=== PATIENT | female | born 1945 | race Caucasian/White ===

== ENCOUNTER 2017-08-30 09:18 | Observation (INO) | payer BC, OTHER ==
[~2017-08-30] VITALS: Ht 160 cm; Wt 75.2 kg
[2017-08-30] MEDS ORDERED: SODIUM CHLORIDE 0.9% 1000ML 1,000 ML IV STA (09:45)
[2017-08-30] MEDS ORDERED: ONDANSETRON INJ 2 MG/ML 2 ML VIAL IV STA ×2 (09:45→11:07)
--- NOTE | 2017-08-30 09:47 | EMERGENCY ROOM VISIT NOTE ---
History Report prepared by Criss: Mildred Guadarrama Under the Supervision of: Dr. Eric Alvares D.O. First contact with patient: 09:35 Chief Complaint: FLANK PAIN Stated Complaint: PAIN WHEN GOING TO THE BATHROOM,SIDE PAIN History of Present Illness The patient is a 72 year old female who presents to the Emergency Room with complaints of worsening right flank pain since last night. She is accompanied by her and daughter. She rates her discomfort as a 10/10 in severity. Tylenol has provided no pain relief. She complains of increased urinary frequency and dysuria. Her urine has been dark yellow in color. She also complains of nausea but has not vomited. The patient underwent a colonoscopy approximately 6 months ago and states she had several polyps removed. She denies any recent rectal bleeding. She states she has no chronic medical problems. Her PCP is Dr. De La Rosa with [facility]. The patient takes no daily blood thinners. Source of History: patient Onset: last night Position: back (right sided flank) Symptom Intensity: 10/10 Timing: worsening Modifying Factors (Relieving): tylenol Associated Symptoms: + nausea, + urinary symptoms, No vomiting Review of Systems See HPI for pertinent positives & negatives. A total of 10 systems reviewed and were otherwise negative. Past Medical & Surgical Medical Problems: (1) Colonic polyp (2) Hydronephrosis due to obstruction of ureter (3) Ureteric calculus (4) UTI (urinary tract infection) Surgical Problems: (1) History of hysterectomy Social History Smoking Status: Never Smoker Alcohol Use: none Drug Use: none Marital Status: Housing Status: lives with family Occupation Status: retired Current/Historical Medications Scheduled PRN Clonazepam (Klonopin), PO HS PRN for Anxiety and/or Sedation Allergies Coded Allergies: No Known Allergies (Unverified , 08/30/17) Physical Exam Vital Signs Date Time Temp Pulse Resp B/P (MAP) Pulse Ox O2 Delivery O2 Flow Rate FiO2 08/30/17 12:19 79 08/30/17 11:59 72 20 81/49 98 Room Air 08/30/17 10:42 84 08/30/17 10:41 82 18 99/55 95 Room Air 08/30/17 09:30 36.3 64 24 132/75 99 Room Air Physical Exam GENERAL: Patient is awake, alert, very anxious appearing and appears to be uncomfortable EYES: The conjunctivae are clear. The pupils are round and reactive. EARS, NOSE, MOUTH AND THROAT: The nose is without any evidence of any deformity. Mucous membranes are moist tongue is midline NECK: The neck is nontender and supple. RESPIRATORY: Normal respiratory effort is noted there is no evidence of wheezing rhonchi or rales CARDIOVASCULAR: Regular rate and rhythm noted there no murmurs rubs or gallops normal S1 normal S2 GASTROINTESTINAL: The abdomen is mildly distended but soft. No guarding or rigidity noted. BACK: Mild right sided CVA tenderness to percussion. ROM appeared intact. MUSCULOSKELETAL/EXTREMITIES: There is no evidence of gross deformity full range of motion is noted in the hips and shoulders SKIN: There is no obvious evidence of any rash. There are no petechiae, pallor or cyanosis noted. NEUROLOGIC: Patient is awake alert and oriented x3 Medical Decision & Procedures ER Provider Diagnostic Interpretation: Radiology results as stated below per my review and radiologist interpretation: CT SCAN OF THE ABDOMEN AND PELVIS WITHOUT IV CONTRAST CLINICAL HISTORY: Right-sided abdominal pain. COMPARISON STUDY: No priors. TECHNIQUE: CT scan of the abdomen and pelvis is performed from the lung bases to the proximal femora. Images are reviewed in the axial, sagittal, and coronal planes. IV contrast was not administered for this examination as per the referring clinician. A dose lowering technique was utilized adhering to the principles of ALARA. CT DOSE: 479.70 mGy.cm FINDINGS: Lung bases: The heart is normal in size and without pericardial effusion. A fat-containing Bochdalek hernia is seen at the right lung base. No airspace consolidation or pleural effusion is seen. A tiny hiatal hernia is identified. Liver: The unenhanced liver is normal in size, contour, and attenuation. There is no intrahepatic biliary ductal dilatation. Gallbladder: Unremarkable. Spleen: Normal in size and attenuation. There are scattered calcified splenic granulomas. Pancreas: Unenhanced pancreas is moderately atrophic and grossly unremarkable. Adrenal glands: Unremarkable. Kidneys: The unenhanced kidneys demonstrate cortical atrophy. There is a 6 mm obstructing calculus protruding from the right vesicoureteral junction seen on image #342. This causes moderate right hydroureteronephrosis. There is associated right-sided perinephric and periureteric stranding. No additional calculi are identified in either kidney. There is no evidence of contour deforming renal mass lesion. Abdominal vasculature: The abdominal aorta is normal in course and caliber noting mild atherosclerotic calcification. Bowel: There are scattered colonic diverticula without CT evidence of acute diverticulitis. No bowel obstruction is seen. A 15 mm fat attenuation lesion adjacent to the sigmoid colon on image #310 likely represents a chronically torsed epiploic appendage The appendix is well-visualized and normal. Peritoneum: There is no intraperitoneal free air or abdominal ascites. Lymphadenopathy: None. Pelvic viscera: The bladder is decompressed. The bladder wall appears mildly thickened and there is faint pericholecystic stranding. The uterus is surgically absent. No adnexal lesion is seen. Findings suggest pelvic floor prolapse. Skeletal structures: The skeletal structures are osteopenic. There is mild lumbosacral spondylosis. No lytic or blastic lesions are seen. IMPRESSION: 1. A 6 mm obstructing calculus protrudes from the right vesicoureteral junction. This causes moderate right hydroureteronephrosis. 2. No additional renal calculi are seen in either kidney. 3. Although decompressed, the bladder wall appears mildly thickened and pericystic stranding is suggested. Correlation with urinalysis will be required. 4. Additional findings as above. Electronically signed by: Jerardo Stephens M.D. 08/30/2017 10:28 AM Laboratory Results 08/30/17 10:00 Red Blood Count 4.18, Mean Corpuscular Volume 87.3, Mean Corpuscular Hemoglobin 28.0, Mean Corpuscular Hemoglobin Concent 32.1, Mean Platelet Volume 13.2, Neutrophils (%) (Auto) 72.6, Lymphocytes (%) (Auto) 20.3, Monocytes (%) (Auto) 1.8, Eosinophils (%) (Auto) 4.7, Basophils (%) (Auto) 0.3, Neutrophils # (Auto) 4.82, Lymphocytes # (Auto) 1.35, Monocytes # (Auto) 0.12, Eosinophils # (Auto) 0.31, Basophils # (Auto) 0.02 08/30/17 10:00 Test 08/30/17 10:00 White Blood Count 6.64 K/uL (4.8-10.8) Red Blood Count 4.18 M/uL (4.2-5.4) Hemoglobin 11.7 g/dL (12.0-16.0) Hematocrit 36.5 % (37-47) Mean Corpuscular Volume 87.3 fL (80-100) Mean Corpuscular Hemoglobin 28.0 pg (25-34) Mean Corpuscular Hemoglobin Concent 32.1 g/dl (32-36) Platelet Count 108 K/uL (130-400) Mean Platelet Volume 13.2 fL (7.4-10.4) Neutrophils (%) (Auto) 72.6 % Lymphocytes (%) (Auto) 20.3 % Monocytes (%) (Auto) 1.8 % Eosinophils (%) (Auto) 4.7 % Basophils (%) (Auto) 0.3 % Neutrophils # (Auto) 4.82 K/uL (1.4-6.5) Lymphocytes # (Auto) 1.35 K/uL (1.2-3.4) Monocytes # (Auto) 0.12 K/uL (0.11-0.59) Eosinophils # (Auto) 0.31 K/uL (0-0.5) Basophils # (Auto) 0.02 K/uL (0-0.2) RDW Standard Deviation 48.0 fL (36.4-46.3) RDW Coefficient of Variation 15.2 % (11.5-14.5) Immature Granulocyte % (Auto) 0.3 % Immature Granulocyte # (Auto) 0.02 K/uL (0.00-0.02) Platelet Estimate DECREASED Urine Color YELLOW Urine Appearance CLEAR (CLEAR) Urine pH 8.0 (4.5-7.5) Urine Specific Terrell 1.025 (1.000-1.030) Urine Protein NEG (NEG) Urine Glucose (UA) NEG (NEG) Urine Ketones NEG (NEG) Urine Occult Blood 2+ (NEG) Urine Nitrite POS (NEG) Urine Bilirubin NEG (NEG) Urine Urobilinogen NEG (NEG) Urine Leukocyte Esterase MODERATE (NEG) Urine WBC (Auto) >30 /hpf (0-5) Urine RBC (Auto) 5-10 /hpf (0-4) Urine Hyaline Casts (Auto) 10-30 /lpf (0-5) Urine Epithelial Cells (Auto) >30 /lpf (0-5) Urine Bacteria (Auto) 4+ (NEG) Urine Yeast (Auto) (NONE PRSENT) Anion Gap 6.0 mmol/L (3-11) Est Creatinine Clear Calc Drug Dose 44.6 ml/min Estimated GFR () 58.3 Estimated GFR (Non- 50.3 BUN/Creatinine Ratio 21.8 (10-20) Calcium Level 9.1 mg/dl (8.5-10.1) Total Bilirubin 0.7 mg/dl (0.2-1) Direct Bilirubin 0.1 mg/dl (0-0.2) Aspartate Amino Transf (AST/SGOT) 9 U/L (15-37) Alanine Aminotransferase (ALT/SGPT) 18 U/L (12-78) Alkaline Phosphatase 78 U/L (45-117) Total Protein 7.1 gm/dl (6.4-8.2) Albumin 3.9 gm/dl (3.4-5.0) Lipase 261 U/L (73-393) Laboratory results per my review. Medications Administered Medications (Trade) Dose Ordered Sig/[place] Route Start Time Stop Time Status Last Admin Dose Admin Sodium Chloride 1,000 ml @ 999 mls/hr Q1H1M STAT IV 08/30/17 09:45 08/30/17 10:45 DC 08/30/17 09:59 999 MLS/HR Ondansetron HCl (Zofran Inj) 4 mg NOW STAT IV 08/30/17 09:45 08/30/17 09:46 DC 08/30/17 09:58 4 MG Morphine Sulfate (MoRPHine SULFATE INJ) 4 mg Q15M PRN IV 08/30/17 09:45 09/13/17 09:44 08/30/17 11:57 4 MG Ondansetron HCl (Zofran Inj) 4 mg NOW STAT IV 08/30/17 11:07 08/30/17 11:08 DC 08/30/17 11:11 4 MG Ceftriaxone Sodium (Rocephin Inj) 1 gm NOW STAT IV 08/30/17 11:13 08/30/17 11:14 DC 08/30/17 11:54 1 GM ED Course 0942: The patient was evaluated in room C7. A complete history and physical examination were performed. 0945: Morphine Sulfate 4 mg IV, Zofran 4 mg IV, NSS 1000 ml @ 999 mls/hr IV. 1035: I reevaluated the patient. She is still having a lot of pain. 1107: Zofran 4 mg IV. 1113: Rocephin 1 gm IV. 1127: I discussed the patients case with Mary Ann Birch. He recommends I consult with Urology. The patient will be further evaluated. 1143: I discussed the patients case with Mary Ann Hendrix [facility]. The patient will be further evaluated. Medical Decision Prior records/ancillary studies reviewed. Triage Nursing notes reviewed. Additional history obtained from the family. The patient's history was concerning for kidney pain. Differential diagnosis: Etiologies such as renal colic, appendicitis, diverticulitis, mesenteric ischemia, aortic pathology, infections, inflammatory bowel disease, PUD, biliary pathology, UTI, as well as others were entertained. The patient is a 72-year-old female who presented to the emergency department for an evaluation of right flank pain. The patient very significant right flank pain but also urinary pressure. Her overall history and physical exam appeared to be consistent with a urinary tract infection or possibly a kidney stone. The patient was treated with IV fluids IV pain medicine and IV antiemetics. On subsequent reevaluation she was somewhat improved. She was found to have signs of a very large distal ureteral calculus. The patient was treated with IV antibiotics for presumed urinary tract infection. Urine was sent for culture. I discussed the patient's laboratory and radiographic studies with her. Because of her symptoms and her findings of urinary infection I also discussed her case with the on-call [facility] hospitalist as well as the on-call [facility] urologist. They've agreed to evaluate the patient for further management and disposition. I discussed patient's laboratory radiographic studies with her and her family members. Medication Reconcilliation Current Medication List: was personally reviewed by me Consults Time Called: 1123 [facility]ing [facility] Returned Call: 1127 I discussed the patients case with Mary Ann Birch. He recommends I consult with Urology. The patient will be further evaluated. Additional Consults: Time Called: 1140 Consulted Physician: Mary Ann Hendrix [facility] Returned Call: 1143 Additional Comments: I discussed the patients case with Mary Ann Hendrix [facility]. The patient will be further evaluated. Impression Primary Impression: Hydronephrosis Additional Impressions: Kidney stone Pyelonephritis Scribe Attestation The scribe's documentation has been prepared under my direction and personally reviewed by me in its entirety. I confirm that the note above accurately reflects all work, treatment, procedures, and medical decision making performed by me. Departure Information Dispostion Being Evaluated By Hospitalist Referrals No Doctor, Assigned (PCP) Patient Instructions My [facility] Health Problem Qualifiers Primary Impression: Hydronephrosis Hydronephrosis type: with ureteral calculous obstruction Qualified Codes: N13.2 - Hydronephrosis with renal and ureteral calculous obstruction
[2017-08-30] MEDS: MoRPHine SULFATE 4 MG/ML 1 ML CARP\\VIAL IV PRN ×4 (09:59→12:33)
[2017-08-30 10:17] LABS: MEAN CORPUSCULAR HGB CONC 32.1 g/dl (32-36)
--- NOTE | 2017-08-30 10:29 | DIAGNOSTIC IMAGING REPORT ---
CT SCAN OF THE ABDOMEN AND PELVIS WITHOUT IV CONTRAST CLINICAL HISTORY: Right-sided abdominal pain. COMPARISON STUDY: No priors. TECHNIQUE: CT scan of the abdomen and pelvis is performed from the lung bases to the proximal femora. Images are reviewed in the axial, sagittal, and coronal planes. IV contrast was not administered for this examination as per the referring clinician. A dose lowering technique was utilized adhering to the principles of ALARA. CT DOSE: 479.70 mGy.cm FINDINGS: Lung bases: The heart is normal in size and without pericardial effusion. A fat-containing Bochdalek hernia is seen at the right lung base. No airspace consolidation or pleural effusion is seen. A tiny hiatal hernia is identified. Liver: The unenhanced liver is normal in size, contour, and attenuation. There is no intrahepatic biliary ductal dilatation. Gallbladder: Unremarkable. Spleen: Normal in size and attenuation. There are scattered calcified splenic granulomas. Pancreas: Unenhanced pancreas is moderately atrophic and grossly unremarkable. Adrenal glands: Unremarkable. Kidneys: The unenhanced kidneys demonstrate cortical atrophy. There is a 6 mm obstructing calculus protruding from the right vesicoureteral junction seen on image #342. This causes moderate right hydroureteronephrosis. There is associated right-sided perinephric and periureteric stranding. No additional calculi are identified in either kidney. There is no evidence of contour deforming renal mass lesion. Abdominal vasculature: The abdominal aorta is normal in course and caliber noting mild atherosclerotic calcification. Bowel: There are scattered colonic diverticula without CT evidence of acute diverticulitis. No bowel obstruction is seen. A 15 mm fat attenuation lesion adjacent to the sigmoid colon on image #310 likely represents a chronically torsed epiploic appendage The appendix is well-visualized and normal. Peritoneum: There is no intraperitoneal free air or abdominal ascites. Lymphadenopathy: None. Pelvic viscera: The bladder is decompressed. The bladder wall appears mildly thickened and there is faint pericholecystic stranding. The uterus is surgically absent. No adnexal lesion is seen. Findings suggest pelvic floor prolapse. Skeletal structures: The skeletal structures are osteopenic. There is mild lumbosacral spondylosis. No lytic or blastic lesions are seen. IMPRESSION: 1. A 6 mm obstructing calculus protrudes from the right vesicoureteral junction. This causes moderate right hydroureteronephrosis. 2. No additional renal calculi are seen in either kidney. 3. Although decompressed, the bladder wall appears mildly thickened and pericystic stranding is suggested. Correlation with urinalysis will be required. 4. Additional findings as above. Electronically signed by: Jerardo Stephens M.D. 08/30/2017 10:28 AM Dictated Date/Time: 08/30/2017 10:22 AM
[2017-08-30] MEDS ORDERED: KLN/5 PO (10:31)
[2017-08-30 10:34] LABS: ALBUMIN 3.9 gm/dl (3.4-5.0); CALCIUM 9.1 mg/dl (8.5-10.1); CREATININE 1.09 mg/dl (0.60-1.20)
[2017-08-30 10:37] LABS: TOTAL PROTEIN 7.1 gm/dl (6.4-8.2)
[2017-08-30 10:42] LABS: HEMATOCRIT 36.5 % (37-47); HEMOGLOBIN 11.7 g/dL (12.0-16.0); MEAN CELL VOLUME 87.3 fL (80-100); RED CELL DISTRIBUTION WIDTH CV 15.2 % (11.5-14.5); WHITE BLOOD COUNT 6.64 K/uL (4.8-10.8)
[2017-08-30 10:45] LABS: BASO % 0.3 %; BASO ABS # 0.02 K/uL (0-0.2); EOS % 4.7 %; EOS ABS # 0.31 K/uL (0-0.5); IG# 0.02 K/uL (0.00-0.02); LYMPH % 20.3 %; LYMPH ABS # 1.35 K/uL (1.2-3.4); MEAN PLATELET VOLUME 13.2 fL (7.4-10.4); MONO % 1.8 %; MONO ABS # 0.12 K/uL (0.11-0.59); NEUT % 72.6 %; NEUT ABS # 4.82 K/uL (1.4-6.5); PLATELET COUNT 108 K/uL (130-400)
[2017-08-30] MEDS ORDERED: CEFTRIAXONE SOD INJ 1 GM ADDVIAL IV STA (11:13)
[2017-08-30] MEDS ORDERED: ONDANSETRON INJ 2 MG/ML 2 ML VIAL IV PRN (12:00)
[2017-08-30] MEDS ORDERED: CLONAZEPAM 0.5 MG TAB PO PRN (12:00)
[2017-08-30] MEDS ORDERED: IV FLUIDS COMPLETED PRN (12:45)
--- NOTE | 2017-08-30 12:53 | HISTORY & PHYSICAL EXAMINATION ---
DATE OF ADMISSION: 08/30/2017 PRIMARY CARE PHYSICIAN: Dr. De La Rosa. CHIEF COMPLAINT: Lower abdominal pressure, difficulty in urination with pain. HISTORY OF PRESENT COMPLAINT: She is a 72-year-old female with significant past medical history including panic disorder, hyperlipidemia and GERD, apparently has been complaining of lower abdominal pressure and pain in the right lower abdomen, since last night. She has had problem with voiding and she has had pain when making urine. Her pain is mostly in the right lower back that goes down to the right groin area. She feels weak and tired and she has had nausea, especially following administration of medication in the ER. She generally weak and lethargic and she feels dry; no fever, chills or rigors. In the Emergency Room, she was hemodynamically stable. She was afebrile with normal white count, but CAT scan of the abdomen and pelvis did show a right-sided ureteric stone obstructing the ureter with hydronephrosis and may have infection as well. From that point, she was admitted to medical floor. PAST MEDICAL HISTORY: Significant for panic disorder, hyperlipidemia and also GERD. PAST SURGICAL HISTORY: Significant for total abdominal hysterectomy with removal of tubes. FAMILY HISTORY: Father did have Alzheimer disease and sister has Alzheimer disease. SOCIAL HISTORY: She is . She lives with her . She never smoked or used any alcohol and she is reasonably ambulant. ALLERGIES: NKDA. MEDICATIONS: Noted in the chart only Klonopin, but she has been taking docusate sodium 100 mg b.i.d., MiraLax 1 packet daily, Zofran 8 mg as directed, Melatonin 5 mg daily, buspirone 15 mg at bedtime, cholecalciferol 10,000 units daily, atorvastatin 40 mg daily, ranitidine 150 mg daily, and Fosamax 70 mg every week. REVIEW OF SYSTEMS: CENTRAL NERVOUS SYSTEM: No headache, no blurred vision, numbness or tingling. RESPIRATORY: No fever, chills or rigors. No cough or phlegm or shortness of breath. CARDIOVASCULAR: No chest pain, palpitation. GASTROINTESTINAL: Did have lower abdominal pain and right lower quadrant pain as well, radiation to the groin on the right side. GENITOURINARY: Did not have any issue with bowel but did have difficulty voiding with some pain on micturition. MUSCULOSKELETAL: No acute arthritis. SKIN: Generally, she did not have any rash and/or enlargement of lymph nodes. PHYSICAL EXAMINATION: GENERAL: On examination in the Emergency Room, she was complaining of some dryness of the mouth and some nausea, but no other acute distress. VITAL SIGNS: Temperature 36.3, pulse was 84, blood pressure 99/55, saturation 95% on room air. HEENT: Unremarkable. NECK: Supple. No JVD, no bruit. CHEST: Clear to auscultate bilaterally. HEART: S1, S2 regular. No murmur appreciated. ABDOMEN: Soft, benign, mildly tender in the hypogastrium, right renal angle was tender. Bowel sounds present. EXTREMITIES: Negative for any edema. MUSCULOSKELETAL SYSTEM: Did not show any acute arthritis involving any joint. CENTRAL NERVOUS SYSTEM: She was alert, awake, oriented x3. No focal sensory and/or motor deficit appreciated. LABORATORY DATA: Noted today - white count was 6.64, H&H 11.7/36.5, platelets was 108, sodium 138, potassium 4.0, chloride 105, carbon dioxide 27, BUN slightly high at 24, creatinine 1.09, glucose was 105. LFTs normal. Lipase 261. UA examination showed occult blood 2+, leukocyte esterase moderate, bacteria 4+, white count more than 30. IMAGING DATA: CT of the abdomen and pelvis reported as 6 mm nonobstructing calculus protrudes from the right vesicoureteral junction, moderate hydronephrosis in the right side, bladder wall appears mildly thickened and pericystic stranding is suggested, may have cystitis as well. IMPRESSION AND PLAN: 1. Right hydronephrosis secondary to ureteric stone. The patient may have pyelonephritis, will be admitted to medical floor. She was started with intravenous ceftriaxone and will continue with that. She will be given IV fluid to combat mild dehydration, pain medications as needed. Urology consulted. 2. Urinary tract infection, seems to be complicated. Again, urine culture will be sent and she was started with intravenous ceftriaxone and will continue with that. She will be given IV fluid as well. 3. Panic disorder. Has been on medication lisinopril and BuSpar, will continue with that. 4. Gastrointestinal prophylaxis with ranitidine. 5. Deep venous thrombosis prophylaxis with subcutaneous heparin. 6. Code status: I have discussed with the patient, she will be a full code. In my clinical assessment, the beneficiary meets criteria as per CMS for 2-midnight stay in the hospital. SIGRID
[2017-08-30 13:44] VITALS: BP 121/73; PULSE 82; TEMP 36.6; O2SAT 91; Ht 160 cm; Wt 75.2 kg
[2017-08-30] MEDS: SODIUM CHLORIDE 0.9% 1000ML 1,000 ML IV SCH ×2 (15:09→21:54)
[2017-08-30] MEDS: KETOROLAC TROMETHAMINE 15 MG/ML VIAL IV PRN ×2 (15:09→21:55)
[2017-08-30 15:20] VITALS: BP 98/62; PULSE 69; TEMP 36.7; O2SAT 92
[2017-08-30] MEDS: HEPARIN SOD 5000 UNIT/0.5 ML CARP SQ SCH ×2 (15:33→21:53)
--- NOTE | 2017-08-30 17:26 | Urology Consultation ---
History General Date of Service: Aug 30, 2017. Primary Care Physician: Vandana Bales Pt seen a urologist before?: No History of Present Illness 72-year-old female who begain having severe right sided flank pain last night. She described the pain as dull and sharp. The pain began in the right flank and then radiated to the right groin. She had some difficulty with urination. Trouble making urine. No hematuria. No dysuria. She also reports fatigue and low energy. Nausea. Min urge and freq. She was brought to the ED. No fever noted. A CT scan was performed. This showed a 6mm stone in the right UVJ. Mod hydro. Stone appeared to be very close to the bladder. She was admitted to the hospital for further evaluation and possible intervention. UA susp for possible infx. WBC and Cr normal. Laboratory Labs were reviewed and are within normal limits unless listed below. Labs are available in the chart and at [facility] Problem List Medical Problems: (1) Hydronephrosis Status: Acute (2) Kidney stone Status: Acute (3) Pyelonephritis Status: Acute Past History other Past Surgical History: other Social History Hx Tobacco Use In Past Year?: No Smoking: non-smoker Alcohol: no current use Marital status: Occupation status: retired History of MDRO No Allergies Coded Allergies: No Known Allergies (Unverified , 08/30/17) Medications Home Medications: Home Meds and Scripts Medications Dose Route/Sig Max Daily Dose Days Date Category Dose Instructions Klonopin (Clonazepam) 0.5 Mg Tab PO HS PRN 08/30/17 Reported PATIENT IS UNSURE OF DOSE Inpatient Medications: Current Inpatient Medications Medications (Trade) Dose Ordered Sig/[place] Route Start Time Stop Time Status Last Admin Dose Admin Heparin Sodium (Porcine) (Heparin Sq 5000 Unit/0.5ml) 5,000 unit Q8 SQ 08/30/17 15:00 09/29/17 14:59 08/30/17 15:33 5,000 UNIT Ondansetron HCl (Zofran Inj) 4 mg Q6H PRN IV 08/30/17 12:00 09/29/17 11:59 Clonazepam (Klonopin Tab) 0.5 mg HS PRN PO 08/30/17 12:00 09/29/17 11:59 Ceftriaxone Sodium 1 gm/ Dextrose 50 ml @ 100 mls/hr DAILY@0900 IV 08/31/17 09:00 09/10/17 08:59 Sodium Chloride 1,000 ml @ 100 mls/hr Q10H IV 08/30/17 15:00 08/31/17 10:59 08/30/17 15:09 100 MLS/HR Ketorolac Tromethamine (Toradol Inj) 15 mg Q6H PRN IV 08/30/17 12:15 09/04/17 12:14 08/30/17 15:09 15 MG Miscellaneous (Iv Fluids Completed) 1 ea PRN PRN N/A 08/30/17 12:45 08/30/18 12:44 Review of Systems Review of Systems Constitutional: No fever Gastrointestinal: + abdominal pain Cardiovascular: No chest pain Respiratory: No shortness of breath Skin: No rash Female : + frequent urination, + kidney stones All Other Systems: Reviewed and Negative Physical Exam Vital Signs: Vital Signs Past 12 Hours Date Time Temp Pulse Resp B/P (MAP) Pulse Ox O2 Delivery O2 Flow Rate FiO2 08/30/17 15:20 36.7 69 18 98/62 (74) 92 Room Air 08/30/17 13:44 36.6 82 18 121/73 91 Room Air 08/30/17 13:28 91 20 103/58 97 Room Air 08/30/17 12:37 83 20 108/60 97 Room Air 08/30/17 12:19 79 08/30/17 11:59 72 20 81/49 98 Room Air 08/30/17 10:42 84 08/30/17 10:41 82 18 99/55 95 Room Air 08/30/17 09:30 36.3 64 24 132/75 99 Room Air Physical Exam: General Appearance: WD/WN, no apparent distress ENT: normal ENT inspection, hearing grossly normal Neck: no adenopathy Respiratory/Chest: chest non-tender, lungs clear Cardiovascular: regular rate, rhythm, no edema Neurologic/Psychiatric: alert, oriented x 3 Skin: warm/dry Lymphatic: no adenopathy Assessment & Plan Assessment & Plan (1) Ureteric calculus (2) UTI (urinary tract infection) Pt has a 6mm stone at the Right UVJ. Moderate hydro. It is possible that she will be able to pass the stone on her own given that it is already so distal. IV fluids. Flomax. Antibiotics. Pain control. If the patient is unable to pass the stone overnight then we may decide to take the patient to the OR for Ureteroscopy, Stone Extraction, and Stent Placement. Will re-eval in the AM.
[2017-08-30 22:55] VITALS: BP 94/57; PULSE 75; TEMP 36.4; O2SAT 96
[2017-08-31] MEDS: HEPARIN SOD 5000 UNIT/0.5 ML CARP SQ SCH ×3 (05:25→21:36)
[2017-08-31 06:27] LABS: CREATININE 0.8 mg/dl (0.60-1.20); POTASSIUM 3.9 mmol/L (3.5-5.1)
[2017-08-31 06:38] LABS: HEMATOCRIT 27.9 % (37-47); HEMOGLOBIN 9.3 g/dL (12.0-16.0); MEAN CELL VOLUME 88.6 fL (80-100); MEAN CORPUSCULAR HEMOGLOBIN 29.5 pg (25-34); MEAN CORPUSCULAR HGB CONC 33.3 g/dl (32-36); MEAN PLATELET VOLUME 12.6 fL (7.4-10.4); PLATELET COUNT 111 K/uL (130-400); RED CELL DISTRIBUTION WIDTH CV 15.6 % (11.5-14.5); RED CELL DISTRIBUTION WIDTH SD 50.1 fL (36.4-46.3)
[2017-08-31 07:02] VITALS: BP 95/58; PULSE 82; TEMP 36.8; O2SAT 94
[2017-08-31] MEDS: KETOROLAC TROMETHAMINE 15 MG/ML VIAL IV PRN ×3 (07:51→19:59)
[2017-08-31] MEDS: CEFTRIAXONE SOD INJ 1 GM in DEXTROSE 5% ADD-VANTAGE 50ML 50 ML IV SCH (08:27)
[2017-08-31] MEDS ORDERED: HYDROmorphone INJ 1 MG/ML SYR IV PRN (09:45)
--- NOTE | 2017-08-31 11:32 | Progress Note ---
Subjective Date of Service: Aug 31, 2017. Subjective Still having some voiding sxs. Urge. Freq. Hesitancy. Occ pain in lower quad/flank. Controlled with meds. Cr stable and normal WBC stable and normal Hasn't passed the stone yet. Problem List Medical Problems: (1) Hydronephrosis Status: Acute (2) Kidney stone Status: Acute (3) Pyelonephritis Status: Acute Review of Systems Constitutional: No fever, No chills Respiratory: No cough Cardiac: No chest pain Abdomen: + pain Objective Vital Signs Date Time Temp Pulse Resp B/P (MAP) Pulse Ox O2 Delivery O2 Flow Rate FiO2 08/31/17 07:30 Room Air 08/31/17 07:02 36.8 82 19 95/58 (70) 94 Room Air 08/31/17 00:00 Room Air 08/30/17 22:55 36.4 75 18 94/57 (69) 96 Room Air 08/30/17 15:20 36.7 69 18 98/62 (74) 92 Room Air 08/30/17 14:30 Room Air 08/30/17 13:44 36.6 82 18 121/73 91 Room Air 08/30/17 13:28 91 20 103/58 97 Room Air 08/30/17 12:37 83 20 108/60 97 Room Air 08/30/17 12:19 79 08/30/17 11:59 72 20 81/49 98 Room Air Physical Exam General Appearance: WD/WN, no apparent distress Respiratory/Chest: chest non-tender Cardiovascular: regular rate, rhythm Abdomen: normal bowel sounds Laboratory Results Last 24 Hours Test 08/30/17 14:44 08/31/17 05:19 Prothrombin Time 10.4 SECONDS Prothromb Time International Ratio 1.0 White Blood Count 9.80 K/uL Red Blood Count 3.15 M/uL Hemoglobin 9.3 g/dL Hematocrit 27.9 % Mean Corpuscular Volume 88.6 fL Mean Corpuscular Hemoglobin 29.5 pg Mean Corpuscular Hemoglobin Concent 33.3 g/dl RDW Standard Deviation 50.1 fL RDW Coefficient of Variation 15.6 % Platelet Count 111 K/uL Mean Platelet Volume 12.6 fL Sodium Level 140 mmol/L Potassium Level 3.9 mmol/L Chloride Level 110 mmol/L Carbon Dioxide Level 24 mmol/L Anion Gap 6.0 mmol/L Blood Urea Nitrogen 22 mg/dl Creatinine 0.80 mg/dl Est Creatinine Clear Calc Drug Dose 60.8 ml/min Estimated GFR () 84.8 Estimated GFR (Non- 73.1 BUN/Creatinine Ratio 27.1 Random Glucose 98 mg/dl Calcium Level 8.0 mg/dl Assessment and Plan (1) Ureteric calculus (2) UTI (urinary tract infection) Still hasn't passed the stone. It is close. Still may be able to pass it on her own. Continue IV fluids and Flomax. Pain control. Dr. Carty is back tomorrow. If stone still hasn't passed, may consider Uscope at that time.
[2017-08-31 15:28] VITALS: BP 93/55; PULSE 74; TEMP 36.6; O2SAT 93
--- NOTE | 2017-08-31 16:01 | Progress Note ---
Internal Med Progress Note Date of Service: Aug 31, 2017. Provider Documentation: SUBJECTIVE: not passed stone yet pain is controlled with pain meds no nausea afebrile no sob OBJECTIVE: Vital Signs-as noted below Exam: General-alert and oriented. Not in distress ENT-Normal hearing Neck-no neck masses supple Lungs-cta b/l no wheezing no crackles Heart-S1 and S2 heard regular rate and rthym, no murmurs Abdomen-Soft bowel sounds present non tender no distension no cva tenderness Extremities-No edema no erythema Neuro-alert and awake moves extremities Lab data as noted below. ASSESSMENT & PLAN: 1. Right hydronephrosis secondary to ureteric stone. Pyelonephritis? but no leukocytosis. cx no growth so far on Rocephin fluids and Flomax 6mm stone at right vesicoureteral junction. trying to pass If not passed by tomorrow plan for cystoscopy as per urology 2. Urinary tract infection, seems to be complicated. on abx as above cx no growth so far 3. Panic disorder. On Klonopin prn 4. Gastrointestinal prophylaxis with ranitidine. 5. Deep venous thrombosis prophylaxis with subcutaneous heparin. DISPOSITION monitor in medical floor possible d/c in 1-2 days Vital Signs: Date Time Temp Pulse Resp B/P (MAP) Pulse Ox O2 Delivery O2 Flow Rate FiO2 08/31/17 15:28 36.6 74 18 93/55 (68) 93 Room Air 08/31/17 07:30 Room Air 08/31/17 07:02 36.8 82 19 95/58 (70) 94 Room Air 08/31/17 00:00 Room Air 08/30/17 22:55 36.4 75 18 94/57 (69) 96 Room Air Lab Results: Results Past 24 Hours Test 08/31/17 05:19 Range/Units White Blood Count 9.80 4.8-10.8 K/uL Red Blood Count 3.15 4.2-5.4 M/uL Hemoglobin 9.3 12.0-16.0 g/dL Hematocrit 27.9 37-47 % Mean Corpuscular Volume 88.6 80-100 fL Mean Corpuscular Hemoglobin 29.5 25-34 pg Mean Corpuscular Hemoglobin Concent 33.3 32-36 g/dl RDW Standard Deviation 50.1 36.4-46.3 fL RDW Coefficient of Variation 15.6 11.5-14.5 % Platelet Count 111 130-400 K/uL Mean Platelet Volume 12.6 7.4-10.4 fL Sodium Level 140 136-145 mmol/L Potassium Level 3.9 3.5-5.1 mmol/L Chloride Level 110 98-107 mmol/L Carbon Dioxide Level 24 21-32 mmol/L Anion Gap 6.0 3-11 mmol/L Blood Urea Nitrogen 22 7-18 mg/dl Creatinine 0.80 0.60-1.20 mg/dl Est Creatinine Clear Calc Drug Dose 60.8 ml/min Estimated GFR () 84.8 Estimated GFR (Non- 73.1 BUN/Creatinine Ratio 27.1 10-20 Random Glucose 98 70-99 mg/dl Calcium Level 8.0 8.5-10.1 mg/dl
[2017-08-31] MEDS: SODIUM CHLORIDE 0.9% 1000ML 1,000 ML IV SCH (16:36)
[2017-08-31 22:47] VITALS: BP 108/64; PULSE 78; TEMP 36.5; O2SAT 95
[2017-09-01] MEDS: SODIUM CHLORIDE 0.9% 1000ML 1,000 ML IV SCH ×2 (00:13→10:55)
[2017-09-01] MEDS: HEPARIN SOD 5000 UNIT/0.5 ML CARP SQ SCH ×2 (05:23→13:33)
[2017-09-01] MEDS: KETOROLAC TROMETHAMINE 15 MG/ML VIAL IV PRN (05:29)
[2017-09-01 07:48] VITALS: BP 122/72; PULSE 83; TEMP 36.6; O2SAT 96
[2017-09-01] MEDS ORDERED: OXYCODONE/ACETAMINOPHEN 5-325 TAB PO PRN (10:30)
--- NOTE | 2017-09-01 10:36 | Progress Note ---
Subjective Date of Service: Sep 01, 2017. Subjective Pt evaluation today including: conversation w/ patient, physical exam, chart review, lab review, conversation w/ sales enablement consultant Voiding: no voiding problems Patient continues with pelvic and bladder pressure. Has not passed stone yet. Is not having much pain. Has had iv toradol this am only. No nausea. Is very motivated to go home. Problem List Medical Problems: (1) Hydronephrosis Status: Acute (2) Kidney stone Status: Acute (3) Pyelonephritis Status: Acute Review of Systems Constitutional: No fatigue Cardiac: No chest pain, No palpitations Female : + urinary frequency Psychiatric: + anxiety Heme: No night sweats Endo: No fatigue Objective Vital Signs Date Time Temp Pulse Resp B/P (MAP) Pulse Ox O2 Delivery O2 Flow Rate FiO2 09/01/17 08:00 Room Air 09/01/17 07:48 36.6 83 16 122/72 (89) 96 Room Air 09/01/17 00:00 Room Air 08/31/17 22:47 36.5 78 18 108/64 (79) 95 Room Air 08/31/17 15:40 Room Air 08/31/17 15:28 36.6 74 18 93/55 (68) 93 Room Air Physical Exam General Appearance: WD/WN, no apparent distress, + obese Eyes: normal inspection, EOMI ENT: hearing grossly normal Neck: supple, no JVD, trachea midline Respiratory/Chest: normal breath sounds, no respiratory distress, no accessory muscle use Cardiovascular: regular rate, rhythm Abdomen: soft Extremities: non-tender, normal inspection, no pedal edema, no calf tenderness Neurologic/Psychiatric: no motor/sensory deficits, alert, normal mood/affect, oriented x 3 Skin: normal color, warm/dry, no rash Assessment and Plan right uvj stone I showed the ct scan to pt and her . stones in this location usually pass. She looks very comfortable now. Surgery will cause additional pain for another 2 days post-op. I strongly suggest observation with daily flomax. She wants to go home. Her anxiety is worsened by being in the hospital. We agree to try to manage for the next 6 hours with oral pain meds only. If successful then send home on daily flomax with oral pain meds to try to pass stone at home She will need a hat for toilet and a strainer. I will see her next week in [facility] clinic to assess progress If her pain returns today and oral pain meds cant control it then we can keep her and remove the stone tomorrow evening.
[2017-09-01] MEDS: CEFTRIAXONE SOD INJ 1 GM in DEXTROSE 5% ADD-VANTAGE 50ML 50 ML IV SCH (10:56)
[2017-09-01 11:43] VITALS: BP 118/70; PULSE 74; TEMP 36.7; O2SAT 95
[2017-09-01 15:04] VITALS: BP 135/83; PULSE 71; TEMP 36.6; O2SAT 93
[2017-09-01] MEDS ORDERED: OXYC-57 PO (16:37)
[2017-09-01] MEDS ORDERED: TAMS0.4C38 PO (16:37)
[2017-09-01] MEDS ORDERED: CEPH500C2 PO (16:37)
[2017-09-01 16:40] VITALS: BP 135/83; PULSE 71; TEMP 36.6; O2SAT 93
--- NOTE | 2017-09-01 16:40 | Discharge Instructions ---
Discharge Instructions Date of Service Sep 01, 2017. Admission Reason for Admission: Hydronephrosis Due To Obstruction Of Ureter Discharge Discharge Diagnosis / Problem: Hydronephrosis Due To Obstruction Of Ureter, kidney stone Discharge Goals Goal(s): Decrease discomfort, Improve function Activity Recommendations Activity Limitations: resume your previous activity . Instructions / Follow-Up Instructions / Follow-Up FOLLOWUP WITH FAMILY DOCTOR ON Aug AT 10:05AM FOLLOWUP WITH UROLOGY IN ONE WEEK AT [facility] ( [address] [place] [id number] ) TO STRAIN ALL THE URINE Current Hospital Diet Patient's current hospital diet: Clear Liquid Diet Discharge Diet Recommended Diet: Regular Diet Pending Studies Studies pending at discharge: no Medical Emergencies . Who to Call and When: Medical Emergencies: If at any time you feel your situation is an emergency, please call 911 immediately. . Non-Emergent Contact Non-Emergency issues call your: Primary Care Provider . . "Provider Documentation" section prepared by Soy Brooks. . VTE Core Measure Inpt VTE Proph given/why not?: Unfractionated heparin SQ (REFUSED)
--- NOTE | 2017-09-01 17:11 | Progress Note ---
Internal Med Progress Note Date of Service: Sep 01, 2017. Provider Documentation: SUBJECTIVE: not passed stone yet pain is under control afebrile no sob plan to pass stone at home ok for discharge OBJECTIVE: Vital Signs-as noted below Exam: General-alert and oriented. Not in distress ENT-Normal hearing Neck-no neck masses supple Lungs-cta b/l no wheezing no crackles Heart-S1 and S2 heard regular rate and rthym, no murmurs Abdomen-Soft bowel sounds present non tender no distension no cva tenderness Extremities-No edema no erythema Neuro-alert and awake moves extremities Lab data as noted below. ASSESSMENT & PLAN: 1. Right hydronephrosis secondary to ureteric stone. Pyelonephritis? but no leukocytosis. cx no growth so far on Rocephin fluids and Flomax 6mm stone at right vesicoureteral junction. trying to pass seen by urology- plan to try to pass at home and followup with urology next week d/c on Flomax and pain meds prn 2. Urinary tract infection, seems to be complicated. on abx as above cx gamma strep not enterococcus d/c on kelflex 3. Panic disorder. On Klonopin prn 4. Gastrointestinal prophylaxis with ranitidine. discharged home to followup with pcp and urology Vital Signs: Date Time Temp Pulse Resp B/P (MAP) Pulse Ox O2 Delivery O2 Flow Rate FiO2 09/01/17 16:40 36.6 71 16 93 Room Air 09/01/17 15:04 36.6 71 16 135/83 (100) 93 Room Air 09/01/17 13:47 Room Air 95.0 09/01/17 11:43 36.7 74 14 118/70 (86) 95 Room Air 09/01/17 08:00 Room Air 09/01/17 07:48 36.6 83 16 122/72 (89) 96 Room Air 09/01/17 00:00 Room Air 08/31/17 22:47 36.5 78 18 108/64 (79) 95 Room Air
--- NOTE | 2017-09-01 17:35 | Discharge Summary ---
Discharge Summary Date of Service Sep 01, 2017. Discharge Summary Admission Date: Aug 30, 2017 at 11:57 Discharge Date: Sep 01, 2017 Discharge Disposition: Home Principal Diagnosis: RENAL COLIC Secondary Diagnoses/Problems: panic disorder, hyperlipidemia and also GERD. Procedures: CT ABD/PELVIS: 1. A 6 mm obstructing calculus protrudes from the right vesicoureteral junction. This causes moderate right hydroureteronephrosis. 2. No additional renal calculi are seen in either kidney. 3. Although decompressed, the bladder wall appears mildly thickened and pericystic stranding is suggested. Correlation with urinalysis will be required. Consultations: UROLOGY Medication Reconciliation New Medications: Cephalexin Monohydrate (Keflex) 500 Mg Cap 500 MG PO BID for 3 Days, #6 CAP Tamsulosin Hcl (Flomax) 0.4 Mg Cap 0.4 MG PO DAILY, #30 CAP Oxycodone/Acetaminophen 5MG/325MG (Percocet 5MG/325MG) Tab 1 TAB PO Q6H PRN for Pain, #14 TAB PAIN Continued Medications: Clonazepam (Klonopin) 0.5 Mg Tab PO HS PRN for Anxiety and/or Sedation, TAB PATIENT IS UNSURE OF DOSE Admission Information HPI (per Admitting provider): She is a 72-year-old female with significant past medical history including panic disorder, hyperlipidemia and GERD, apparently has been complaining of lower abdominal pressure and pain in the right lower abdomen, since last night. She has had problem with voiding and she has had pain when making urine. Her pain is mostly in the right lower back that goes down to the right groin area. She feels weak and tired and she has had nausea, especially following administration of medication in the ER. She generally weak and lethargic and she feels dry; no fever, chills or rigors. In the Emergency Room, she was hemodynamically stable. She was afebrile with normal white count, but CAT scan of the abdomen and pelvis did show a right-sided ureteric stone obstructing the ureter with hydronephrosis and may have infection as well. From that point, she was admitted to medical floor Physical Exam (per Admitting): GENERAL: On examination in the Emergency Room, she was complaining of some dryness of the mouth and some nausea, but no other acute distress. VITAL SIGNS: Temperature 36.3, pulse was 84, blood pressure 99/55, saturation 95% on room air. HEENT: Unremarkable. NECK: Supple. No JVD, no bruit. CHEST: Clear to auscultate bilaterally. HEART: S1, S2 regular. No murmur appreciated. ABDOMEN: Soft, benign, mildly tender in the hypogastrium, right renal angle was tender. Bowel sounds present. EXTREMITIES: Negative for any edema. MUSCULOSKELETAL SYSTEM: Did not show any acute arthritis involving any joint. CENTRAL NERVOUS SYSTEM: She was alert, awake, oriented x3. No focal sensory and/or motor deficit appreciated Hospital Course 1. Right hydronephrosis secondary to ureteric stone. Pyelonephritis? but no leukocytosis. cx no growth so far on Rocephin fluids and Flomax 6mm stone at right vesicoureteral junction. trying to pass seen by urology- plan to try to pass at home and followup with urology next week d/c on Flomax and pain meds prn 2. Urinary tract infection, seems to be complicated. on abx as above cx gamma strep not enterococcus d/c on kelflex 3. Panic disorder. On Klonopin prn 4. Gastrointestinal prophylaxis with ranitidine. discharged home to followup with pcp and urology Total time spent on discharge = 35MINUTES This includes examination of the patient, discharge planning, medication reconciliation, and communication with other providers. Discharge Instructions Discharge Instructions Date of Service Sep 01, 2017. Admission Reason for Admission: Hydronephrosis Due To Obstruction Of Ureter Discharge Discharge Diagnosis / Problem: Hydronephrosis Due To Obstruction Of Ureter, kidney stone Discharge Goals Goal(s): Decrease discomfort, Improve function Activity Recommendations Activity Limitations: resume your previous activity . Instructions / Follow-Up Instructions / Follow-Up FOLLOWUP WITH FAMILY DOCTOR ON Aug AT 10:05AM FOLLOWUP WITH UROLOGY IN ONE WEEK AT [facility] ( [address] [place] [address] ) TO STRAIN ALL THE URINE Current Hospital Diet Patient's current hospital diet: Clear Liquid Diet Discharge Diet Recommended Diet: Regular Diet Pending Studies Studies pending at discharge: no Medical Emergencies . Who to Call and When: Medical Emergencies: If at any time you feel your situation is an emergency, please call 911 immediately. . Non-Emergent Contact Non-Emergency issues call your: Primary Care Provider . . "Provider Documentation" section prepared by Soy Brooks. . VTE Core Measure Inpt VTE Proph given/why not?: Unfractionated heparin SQ (REFUSED)
[2017-09-23] MEDS ORDERED: PSEU1TAB2 PO (14:41)
== END 2017-09-01 17:52 | disposition home or self-care (01) ==
LOC: C.EDB 09:19 → C.MSN 11:57 → ENRESERV 13:03
PROVIDERS: ADMIT Internal Medicine; ATTEND Internal Medicine
DX: N13.2 Hydronephrosis with renal and ureteral calculous obstruction (principal); N39.0 Urinary tract infection, site not specified; E78.5 Hyperlipidemia, unspecified; K21.9 Gastro-esophageal reflux disease without esophagitis; R30.9 Painful micturition, unspecified; F41.0 Panic disorder [episodic paroxysmal anxiety]; Z90.710 Acquired absence of both cervix and uterus; Z82.0 Family history of epilepsy and other diseases of the nervous system; Z87.442 Personal history of urinary calculi

== ENCOUNTER 2017-09-22 13:11 | Observation (INO) | payer OTHER ==
[~2017-09-22] VITALS: Ht 160 cm; Wt 74.2 kg
[~2017-09-22 13:11] MED LIST: CLON0.5T3 PO; OXYC-57 PO
[2017-09-22] MEDS ORDERED: ASPIRIN 81 MG CHEW PO STA (13:37)
[2017-09-22 14:39] LABS: BASO ABS # 0.07 K/uL (0-0.2); EOS ABS # 0.35 K/uL (0-0.5); HEMATOCRIT 33.3 % (37-47); IG# 0.01 K/uL (0.00-0.02); LYMPH % 26.5 %; LYMPH ABS # 1.87 K/uL (1.2-3.4); MEAN CELL VOLUME 84.9 fL (80-100); MEAN CORPUSCULAR HEMOGLOBIN 28.1 pg (25-34); MEAN PLATELET VOLUME 11.5 fL (7.4-10.4); MONO % 6.5 %; MONO ABS # 0.46 K/uL (0.11-0.59); NEUT % 60.9 %; NEUT ABS # 4.29 K/uL (1.4-6.5); PLATELET COUNT 162 K/uL (130-400); RED CELL DISTRIBUTION WIDTH CV 14.7 % (11.5-14.5); RED CELL DISTRIBUTION WIDTH SD 45.7 fL (36.4-46.3); WHITE BLOOD COUNT 7.05 K/uL (4.8-10.8)
[2017-09-22 14:55] LABS: ALBUMIN 3.6 gm/dl (3.4-5.0); ALT/SGPT 16 U/L (12-78); BLOOD UREA NITROGEN 20 mg/dl (7-18); CALCIUM 9.2 mg/dl (8.5-10.1); CARBON DIOXIDE 24 mmol/L (21-32); CREATININE 0.95 mg/dl (0.60-1.20); GLUCOSE 136 mg/dl (70-99); POTASSIUM 3.6 mmol/L (3.5-5.1); SODIUM 139 mmol/L (136-145)
--- NOTE | 2017-09-22 14:57 | DIAGNOSTIC IMAGING REPORT ---
HEAD CT NONCONTRAST CT DOSE: 638.56 mGycm HISTORY: near syncope blurred vision TECHNIQUE: Multiaxial CT images of the head were performed without the use of intravenous contrast. Automated exposure control was utilized for this study. A dose lowering technique was utilized adhering to the principles of ALARA. Comparison: None. Findings: Trace fluid within the right maxillary sinus and bubbly secretions within the sphenoid sinuses. The mastoid air cells are clear. The calvarium and skull base are intact. There is no mass, hematoma, midline shift, acute infarct. White matter hypodensity is nonspecific but suggestive of microvascular ischemic change. The ventricles and sulci demonstrate mild age-related involutional changes. 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 Impression: No acute intracranial abnormality. Mild sinus disease as described above. Electronically signed by: Jordan Donohue M.D. 09/22/2017 2:55 PM Dictated Date/Time: 09/22/2017 2:37 PM
[2017-09-22 15:00] LABS: ALKALINE PHOSPHATASE 68 U/L (45-117); AST/SGOT 11 U/L (15-37); TOTAL PROTEIN 6.9 gm/dl (6.4-8.2)
--- NOTE | 2017-09-22 15:16 | DIAGNOSTIC IMAGING REPORT ---
CHEST 2 VIEWS ROUTINE CLINICAL HISTORY: cp dyspnea COMPARISON STUDY: None: FINDINGS: Mild interstitial prominence throughout both hemithoraces. No well-defined focal infiltrate. Heart top normal in terms of size. Mild cardiomegaly. IMPRESSION: Mild interstitial prominence throughout both hemithoraces may indicate a lower airway inflammatory process. No focal infiltrate. The above report was generated using voice recognition software. It may contain grammatical, syntax or spelling errors. Electronically signed by: Fitz Talbert M.D. 09/22/2017 3:15 PM Dictated Date/Time: 09/22/2017 3:13 PM
[2017-09-22] MEDS ORDERED: ALUMINUM/MAGNESIUM/SIMETH (MAALOX MAX) 30 ML UDC PO PRN (16:45)
[2017-09-22] MEDS ORDERED: ACETAMINOPHEN 325 MG TAB PO PRN (16:45)
[2017-09-22] MEDS ORDERED: NITROGLYCERIN 0.4 MG SL PER TAB CHARGE SL PRN (16:45)
[2017-09-22] MEDS ORDERED: POLYETHYLENE (MIRALAX) 17 GM PACK PO PRN (16:45)
[2017-09-22] MEDS ORDERED: MAGNESIUM HYDROXIDE SUSP 30 ML UDC PO PRN (16:45)
[2017-09-22] MEDS ORDERED: ONDANSETRON INJ 2 MG/ML 2 ML VIAL IV PRN (16:45)
--- NOTE | 2017-09-22 16:45 | History and Physical ---
History & Physical Date & Time of Service: Sep 22, 2017 at 16:45 Chief Complaint: Sob, Chest Pain Primary Care Physician: Vandana Bales History of Present Illness Source: patient 72 YO F with medical hx of anxiety disorder , GERD, hyperlipidemia , presented to ER with complain of episodes of dizzy spell , and chest pain Pt mentions she woke up middle of the night feeling the whole room is spinning felt lightheaded, had sharp substernal chest pain later in the morning chest pain was resolved, felt weak and wiped out , SOB , felt like she had to give effort to take a deep breath no problem climbing flight of stairs later in the afternoon had another episode of dizzy spell , no syncope denies of any fever or chills had dry non productive cough since last week with nasal congestion mentions of eating and drinking well no nausea /vomiting or diarrhea no prior hx of CAD , no family hx of heart disease Social History Smoking Status: Never Smoker Drug Use: none Marital Status: Occupational Status: retired Multi-Drug Resistant Organisms History of MDRO: No Allergies Coded Allergies: No Known Allergies (Unverified , 09/22/17) Home Medications Scheduled Alendronate Sodium (Fosamax), 1 TAB PO WK Atorvastatin (Lipitor), 1 TAB PO DAILY Buspirone Hcl (Buspar), 1 TAB PO HS Cholecalciferol (D-5000), 2 TAB PO DAILY Docusate Sodium (Colace), 1 CAP PO BID Ranitidine HCl (Ranitidine HCl), 1 TAB PO BID Tamsulosin Hcl (Flomax), 0.4 MG PO DAILY Scheduled PRN Clonazepam (Klonopin), 1 MG PO TID PRN for Anxiety/Insomnia Guaifenesin/Codeine (Robitussin-Ac Syrup), 10 ML PO Q4H PRN for Cough Melatonin (Melatonin Maximum Strengt), 1 TAB PO HS PRN for Sleep Ondansetron Odt (Zofran Odt), 8 MG SL Q8 PRN for Nausea Oxycodone/Acetaminophen 5MG/325MG (Percocet 5MG/325MG), 1 TABLET PO Q6H PRN for Pain Review of Systems Constitutional: + weakness, + fatigue Respiratory: + cough (dry /non productive ), + shortness of breath Cardiovascular: + chest pain Neurologic: + weakness, + vertigo, + problem reported (dizzy spell ) Physical Exam Vital Signs Date Time Temp Pulse Resp B/P (MAP) Pulse Ox O2 Delivery O2 Flow Rate FiO2 09/22/17 15:06 36.6 84 18 127/77 99 Room Air 09/22/17 13:44 92 09/22/17 13:42 100 Nasal Cannula 2.0 09/22/17 13:42 100 Nasal Cannula 2.0 09/22/17 13:41 94 18 134/85 100 Room Air 09/22/17 13:16 36.6 118 20 135/84 100 Room Air General Appearance: no apparent distress Head: normocephalic, atraumatic Eyes: normal inspection, PERRL, EOMI, sclerae normal Neck: supple, no JVD, no carotid bruits, trachea midline Respiratory/Chest: chest non-tender, lungs clear, normal breath sounds, no respiratory distress Cardiovascular: regular rate, rhythm Abdomen/GI: normal bowel sounds, non tender, soft Extremities/Musculoskelatal: no calf tenderness, normal capillary refill, no pedal edema Neurologic/Psych: no motor/sensory deficits, alert, normal mood/affect, oriented x 3 Skin: normal color, warm/dry, no rash Lymphatic: no adenopathy Diagnostics Laboratory Results Results Past 24 Hours Test 09/22/17 14:25 Range/Units White Blood Count 7.05 4.8-10.8 K/uL Red Blood Count 3.92 4.2-5.4 M/uL Hemoglobin 11.0 12.0-16.0 g/dL Hematocrit 33.3 37-47 % Mean Corpuscular Volume 84.9 80-100 fL Mean Corpuscular Hemoglobin 28.1 25-34 pg Mean Corpuscular Hemoglobin Concent 33.0 32-36 g/dl Platelet Count 162 130-400 K/uL Mean Platelet Volume 11.5 7.4-10.4 fL Neutrophils (%) (Auto) 60.9 % Lymphocytes (%) (Auto) 26.5 % Monocytes (%) (Auto) 6.5 % Eosinophils (%) (Auto) 5.0 % Basophils (%) (Auto) 1.0 % Neutrophils # (Auto) 4.29 1.4-6.5 K/uL Lymphocytes # (Auto) 1.87 1.2-3.4 K/uL Monocytes # (Auto) 0.46 0.11-0.59 K/uL Eosinophils # (Auto) 0.35 0-0.5 K/uL Basophils # (Auto) 0.07 0-0.2 K/uL RDW Standard Deviation 45.7 36.4-46.3 fL RDW Coefficient of Variation 14.7 11.5-14.5 % Immature Granulocyte % (Auto) 0.1 % Immature Granulocyte # (Auto) 0.01 0.00-0.02 K/uL D-Dimer 210 0-500 ug/L FEU Sodium Level 139 136-145 mmol/L Potassium Level 3.6 3.5-5.1 mmol/L Chloride Level 107 98-107 mmol/L Carbon Dioxide Level 24 21-32 mmol/L Anion Gap 8.0 3-11 mmol/L Blood Urea Nitrogen 20 7-18 mg/dl Creatinine 0.95 0.60-1.20 mg/dl Est Creatinine Clear Calc Drug Dose 50.5 ml/min Estimated GFR () 68.9 Estimated GFR (Non- 59.4 BUN/Creatinine Ratio 20.8 10-20 Random Glucose 136 70-99 mg/dl Calcium Level 9.2 8.5-10.1 mg/dl Total Bilirubin 0.6 0.2-1 mg/dl Direct Bilirubin 0.1 0-0.2 mg/dl Aspartate Amino Transf (AST/SGOT) 11 15-37 U/L Alanine Aminotransferase (ALT/SGPT) 16 12-78 U/L Alkaline Phosphatase 68 45-117 U/L Troponin I < 0.015 0-0.045 ng/ml Total Protein 6.9 6.4-8.2 gm/dl Albumin 3.6 3.4-5.0 gm/dl Diagnostic Radiology CHEST XRAY : IMPRESSION: Mild interstitial prominence throughout both hemithoraces may indicate a lower airway inflammatory process. No focal infiltrate. CT HEAD : Impression: No acute intracranial abnormality. Mild sinus disease as described above. EKG Vent. rate 105 BPM VA interval 160 ms QRS duration 88 ms QT/QTc 340/449 ms P-R-T axes 64 58 87 Sinus tachycardia Low voltage QRS Possible Inferior infarct , age undetermined Abnormal ECG No previous ECGs available Impression Assessment and Plan SOB /CHEST PAIN : very atypical for ACS , normal EKG , chest pain free during my evaluation no hypoxia noted, pt states subjective feeling of have to breath deeply D dimer negative Cxray shows possible bronchiolitis empirically started on Doxycycline will be monitored in Tele overnight resting ECHO in Am may benefit with out pt Cardiac stress test -has significant arthritis -will need pharmacological stress test DIZZY SPELL : no sure of the etiology no change of symptom with turning head able to stand up /go to bathroom with out any symptom ordered for IV fluid for possible dehydration causing symptom Orthostatic vitals PRN meclizine PT for Fortunato ANXIETY DISORDER : cont home medication of Ativan PRN and BuSpar HS HYPERLIPIDEMIA : on statin FULL CODE DVT PROPHYLAXIS ; sub q heparin DISPOSITION : lives at home with family independent in her ADL's expected to be discharged home in next 24 rs if remains symptom free /work up negative Medicine follow up with Dr De La Rosa at [facility] Level of Care Telemetry Resuscitation Status FULL RESUSCITATION VTE Prophylaxis VTE Risk Assessment Done? Y/N: Yes Risk Level: Moderate Given or contraindicated: Unfractionated heparin SQ Additional Copies To Levar De La Rosa M.D. (MEDICAL)
[2017-09-22] MEDS ORDERED: ALEN70TA4 PO (17:28)
[2017-09-22] MEDS ORDERED: OXYC-57 PO (17:28)
[2017-09-22] MEDS ORDERED: ONDA8TAB62 SL (17:28)
[2017-09-22] MEDS ORDERED: DOCU-94 PO (17:28)
[2017-09-22] MEDS ORDERED: CHOLTAB11 PO (17:28)
[2017-09-22] MEDS ORDERED: MELATAB2 PO (17:28)
[2017-09-22] MEDS ORDERED: ZNT150 PO (17:28)
[2017-09-22] MEDS ORDERED: LPT40 PO (17:28)
[2017-09-22] MEDS ORDERED: BUSP15TA70 PO (17:28)
[2017-09-22] MEDS ORDERED: TAMS0.4C38 PO (17:28)
[2017-09-22] MEDS ORDERED: GUAISYP4 PO (17:28)
[2017-09-22] MEDS ORDERED: NON-FORMULARY MEDICATION (Melatonin (Melatonin Maximum Strengt) 1 TAB) PO PRN (17:30)
[2017-09-22] MEDS ORDERED: MECLIZINE HCL 25 MG TAB PO PRN (17:30)
[2017-09-22] MEDS ORDERED: GUAIFENESIN/CODEINE 200MG/20MG 10ML UDC PO PRN (17:30)
[2017-09-22] MEDS ORDERED: OXYCODONE/ACETAMINOPHEN 5-325 TAB PO PRN (17:30)
[2017-09-22] MEDS ORDERED: ONDANSETRON 8MG OD TAB SL PRN (17:30)
--- NOTE | 2017-09-22 17:34 | EMERGENCY ROOM VISIT NOTE ---
History Report prepared by Criss: Melani Lazaro Under the Supervision of: Dr. Jesus Segura M.D. First contact with patient: 13:36 Chief Complaint: CHEST PAIN Stated Complaint: SOB, CHEST PAIN Nursing Triage Summary: Pt states yesterday began having SOB. Today woke up with dizziness at 0630. Midsternal CP. Pain is non radiating. Cough. Pt states, "Just getting over the flu." Denies n/v. Denies cardiac hx. History of Present Illness The patient is a 72 year old female who presents to the Emergency Room with complaints of persistent chest pain starting this morning. She currently rates her discomfort as a 5/10. She describes the pain as an aching in the middle of her chest which does not radiate elsewhere. The pain was a 7/10 in severity this morning at onset. The pain improves with catching her breath. She has been feeling SOB. She has a history of anxiety and took clozapine this morning which improved her chest pain. She woke up in the middle of the night and felt that the room was spinning. She woke up 2 other times and experienced this room spinning. She had some momentary blurred vision today upon arrival to the ED. She denies any headache. She has had a cough for the past 2 weeks. She had the flu last week. She denies hemoptysis, no recent travel, no recent surgery, no exogenous hormone usage. She has a history of kidney stones and high cholesterol. Source of History: patient Onset: this morning Position: chest (mid) Symptom Intensity: 5/10 Quality: ache Timing: other (persistent) Modifying Factors (Relieving): other (catching her breath, clozapine) Associated Symptoms: + cough, + SOB, No headache Note: Pt reports room spinning, momentary blurred vision. Review of Systems See HPI for pertinent positives and negatives. A total of ten systems were reviewed and were otherwise negative. 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 Social History Smoking Status: Never Smoker Alcohol Use: none Drug Use: none Marital Status: Housing Status: lives with family Occupation Status: retired Current/Historical Medications Scheduled Alendronate Sodium (Fosamax), 1 TAB PO WK Atorvastatin (Lipitor), 1 TAB PO DAILY Buspirone Hcl (Buspar), 1 TAB PO HS Cholecalciferol (D-5000), 2 TAB PO DAILY Docusate Sodium (Colace), 1 CAP PO BID Ranitidine HCl (Ranitidine HCl), 1 TAB PO BID Tamsulosin Hcl (Flomax), 0.4 MG PO DAILY Scheduled PRN Clonazepam (Klonopin), 1 MG PO TID PRN for Anxiety/Insomnia Guaifenesin/Codeine (Robitussin-Ac Syrup), 10 ML PO Q4H PRN for Cough Melatonin (Melatonin Maximum Strengt), 1 TAB PO HS PRN for Sleep Ondansetron Odt (Zofran Odt), 8 MG SL Q8 PRN for Nausea Oxycodone/Acetaminophen 5MG/325MG (Percocet 5MG/325MG), 1 TABLET PO Q6H PRN for Pain Allergies Coded Allergies: No Known Allergies (Unverified , 09/22/17) Physical Exam Vital Signs Date Time Temp Pulse Resp B/P (MAP) Pulse Ox O2 Delivery O2 Flow Rate FiO2 09/22/17 15:06 36.6 84 18 127/77 99 Room Air 09/22/17 13:44 92 09/22/17 13:42 100 Nasal Cannula 2.0 09/22/17 13:42 100 Nasal Cannula 2.0 09/22/17 13:41 94 18 134/85 100 Room Air 09/22/17 13:16 36.6 118 20 135/84 100 Room Air Physical Exam Physical Exam GENERAL: She is oriented to person, place, and time. She appears well- developed and well-nourished. She does not appear distressed. ____ HENT: Exam performed. Head: Normocephalic and atraumatic. Right Ear: External ear normal. No mastoid tenderness. Left Ear: External ear normal. No mastoid tenderness. Mouth/Throat: The oropharynx is clear and moist. No trismus in the jaw. No dental abscesses or uvula swelling. No oropharyngeal exudate or tonsillar abscesses. ____ EYES: Conjunctivae and EOM are normal. Pupils are equal, round, and reactive to light. Right eye exhibits no discharge. Left eye exhibits no discharge. No scleral icterus. ____ NECK: Normal range of motion. Neck supple. No JVD present. No spinous process tenderness present. No carotid bruit present. No rigidity. No tracheal deviation and normal range of motion present. No Brudzinski's sign and no Kernig 's sign noted. ____ CV: Normal rate, regular rhythm, normal heart sounds and intact distal pulses. There is no peripheral edema. Palpable radial pulses bue. ____ PULM/CHEST: Effort normal and breath sounds normal. No respiratory distress. No stridor. She has no wheezes. She has no rales. Chest Wall: She exhibits no tenderness. ____ ABD: The abdomen is soft. Bowel sounds are normal. She has no distension. No mass is present. There is no tenderness. There is no rebound, no guarding, no Rueda's sign and no tenderness at McBurney's point. Rovsig negative MUSC/SKEL: Normal range of motion. There is no peripheral edema, tenderness or deformity. LYMPH: No cervical adenopathy. ____ NEURO: She is alert and oriented to person, place, and time. She has normal strength. No cranial nerve deficit or sensory deficit. Coordination and gait normal. GCS eye subscore is 4. GCS verbal subscore is 5. GCS motor subscore is 6. cerbellar tests wnl. ____ SKIN: Skin is warm and dry. She is not diaphoretic. ____ PSYCH: She has a normal mood and affect. Her behavior is normal. Judgment and thought content normal. ____ Medical Decision & Procedures ER Provider Diagnostic Interpretation: Xray results as stated below per my and radiologist interpretation. Radiology results as stated below per my review and radiologist interpretation: CHEST 2 VIEWS ROUTINE CLINICAL HISTORY: cp dyspnea COMPARISON STUDY: None: FINDINGS: Mild interstitial prominence throughout both hemithoraces. No well-defined focal infiltrate. Heart top normal in terms of size. Mild cardiomegaly. IMPRESSION: Mild interstitial prominence throughout both hemithoraces may indicate a lower airway inflammatory process. No focal infiltrate. The above report was generated using voice recognition software. It may contain grammatical, syntax or spelling errors. Electronically signed by: Fitz Talbert M.D. 09/22/2017 3:15 PM Dictated Date/Time: 09/22/2017 3:[address] CT DOSE: 638.56 mGycm HISTORY: near syncope blurred vision TECHNIQUE: Multiaxial CT images of the head were performed without the use of intravenous contrast. Automated exposure control was utilized for this study. A dose lowering technique was utilized adhering to the principles of ALARA. Comparison: None. Findings: Trace fluid within the right maxillary sinus and bubbly secretions within the sphenoid sinuses. The mastoid air cells are clear. The calvarium and skull base are intact. There is no mass, hematoma, midline shift, acute infarct. White matter hypodensity is nonspecific but suggestive of microvascular ischemic change. The ventricles and sulci demonstrate mild age-related involutional changes. 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 Impression: No acute intracranial abnormality. Mild sinus disease as described above. Electronically signed by: Jordan Donohue M.D. 09/22/2017 2:55 PM Dictated Date/Time: 09/22/2017 2:37 PM Laboratory Results 09/22/17 14:25 Red Blood Count 3.92, Mean Corpuscular Volume 84.9, Mean Corpuscular Hemoglobin 28.1, Mean Corpuscular Hemoglobin Concent 33.0, Mean Platelet Volume 11.5, Neutrophils (%) (Auto) 60.9, Lymphocytes (%) (Auto) 26.5, Monocytes (%) (Auto) 6.5, Eosinophils (%) (Auto) 5.0, Basophils (%) (Auto) 1.0, Neutrophils # (Auto) 4.29, Lymphocytes # (Auto) 1.87, Monocytes # (Auto) 0.46, Eosinophils # (Auto) 0.35, Basophils # (Auto) 0.07 09/22/17 14:25 Test 09/22/17 14:25 White Blood Count 7.05 K/uL (4.8-10.8) Red Blood Count 3.92 M/uL (4.2-5.4) Hemoglobin 11.0 g/dL (12.0-16.0) Hematocrit 33.3 % (37-47) Mean Corpuscular Volume 84.9 fL (80-100) Mean Corpuscular Hemoglobin 28.1 pg (25-34) Mean Corpuscular Hemoglobin Concent 33.0 g/dl (32-36) Platelet Count 162 K/uL (130-400) Mean Platelet Volume 11.5 fL (7.4-10.4) Neutrophils (%) (Auto) 60.9 % Lymphocytes (%) (Auto) 26.5 % Monocytes (%) (Auto) 6.5 % Eosinophils (%) (Auto) 5.0 % Basophils (%) (Auto) 1.0 % Neutrophils # (Auto) 4.29 K/uL (1.4-6.5) Lymphocytes # (Auto) 1.87 K/uL (1.2-3.4) Monocytes # (Auto) 0.46 K/uL (0.11-0.59) Eosinophils # (Auto) 0.35 K/uL (0-0.5) Basophils # (Auto) 0.07 K/uL (0-0.2) RDW Standard Deviation 45.7 fL (36.4-46.3) RDW Coefficient of Variation 14.7 % (11.5-14.5) Immature Granulocyte % (Auto) 0.1 % Immature Granulocyte # (Auto) 0.01 K/uL (0.00-0.02) D-Dimer 210 ug/L FEU (0-500) Anion Gap 8.0 mmol/L (3-11) Est Creatinine Clear Calc Drug Dose 50.5 ml/min Estimated GFR () 68.9 Estimated GFR (Non- 59.4 BUN/Creatinine Ratio 20.8 (10-20) Calcium Level 9.2 mg/dl (8.5-10.1) Total Bilirubin 0.6 mg/dl (0.2-1) Direct Bilirubin 0.1 mg/dl (0-0.2) Aspartate Amino Transf (AST/SGOT) 11 U/L (15-37) Alanine Aminotransferase (ALT/SGPT) 16 U/L (12-78) Alkaline Phosphatase 68 U/L (45-117) Troponin I < 0.015 ng/ml (0-0.045) Total Protein 6.9 gm/dl (6.4-8.2) Albumin 3.6 gm/dl (3.4-5.0) Thyroid Stimulating Hormone (TSH) 2.490 uIu/ml (0.300-4.500) Laboratory results reviewed by me Medications Administered Medications (Trade) Dose Ordered Sig/[place] Route Start Time Stop Time Status Last Admin Dose Admin Aspirin (Aspirin Chew) 324 mg NOW STAT PO 09/22/17 13:37 09/22/17 13:39 DC 09/22/17 13:43 324 MG ECG Indication: chest pain Rate (beats per minute): 105 Rhythm: sinus tachycardia Findings: no acute ischemic change, no ectopy, other (RI, QRS, and QTc intervals within normal limits, no ST elevation or ST depression) Change: Patient's electrocardiogram per my interpretation. ED Course 1337: Aspirin 324 mg PO. 1340: The patient was evaluated in room A10. A complete history and physical exam was performed. 1542: I reevaluated the patient. I spoke with the patient and her family about her labs and imaging which were both normal. I discussed the treatment plan with them. They verbalized agreement. The patient will be evaluated for further management to rule out ACS. 1552: I discussed the patient's case with Dr. Malave [facility]. The patient will be evaluated for further treatment and disposition. Medical Decision Vital signs stable. Physical exam and labs within normal limits. EKG within normal. I reevaluated the patient. I spoke with the patient and her family about her labs and imaging which were both normal. I discussed the treatment plan with them. They verbalized agreement. The patient will be evaluated for further management to rule out ACS. [facility] The patient will be evaluated for further treatment and disposition. Medication Reconcilliation Current Medication List: was personally reviewed by me Blood Pressure Screening Patient's blood pressure: Elevated blood pressure Blood pressure disposition: Elevated BP felt to be situational Consults Time Called: 1548 Consulting Physician: Dr. Malave [facility] Returned Call: 1558 I discussed the patient's case with her. The patient will be evaluated for further treatment and disposition. Impression Primary Impression: Chest pain Scribe Attestation The scribe's documentation has been prepared under my direction and personally reviewed by me in its entirety. I confirm that the note above accurately reflects all work, treatment, procedures, and medical decision making performed by me. The chart was completed utilizing [employer] Speech voice recognition software. Grammatical errors, random word insertions, pronoun errors, and incomplete sentences are an occasional consequence of this system due to software limitations, ambient noise, and hardware issues. Any formal questions or concerns about the content, text, or information contained within the body of this dictation should be directly addressed to the physician for clarification. Departure Information Dispostion Being Evaluated By Hospitalist Referrals Vandana Bales (PCP) Patient Instructions My [facility] Problem Qualifiers Primary Impression: Chest pain Chest pain type: unspecified Qualified Codes: R07.9 - Chest pain, unspecified
[2017-09-22] MEDS ORDERED: SODIUM CHLORIDE 0.9% 1000ML 1,000 ML IV SCH (18:30)
[2017-09-22 18:46] VITALS: BP 132/79; PULSE 82; TEMP 36.5; Ht 160 cm; Wt 74.2 kg
[2017-09-22 19:56] VITALS: BP 117/77; PULSE 83; TEMP 36.5; O2SAT 98
[2017-09-22] MEDS: RANITIDINE HCL 150 MG TAB PO SCH (20:25)
[2017-09-22] MEDS: DOCUSATE SODIUM 100 MG CAP PO SCH (20:25)
[2017-09-22] MEDS: DOXYCYCLINE HYCLATE 100 MG CAP PO SCH (20:26)
[2017-09-22] MEDS: HEPARIN SOD 5000 UNIT/0.5 ML CARP SQ SCH (20:27)
[2017-09-22] MEDS ORDERED: IV FLUIDS COMPLETED PRN (20:45)
[2017-09-22] MEDS ORDERED: BusPIRone 15 MG TAB PO SCH (21:00)
[2017-09-22 21:31] LABS: INFLUENZA B ANTIGEN Neg for Influ B (NEG)
[2017-09-22 23:05] VITALS: BP 113/69; PULSE 72; TEMP 36.4; O2SAT 97
[2017-09-22] MEDS ORDERED: MECLIZINE HCL 12.5 MG TAB PO PRN (23:45)
[2017-09-23] MEDS: CLONAZEPAM 1 MG TAB PO PRN ×2 (00:55→13:30)
[2017-09-23 04:34] LABS: BLOOD UREA NITROGEN 16 mg/dl (7-18); CALCIUM 8.3 mg/dl (8.5-10.1); CARBON DIOXIDE 25 mmol/L (21-32); CREATININE 0.85 mg/dl (0.60-1.20); GLUCOSE 93 mg/dl (70-99); POTASSIUM 3.9 mmol/L (3.5-5.1); SODIUM 141 mmol/L (136-145)
[2017-09-23 04:39] LABS: CHOLESTEROL 215 mg/dl (0-200); LDL CHOLESTEROL CALCULATED 145 mg/dl
[2017-09-23 05:14] VITALS: BP 117/65; PULSE 73; TEMP 36.5; O2SAT 97
[2017-09-23] MEDS: HEPARIN SOD 5000 UNIT/0.5 ML CARP SQ SCH (05:27)
[2017-09-23] MEDS ORDERED: NURSING VERBAL MED ORDER ONE (05:30)
[2017-09-23] MEDS ORDERED: SODIUM CHLORIDE 0.9% 1000ML 1,000 ML IV SCH (05:45)
[2017-09-23 07:19] VITALS: BP 134/80; PULSE 86; TEMP 36.6; O2SAT 97
[2017-09-23 08:00] VITALS: O2SAT 97
--- NOTE | 2017-09-23 08:46 | ECHOCARDIOGRAM REPORT ---
*NOTICE TO RECEIVING [employer] This information is strictly Confidential and protected under [place] law. [place] law prohibits you from making any further disclosure of this information unless further disclosure is expressly permitted by the written consent of the person to whom it pertains or is authorized by law. A general authorization for the release of medical or other information is not sufficient for this purpose. Hospital accepts no responsibility if the information is made available to any other person, INCLUDING THE PATIENT. Interpretation Summary * Name: LUX JAVED Study Date: 09/23/2017 07:02 AM BP: 134/80 mmHg * Patient Location: [facility] HR: 86 * : 1945 (M/d/yyyy) Gender: Female Height: 63 in * Age: 72 yrs Ethnicity: [place] Weight: 160 lb * Ordering Physician: Maricarmen Malave * Referring Physician: Self, Referred * Performed By: Katarina Peña RDCS * * Reason For Study: Chest pain * BSA: 1.8 m2 * -- Conclusions -- * Normal LV chamber size with mild concentric LVH. * Normal LV systolic function, EF 65-70%. * No segmental left ventricular wall motion abnormalities are noted. * Grade I diastolic dysfunction. * No significant valvular pathology. * Moderate sized, mostly anterior pericardial effusion without hemodynamic compromise. Procedure Details * A complete two-dimensional transthoracic echocardiogram was performed (2D, M-mode, Doppler and color flow Doppler). Left Ventricle * The left ventricle is normal in size. * There is mild concentric left ventricular hypertrophy. * Ejection Fraction = 65-70%. * Left ventricular systolic function is normal. * No segmental left ventricular wall motion abnormalities are noted. * The left ventricular wall motion is normal. Right Ventricle * The right ventricular cavity size is normal (basal dimension <4.2 cm in right ventricular apical 4-chamber view). * The right ventricular systolic function is normal as assessed by tricuspid annular plane systolic excursion (TAPSE) (normal >1.5 cm). Atria * The left atrial size is normal. * Right atrial size is normal. * No ASD detected; PFO is not assessed. Mitral Valve * The mitral valve is normal in structure and function. Tricuspid Valve * The tricuspid valve is normal in structure and function. Aortic Valve * The aortic valve is not well visualized. * No hemodynamically significant valvular aortic stenosis. * There is no significant aortic regurgitation. Pulmonic Valve * The pulmonary valve is not well seen, but the Doppler examination is normal without significant regurgitation or stenosis. Great Vessels * The aortic root is normal size. Pericardium/Pleural * Moderate sized, mostly anterior pericardial effusion without hemodynamic compromise. Left Ventricular Diastolic Function * Grade I diastolic dysfunction, (abnormal relaxation pattern). MMode 2D Measurements and Calculations IVSd 0.91 cm LVIDd 3.8 cm LVIDs 2.4 cm LVPWd 1.1 cm IVS/LVPW 0.81 FS 37.0 % EDV(Teich) 60.1 ml ESV(Teich) 19.4 ml EF(Teich) 67.6 % EDV(cubed) 52.8 ml ESV(cubed) 13.2 ml EF(cubed) 74.9 % LV mass(C)d 117.6 grams LV mass(C)dI 66.9 grams/m\S\2 SV(Teich) 40.7 ml SI(Teich) 23.1 ml/m\S\2 SV(cubed) 39.6 ml SI(cubed) 22.5 ml/m\S\2 Ao root diam 2.9 cm Ao root area 6.6 cm\S\2 ACS 1.7 cm LA dimension 3.2 cm asc Aorta Diam 2.4 cm LA/Ao 1.1 LVAd ap4 16.7 cm\S\2 LVLd ap4 6.3 cm EDV(MOD-sp4) 37.8 ml EDV(sp4-el) 37.3 ml LVAs ap4 8.4 cm\S\2 LVLs ap4 4.8 cm ESV(MOD-sp4) 12.5 ml ESV(sp4-el) 12.7 ml EF(MOD-sp4) 66.8 % EF(sp4-el) 66.1 % LVAd ap2 14.4 cm\S\2 LVLd ap2 6.5 cm EDV(MOD-sp2) 29.7 ml EDV(sp2-el) 26.8 ml LVAs ap2 7.1 cm\S\2 LVLs ap2 5.6 cm ESV(MOD-sp2) 8.5 ml ESV(sp2-el) 7.7 ml EF(MOD-sp2) 71.3 % EF(sp2-el) 71.3 % LVLd %diff 3.0 % EDV(MOD-bp) 33.7 ml LVLs %diff 14.1 % ESV(MOD-bp) 11.0 ml EF(MOD-bp) 67.4 % SV(MOD-sp4) 25.2 ml SI(MOD-sp4) 14.4 ml/m\S\2 SV(MOD-sp2) 21.2 ml SI(MOD-sp2) 12.1 ml/m\S\2 SV(MOD-bp) 22.7 ml SI(MOD-bp) 12.9 ml/m\S\2 SV(sp4-el) 24.7 ml SI(sp4-el) 14.0 ml/m\S\2 SV(sp2-el) 19.1 ml SI(sp2-el) 10.8 ml/m\S\2 Doppler Measurements and Calculations MV E max onesimo 71.8 cm/sec MV A max onesimo 88.3 cm/sec MV E/A 0.81 MV dec time 0.27 sec Ao V2 max 142.4 cm/sec Ao max PG 8.1 mmHg Ao max PG (full) 3.3 mmHg LV V1 max PG 4.8 mmHg LV V1 max 109.1 cm/sec PA V2 max 65.2 cm/sec PA max PG 1.7 mmHg PA acc slope 358.2 cm/sec\S\2 PA acc time 0.16 sec TR max onesimo 206.3 cm/sec PA pr(Accel) 7.7 mmHg
[2017-09-23] MEDS: DOXYCYCLINE HYCLATE 100 MG CAP PO SCH (09:00)
[2017-09-23] MEDS ORDERED: ASPIRIN 81 MG ECTAB PO SCH (09:00)
[2017-09-23] MEDS ORDERED: ATORVASTATIN 40 MG TAB PO SCH (09:00)
[2017-09-23] MEDS: DOCUSATE SODIUM 100 MG CAP PO SCH (09:00)
[2017-09-23] MEDS ORDERED: CHOLECALCIFEROL 1000 INTER.UNIT TAB PO SCH (09:00)
[2017-09-23] MEDS ORDERED: TAMSULOSIN HCL 0.4 MG CAP PO SCH (09:00)
[2017-09-23] MEDS: RANITIDINE HCL 150 MG TAB PO SCH (09:00)
[2017-09-23] MEDS ORDERED: ENOXAPARIN 40 MG/0.4 ML SYR SQ SCH (09:00)
[2017-09-23 11:25] VITALS: BP 134/78; PULSE 73; TEMP 36.6; O2SAT 99
--- NOTE | 2017-09-23 11:55 | CARDIOLOGY CONSULTATION ---
DATE OF CONSULTATION: 09/23/2017 CONSULTATION REQUESTED BY: Dr. Malave. REASON FOR CONSULTATION: Chest discomfort, shortness of breath and dizziness. HISTORY OF PRESENT ILLNESS: Mrs. Mercer is a very pleasant yet somewhat anxious 72-year-old woman who presented to [facility] Emergency Department with a complaint of dizzy spells. The patient states that the night before presentation, she woke up in the middle of the night and when she rolled over on her pillow, she suddenly felt very dizzy. She felt as though the room was spinning around her and she got very lightheaded. This seems to take her breath away for a second and she had some sharp pain in her substernal area, but again this was very short lived and resolved very quickly. This was also associated with an overall sense of anxiety and concern. The dizziness slowly subsided. However, later in the next morning, she got up and she bent her head over in the bathroom, she once again had a dizzy spell. At this time, she did not get any chest discomfort or shortness of breath and she decided to come into the Emergency Department. Upon presentation, her initial cardiac workup was unremarkable and she was admitted to telemetry for further evaluation. PAST SURGICAL HISTORY: 1. Total abdominal hysterectomy. 2. Colonoscopy. MEDICAL ILLNESSES: 1. Anxiety with panic attacks. 2. GERD. 3. Hyperlipidemia. FAMILY HISTORY: She denies any premature coronary artery disease or sudden cardiac . SOCIAL HISTORY: Denies any alcohol, tobacco or recreational drug use. She is . She lives at home with her . REVIEW OF SYSTEMS: As per HPI. All other review of systems reviewed and negative at this time. ALLERGIES: No known drug allergies. MEDICATIONS AN OUTPATIENT: 1. Atorvastatin 40 mg daily. 2. Fosamax weekly. 3. BuSpar at bedtime. 4. Ranitidine b.i.d. 5. Flomax daily. PHYSICAL EXAMINATION: VITALS: Temperature 36.6, pulse 86, respiratory rate 12, and blood pressure 134/80. GENERAL: Awake, alert, and oriented x3, in no acute distress. HEENT: Normocephalic and atraumatic. Pupils equal, round, and reactive to light and accommodation. Extraocular muscles intact. Anicteric sclerae. Moist mucous membranes. NECK: No JVD. No bruit. CARDIOVASCULAR: Regular. Positive S4. Normal S1 and S2. No S3. No murmurs or rubs. PULMONARY: Clear to auscultation bilaterally. No rales, rhonchi, or wheezing. ABDOMEN: Bowel sounds x4. Soft. No rebound, guarding, or tenderness. No organomegaly. EXTREMITIES: No clubbing, cyanosis or edema. +2 pedal pulses bilaterally. SKIN: Warm and dry. TEST RESULTS: 2D echocardiogram was read as normal LV chamber size with mild concentric LVH, normal LV systolic function, EF 65%-70%. No segmental left ventricle wall motion abnormalities were noted. Grade 1 diastolic dysfunction. No significant valvular pathology. Moderate size, mostly anterior pericardial effusion without hemodynamic compromise. Significant stranding to suggest chronicity. Troponin negative x3. Total cholesterol of 215, LDL 145, HDL 47, and triglycerides 117. IMPRESSIONS: 1. Benign positional vertigo. 2. Anxiety. 3. Fleeting chest discomfort, likely secondary to anxiety. RECOMMENDATIONS: It was my pleasure to see Mrs. Mercer in consultation today. At the time of my examination, the patient has already undergone Hallpike and Fortunato maneuvers with physical therapy and her vertigo symptoms are already improving. She does state that she is very anxious at baseline and whenever anything happens, her anxiety kicks in and she believes that is what happened yesterday as well. At this point, I do not believe any further cardiac testing is necessary for an ischemic evaluation given the fact that her symptoms were likely secondary to anxiety. She does have a pericardial effusion that should be followed as an outpatient. I would recommend followup with her primary care physician and repeat a limited echocardiogram in 1 month. She is asymptomatic and is not exhibiting any signs of pericarditis, so I do not believe the treatment is necessary. No cardiac followup will be scheduled at this time either, but again, recommend she follow up with PCP. Otherwise, it is okay to discontinue telemetry or discharge to home from a cardiac standpoint.
[2017-09-23 12:00] VITALS: O2SAT 97
[2017-09-23 14:30] VITALS: BP 134/78; PULSE 73; TEMP 36.6; O2SAT 97
[2017-09-23] MEDS ORDERED: PSEU1TAB2 PO (14:41)
--- NOTE | 2017-09-23 14:48 | Discharge Instructions ---
Discharge Instructions Date of Service Sep 23, 2017. Admission Reason for Admission: Chest Pain, Dizzy Spells Discharge Discharge Diagnosis / Problem: Vestibular Neuritis vs BPPV Discharge Goals Goal(s): Prevent Disease Progression Activity Recommendations Activity Limitations: per Instructions/Follow-up section . Instructions / Follow-Up Instructions / Follow-Up Please take all medications as prescribed. You were given a short course (5 days) of Sudafed to take to reduce the congestion and fluid seen in your ears. If your vertigo continues, you may need something stronger such as a steroid taper. This can be decided by your primary care provider (PCP) on follow-up. You were found to have a moderate pericardial effusion around your heart. This will require a repeat echocardiogram through your PCP office in one month. It is recommended that you have a hospital follow-up appointment within one week of discharge at your PCP office. An appointment has been made for you on , 09/28 @ 12:45pm with Dr. Viky Gonzalez. It was a pleasure taking care of you! Call if you have any questions or problems. You can reach a [facility] hospitalist on duty at [facility] 24 hours a day by calling [phone]. Take care of yourself. Honey Farris DO [facility] Hospitalist Current Hospital Diet Patient's current hospital diet: AHA Diet (Heart Healthy) Discharge Diet Recommended Diet: AHA Diet (Heart Healthy) Procedures Procedures Performed: TTE Pending Studies Studies pending at discharge: no Laboratory Results Lipid Panel Test 09/23/17 03:57 Range/Units Triglycerides Level 117 0-150 mg/dl Cholesterol Level 215 H 0-200 mg/dl HDL Cholesterol 47 mg/dl Cholesterol/HDL Ratio 4.6 LDL Cholesterol, Calculated 145 mg/dl Medical Emergencies . Who to Call and When: Medical Emergencies: If at any time you feel your situation is an emergency, please call 911 immediately. . Non-Emergent Contact Non-Emergency issues call your: Primary Care Provider . . "Provider Documentation" section prepared by Honey Farris. . VTE Core Measure Inpt VTE Proph given/why not?: Refusal of treatmnt by pt
--- NOTE | 2017-09-23 14:52 | Discharge Summary ---
Discharge Summary Date of Service Sep 23, 2017. Discharge Summary Admission Date: Sep 22, 2017 at 16:41 Discharge Date: Sep 23, 2017 Discharge Disposition: Home Principal Diagnosis: Vestibular neuritis vs BPPV Chest pain-likely noncardiac etiology 2/2 anxiety related to vertigo symptoms Osteoporosis Anxiety/Depression Procedures: TTE: -- Conclusions -- * Normal LV chamber size with mild concentric LVH. * Normal LV systolic function, EF 65-70%. * No segmental left ventricular wall motion abnormalities are noted. * Grade I diastolic dysfunction. * No significant valvular pathology. * Moderate sized, mostly anterior pericardial effusion without hemodynamic compromise. Vaccinations: None. Consultations: Cardiology-Darrel Pending Studies/Follow-Up: see instructions below. Medication Reconciliation New Medications: Pseudoephedrine Hcl (Sudafed) 60 Mg Tab 60 MG PO TID for 5 Days, #15 TAB Continued Medications: Alendronate Sodium (Fosamax) 70 Mg Tab 1 TAB PO WK for 28 Days, #4 TAB 3 Refills Buspirone Hcl (Buspar) 15 Mg Tab 1 TAB PO HS for 30 Days, TAB Tamsulosin Hcl (Flomax) 0.4 Mg Cap 0.4 MG PO DAILY, CAP Admission Information HPI (per Admitting provider): 72 YO F with medical hx of anxiety disorder , GERD, hyperlipidemia , presented to ER with complain of episodes of dizzy spell , and chest pain Pt mentions she woke up middle of the night feeling the whole room is spinning felt lightheaded, had sharp substernal chest pain later in the morning chest pain was resolved, felt weak and wiped out , SOB , felt like she had to give effort to take a deep breath no problem climbing flight of stairs later in the afternoon had another episode of dizzy spell , no syncope denies of any fever or chills had dry non productive cough since last week with nasal congestion mentions of eating and drinking well no nausea /vomiting or diarrhea no prior hx of CAD , no family hx of heart disease Physical Exam (per Admitting): General Appearance: no apparent distress Head: normocephalic, atraumatic Eyes: normal inspection, PERRL, EOMI, sclerae normal Neck: supple, no JVD, no carotid bruits, trachea midline Respiratory/Chest: chest non-tender, lungs clear, normal breath sounds, no respiratory distress Cardiovascular: regular rate, rhythm Abdomen/GI: normal bowel sounds, non tender, soft Extremities/Musculoskelatal: no calf tenderness, normal capillary refill, no pedal edema Neurologic/Psych: no motor/sensory deficits, alert, normal mood/affect, oriented x 3 Skin: normal color, warm/dry, no rash Lymphatic: no adenopathy Hospital Course Pt presented to the ER with reports of chest pain that was aching in the middle of her chest which started as a response to her vertigo which was very unsettling to her. She reported a h/o anxiety and tool clozapine at home which improved her chest pain. She reported a viral URI for the past 2-3 weeks and is still having some residual cough symptoms. In the ER she was hemodynamically stable and afebrile with physical exam revealing a normal physical exam. CXR and head CT were unremarkable except for some evidence of a lower airway inflammatory process on CXR without infiltrate. Labs were unremarkable and EKG revealed a sinus tachycardia at 105 bpm with no evidence of acute ischemic change. She was given 324mg of aspirin and was admitted to the hospitalist service. Overnight serial cardiac enzymes were negative and she remained chest-pain free. Cardiology was consulted and did not feel that further cardiac workup was needed in the setting of a provoked anxiety attack. she was treated 4 times with the Fortunato maneuver by physical therapy w a decrease in response with each successive attempt but then became anxious. On further exam, she was found to have a middle ear effusion, likely contributing to her symptoms of dysequilibrium and vertigo. She was given sudafed to help clear the congestion as outpatient with close follow-up with PCP set up. She was otherwise stable with a normal physical exam, tolerating PO and mentating at baseline. Total time spent on discharge = 60 minutes This includes examination of the patient, discharge planning, medication reconciliation, and communication with other providers. Discharge Instructions [facility] [address] [place] [address] Discharge Medical Patient Name: Tiffani Mercer Unit Number: [id number] Date of : 1945 Patient Status: Admitted Inpatient (obs) Attending Doctor: Honey Farris DO DI: Medical v4 Discharge Instructions Date of Service Sep 23, 2017. Admission Reason for Admission: Chest Pain, Dizzy Spells Discharge Discharge Diagnosis / Problem: Vestibular Neuritis vs BPPV Discharge Goals Goal(s): Prevent Disease Progression Activity Recommendations Activity Limitations: per Instructions/Follow-up section . Instructions / Follow-Up Instructions / Follow-Up Please take all medications as prescribed. You were given a short course (5 days) of Sudafed to take to reduce the congestion and fluid seen in your ears. If your vertigo continues, you may need something stronger such as a steroid taper. This can be decided by your primary care provider (PCP) on follow-up. You were found to have a moderate pericardial effusion around your heart. This will require a repeat echocardiogram through your PCP office in one month. It is recommended that you have a hospital follow-up appointment within one week of discharge at your PCP office. An appointment has been made for you on , 09/28 @ 12:45pm with Dr. Viky Gonzalez. It was a pleasure taking care of you! Call if you have any questions or problems. You can reach a [facility] hospitalist on duty at [facility] 24 hours a day by calling [phone]. Take care of yourself. Honey Farris DO [facility] Hospitalist Current Hospital Diet Patient's current hospital diet: AHA Diet (Heart Healthy) Discharge Diet Recommended Diet: AHA Diet (Heart Healthy) Procedures Procedures Performed: TTE Pending Studies Studies pending at discharge: no Laboratory Results Lipid Panel Test 09/23/17 03:57 Range/Units Triglycerides Level 117 0-150 mg/dl Cholesterol Level 215 H 0-200 mg/dl HDL Cholesterol 47 mg/dl Cholesterol/HDL Ratio 4.6 LDL Cholesterol, Calculated 145 mg/dl Medical Emergencies . Who to Call and When: Medical Emergencies: If at any time you feel your situation is an emergency, please call 911 immediately. . Non-Emergent Contact Non-Emergency issues call your: Primary Care Provider . . "Provider Documentation" section prepared by Honey Farris. . VTE Core Measure Inpt VTE Proph given/why not?: Refusal of treatmnt by pt Additional Copies To Vandana Bales,Viky Maria
== END 2017-09-23 15:35 | disposition home or self-care (01) ==
LOC: C.EDB 13:14 → C.MED 16:41 → ENRESERV 17:08
PROVIDERS: ADMIT Hospitalist; ATTEND Hospitalist
DX: H81.10 Benign paroxysmal vertigo, unspecified ear (principal); R07.9 Chest pain, unspecified; E78.00 Pure hypercholesterolemia, unspecified; K21.9 Gastro-esophageal reflux disease without esophagitis; E78.5 Hyperlipidemia, unspecified; F41.8 Other specified anxiety disorders

== ENCOUNTER 2025-06-13 17:48 | Inpatient (IN) ==
--- NOTE | 2025-06-13 19:12 | Emergency Department Note ---
Impression & Plan Closed fracture of left hip, Fall, Anemia ED Provider Note NAME: LUX JAVDE AGE: 80 SEX: F : 1945 ARRIVES VIA: Walk-In INFORMANT: Patient, the patient's family members ED PROVIDER(S): Eric Alvares DO CHIEF COMPLAINT: Hip pain HPI: The patient is an 80-year-old female who presented to the emergency department after a fall. The patient fell onto her left side at approximately 3:00 this morning. She was reaching for water. The patient did not strike her head. She complains of left hand pain as well. The patient denies having any nausea or vomiting. She denies having any chest pain or difficulty breathing. The patient came to the emergency department with family this evening because she has been able to ambulate initially but her ambulation is becoming harder throughout the day. The patient was not seen by her family doctor. She does not take blood thinners. ROS: See above HPI for pertinent positives & negatives. A total of 10 systems reviewed and were otherwise negative. PAST MEDICAL HISTORY: See Below PAST SURGICAL HISTORY: See Below FAMILY HISTORY: See Below SOCIAL HISTORY: See Below HOME MEDICATIONS: See Below ALLERGIES: See Below VITALS: See Below PHYSICAL EXAMINATION: GENERAL: The patient is awake and alert. She appears uncomfortable. EYES: The conjunctivae are clear. The pupils are round and reactive. EARS, NOSE, MOUTH AND THROAT: The nose is without any evidence of any deformity. NECK: The neck is nontender and supple. Cervical spine was clinically cleared at the time of initial evaluation. RESPIRATORY: Normal respiratory effort is noted there is no evidence of wheezing rhonchi or rales CARDIOVASCULAR: Regular rate and rhythm noted there no murmurs rubs or gallops normal S1 normal S2. GASTROINTESTINAL: The abdomen is soft. Abdomen is nontender. BACK: No midline tenderness or or step-off noted range of motion in flexion extension as well as rotation no signs of muscle spasm noted MUSCULOSKELETAL/EXTREMITIES: There is pain with range of motion testing of the left hip. There is slight shortening. Pulses are symmetric in both feet. There is also ecchymosis over the left hand. There is no pain with range of motion testing of either shoulder. There is no deformity to the upper extremities. SKIN: There is no obvious evidence of any rash. There are no petechiae, pallor or cyanosis noted. NEUROLOGIC: Patient is awake alert and oriented x3. Strength was symmetric. MEDICAL DECISION MAKING: The patient is an 80-year-old female who presented to the emergency department after fall. The patient fell early this morning. She fell onto her left side. She did complain of some left-sided hand pain but also left hip pain. She was able to ambulate earlier but recently has not been able to ambulate as well. She came to the emerged from with family for further evaluation. The patient was treated with pain medication in the emergency department. I discussed patient's laboratory and radiographic studies with her. Ultimately she was found to have signs of a left hip fracture on radiographic studies. I discussed her condition with the on-call [facility] hospitalist group. I also discussed her condition with the on-call orthopedic doctor. They have agreed to evaluate the patient for further management and disposition. Triage Nursing notes reviewed. Prior medical records reviewed Vital Signs: reviewed and remarkable for no significant abnormalities Differential diagnosis: Fracture, subluxation, dislocation, contusion, ligamentous injury, neurovascular, compartment syndrome, rhabdomyolysis, as well as other pathologies. ER treatment provided: See below Diagnostics interpreted by me: ECG: EKG was obtained in the emergency department. My interpretation is normal sinus rhythm at 73 bpm. There is no ectopy. Nonspecific T wave abnormalities were noted. Incomplete right bundle branch block pattern was noted. This was compared to a tracing from July 22, 2020. No changes were noted. Cardiac Monitoring: An order was placed for continuous cardiac monitoring. The monitor shows a rate of 77 bpm with sinus rhythm. Laboratory studies: As stated above and show below. Imaging studies: See below. Radiographic imaging was reviewed by myself Consultation(s): I discussed this case with Angy who is on-call for the [facility] hospitalist group. I discussed this case with Dr. Murphy who is on-call for the orthopedic group. Past Med/Surg History Problem List (Updated 06/13/25 @ 20:47 by Eric Alvares DO) Anemia (Acute) Chronic disease anemia Fall (Acute) Closed fracture of left hip (Acute) Colonic polyp Chest pain Dizzy spells Hydronephrosis due to obstruction of ureter UTI (urinary tract infection) Ureteric calculus Medical History (Updated 06/13/25 @ 20:47 by Eric Alvares DO) History of echocardiogram 09/14/2019 echo: Small to moderate size circumferential pericardial effusion, no cardiac tamponade. Compared to study of 09/13/2018 no significant change. History of stress test 06/24/2018 dobutamine stress echo: Negative for inducible ischemia Dyslipidemia CKD (chronic kidney disease), stage III Panic disorder Osteoporosis Surgical History (Updated 06/13/25 @ 19:28 by Holly Lora PA-C) History of hysterectomy History of colonoscopy Social History Smoking Status: Never smoker Preferred Language: Welsh Feels Safe at Home: Yes Allergies Allergies Allergy/AdvReac Type Severity Reaction Status Date / Time escitalopram [From Lexapro] AdvReac extreme Verified 06/13/25 19:22 nausea/dizziness Home Meds Home Medications Medication Instructions Recorded Confirmed clonazepam 1 mg tablet 1 mg PO TID PRN Anxiety 07/22/20 06/13/25 rosuvastatin 20 mg tablet 20 mg PO QAM 07/22/20 06/13/25 meclizine 12.5 mg tablet 12.5 mg PO TID PRN Dizziness 06/13/25 06/13/25 meloxicam 7.5 mg tablet 7.5 mg PO QAM PRN pain 06/13/25 06/13/25 prochlorperazine maleate 5 mg 5 mg PO Q6 PRN Nausea 06/13/25 06/13/25 tablet tramadol 50 mg tablet 50 mg PO Q6H PRN pain,moderate 06/13/25 06/13/25 Results & Data (ED) Vital Signs Vital Signs - 24 hr 06/13/25 17:54 06/13/25 19:14 06/13/25 19:19 Temperature 36.9 C Temperature Source Temporal Artery Scan Pulse Rate 86 Pulse Rate [Finger] 77 Respiratory Rate 19 18 Respiratory Effort / Characteristics Non-Labored Spontaneous Respiratory Depth Normal Blood Pressure 101/56 L Blood Pressure [Right Arm] 123/71 Blood Pressure Mean 71 Blood Pressure Mean [Right Arm] 88 Pulse Oximetry 93 88 L 97 Oxygen Delivery Method Room Air Room Air Nasal Cannula Oxygen Flow Rate 3 Sepsis Recent Fever Within 48 Hours No Sepsis New/Unexplained Change in Mental Status N/A Sepsis Action Taken by Nursing No Action Required Oxygen Flow Rate - Titration Pulse Oximetry Post Tiitration 06/13/25 19:19 06/13/25 20:00 Temperature Temperature Source Pulse Rate Pulse Rate [Finger] 69 Respiratory Rate 12 Respiratory Effort / Characteristics Respiratory Depth Blood Pressure Blood Pressure [Right Arm] 123/71 Blood Pressure Mean Blood Pressure Mean [Right Arm] 88 Pulse Oximetry 88 L 99 Oxygen Delivery Method Room Air Nasal Cannula Nasal Cannula Oxygen Flow Rate 0 2 Sepsis Recent Fever Within 48 Hours Sepsis New/Unexplained Change in Mental Status Sepsis Action Taken by Nursing Oxygen Flow Rate - Titration 3 Pulse Oximetry Post Tiitration 98 Home Medications Current Medication List: was personally reviewed by me Laboratory Data Attestation: I reviewed the patient's lab results. 06/13/25 19:12 06/13/25 19:12 Lab Results 06/13/25 Range/Units 19:12 WBC 7.66 (4.8-10.8) K/ul RBC 3.31 L (4.20-5.40) M/uL Hgb 9.4 L (12.0-16.0) g/dl Hct 28.9 L (37.0-47.0) % MCV 87.3 (80.0-100.0) fL MCH 28.4 (25.0-34.0) pg MCHC 32.5 (32.0-36.0) g/dL RDW Std Deviation 48.0 H (36.4-46.3) fL RDW Coeff of Maged 15.0 H (11.5-14.5) % Plt Count 130 (130-400) K/uL Immature Gran % (Auto) 0.1 % Neut % (Auto) 65.2 % Lymph % (Auto) 22.7 % [place] % (Auto) 7.2 % Eos % (Auto) 4.3 % Baso % (Auto) 0.5 % Neut # (Auto) 4.99 (1.40-6.50) K/uL Lymph # (Auto) 1.74 (1.20-3.40) K/uL [place] # (Auto) 0.55 (0.11-0.59) K/uL Eos # (Auto) 0.33 (0.00-0.50) K/uL Baso # (Auto) 0.04 (0.00-0.20) K/uL Immature Gran # (Auto) 0.01 (0.01-0.20) K/uL PT 11.2 (9.0-12.0) Seconds INR 1.1 (0.9-1.1) APTT 26 (21-31) Seconds PTT Ratio 1.0 Sodium 137 (136-145) mmol/L Potassium 4.0 (3.5-5.1) mmol/L Chloride 108 H (98-107) mmol/L Carbon Dioxide 26 (21-32) mmol/L Anion Gap 3 (3-11) BUN 21 (6-23) mg/dl Creatinine 0.83 (0.6-1.2) mg/dl Est Cr Clr Drug Dosing 47.6 ml/min eGFR 70.78 BUN/Creatinine Ratio 25.3 H (10-20) Glucose 107 H (70-99(Fasting)) mg/dl Calcium 9.1 (8.6-10.3) mg/dl Total Bilirubin 1.2 H (0.2-1.0) mg/dl AST 15 (13-39) U/L ALT 9 (7-52) U/L Alkaline Phosphatase 48 (34-104) U/L Troponin I High Sens 3.6 (0-14) pg/ml Total Protein 6.2 (6.0-8.3) gm/dl Albumin 3.8 (3.4-5.0) gm/dl Globulin 2.4 L (2.5-4.0) gm/dl Albumin/Globulin Ratio 1.6 (0.9-2) Lipase 12 (11-82) U/L Administered Medications Discontinued Medications Sodium Chloride (Nss) 500 mls @ 999 mls/hr IV .Q31M STA Stop: 06/13/25 19:28 Last Infusion: 06/13/25 19:46 Dose: Infused Documented By: Admin: 06/13/25 19:16 Dose: 999 mls/hr Documented By: EMEKA Morphine Sulfate (Morphine Sulfate 4 Mg/Ml 1 Ml Carp\Vial) 4 mg IV NOW STA Stop: 06/13/25 18:59 Last Admin: 06/13/25 19:16 Dose: 4 mg Documented By: EMEKA Ondansetron HCl (Ondansetron Inj 2 Mg/Ml 2 Ml Vial) 4 mg IV NOW STA Stop: 06/13/25 18:59 Last Admin: 06/13/25 19:16 Dose: 4 mg Documented By: EMEKA Oxycodone HCl (Oxycodone Hcl Ir 5 Mg Tab (Immediate Release)) 5 mg PO NOW STA Stop: 06/13/25 18:17 Last Admin: 06/13/25 18:33 Dose: 5 mg Documented By: CRISTINA Imaging Data Attestation: I personally reviewed and interpreted this imaging study as follows: My Impression: 1 view chest x-ray was obtained in the emergency department. My interpretation is no free air or definite infiltrate, final report below. X-ray of the left hip and pelvis was obtained in the emergency department. My interpretation is subcapital left hip fracture, final report below. Radiologist's Impression: Cervical Spine CT 06/13/25 18:16 CT cervical spine without IV contrast History: Trauma Comparison: None Technique: Using multidetector thin collimation helical acquisition technique, axial, coronal and sagittal CT images through the cervical spine were obtained without intravenous contrast. Dose reduction techniques were achieved by using automatic exposure control and/or adjustment of mA and/or kV according to patient size and/or use of iterative reconstruction technique. Findings: The cervical vertebrae are normally aligned. Reversed cervical lordosis. No acute fracture or subluxation. No prevertebral edema. Moderate multilevel discogenic and hypertrophic facet degenerative changes. No abnormality of the paraspinous soft tissues. Impression: No acute fracture or traumatic subluxation. Electronically signed by Shahriar Hartman 06-13-2025 7:23 PM Chest X-Ray 06/13/25 18:16 Chest radiograph, one view History: Fall Comparison: None Findings: Single AP view of the chest performed. No focal consolidation or pleural effusion. No pneumothorax. The cardiomediastinal silhouette is within normal limits. Normal pulmonary vascularity. No evidence for lymphadenopathy. No visualized bony or soft tissue abnormality. Impression: Normal chest radiograph Electronically signed by Shahriar Hartman 06-13-2025 7:13 PM Hand X-Ray 06/13/25 18:16 History: Pain Comparison: None Findings: There is no acute fracture or dislocation. Alignment is anatomic. There are moderate degenerative changes of the triscaphe joint and mild first CMC joint degenerative change suggesting osteoarthritis. Small calcifications in the TFCC, may be degenerative. There is no joint effusion or significant soft tissue swelling. Impression: No acute bony abnormality Electronically signed by Shahriar Hartman 06-13-2025 7:[address] 06/13/25 18:16 Technique: Axial computed tomography images were obtained of the brain without intravenous contrast. Findings: There is diffuse cerebral atrophy, within expected limits for the patient's age. Areas of decreased attenuation are seen within the periventricular white matter, likely representing chronic small vessel ischemic disease. There is no definite sign of acute or old infarction. No intracranial hemorrhage is evident. No definite mass lesion is seen on this noncontrast examination. There is no midline shift or other form of herniation. No hydrocephalus is seen. No fracture is identified. There is ethmoid and sphenoid sinus fluid and mucosal thickening. The mastoid air cells appear clear. Impression: 1. Cerebral atrophy and chronic small vessel ischemic disease 2. Sinusitis Electronically signed by Blake Cruz 06-13-2025 7:19 PM Hip/Pelvis X-Ray 06/13/25 18:16 History: Fall Comparison: None Findings/impression: Left subcapital femoral neck fracture with impaction. The right hip appears intact. Electronically signed by Shahriar Hartman 06-13-2025 7:13 PM Discharge Plan Visit Data Chief Complaint: Fall Stated Complaint: FALL ED Provider: Eric Alvares Discharge Problem: Closed fracture of left hip, Fall, Anemia Patient Disposition: Being Evaluated by Hospitalist Condition: Fair Forms Stand Alone Forms: [facility] [employer] Prescriptions Prescriptions: No Action clonazepam 1 mg tablet 1 mg PO TID PRN (Reason: Anxiety) rosuvastatin 20 mg tablet 20 mg PO QAM tramadol 50 mg Tablet 50 mg PO Q6H PRN (Reason: pain,moderate) prochlorperazine maleate 5 mg Tablet 5 mg PO Q6 PRN (Reason: Nausea) meloxicam 7.5 mg Tablet 7.5 mg PO QAM PRN (Reason: pain ) meclizine 12.5 mg Tablet 12.5 mg PO TID PRN (Reason: Dizziness) Referrals Referrals: Maria Luz Condon DO [Primary Care Provider] -
[2025-06-13] MEDS: SODIUM CHLORIDE 0.9% 500 ML IV STA (19:16)
[2025-06-13] MEDS: MoRPHine SULFATE 4 MG/ML 1 ML CARP\\VIAL IV STA (19:16)
[2025-06-13] MEDS: ONDANSETRON INJ 2 MG/ML 2 ML VIAL IV STA (19:16)
--- NOTE | 2025-06-13 19:17 | XRay Report ---
History: Pain Comparison: None Findings: There is no acute fracture or dislocation. Alignment is anatomic. There are moderate degenerative changes of the triscaphe joint and mild first CMC joint degenerative change suggesting osteoarthritis. Small calcifications in the TFCC, may be degenerative. There is no joint effusion or significant soft tissue swelling. Impression: No acute bony abnormality Electronically signed by Shahriar Hartman 06-13-2025 7:13 PM
--- NOTE | 2025-06-13 19:17 | XRay Report ---
History: Fall Comparison: None Findings/impression: Left subcapital femoral neck fracture with impaction. The right hip appears intact. Electronically signed by Shahriar Hartman 06-13-2025 7:13 PM
--- NOTE | 2025-06-13 19:20 | CT Scan Report ---
Technique: Axial computed tomography images were obtained of the brain without intravenous contrast. Findings: There is diffuse cerebral atrophy, within expected limits for the patient's age. Areas of decreased attenuation are seen within the periventricular white matter, likely representing chronic small vessel ischemic disease. There is no definite sign of acute or old infarction. No intracranial hemorrhage is evident. No definite mass lesion is seen on this noncontrast examination. There is no midline shift or other form of herniation. No hydrocephalus is seen. No fracture is identified. There is ethmoid and sphenoid sinus fluid and mucosal thickening. The mastoid air cells appear clear. Impression: 1. Cerebral atrophy and chronic small vessel ischemic disease 2. Sinusitis Electronically signed by Blake Cruz 06-13-2025 7:19 PM
--- NOTE | 2025-06-13 19:25 | CT Scan Report ---
CT cervical spine without IV contrast History: Trauma Comparison: None Technique: Using multidetector thin collimation helical acquisition technique, axial, coronal and sagittal CT images through the cervical spine were obtained without intravenous contrast. Dose reduction techniques were achieved by using automatic exposure control and/or adjustment of mA and/or kV according to patient size and/or use of iterative reconstruction technique. Findings: The cervical vertebrae are normally aligned. Reversed cervical lordosis. No acute fracture or subluxation. No prevertebral edema. Moderate multilevel discogenic and hypertrophic facet degenerative changes. No abnormality of the paraspinous soft tissues. Impression: No acute fracture or traumatic subluxation. Electronically signed by Shahriar Hartman 06-13-2025 7:23 PM
[2025-06-13 19:43] LABS: Alanine Aminotransferase 9.0 U/L (7-52); Albumin Globulin Ratio 1.6 (0.9-2); Albumin Level 3.8 gm/dl (3.4-5.0); Alkaline Phosphatase 48.0 U/L (34-104); Anion Gap 3.0 (3-11); Bilirubin,Total 1.2 mg/dl (0.2-1.0); Blood Urea Nitrogen 21.0 mg/dl (6-23); Calcium 9.1 mg/dl (8.6-10.3); Carbon Dioxide 26.0 mmol/L (21-32); Chloride 108.0 mmol/L (98-107); Creatinine Clr Calc Pharmacy 47.6 ml/min; Globulin 2.4 gm/dl (2.5-4.0); Glucose 107.0 mg/dl (70-99(Fasting)); Lipase 12.0 U/L (11-82); Potassium 4.0 mmol/L (3.5-5.1); Sodium 137.0 mmol/L (136-145); Total Protein 6.2 gm/dl (6.0-8.3)
[2025-06-13 19:53] LABS: Hematocrit (blood only) 28.9 % (37.0-47.0); Hemoglobin 9.4 g/dl (12.0-16.0); INR 1.1 (0.9-1.1); Immature Granulocytes # (auto) 0.01 K/uL (0.01-0.20); Immature Granulocytes % (auto) 0.1 %; Mean Corpuscular Hemoglobin 28.4 pg (25.0-34.0); Mean Corpuscular Volume 87.3 fL (80.0-100.0); Partial Thromboplastin Time 26 Seconds (21-31); Platelet Count 130 K/uL (130-400); Prothrombin Time 11.2 Seconds (9.0-12.0); RDW Standard Deviation 48.0 fL (36.4-46.3); Red Blood Count 3.31 M/uL (4.20-5.40); White Blood Count 7.66 K/ul (4.8-10.8)
--- NOTE | 2025-06-13 20:03 | History & Physical Report ---
Date of Service June 13, 2025 Assessment & Plan (1) Closed fracture of left hip: (2) Fall: (3) Chronic disease anemia: (4) Panic disorder: (5) CKD (chronic kidney disease), stage III: Plan Patient 80-year-old female suffered a mechanical fall in her home presents with a left femoral neck fracture with impaction Mid to the MedSurg unit Pain control Consult orthopedics for surgical intervention Continue home medications as ordered Monitor hemoglobin, electrolytes and renal function Consult case management, anticipate patient may need rehab Patient is medically maximized to undergo anticipated orthopedic surgical repair of the left hip fracture Family at bedside and agreeable to plan of care. History of Present Illness Chief Complaint: Left hip pain after a fall last night Primary Care Provider: Maria Luz Condon DO Patient 80-year-old female lives independently with her and overall is in a very good state of health. Patient presents to the emergency room this evening after she sustained a fall last night/early in the morning. In the emergency room imaging was consistent with a left hip fracture. Patient was referred to our service for hospital management and coordination of care. Time of my evaluation patient states her pain is improved after receiving some morphine. She reports that she drinks a fair amount of water throughout the day and night. She freezes bottles of water to drink throughout the day. She states that she was getting water out of the refrigerator and apparently there were some water on the floor she slipped and fell in the kitchen. She thinks she may have hit the kitchen island with her hand that she tried to brace her fa ll. She immediately had pain in her hand and her hip but was able to get herself back to bed. When she woke up later on this morning she continued to have pain and thought it difficult to ambulate. She finally came to the emergency room when she really could not manage herself at home. She denies any fever or chills, no cough or cold symptoms, no chest pain, no shortness of breath. She has been eating and drinking well. No new issues with her bowels or bladder. No swelling in her hands arms legs or feet. She states that she overall is in very good health and is eager to get this hip fixed and get back to her usual daily activities. Allergies Allergy/AdvReac Type Severity Reaction Status Date / Time escitalopram [From Lexapro] AdvReac extreme Verified 06/13/25 19:22 nausea/dizziness Home Medications Medication Instructions Recorded Confirmed Type clonazepam 1 mg tablet 1 mg PO TID PRN Anxiety 07/22/20 06/13/25 History rosuvastatin 20 mg tablet 20 mg PO QAM 07/22/20 06/13/25 History meclizine 12.5 mg tablet 12.5 mg PO TID PRN Dizziness 06/13/25 06/13/25 History meloxicam 7.5 mg tablet 7.5 mg PO QAM PRN pain 06/13/25 06/13/25 History prochlorperazine maleate 5 mg 5 mg PO Q6 PRN Nausea 06/13/25 06/13/25 History tablet tramadol 50 mg tablet 50 mg PO Q6H PRN pain,moderate 06/13/25 06/13/25 History Past Med/Surg History Problem List (Updated 06/13/25 @ 20:02 by Shiv Box DO) Chronic disease anemia Fall (Acute) Closed fracture of left hip (Acute) Colonic polyp Chest pain Dizzy spells Hydronephrosis due to obstruction of ureter UTI (urinary tract infection) Ureteric calculus Medical History (Updated 06/13/25 @ 20:02 by Shiv Box DO) History of echocardiogram 09/14/2019 echo: Small to moderate size circumferential pericardial effusion, no cardiac tamponade. Compared to study of 09/13/2018 no significant change. History of stress test 06/24/2018 dobutamine stress echo: Negative for inducible ischemia Dyslipidemia CKD (chronic kidney disease), stage III Panic disorder Osteoporosis Surgical History (Updated 06/13/25 @ 19:28 by Holly Lora PA-C) History of hysterectomy History of colonoscopy Social History Smoking Status: Never smoker Preferred Language: Monegasque Feels Safe at Home: Yes Review of Systems Review of Systems: Pertinent positive and negative review of systems as mentioned in the HPI Physical Exam Physical Exam: Constitutional: Alert, nontoxic, mild distress secondary to pain HEENT: Mucous membranes moist. Sclera clear Neck: Soft, no adenopathy Lungs: Clear to auscultation, decreased, no wheezes rales or rhonchi CV: S1-S2, regular Abdomen: Soft, nontender, nondistended Extremities: No significant edema, Musculoskeletal: left lower extremity slightly shortened and externally rotated, significant tenderness to any type of motion left lower extremity, significant contusion left wrist with some mild swelling and tenderness Neuro: No focal deficits Psych: Cooperative, normal mood Results & Data Results & Data Vital Signs (Past 12 Hours) Vital Signs Temp Pulse Pulse Resp BP BP Pulse Ox 06/13/25 19:19 88 L 06/13/25 19:19 77 18 123/71 97 06/13/25 19:14 88 L 06/13/25 17:54 36.9 C 86 19 101/56 L 93 O2 Del Method O2 Flow Rate 06/13/25 19:19 Room Air, Nasal Cannula 0 06/13/25 19:19 Nasal Cannula 3 06/13/25 19:14 Room Air 06/13/25 17:54 Room Air Diagnostic Findings Reviewed imaging, laboratory and diagnostic studies. Pertinent findings as below. Hemoglobin 9.4, appears to be baseline Coagulation studies within normal ranges BMP stable Creatinine 0.83 Glucose 107 LFTs stable X-ray of the hip and pelvis showed a left subcapital femoral neck fracture with impaction Head CT no acute findings Left hand x-ray no fracture Chest CT no acute abnormalities Cervical spine CT no fracture Code Status & VTE Plan VTE Prophylaxis Plan VTE Prophylaxis will be ordered: Yes
[2025-06-13] MEDS ORDERED: clonazePAM 1 MG TAB PO PRN (22:21)
[2025-06-13] MEDS ORDERED: ALUMINUM/MAGNESIUM SUSP 30 ML UDC PO PRN (22:21)
[2025-06-13] MEDS ORDERED: MoRPHine SULFATE 4 MG/ML 1 ML CARP\\VIAL IV PRN (22:21)
[2025-06-13] MEDS ORDERED: MELATONIN 3 MG TAB PO PRN (22:21)
[2025-06-13] MEDS ORDERED: ONDANSETRON INJ 2 MG/ML 2 ML VIAL IV PRN (22:21)
[2025-06-13] MEDS: ACETAMINOPHEN 500 MG TAB PO SCH (23:29)
[2025-06-13] MEDS: SODIUM CHLORIDE 0.9% 1,000 ML IV SCH (23:29)
[2025-06-13] MEDS: HEPARIN SOD 5,000 UNIT/0.5 ML VIAL SQ SCH (23:30)
--- NOTE | 2025-06-13 23:48 | CT Scan Report ---
Exam(s): CT LEFT HIP Without Contrast EXAM: CT Left Lower Extremity Without Intravenous Contrast, Hip CLINICAL HISTORY: Reason for exam: fall. TECHNIQUE: Axial computed tomography images of the left hip without intravenous contrast. CTDI is 27.36 mGy and DLP is 780.51 mGy-cm. Automated exposure control was utilized for the study. A dose lowering technique was utilized adhering to the principles of ALARA. COMPARISON: No relevant prior studies available. FINDINGS: Bones/joints: Acute mildly impacted subcapital femoral neck fracture. No dislocation. Acetabulum is intact. Mild joint space narrowing with subchondral cystic changes within the lateral acetabulum. Soft tissues: Unremarkable. No hematoma. Bowel: Small joint effusion. Colonic diverticulosis. IMPRESSION: Acute mildly impacted subcapital femoral neck fracture. Electronically signed by: Harry Austin MD 06/13/25 23:46 PM
--- NOTE | 2025-06-13 23:50 | CT Scan Report ---
Exam(s): CT PELVIS Without Contrast EXAM: CT Pelvis Without Intravenous Contrast CLINICAL HISTORY: Reason for exam: fall. TECHNIQUE: Axial computed tomography images of the pelvis without intravenous contrast. CTDI is 27.36 mGy and DLP is 780.51 mGy-cm. Automated exposure control was utilized for the study. A dose lowering technique was utilized adhering to the principles of ALARA. COMPARISON: X-ray 06/13/2025. FINDINGS: Bowel: Colonic diverticulosis. Intraperitoneal space: Unremarkable. No free air. No significant fluid collection. Bladder: Unremarkable. Bones/joints: Acute subcapital femoral neck fracture on the left. No other fracture identified. No dislocation. Soft tissues: Unremarkable. Other findings: Pelvic floor laxity. IMPRESSION: Acute subcapital femoral neck fracture on the left. Electronically signed by: Harry Austin MD 06/13/25 23:49 PM
--- NOTE | 2025-06-14 06:43 | Orthopedic Consultation ---
Date of Consultation June 14, 2025 Assessment & Plan (1) Closed fracture of left hip: (2) Anemia: (3) CKD (chronic kidney disease), stage III: (4) Panic disorder: (5) Osteoporosis: Plan This is an 80-year-old female who presents to the hospital after a fall that occurred either early yesterday morning or late the night before. The patient notes that during the fall she landed on her left hip and had immediate pain. She was able to get up and ambulate to her bed after the fall, however she was unable to fall back to sleep and continue to have significant pain prompting her presentation to the emergency department. In the emergency department x-rays demonstrated a left subcapital femoral neck fracture. The radiographs appeared that this was valgus impacted, however on further evaluation with CT scan, there seems to be some anterior and inferior comminution suggestive of a complete fracture. I had a long discussion with the patient and multiple family numbers to join her at bedside today regarding the nature of this injury. We discussed in great detail the pathoanatomy, pathophysiology, treatment options. First, I did express to the patient and her family that hip fractures in the elderly often times are a "harbinger of worsening state,". I expressed to them in no uncertain terms that oftentimes hip fractures single the beginning of the end of the patient's life. I expressed to them that hip fractures occur generally and medically frail elderly patients with significant bone density issues. I discussed with them that regarding her current fracture, the management of it could be done 1 of 2 ways either with closed reduction and percutaneous pinning using 3 screws or with a hemiarthroplasty. With regards to close reduction percutaneous pinning, while this surgery is "smaller, it is a decreased physiologic insult as compared to hemiarthroplasty, however I do believe that carries with it a higher risk of failure needing conversion to arthroplasty in the future. Arthroplasty, while it is a larger more physiologically insulting surgery, I believe has a lower chance of failure then close reduction and percutaneous pinning. That said, there are considerable risks to surgery which include but are not limited to loss of life/limb, DVT/PE, incomplete relief of pain, need for additional surgery, infection, wound healing compromise, nonunion, malunion, hardware complication, hardware failure, Iatrogenic injury to bone/nerve/tendon/vessel, intraoperative fracture. I do believe that hemiarthroplasty carries with it a higher risk of intraoperative fracture. after thorough discussion the risk, benefits, terms of surgical management, the patient and her family are interested in pursuing operative care. After understanding the different surgical options, given the fact that the patient is relatively mobile and would like to return to mobility as soon as possible to care for her , they are leaning towards hemiarthroplasty. I do think that this is reasonable considering the complete nature of the fracture. I did also explain to the patient and her family that often times after hip fractures, even if everything goes well from a surgical standpoint, many patients decreased 1 level of functional status. Considering this patient currently walks with a cane, she may be on a walker more often than not moving forward. They expressed understanding to this. We also discussed the 1 year mortality risk after his fracture is between 25 and 30%. They expressed understanding to this as well. We will plan to proceed to the operating room pending OR availability. Surgical plan: Left hip hemiarthroplasty patient has been admitted to the medical team and optimized for surgical intervention. She would likely require discharge to a nursing facility after hospitalization. History of Present Illness Reason for Consultation: left hip fracture Attending Physician: Shiv Box DO History of Present Illness Patient 80-year-old female lives independently with her and overall is in a very good state of health. Patient presents to the emergency room last evening after she sustained a fall the evening before. In the emergency room imaging was consistent with a left hip fracture. Patient was admitted to the hospitalist service. At the time of my evaluation patient states her pain is improved after receiving some medicine. She states that she was getting water out of the refrigerator and apparently there were some water on the floor she slipped and fell in the kitchen. She thinks she may have hit the kitchen island with her hand that she tried to brace her fall. She immediately had pain in her hand and her hip but was able to get herself back to bed. When she woke up later on this morning she continued to have pain and thought it difficult to ambulate. She finally came to the emergency room when she really could not manage herself at home. She denies any fever or chills, no cough or cold symptoms, no chest pain, no shortness of breath. She has been eating and drinking well. No new issues with her bowels or bladder. No swelling in her hands arms legs or feet. She states that she overall is in very good health and is eager to get this hip fixed and get back to her usual daily activities. she ordinarily ambulates with the use of a cane. 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 Allergies Allergy/AdvReac Type Severity Reaction Status Date / Time escitalopram [From Lexapro] AdvReac extreme Verified 06/13/25 19:22 nausea/dizziness Home Medications Medication Instructions Recorded Confirmed Type clonazepam 1 mg tablet 1 mg PO TID PRN Anxiety 07/22/20 06/13/25 History rosuvastatin 20 mg tablet 20 mg PO QAM 07/22/20 06/13/25 History meclizine 12.5 mg tablet 12.5 mg PO TID PRN Dizziness 06/13/25 06/13/25 History meloxicam 7.5 mg tablet 7.5 mg PO QAM PRN pain 06/13/25 06/13/25 History prochlorperazine maleate 5 mg 5 mg PO Q6 PRN Nausea 06/13/25 06/13/25 History tablet tramadol 50 mg tablet 50 mg PO Q6H PRN pain,moderate 06/13/25 06/13/25 History Patient History Medical History (Updated 06/13/25 @ 20:47 by Eric Alvares DO) History of echocardiogram 09/14/2019 echo: Small to moderate size circumferential pericardial effusion, no cardiac tamponade. Compared to study of 09/13/2018 no significant change. History of stress test 06/24/2018 dobutamine stress echo: Negative for inducible ischemia Dyslipidemia CKD (chronic kidney disease), stage III Panic disorder Osteoporosis Surgical History (Updated 06/13/25 @ 19:28 by Holly Lora PA-C) History of hysterectomy History of colonoscopy Social History Smoking Status: Never smoker Hx Alcohol Use: No Hx Substance Use: No Preferred Language: Spanish Communication Ability: Effective Plan Manager Required: No Beliefs That Will Affect Care: None Current Living Situation: Spouse Other Information That Helps Us Care for You: No Feels Safe at Home: Yes Safety Concerns: Feels Safe At This Time Assistive Devices: Denture - Upper, Denture - Lower and Hearing Aid - Bilateral Review of Systems Review of Systems: All systems reviewed & are unremarkable except as noted in HPI & below Physical Exam Physical Exam: Left lower extremity: Pain with logroll. Pain with heel strike. No open wounds appreciated at the left hip. Pain with attempted range of motion. Sensation tact light touch L2-S1. Results & Data Vital Signs (Past 12 Hours) Vital Signs Temp Pulse Pulse Resp BP Pulse Ox O2 Del Method 06/13/25 22:59 36.3 C L 63 17 110/61 99 Nasal Cannula 06/13/25 21:50 Nasal Cannula 06/13/25 21:08 65 17 114/62 99 Nasal Cannula 06/13/25 21:07 65 06/13/25 20:00 69 12 123/71 99 Nasal Cannula 06/13/25 19:19 88 L Room Air, Nasal Cannula 06/13/25 19:19 77 18 123/71 97 Nasal Cannula 06/13/25 19:14 88 L Room Air O2 Flow Rate 06/13/25 22:59 2 06/13/25 21:50 2 06/13/25 21:08 2 06/13/25 21:07 06/13/25 20:00 2 06/13/25 19:19 0 06/13/25 19:19 3 06/13/25 19:14 Diagnostic Findings X-rays and CT scan of the left hip personally interpreted and reviewed. These demonstrate a subcapital femoral neck fracture. On the radiographs, this does appear valgus impacted however on further evaluation of the CT scan, this does appear to be a complete partially displaced fracture.
[2025-06-14 07:26] LABS: Hematocrit (blood only) 27.3 % (37.0-47.0); Hemoglobin 8.8 g/dl (12.0-16.0); Immature Granulocytes # (auto) 0.01 K/uL (0.01-0.20); Immature Granulocytes % (auto) 0.2 %; Mean Corpuscular Hemoglobin 28.9 pg (25.0-34.0); Mean Corpuscular Volume 89.8 fL (80.0-100.0); Platelet Count 122 K/uL (130-400); RDW Standard Deviation 48.4 fL (36.4-46.3); Red Blood Count 3.04 M/uL (4.20-5.40); White Blood Count 5.35 K/ul (4.8-10.8)
[2025-06-14 07:42] LABS: Anion Gap 4.0 (3-11); Blood Urea Nitrogen 19.0 mg/dl (6-23); Calcium 8.2 mg/dl (8.6-10.3); Carbon Dioxide 26.0 mmol/L (21-32); Chloride 109.0 mmol/L (98-107); Creatinine Clr Calc Pharmacy 51.9 ml/min; Glucose 94.0 mg/dl (70-99(Fasting)); Potassium 4.2 mmol/L (3.5-5.1); Sodium 139.0 mmol/L (136-145)
[2025-06-14] MEDS: ROSUVASTATIN CALCIUM 20 MG TAB PO SCH (10:35)
[2025-06-14] MEDS: POLYETHYLENE (MIRALAX) 17 GM PACK PO SCH (10:35)
--- NOTE | 2025-06-14 11:31 | Hospitalist Progress Note ---
Date of Service June 14, 2025 Assessment & Plan (1) Closed fracture of left hip: (2) Fall: (3) Chronic disease anemia: (4) Panic disorder: (5) CKD (chronic kidney disease), stage III: Plan Mechanical Fall Left femoral neck fracture Likely osteoporotic fracture Patient 80-year-old female suffered a mechanical fall in her home presents with a left femoral neck fracture with impaction. c/w pain mx, bowel regimen Patient is medically maximized to undergo anticipated orthopedic surgical repair of the left hip fracture, mild to mod risk. ortho on board, await recs. If no plan for repair today, resume diet, keep npo midnight. PT and DVT Px w/ ortho recs after Sx. Watch out for blood loss anemia HLD: c/w home statin. PT/OT, CM to assist w/ dc plan. med/surg Full code. Admission and Anticipated Discharge Date Admission Date: June 13, 2025 Subjective Patient was seen and examined at bedside. Patient was lying in bed, on 2L NC O2, NAD, resting comfortably. Patient reports left hip pain under control, denies any fever/sore throat/cough/chest pain/shortness of breath. Physical Exam Physical Exam: Constitutional: Alert, nontoxic, NAD, on 2L NC O2 HEENT: Mucous membranes moist. Sclera clear Neck: Soft, no adenopathy Lungs: Clear to auscultation, decreased, no wheezes rales or rhonchi CV: S1-S2, regular Abdomen: Soft, nontender, nondistended Extremities: No significant edema, Musculoskeletal: left lower extremity slightly shortened and externally rotated, tenderness to any type of motion left lower extremity, contusion left wrist with some mild swelling and tenderness Neuro: No focal deficits Psych: Cooperative, normal mood Results & Data Results & Data Vital Signs (Past 12 Hours) Vital Signs Temp Pulse Resp BP Pulse Ox O2 Del Method O2 Flow Rate 06/14/25 07:29 36.4 C L 68 18 109/72 98 Nasal Cannula 2
--- NOTE | 2025-06-14 13:53 | History & Physical Bridge Note ---
Date of Service June 14, 2025 History & Physical Bridge Note I have examined the patient, reviewed the History & Physical and in the interval since the performance of the History & Physical I have noted the following changes of clinical significance: This is an 80-year-old female who presents to the hospital after a fall that occurred either early yesterday morning or late the night before. The patient notes that during the fall she landed on her left hip and had immediate pain. She was able to get up and ambulate to her bed after the fall, however she was unable to fall back to sleep and continue to have significant pain prompting her presentation to the emergency department. In the emergency department x-rays demonstrated a left subcapital femoral neck fracture. The radiographs appeared that this was valgus impacted, however on further evaluation with CT scan, there seems to be some anterior and inferior comminution suggestive of a complete fracture. I had a long discussion with the patient and multiple family numbers to join her at bedside today regarding the nature of this injury. We discussed in great detail the pathoanatomy, pathophysiology, treatment options. First, I did express to the patient and her family that hip fractures in the elderly often times are a "harbinger of worsening state,". I expressed to them in no uncertain terms that oftentimes hip fractures single the beginning of the end of the patient's life. I expressed to them that hip fractures occur generally and medically frail elderly patients with significant bone density issues. I discussed with them that regarding her current fracture, the management of it could be done 1 of 2 ways either with closed reduction and percutaneous pinning using 3 screws or with a hemiarthroplasty. With regards to close reduction percutaneous pinning, while this surgery is "smaller, it is a decreased physiologic insult as compared to hemiarthroplasty, however I do believe that carries with it a higher risk of failure needing conversion to arthroplasty in the future. Arthroplasty, while it is a larger more physiologically insulting surgery, I believe has a lower chance of failure then close reduction and percutaneous pinning. That said, there are considerable risks to surgery which include but are not limited to loss of life/limb, DVT/PE, incomplete relief of pain, need for additional surgery, infection, wound healing compromise, nonunion, malunion, hardware complication, hardware failure, Iatrogenic injury to bone/nerve/tendon/vessel, intraoperative fracture. I do believe that hemiarthroplasty carries with it a higher risk of intraoperative fracture. we discussed the possibility of discovering a nondisplaced calcar fracture which would be prophylactically fixed at the time of surgery as well. after thorough discussion the risk, benefits, terms of surgical management, the patient and her family are interested in pursuing operative care. After understanding the different surgical options, given the fact that the patient is relatively mobile and would like to return to mobility as soon as possible to care for her , they are leaning towards hemiarthroplasty. I do think that this is reasonable considering the complete nature of the fracture. I did also explain to the patient and her family that often times after hip fractures, even if everything goes well from a surgical standpoint, many patients decreased 1 level of functional status. Considering this patient currently walks with a cane, she may be on a walker more often than not moving forward. They expressed understanding to this. We also discussed the 1 year mortality risk after his fracture is between 25 and 30%. They expressed understanding to this as well. We will plan to proceed to the operating room pending OR availability. Surgical plan: Left hip hemiarthroplasty and all other indicated procedures
--- NOTE | 2025-06-14 14:19 | Anesthesiology Consultation ---
Date of Service June 14, 2025 Assessment & Plan (1) Encounter for pre-operative examination: Chart Review Chart Review: Acceptable Risk for Surgery and Patient NOT seen in Pre Admission Testing Ordered a type and screen as patient anemic (unclear etiology) without any blood bank tests. Echo from 2018 showed pericardial effusion but patient appears asymptomatic from this. Consults Requested none History Surgery Operation Date: 06/14/25 09:45 Proposed Procedures p Left Hip Hemiarthroplasty Sanya - Abrahan Murphy DO Height/Weight Height: 5 ft 3 in Weight: 64.909 kg Allergies Allergy/AdvReac Type Severity Reaction Status Date / Time escitalopram [From Lexapro] AdvReac extreme Verified 06/13/25 19:22 nausea/dizziness Medications Home Medications Medication Instructions Recorded Confirmed Last Taken clonazepam 1 mg tablet 1 mg PO TID PRN Anxiety 07/22/20 06/13/25 Unknown rosuvastatin 20 mg tablet 20 mg PO QAM 07/22/20 06/13/25 07/21/20 meclizine 12.5 mg tablet 12.5 mg PO TID PRN Dizziness 06/13/25 06/13/25 Unknown meloxicam 7.5 mg tablet 7.5 mg PO QAM PRN pain 06/13/25 06/13/25 Unknown prochlorperazine maleate 5 mg 5 mg PO Q6 PRN Nausea 06/13/25 06/13/25 Unknown tablet tramadol 50 mg tablet 50 mg PO Q6H PRN pain,moderate 06/13/25 06/13/25 Unknown Active Medications Generic Name Dose Route Start Last Admin Trade Name Freq PRN Reason Stop Dose Admin Acetaminophen 1,000 mg 06/13/25 22:21 06/14/25 14:00 Acetaminophen 500 Mg Tab PO 07/13/25 22:20 Not Given TID REGINA Heparin Sodium (Porcine) 5,000 units 06/13/25 22:21 06/14/25 14:00 Heparin Sod 5,000 Unit/0.5 Ml Vial SQ 07/13/25 22:20 Not Given Q8 REGINA Sodium Chloride 1,000 mls @ 80 mls/hr 06/13/25 22:21 06/14/25 12:00 Nss IV 06/16/25 22:20 80 mls/hr .[id number] REGINA Administration Oxycodone HCl 5 mg 06/13/25 22:21 06/14/25 10:35 Oxycodone Hcl Ir 5 Mg Tab (Immediate Release) PO 06/27/25 22:20 5 mg Q3H PRN Administration Mod-Sev Pain (Scale 4-10) Polyethylene Glycol 17 gm 06/14/25 09:00 06/14/25 10:35 Polyethylene (Miralax) 17 Gm Pack PO 07/14/25 08:59 Not Given DAILY REGINA Rosuvastatin Calcium 20 mg 06/14/25 09:00 06/14/25 10:35 Rosuvastatin Calcium 20 Mg Tab PO 07/14/25 08:59 20 mg QAM REGINA Administration NPO Date Last Intake of Fluids: 06/13/25 Time Last Intake of Fluids: 17:00 Date Last Intake of Solids: 06/13/25 Time Last Intake of Solids: 17:00 Past Medical History Medical History (Updated 06/14/25 @ 14:27 by Ralph Jimenez MD) Encounter for pre-operative examination Fall Anemia History of echocardiogram 09/14/2019 echo: Small to moderate size circumferential pericardial effusion, no cardiac tamponade. Compared to study of 09/13/2018 no significant change. Tamponade seen in echo 2018, ? related to pericarditis. History of stress test 06/24/2018 dobutamine stress echo: Negative for inducible ischemia Dyslipidemia CKD (chronic kidney disease), stage III Panic disorder Osteoporosis Patient received 5000 units subQ heparin at 0600 today. Past Surgical History Surgical History History of hysterectomy History of colonoscopy Social History Smoking Status: Never smoker Hx Alcohol Use: No Hx Substance Use: No Physical Exam Vital Signs Last Vital Signs Temp 36.8 C 06/14/25 13:38 Pulse 80 06/14/25 13:38 Resp 18 06/14/25 13:38 BP 121/89 06/14/25 13:38 Pulse Ox 92 06/14/25 13:38 O2 Del Method Nasal Cannula 06/14/25 13:38 O2 Flow Rate 2 06/14/25 13:38 Testing Laboratory Results 06/14/25 06:40 06/14/25 06:40 PT 11.2 Seconds (9.0-12.0) 06/13/25 19:12 INR 1.1 (0.9-1.1) 06/13/25 19:12 APTT 26 Seconds (21-31) 06/13/25 19:12 Electrocardiogram Date: 06/13/25 Findings: + NSR @ (73) and + NSST changes Chest X-Ray Date: 06/13/25 Findings: + NAD
[2025-06-14] MEDS ORDERED: LIDOCAINE 2% 2 ML VIAL/AMP(20MG/ML) INFIL ONE (15:15)
[2025-06-14] MEDS ORDERED: ONDANSETRON INJ 2 MG/ML 2 ML VIAL ONE (15:15)
[2025-06-14] MEDS ORDERED: PROPOFOL IV EMULSION 10 MG/ML 20 ML VIAL IV ONE ×2 (15:15)
[2025-06-14] MEDS ORDERED: BUPIVACAINE 0.5 % 5 MG/1 ML PF 10ML VIAL ONE (15:20)
[2025-06-14] MEDS ORDERED: KETAMINE HCL 10MG/ML SYR ONE (15:23)
[2025-06-14] MEDS ORDERED: SODIUM CHLORIDE 0.9% 100 ML IV PRN (15:49)
[2025-06-14] MEDS ORDERED: ROCURONIUM BROMIDE 10 MG/ML 5 ML VIAL IV ONE ×3 (16:12→18:34)
[2025-06-14] MEDS ORDERED: PHENYLEPHRINE 100MCG/ML 5ML SYR ONE ×2 (16:33→18:33)
[2025-06-14] MEDS: VANCOMYCIN HCL 1000MG/20ML VIAL ONE (18:52)
[2025-06-14] MEDS ORDERED: PHENYLEPHRINE HCL 10 MG/ML VIAL ONE (18:53)
[2025-06-14] MEDS ORDERED: SUGAMMADEX SODIUM 200 MG/2 ML VIAL IV ONE (18:58)
--- NOTE | 2025-06-14 19:31 | Operative Report ---
Post Operative Report Pre & Post Diagnosis Operation Date: 06/14/25 09:45 Pre-Op Diagnosis: Left hip fracture Post-Op Diagnosis: Left hip fracture I identified the patient and participated in the time-out.: Yes Procedure Operation Date: 06/14/25 09:45 Actual Procedures p Left Hip Hemiarthroplasty Anterior(Left) - Abrahan Murphy DO 1. Left hip hemiarthroplasty 2. Application negative pressure wound VAC therapy 3. Physician directed fluoroscopy greater than 1 hour Surgeon Abrahan Murphy DO [employer] Estimated Blood Loss 250 Findings Consistent with Post-Op Diagnosis Specimens 1. Femoral head for permanent Anesthesia Type General Disposition Disposition: Recovery Room Indications This is an 80-year-old female who presents to the hospital after a fall that occurred either early yesterday morning or late the night before. The patient notes that during the fall she landed on her left hip and had immediate pain. She was able to get up and ambulate to her bed after the fall, however she was unable to fall back to sleep and continue to have significant pain prompting her presentation to the emergency department. In the emergency department x-rays demonstrated a left subcapital femoral neck fracture. The radiographs appeared that this was valgus impacted, however on further evaluation with CT scan, there seems to be some anterior and inferior comminution suggestive of a complete fracture. I had a long discussion with the patient and multiple family numbers to join her at bedside today regarding the nature of this injury. We discussed in great detail the pathoanatomy, pathophysiology, treatment options. First, I did express to the patient and her family that hip fractures in the elderly often times are a "harbinger of worsening state,". I expressed to them in no uncertain terms that oftentimes hip fractures single the beginning of the end of the patient's life. I expressed to them that hip fractures occur generally and medically frail elderly patients with significant bone density issues. I discussed with them that regarding her current fracture, the management of it could be done 1 of 2 ways either with closed reduction and percutaneous pinning using 3 screws or with a hemiarthroplasty. With regards to close reduction percutaneous pinning, while this surgery is "smaller, it is a decreased physiologic insult as compared to hemiarthroplasty, however I do believe that carries with it a higher risk of failure needing conversion to arthroplasty in the future. Arthroplasty, while it is a larger more physiologically insulting surgery, I believe has a lower chance of failure then close reduction and percutaneous pinning. That said, there are considerable risks to surgery which include but are not limited to loss of life/limb, DVT/PE, incomplete relief of pain, need for additional surgery, infection, wound healing compromise, nonunion, malunion, hardware complication, hardware failure, Iatrogenic injury to bone/nerve/tendon/vessel, intraoperative fracture. I do believe that hemiarthroplasty carries with it a higher risk of intraoperative fracture. we discussed the possibility of discovering a nondisplaced calcar fracture which would be prophylactically fixed at the time of surgery as well. after thorough discussion the risk, benefits, terms of surgical management, the patient and her family are interested in pursuing operative care. After understanding the different surgical options, given the fact that the patient is relatively mobile and would like to return to mobility as soon as possible to care for her , they are leaning towards hemiarthroplasty. I do think that this is reasonable considering the complete nature of the fracture. I did also explain to the patient and her family that often times after hip fractures, even if everything goes well from a surgical standpoint, many patients decreased 1 level of functional status. Considering this patient currently walks with a cane, she may be on a walker more often than not moving forward. They expressed understanding to this. We also discussed the 1 year mortality risk after his fracture is between 25 and 30%. They expressed understanding to this as well. We will plan to proceed to the operating room pending OR availability. Surgical plan: Left hip hemiarthroplasty and all other indicated procedures Description of Procedure After informed consent was obtained, the patient was correctly identified in the preoperative holding suite, the operative site was marked with the surgeon's initials, the date of surgery, and the word yes. The patient was then taken to the operative suite. The department of anesthesia administered general anesthesia. The patient was transferred from the [facility] to the operative table. All bony prominences were well-padded. Briefing and timeout was performed. All implants were available and sterile at the time. BRIEFING AND DEBRIEFING: Pre and post operative briefing and debriefing was performed. Introductions were made, goals of the procedure were discussed, questions and concerns were addressed. The operative site markings were identified and appropriate. A time [id number] was performed, the patient's correct identity was confirmed and the correct operative sites were identified. The patients pre-operative antibiotic dosing and administration was confirmed along with other SCIP measures. The team was polled at the completion of the surgery and all team members were in agreement that the procedure was without complication, the counts are correct, the wound class was identified and suggestions for improvement were shared. After anesthesia was induced, the patient was transferred in supine fashion from the hospital bed to the operative table. Her legs were placed in the [place] boots which were secured to the [place] table. Perineal post was placed. Right upper extremity is placed on a well-padded armboard the left upper extremity was well- padded and draped across the chest. We began by cleansing the skin with a chlorhexidine scrub brush and then prepped and draped the left hip in standard sterile fashion using ChloraPrep. We began by marking out our anatomic landmar ks including the ASIS. We planned our incision to begin approximately 2 cm lateral to the ASIS extending inferiorly approximately 11 cm in line with the femoral shaft aiming for the lateral aspect of the patella we would incise sharply through skin and subcutaneous tissue dissecting bluntly down to the fascia overlying the tensor fascia kyle. We would incised the fascia sharply and developed the plane between the muscle belly and its fascial sheath. We dissected then bluntly around the tensor fascia kyle and retracted the muscle laterally. We would incised the subs sheath very carefully pulling the rectus medially and then we carefully dissected through the layers so that we could identify and ligate using the aqua mantis the ascending branches of the lateral femoral circumflex. We then used the Hale elevator to clear the capsule of pericapsular fat and would place 2 bent Hohmann style retractors around the superior and inferior aspect of the femoral neck. We then would perform an H capsulotomy tagging both sides of the capsule to save for later repair. Once we were intracapsular, we evacuated the fracture hematoma and placed our Hohmann retractors intracapsular. Then we would slowly externally rotate the leg while performing inferior releases until we could visualize the lesser trochanter. We planned for our femoral neck cut approximately 1 cm proximal to the tip of the greater trochanter aiming at the saddle region. We checked this cut fluoroscopically being marked with a Sutherland and were satisfied. We made the cut with the oscillating saw. We then remove the napkin ring of the femoral neck and the comminution that was evident. We would then use the femoral head extractor to extract the femoral head. This was sized and was between a 46 and a 47 mm head. We would use the aqua mantis to cauterize the bleeding vessels on the medial wall and then we would pull out the pulmonary for the medial wall the acetabulum. We then trialed both a 47 and 46 mm head and were satisfied most with the fit of the 46 mm head. This was selected. We then turned our attention towards femoral canal preparation. We performed releases around the lateral and posterior aspects of our femoral neck cut and we would then externally rotate the limb to approximately 115 degrees, dropped this long-term down and perform sequential releases. We would release around the posterior aspect of the saddle region and we would make a vertical release through the abductors such that we could appropriately placed our retractors. We then brought the leg back up to neutral, placed our Smith on the medial side at the lesser trochanter, placed a double prong femoral elevator on the lateral side, we then once again externally rotated the hip 250 degrees, dropped this to the floor and 80 ducted it such that we could visualize the femoral canal. We began by using a canal finding rasp followed by a lateralizing rasp to begin preparation of the femoral canal. Then, we used a box osteotome to ensure that we are appropriately lateralized. We then began sequential broaching using the Avenir complete system. Sequentially we broached up until we found a good fit with the stem. The #2 standard stem fit nicely and was rotationally stable, as such we trialed off of this. A size 2 standard with a 46 mm head +0 was assembled using the trial components, I retractors were removed and the hip was then reduced. This fit felt appropriate and was stable with stress examination. No dislocation of the hip was noted with greater than 100 degrees of external rotation. No movement was felt with limb shuck. As such we selected these as our final components. We would then dislocate the hip, removed the trial components and place our final stem. The Kaushik Avenir complete size 2 standard stem was taken out of the packaging and impacted under direct visualization into the femoral canal. We once again trialed off of this as above and were satisfied once again with a fit so we opened up the final head and shell. The 46 mm shell and 28+0 mm head were then assembled on the back table and after irrigating the wound, drying the trunnion, the final head/shell was impacted int o place. The limb was then reduced and final fluoroscopic images were obtained. Once again, we stressed the hip and no evidence of instability was noted. He then thoroughly irrigated the wound, placed 1 g of vancomycin powder within the wound, and began our layered closure. The capsulotomy that was made prior was fixed with 0 Vicryl suture. We then used an oh strata fix in the fascia overlying the TFL, 0 Vicryl within the subcutaneous fat, 2-0 Vicryl in the subcutaneous dermis and a running 3 oh STRATAFIX in the subcuticular tissue. The wound was adhered with skin glue and the melly negative pressure wound therapy device was then applied. The patient tolerated this procedure well and was transferred to the PACU in stable condition. Prior to transportation to PACU, all counts were correct and a briefing was performed at the end of the case. Physician-directed fluoroscopy for greater than one hour was performed by myself to verify fracture alignment and the safe placement of all internal fixation. The final images saved to PACs showed views demonstrating satisfactory alignment of the fracture and stable internal fixation. Implant verification was performed by myself by reading and confirming the implant information on the packaging with the team before the sterile implants were opened. I was present for the entire procedure. Plan: Weight bearing status: As tolerated left hip Wound care: Keep dressing clean and dry Range of motion: As tolerated VTE Prophylaxis: Okay to resume prophylaxis from orthopedic standpoint. Antibiotics: Perioperative Ancef Pain Control: Multimodal Vitamin D Replacement: Labs pending Discharge Plan: Pending PT/OT Follow Up: With myself in 2 weeks I attest to the content of the Intraoperative Record and any orders documented therein. Any exceptions are noted below.
--- NOTE | 2025-06-14 20:09 | XRay Report ---
EXAMINATION: X-ray hip left 1 view CLINICAL HISTORY: Postop PRIORS: 06/13/2025 preop TECHNIQUE: AP view pelvis. FINDINGS: A left total hip arthroplasty is present, appearing in the interval with near anatomic alignment on the single view. No periprosthetic fracture. Mild to moderate adjacent left hip soft tissue swelling, compatible with postoperative change. No subcutaneous gas or radiopaque foreign body. Obturator rings within normal limits. No widening of the pubic symphysis. PRESSION: Left total hip arthroplasty with near anatomic alignment on this single view. Electronically signed by Sweta Braun 06-14-2025 8:09 PM
[2025-06-14] MEDS ORDERED: ATROPINE SULFATE 0.1 MG/ML 10ML SYR IV PRN (20:15)
[2025-06-14] MEDS ORDERED: PROMETHAZINE HCL 6.25 MG in SODIUM CHLORIDE 0.9% 50 ML IV PRN (20:15)
[2025-06-14] MEDS ORDERED: ONDANSETRON INJ 2 MG/ML 2 ML VIAL IV PRN (20:15)
[2025-06-14] MEDS ORDERED: STAT IV Infusion **Titration per Protocol STA (20:30)
[2025-06-14] MEDS: PHENYLEPHRINE/NSS 25 MG/250 ML BAG IV SCH (20:35)
--- NOTE | 2025-06-14 21:42 | Communication Note ---
Date of Service: June 14, 2025 Made aware by ICU blood bank calendar control clerk of ICU transfer from PACU for hypotension.
--- NOTE | 2025-06-14 22:03 | Anesthesiology Progress Note ---
Date of Service June 14, 2025 Anesthesia Post Procedure Vital Signs Vital Signs: Temp Pulse Pulse Resp BP BP Pulse Ox 06/14/25 21:10 38 C H 126 H 24 105/64 95 06/14/25 21:00 128 H 32 H 106/73 94 06/14/25 20:50 124 H 28 H 103/62 94 06/14/25 20:40 119 H 30 H 100/69 94 06/14/25 20:30 110 H 24 77/48 L 95 06/14/25 20:20 110 H 26 H 87/59 L 95 06/14/25 20:10 106 H 27 H 90/46 L 95 06/14/25 20:00 135 H 25 H 105/70 95 06/14/25 19:50 128 H 24 135/84 96 06/14/25 19:40 124 H 24 112/51 L 99 06/14/25 19:30 36.5 C 101 H 20 118/64 99 06/14/25 13:38 36.8 C 80 18 121/89 92 06/14/25 07:29 36.4 C L 68 18 109/72 98 06/13/25 22:59 36.3 C L 63 17 110/61 99 O2 Del Method O2 Flow Rate 06/14/25 21:10 Nasal Cannula 4 06/14/25 21:00 Nasal Cannula 4 06/14/25 20:50 Nasal Cannula 4 06/14/25 20:40 Nasal Cannula 4 06/14/25 20:30 Nasal Cannula 4 06/14/25 20:20 Nasal Cannula 4 06/14/25 20:10 Nasal Cannula 4 06/14/25 20:00 Nasal Cannula 4 06/14/25 19:50 Nasal Cannula 4 06/14/25 19:40 Oxymask 6 06/14/25 19:30 Oxymask 6 06/14/25 13:38 Nasal Cannula 2 06/14/25 07:29 Nasal Cannula 2 06/13/25 22:59 Nasal Cannula 2 Transfer of Care Handoff Completed per policy Notes Mental Status: alert / awake / arousable Patient Amnestic to Procedure: Yes Nausea / Vomiting: adequately controlled Pain: adequately controlled Airway Patency, RR, SpO2: stable & adequate BP & HR: stable & adequate and see Notes below Hydration State: stable & adequate and see Notes below Anesthetic Complications: no major complications apparent Notes: Patient recieved 1u PRBC intraoperatively. In PACU, she was tachycardic 100-140 and BP drifting down to 70s/40s. A low dose phenylephrine drip was started and stat H/H was checked. Patient is accepted to ICU overnight due to need for pressors. At the time of pacu transfer, H/H is still pending. Will hold off on further transfusion pending labs. I have spoken with the FLIP in ICU about this patient.
[2025-06-14 22:27] LABS: Hematocrit (blood only) 33.9 % (37.0-47.0); Hemoglobin 10.5 g/dl (12.0-16.0); Mean Corpuscular Hemoglobin 28.5 pg (25.0-34.0); Mean Corpuscular Volume 92.1 fL (80.0-100.0); Platelet Count 89 K/uL (130-400); RDW Standard Deviation 51.0 fL (36.4-46.3); Red Blood Count 3.68 M/uL (4.20-5.40); White Blood Count 4.26 K/ul (4.8-10.8)
[2025-06-14] MEDS ORDERED: MoRPHine SULFATE 4 MG/ML 1 ML CARP\\VIAL IV PRN (23:06)
[2025-06-14] MEDS: LACTATED RINGER'S 500 ML IV ONE (23:28)
[2025-06-15] MEDS: LACTATED RINGER'S 1,000 ML IV SCH
--- NOTE | 2025-06-15 01:45 | Critical Care Consultation ---
Date of Consultation June 15, 2025 Assessment & Plan (1) Shock: (2) Altered mental status: (3) Acute blood loss anemia: (4) Closed fracture of left hip: Plan Addendum 0330: Patient off pressors for approximately 30 minutes, then progressively requiring increased doses of phenylephrine up to 1.7. Patient remaining altered, but responsive and requesting water. At 0215 I evaluated the patient at bedside due to progressive hypotension. She was unresponsive, tachypneic, pupils 4mm and 3mm respectively. GCS 3. The patient was emergently intubated by me without complication. Immediate post-procedure ABG revealed incompletely compensated metabolic acidosis with pH 7.1. She received 2 ampules of NaHCO3. Despite this she developed bradycardia and cardiac arrest at 0237. Received 2 rounds of CPR, epinephrine with ROSC at 0241. RR set to 26. Fentanyl given. iSTAT HGB 6.8. 1U emergently transfused. CTH and CT AP with contrast ordered to rule out intracranial pathology and intra vs retroperitoneal bleeding. Her abdomen was soft and non-distended, wound vac remained without bloody return. R femoral arterial line and CVC placed. Norepinephrine and bicarbonate infusion started. LA returned at 16.9. Remainder of labs pending at this time. BG 25 and this was replaced. Family arrived to bedside (daughter and TRACEY) and were updated extensively. I also called Dr. Murphy to update him regarding the patient's condition. Await pending studies, prepare 2U PRBC now. Reason Critically Ill: 1. Altered mentation, acute, possibly 2/2 transient hypotension with malperfusion vs. effect of anesthesia 2. Acute blood loss anemia 3. L femoral neck fracture s/p hemiarthroplasty 4. Vitamin D deficiency Neuro - [facility] ICU: Positive RASS GOAL 0 Avoid sedating medications Multimodal pain management Cardiac - EKG on arrival to unit sinus tachycardia with PACs Continue phenylephrine for MAP goal > 65mmHg, 18G PIV in place with blood return Consider repeat echocardiogram (last 2019 with moderate pericardial effusion) IVF as below Respiratory - Aspiration precautions, HOB 30 SpO2 goal > 92% IS/Flutter GI - Diet: Clear liquids, advance as tolerated SUP: N/A Bowel regimen: Start today RENAL/LYTES - Replete electrolytes as indicated Repeat labs now Bladder scan and straight cath PRN Maintain net even to net negative Vitamin D supplementation ENDO - BG 140-180 per SCCM guidelines ISS if needed while inpatient HEME - Trend H/H Transfuse for HGB < 7 or active bleeding PLT if < 10K or active bleeding Coags ID - Perioperative antibiotics per Surgery LINES/TUBES/DRAINS - PIV x3 DVT PROPHYLAXIS - Hold until cleared by Ortho I have personally spent 40 minutes of critical care time in the direct management of this patient. This is a life/limb threatening event. This includes time spent evaluating patient, direct bedside care, chart review, placing orders, interpretation of diagnostic studies, discussion with consultants, patient, and family members, as well as other required patient management activities. This time is exclusive of all separately billable procedures, and teaching time and separate from and in addition to any other critical care service time. Thank you for allowing us to participate in the care of this patient. Please refer to my attending physician's documentation for any further recommendations. Supervising Physician Co-Signing Physician Notes I have seen and evaluated the patient with the PAReina. I agree with the documented findings and plan in addition to the following. Patient admitted to the ICU overnight. Was altered, glucose was less than 10. Required intubation and had a cardiac arrest for 5 minutes shortly thereafter with PEA arrest. Patient has developed severe refractory shock. On mechanical ventilation. Labs this morning consistent with DIC. An HANG with no urine output. Hematology, nephrology are consulted. Orthopedic surgery has been made aware of the patient's condition. Family is at bedside. Ongoing discussion on plan of care. History of Present Illness Reason for Consultation: Shock Requesting Physician: Varun Attending Physician: Emory Herrera MD History of Present Illness Maria M Mercer is a pleasant 80YOF with a history of anemia of chronic disease, anxiety, dizziness, pericardial effusion, hyperlipidemia, and CKDIII who was admitted to [facility] on 06/13/2025 after suffering a mechanical fall at home resulting in L femoral neck fracture. Patient underwent L hip arthroplasty the evening of 06/14/2025 which was complicated by intraoperative and post-operative hypotension. EBL 250cc. Received 1U PRBC intraoperatively as well as 2L IVF. Due to persistent hypotension she was placed on a phenylephrine infusion and transferred to ICU for continuation of care. Repeat HGB improved to 10.5 from 8.8 (pre-op 9.4). Patient seen in PACU. She is confused, not oriented to place or time. Agitated stating she needs to go home. Mildly tachycardic. EKG completed showing sinus tachycardia with PACs. She has no focal deficits on examination. Denies pain currently. Unable to elicit full ROS due to mentation. Allergies Allergy/AdvReac Type Severity Reaction Status Date / Time escitalopram [From Lexapro] AdvReac extreme Verified 06/13/25 19:22 nausea/dizziness Home Medications Medication Instructions Recorded Confirmed Type clonazepam 1 mg tablet 1 mg PO TID PRN Anxiety 07/22/20 06/13/25 History rosuvastatin 20 mg tablet 20 mg PO QAM 07/22/20 06/13/25 History meclizine 12.5 mg tablet 12.5 mg PO TID PRN Dizziness 06/13/25 06/13/25 History meloxicam 7.5 mg tablet 7.5 mg PO QAM PRN pain 06/13/25 06/13/25 History prochlorperazine maleate 5 mg 5 mg PO Q6 PRN Nausea 06/13/25 06/13/25 History tablet tramadol 50 mg tablet 50 mg PO Q6H PRN pain,moderate 06/13/25 06/13/25 History Patient History Medical History (Updated 06/15/25 @ 09:55 by Marquez Shea DO) Encounter for pre-operative examination Fall Anemia History of echocardiogram 09/14/2019 echo: Small to moderate size circumferential pericardial effusion, no cardiac tamponade. Compared to study of 09/13/2018 no significant change. Tamponade seen in echo 2018, ? related to pericarditis. History of stress test 06/24/2018 dobutamine stress echo: Negative for inducible ischemia Dyslipidemia CKD (chronic kidney disease), stage III Panic disorder Osteoporosis Surgical History History of hysterectomy History of colonoscopy Social History Smoking Status: Never smoker Hx Alcohol Use: No Hx Substance Use: No Preferred Language: Irish Communication Ability: Effective Glass Silverer Required: No Beliefs That Will Affect Care: None Current Living Situation: Spouse Other Information That Helps Us Care for You: No Feels Safe at Home: Yes Safety Concerns: Feels Safe At This Time Assistive Devices: Cane Review of Systems Review of Systems: Unobtainable due to cognitive status Physical Exam Constitutional: well developed, + altered mental status and + frail appearing; no acute distress Eyes: PERRL ENMT: external ear and nose normal, oropharynx normal Neck: trachea midline, no thyromegaly Respiratory: normal respiratory effort, lungs clear to auscultation Cardiovascular: RRR, no murmur, no edema Gastrointestinal (Abdomen): normal bowel sounds, soft, nontender, no hepatosplenomegaly Musculoskeletal: Extremities: extremities normal to inspection L hip incision site with dressing in place, C/D/I. No blood in wound vac tubing Skin: no rashes, warm and dry Neurologic: moves all extremities, awake and + confused; no focal motor deficits Speech / Cognition: normal speech Motor/Sensory: normal movement Cranial Nerves: PERRL Genitourinary: Deferred Results & Data Results & Data Vital Signs (Past 12 Hours) Vital Signs Temp Pulse Pulse Resp BP BP Pulse Ox 06/15/25 01:30 98/56 L 06/15/25 01:15 83/58 L 06/15/25 01:00 130 H 34 H 87/53 L 94 06/15/25 00:45 80/54 L 06/15/25 00:45 80/54 L 06/15/25 00:30 78/51 L 06/15/25 00:22 75/43 L 06/15/25 00:18 75/47 L 06/15/25 00:16 71/44 L 06/15/25 00:00 117 H 26 H 84/46 L 95 06/14/25 23:50 85/48 L 06/14/25 23:45 81/52 L 06/14/25 23:40 79/48 L 06/14/25 23:38 83/50 L 06/14/25 23:31 96/58 L 06/14/25 23:13 89/53 L 06/14/25 23:13 89/53 L 06/14/25 23:08 126 H 35 H 67/38 L 06/14/25 23:04 79/47 L 06/14/25 22:45 132 H 24 94 06/14/25 22:28 144/100 H 06/14/25 22:13 136 H 06/14/25 22:00 06/14/25 22:00 143 H 21 96 06/14/25 21:59 117/78 06/14/25 21:10 38 C H 126 H 24 105/64 95 06/14/25 21:00 128 H 32 H 106/73 94 06/14/25 20:50 124 H 28 H 103/62 94 06/14/25 20:40 119 H 30 H 100/69 94 06/14/25 20:30 110 H 24 77/48 L 95 06/14/25 20:20 110 H 26 H 87/59 L 95 06/14/25 20:10 106 H 27 H 90/46 L 95 06/14/25 20:00 135 H 25 H 105/70 95 06/14/25 19:50 128 H 24 135/84 96 06/14/25 19:40 124 H 24 112/51 L 99 06/14/25 19:30 36.5 C 101 H 20 118/64 99 O2 Del Method O2 Flow Rate 06/15/25 01:30 06/15/25 01:15 06/15/25 01:00 Nasal Cannula 4 06/15/25 00:45 06/15/25 00:45 06/15/25 00:30 06/15/25 00:22 06/15/25 00:18 06/15/25 00:16 06/15/25 00:00 Nasal Cannula 4 06/14/25 23:50 06/14/25 23:45 06/14/25 23:40 06/14/25 23:38 06/14/25 23:31 06/14/25 23:13 06/14/25 23:13 06/14/25 23:08 06/14/25 23:04 06/14/25 22:45 Nasal Cannula 4 06/14/25 22:28 06/14/25 22:13 06/14/25 22:00 Nasal Cannula 4 06/14/25 22:00 Nasal Cannula 4 06/14/25 21:59 06/14/25 21:10 Nasal Cannula 4 06/14/25 21:00 Nasal Cannula 4 06/14/25 20:50 Nasal Cannula 4 06/14/25 20:40 Nasal Cannula 4 06/14/25 20:30 Nasal Cannula 4 06/14/25 20:20 Nasal Cannula 4 06/14/25 20:10 Nasal Cannula 4 06/14/25 20:00 Nasal Cannula 4 06/14/25 19:50 Nasal Cannula 4 06/14/25 19:40 Oxymask 6 06/14/25 19:30 Oxymask 6 Laboratory Results Reviewed Diagnostic Findings Reviewed Medications Administered See DAJA Coding Level of Care Code 12381 CRITICAL CARE 1ST 30-74M Diagnoses Shock R57.9 Altered mental status R41.82 Acute blood loss anemia D62 Closed fracture of left hip S72.002A Time Spent (min) 40
[2025-06-15 02:59] LABS: iSTAT Art Bld Gas Base Excess -23.0 mmol/L (-9-1.8); iSTAT Art Bld Gas pCO2 Correct 18 mmHg (35-46); iSTAT Art Bld Gas pH Corrected 7.143 (7.35-7.45); iSTAT Arterial Blood Gas pO2 C 291
[2025-06-15] MEDS: NA BICARBONATE 8.4% 150 MEQ in D5W 1,000 ML IV SCH (03:15)
[2025-06-15] MEDS: LACTATED RINGER'S 500 ML IV ONE (03:20)
[2025-06-15] MEDS: DEXTROSE 50% 50 ML SYRINGE IV STA ×2 (03:45→06:05)
[2025-06-15] MEDS: OPTIRAY 320 100ml IV ONE (03:52)
--- NOTE | 2025-06-15 03:52 | XRay Report ---
EXAM: XR chest 1V portable CLINICAL HISTORY: Hypoxia, abnormal breathing TECHNIQUE: An X-ray image of the chest was obtained in AP projection. COMPARISON: 06/13/2025 17:22:35 REED DIPPER FINDINGS: Pulmonary Parenchyma: A newly introduced endotracheal tube is visualized, with its distal tip positioned approximately 1.2 cm above the patricia, indicating a low position. Bilateral perihilar opacities are seen, more pronounced on the right side. No pleural effusion or pleural thickening is observed. Heart and Mediastinum: The cardiac size and contour are within normal limits. The mediastinum is not widened, and no mediastinal or hilar lymphadenopathy is identified. No mediastinal masses are seen. Bony Thorax: The visualized bony thorax is intact, with no evidence of fractures or deformities. Soft Tissues: The soft tissues of the chest wall are unremarkable, without subcutaneous emphysema or soft tissue swelling. IMPRESSION: 1. There is a newly introduced endotracheal tube with the tip approximately 1.2 cm above the patricia, in a low position. Recommend withdrawal by 2?3 cm for optimal placement. 2. Bilateral perihilar opacities are seen, more pronounced on the right side. Interval new. Electronically signed by David Quinones 06-15-2025 03:52 AM
[2025-06-15 03:58] LABS: Anion Gap 21 (3-11); Blood Urea Nitrogen 22 mg/dl (6-23); Calcium 7.5 mg/dl (8.6-10.3); Carbon Dioxide 15 mmol/L (21-32); Chloride 111 mmol/L (98-107); Creatinine Clr Calc Pharmacy 19.4 ml/min; Glucose < 10 mg/dl (70-99(Fasting)); Magnesium 2.3 mg/dl (1.7-2.4); Potassium 5.0 mmol/L (3.5-5.1); Sodium 147 mmol/L (136-145)
[2025-06-15] MEDS ORDERED: SODIUM CHLORIDE 0.9% 100 ML IV PRN ×6 (04:04→15:04)
--- NOTE | 2025-06-15 04:12 | Communication Note ---
Date of Service: June 15, 2025 First points of contact to be Stacey (Daughter) and Kei GarciaTiara (Son). Stacey phone #: . Pepe (TRACEY) phone #: . Patient's , Kei Clements, has deferred medical decisions to his children. He would still like updates but does not feel capable of making decisions at this time. "My son in law knows a lot more about this stuff than me. I'm 79 years old". Coding Level of Care Code None
[2025-06-15 04:13] LABS: Hematocrit (blood only) 22.3 % (37.0-47.0); Hemoglobin 6.8 g/dl (12.0-16.0); Mean Corpuscular Hemoglobin 28.8 pg (25.0-34.0); Mean Corpuscular Volume 94.5 fL (80.0-100.0); Platelet Count 29 K/uL (130-400); RDW Standard Deviation 53.6 fL (36.4-46.3); Red Blood Count 2.36 M/uL (4.20-5.40); White Blood Count 17.09 K/ul (4.8-10.8)
[2025-06-15] MEDS ORDERED: STAT IV Infusion **Titration per Protocol STA ×2 (04:17→20:50)
[2025-06-15] MEDS: CALCIUM GLUCONATE 1,000 MG/60 ML BAG IV STA ×2 (04:27→15:20)
[2025-06-15] MEDS: NOREPINEPHRINE/D5W 4 MG/250 ML PLCT IV SCH (04:30)
[2025-06-15] MEDS: fentaNYL citrate 2,500 MCG/250 ML BAG IV SCH (04:30)
--- NOTE | 2025-06-15 04:38 | CT Scan Report ---
EXAM: CT head/brain wo con CLINICAL HISTORY: AMS, recent procedure TECHNIQUE: Multiple axial images were obtained from the skull base to the vertex without contrast. CT scan was performed according to ALARA (as low as reasonably achievable). COMPARISON: FINDINGS: There is cerebral atrophy. Cavum veli interpositi is present. No evidence of space-occupying lesion, hemorrhage, edema, mass effect, midline shift, extra-axial collection, or hydrocephalus is noted. Basal cisterns are symmetric and normal in size and configuration. There are scattered periventricular hypodensities as can be seen with chronic microvascular ischemic changes. The august-white matter differentiation is preserved. Mild bilateral maxillary sinusitis. Stable. The rest of the visualized paranasal sinuses and mastoid air cells are well aerated. Orbital contents are within normal limits. Bony structures are intact. IMPRESSION: 1. No evidence of acute intracranial abnormality is demonstrated. 2. Chronic microvascular ischemic changes. Stable. 3. Cerebral atrophy. Stable. Electronically signed by Chang Cope 06-15-2025 04:37 AM
--- NOTE | 2025-06-15 04:40 | Procedure Note ---
Procedure Note Date of Service June 15, 2025 ARTERIAL LINE PROCEDURE NOTE: Procedure: Arterial Line Placement Attending: Dr. Teague APC/Proceduralist: Nataly Pate PA-C Indication: Monitoring on Pressors/Frequent labs Anesthesia: None Procedure was emergent. Implied consent. A time-out was completed verifying correct patient, procedure, site, positioning, and implant(s) or special equipment if applicable. Patients R groin was prepped and draped in the usual sterile fashion. Ultrasound guidance was used to aid needle placement. A 20g Arrow arterial line was introduced into the R femoral artery. Catheter was threaded, and the needle was removed with appropriate blood return. Good waveform was observed. The patient tolerated the procedure well. Blood Loss: Minimal Complications: None [facility] Procedure Codes (Charges) Aterial Pressure Waveform Analysis Arterial Pressure Waveform: [id number] Arterial Pressure Waveform Analysis Tubes, Drains, and Vasc Access Procedure 1: Tubes, Drains, and Vasc Access: [id number] Arterial Cath/Cannulation Sampling/Monitoring/Transfusion Coding CPT Codes Tubes, Drains, and Vasc Access - Tubes, Drains, and Vasc Access: [id number] Arterial Cath/Cannulation Sampling/Monitoring/Transfusion ([id number]) Aterial Pressure Waveform Analysis - Arterial Pressure Waveform: [id number] Arterial Pressure Waveform Analysis ([id number]) Additional Codes Date of Service ([facility].SURGERY)
--- NOTE | 2025-06-15 04:43 | Procedure Note ---
Procedure Note Date of Service June 15, 2025 FEMORAL CENTRAL LINE PROCEDURE NOTE: Procedure: Femoral Central Line Placement Attending: Dr. Teague APC/Proceduralist: Nataly Pate PA-C Indication: Central Drug Administration, Poor Venous Access, Multiple Lab Draws Necessary, etc. Anesthesia: None Emergent procedure. Implied consent. A time-out was completed verifying correct patient, procedure, site, positioning, and implants(s) or special equipment if applicable. Patients R Groin was cleansed and draped in the typical sterile fashion using Chloraprep. The Femoral Vein and Femoral Artery were identified using ultrasound. The Femoral Vein was cannulated under direct ultrasound guidance using an introducer needle on a syringe. Good venous blood return was maintained prior to removal of syringe from introducer needle. Using Seldinger Technique, a guide wire was advanced through the introducer needle without resistance. The introducer needle was removed and the guidewire was visualized within the vein on multiple views. A small incision was made in penetrating fashion at the guide wire insertion site utilizing an 11 blade scalpel. The dilator was advanced to the vessel without resistance. The dilator was exchanged for the triple lumen catheter which was advanced into the vessel without resistance. The guide wire was removed intact from the catheter without issue. Claves were placed on each catheter tip with confirmation of good blood flow from brown and blue ports. White portal against venous wall without blood return. Each port was easily flus hed with sterile saline. The catheter was placed at the hub and sutured in place. A sterile CHG-embedded Tegaderm dressing was applied over the catheter with careful attention to sterility. Patient tolerated procedure well. No immediate complications were met. [facility] Procedure Codes (Charges) Tubes, Drains, and Vasc Access Procedure 1: Tubes, Drains, and Vasc Access: [id number] Place catheter in vein superior or inferior vena cava Coding CPT Codes Tubes, Drains, and Vasc Access - Tubes, Drains, and Vasc Access: [id number] Place catheter in vein superior or inferior vena cava ([id number]) Additional Codes Date of Service ([facility].SURGERY)
[2025-06-15] MEDS: fentaNYL citrate 2,500 MCG/250 ML BAG IV ONE (04:44)
[2025-06-15] MEDS: NOREPINEPHRINE/D5W 4 MG/250 ML IV ONE (04:44)
[2025-06-15] MEDS: CALCIUM GLUCONATE 1,000 MG/60 ML BAG IV ONE (04:48)
[2025-06-15] MEDS: RAPID SEQUENCE INDUCTION BAG ONE (04:49)
--- NOTE | 2025-06-15 04:50 | Procedure Note ---
Procedure Note Date of Service June 15, 2025 Code Note: Initial Rhythm: Bradycardia and PEA Total duration of CPR: 5 minutes Drugs: Epinephrine x2 Sodium bicarbonate x2 IVF bolus 500cc LR Pressors initiated: Norepinephrine Intubated prior to code. Lines placed: R femoral CVC, R femoral arterial Result of code: ROSC Next of kin notified: Yes [facility] Procedure Codes (Charges) Resuscitation Resuscitation: 42027 Heart/lung resuscitation CPR Coding CPT Codes Resuscitation - Resuscitation: 86410 Heart/lung resuscitation CPR ([id number]) Additional Codes Date of Service ([facility].SURGERY)
--- NOTE | 2025-06-15 05:21 | CT Scan Report ---
EXAM: CT abdomen pelvis wo/w con CLINICAL HISTORY: Assess for intra vs retroperitoneal bleeding TECHNIQUE: Multiple contiguous axial images were obtained from the level of the diaphragm to the pubic symphysis. This study was acquired before and after the IV administration of iodinated contrast material, given the patient's indications for the examination. If IV contrast material had not been administered, the likelihood of detecting abnormalities relevant to the patient's condition would have been substantially decreased. Coronal and sagittal reformatted images were generated and reviewed to improve anatomic localization and optimize lesion detection. The CT scan was performed according to ALARA (as low as reasonably achievable) principles. COMPARISON: FINDINGS: The visualized lung bases show bibasal pleural effusions with bibasal atelectasis. ABDOMEN/PELVIS: The liver is normal in size and shows diffusely decreased attenuation. No focal liver lesions are seen. There is no intrahepatic or extrahepatic biliary ductal dilatation. Hepatic vasculature is patent. The gallbladder is well distended with edematous wall thickening and a rim of pericholecystic fluid. The spleen shows multiple focal calcifications, which are stable. The pancreas is mildly bulky with mild peripancreatic fat stranding. The adrenal glands are hyperenhancing. The kidneys are normal in size and attenuation. There is minimal bilateral perinephric fat stranding. Tiny non-obstructive renal concretion in the left kidney, which is a new finding. No renal masses are identified. There is an interval unchanged Bosniak type I cyst on the left side. The right ureter is normal in caliber, and no ureteral calculi are seen. Left mild hydroureteronephrosis is stable. Bilateral dilated pelvicalcyeal system with left prominent ureter-stable. Terminal ureters could not be evaluated due to streaking artefacts form hip implant. The right ureter is normal in caliber, and no ureteral calculi are seen. The bladder is normal in contour. There are a few uncomplicated colonic diverticula and moderate fecal content in large bowel loops. Right sided colon shows submucosal fatty infiltrastion likely secondary to chronic inflammation. No evidence of bowel obstruction is seen. No features of an inflamed appendix are identified. The aorta is normal in caliber with atherosclerotic changes. 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 Mild ascites is present. No aggressive appearing osseous lesions are identified. Status post hysterectomy. The rest of the pelvic viscera are unremarkable. There are spondylodegenerative changes in the visualized spine. There is interval left total hip arthroplasty status with surrounding mild soft tissue thickening and a few air foci within the left upper thigh and left gluteal regions, likely recent post-intervention changes. IMPRESSION: No evidence of retroperitoneal or intraperitoneal hemorrhages. The visualized lung bases show bibasal pleural effusions with bibasal atelectasis-new. The gallbladder is well distended, with edematous wall thickening and a rim of pericholecystic fluid. This is a new finding. Advised ultrasound and clinical correlation to rule out acalculous cholecystitis. Mild ascites is a new finding. Bilateral adrenal glands are hyperenhancing; this is a new finding. Bilateral perinephric starnding and perinephric fluid-new Advised clinical and laboratory correlation to rule out IgG-4 disease. Tiny non-obstructive renal concretion in the left kidney is a new finding. Interval left total hip arthroplasty status with surrounding mild soft tissue thickening and a few air foci within, likely recent post-intervention changes. The pancreas is mildly bulky with mild peripancreatic fat stranding, which could be reactive; however, suggest laboratory correlation for possible pancreatitis. Hepatic steatosis-stable. Right inguinal henria with herniation of small bowel loop- non complicated-new. Right sided colon shows submucosal fattyinfiltrastion likely secondary to chronic inflammation. Advised clinical correlation. Bilateral dilated pelvicalcyeal system with prominent ureter on left side-stable. Terminal ureters could not be evaluated due to streaking artefacts form hip implant. Electronically signed by Chang Cope 06-15-2025 05:21 AM
[2025-06-15] MEDS: METOPROLOL TARTRATE 1 MG/ML VIAL IV ONE (05:57)
[2025-06-15] MEDS: INSULIN HUMAN REGULAR PER UNIT 10 UNITS in SYRINGE 9.9 ML IV ONE (06:05)
[2025-06-15 06:22] LABS: Alanine Aminotransferase 2157 U/L (7-52); Albumin Level 1.8 gm/dl (3.4-5.0); Alkaline Phosphatase 132 U/L (34-104); Bilirubin,Total 3.3 mg/dl (0.2-1.0); Total Protein 3.1 gm/dl (6.0-8.3)
[2025-06-15] MEDS ORDERED: MIDAZOLAM HCL 5 MG/ML 2ML VIAL IV ONE (06:29)
[2025-06-15 06:31] LABS: Partial Thromboplastin Time 71 Seconds (21-31)
[2025-06-15 06:50] LABS: Fibrinogen < 50 mg/dl (184-400)
[2025-06-15 07:03] LABS: Hemoglobin A1C 5.5 % (4.5-5.6)
[2025-06-15 07:53] LABS: Hematocrit (blood only) 31.4 % (37.0-47.0); Hemoglobin 10.0 g/dl (12.0-16.0)
--- NOTE | 2025-06-15 07:58 | Orthopedic Progress Note ---
Date of Service June 15, 2025 Assessment & Plan (1) Closed fracture of left hip: (2) Altered mental status: (3) Acute blood loss anemia: (4) Chronic disease anemia: (5) CKD (chronic kidney disease), stage III: Plan 80-year-old female postoperative day 1 status post left hip hemiarthroplasty. The patient require pressors in the recovery room, however when she was weaned off, she became unresponsive requiring intubation. She did have cardiac arrest with ROSC last evening. She remains in the ICU intubated. This morning, she is responding painful stimuli and opening her eyes, however not following many more commands. I did discuss patient's care with her family and updated them on her situation. Surgically, no acute complications were noted and blood loss appeared typical. Medical care per ICU team. From an orthopedic standpoint, the patient is weightbearing as tolerated, she is okay for DVT prophylaxis. will continue to follow Admission and Anticipated Discharge Date Admission Date: June 13, 2025 Subjective Postoperative day #1 status post left hip hemiarthroplasty. Postoperatively, the patient did require pressure support and eventually she was weaned off of these pressors, however she later became unresponsive requiring intubation. She is currently in the ICU intubated. She is opening her eyes and responding to painful stimuli, however she is not following all commands. Review of Systems Review of Systems: Unobtainable due to endotracheal tube Physical Exam Physical Exam: Patient's dressings clean dry and intact. Foot is warm and well-perfused. Unable to perform neurologic assessment. Results & Data Vital Signs (Past 12 Hours) Vital Signs Temp Pulse Pulse Resp BP BP Pulse Ox 06/15/25 06:40 36.3 C L 88 18 131/67 95 06/15/25 06:30 36.3 C L 87 26 H 96 06/15/25 06:18 36.3 C L 88 18 132/67 96 06/15/25 06:12 36.3 C L 88 26 H 97 06/15/25 06:00 143/75 H 06/15/25 05:48 36.4 C L 88 18 136/64 97 06/15/25 05:33 36.4 C L 88 18 134/63 96 06/15/25 05:29 36.4 C L 87 18 132/61 96 06/15/25 05:27 36.4 C L 86 26 H 96 06/15/25 05:18 36.4 C L 87 18 128/59 L 96 06/15/25 05:15 36.4 C L 85 26 H 97 06/15/25 05:12 36.4 C L 84 26 H 97 06/15/25 05:11 36.4 C L 85 18 131/59 L 96 06/15/25 05:01 36.5 C 83 20 139/58 L 97 06/15/25 05:00 140/68 06/15/25 04:54 36.5 C 84 26 H 98 06/15/25 04:53 36.4 C 86 24 138/57 L 98 06/15/25 04:45 36.5 C 84 26 H 98 06/15/25 04:37 26 H 06/15/25 04:25 134/52 L 06/15/25 04:24 36.6 C 88 26 H 98 06/15/25 04:20 124/52 L 06/15/25 04:18 87 26 H 100 06/15/25 04:15 119/51 L 06/15/25 04:15 88 26 H 100 06/15/25 04:10 120/58 L 06/15/25 04:09 94 H 23 99 06/15/25 04:05 124/53 L 06/15/25 03:21 130/64 06/15/25 03:21 100 H 26 H 100 06/15/25 03:20 103 H 06/15/25 03:16 178/65 H 06/15/25 03:16 178/65 H 06/15/25 03:16 178/65 H 06/15/25 03:10 113/69 06/15/25 03:03 105 H 21 100 06/15/25 03:00 112 H 22 100 06/15/25 03:00 89/71 L 06/15/25 02:56 131/69 06/15/25 02:51 176/112 H 06/15/25 02:46 114/63 06/15/25 02:45 131 H 17 97 06/15/25 02:42 179/75 H 06/15/25 02:42 89 21 89 L 06/15/25 02:38 69/18 L 06/15/25 02:38 69/18 L 06/15/25 01:30 98/56 L 06/15/25 01:15 83/58 L 06/15/25 01:00 130 H 34 H 87/53 L 94 06/15/25 00:45 80/54 L 06/15/25 00:45 80/54 L 06/15/25 00:30 78/51 L 06/15/25 00:22 75/43 L 06/15/25 00:18 75/47 L 06/15/25 00:16 71/44 L 06/15/25 00:00 117 H 26 H 84/46 L 95 06/14/25 23:50 85/48 L 06/14/25 23:45 81/52 L 06/14/25 23:40 79/48 L 06/14/25 23:38 83/50 L 06/14/25 23:31 96/58 L 06/14/25 23:13 89/53 L 06/14/25 23:13 89/53 L 06/14/25 23:08 126 H 35 H 67/38 L 06/14/25 23:04 79/47 L 06/14/25 22:45 132 H 24 94 06/14/25 22:28 144/100 H 06/14/25 22:13 136 H 06/14/25 22:00 06/14/25 22:00 143 H 21 96 06/14/25 21:59 117/78 06/14/25 21:10 38 C H 126 H 24 105/64 95 06/14/25 21:00 128 H 32 H 106/73 94 06/14/25 20:50 124 H 28 H 103/62 94 06/14/25 20:40 119 H 30 H 100/69 94 06/14/25 20:30 110 H 24 77/48 L 95 06/14/25 20:20 110 H 26 H 87/59 L 95 06/14/25 20:10 106 H 27 H 90/46 L 95 06/14/25 20:00 135 H 25 H 105/70 95 O2 Del Method O2 Flow Rate FiO2 06/15/25 06:40 06/15/25 06:30 06/15/25 06:18 06/15/25 06:12 06/15/25 06:00 06/15/25 05:48 06/15/25 05:33 06/15/25 05:29 06/15/25 05:27 06/15/25 05:18 06/15/25 05:15 06/15/25 05:12 06/15/25 05:11 06/15/25 05:01 06/15/25 05:00 06/15/25 04:54 06/15/25 04:53 40 06/15/25 04:45 06/15/25 04:37 40 06/15/25 04:25 06/15/25 04:24 06/15/25 04:20 06/15/25 04:18 06/15/25 04:15 06/15/25 04:15 06/15/25 04:10 06/15/25 04:09 06/15/25 04:05 06/15/25 03:21 06/15/25 03:21 06/15/25 03:20 06/15/25 03:16 06/15/25 03:16 06/15/25 03:16 06/15/25 03:10 06/15/25 03:03 06/15/25 03:00 06/15/25 03:00 06/15/25 02:56 06/15/25 02:51 06/15/25 02:46 06/15/25 02:45 06/15/25 02:42 06/15/25 02:42 06/15/25 02:38 06/15/25 02:38 06/15/25 01:30 06/15/25 01:15 06/15/25 01:00 Nasal Cannula 4 06/15/25 00:45 06/15/25 00:45 06/15/25 00:30 06/15/25 00:22 06/15/25 00:18 06/15/25 00:16 06/15/25 00:00 Nasal Cannula 4 06/14/25 23:50 06/14/25 23:45 06/14/25 23:40 06/14/25 23:38 06/14/25 23:31 06/14/25 23:13 06/14/25 23:13 06/14/25 23:08 06/14/25 23:04 06/14/25 22:45 Nasal Cannula 4 06/14/25 22:28 06/14/25 22:13 06/14/25 22:00 Nasal Cannula 4 06/14/25 22:00 Nasal Cannula 4 06/14/25 21:59 06/14/25 21:10 Nasal Cannula 4 06/14/25 21:00 Nasal Cannula 4 06/14/25 20:50 Nasal Cannula 4 06/14/25 20:40 Nasal Cannula 4 06/14/25 20:30 Nasal Cannula 4 06/14/25 20:20 Nasal Cannula 4 06/14/25 20:10 Nasal Cannula 4 06/14/25 20:00 Nasal Cannula 4 Diagnostic Findings Postoperative images reviewed demonstrate stable left hip hemiarthroplasty.
[2025-06-15 08:02] LABS: Anion Gap 27.0 (3-11); Blood Urea Nitrogen 24.0 mg/dl (6-23); Calcium 7.6 mg/dl (8.6-10.3); Carbon Dioxide 10.0 mmol/L (21-32); Chloride 106.0 mmol/L (98-107); Creatinine Clr Calc Pharmacy 17.7 ml/min; Glucose 190.0 mg/dl (70-99(Fasting)); Potassium 3.6 mmol/L (3.5-5.1); Sodium 143.0 mmol/L (136-145)
[2025-06-15] MEDS: Nursing to Pharmacy Communication ONE (08:06)
--- NOTE | 2025-06-15 08:10 | XRay Report ---
EXAM: XR KUB/Abdomen 1 view CLINICAL HISTORY: OG tube placement. TECHNIQUE: X-ray image of the abdomen obtained in Anteroposterior (AP) projection. COMPARISON: Prior CT dated 06/15/2025 for comparison. FINDINGS: Satisfactory position of the NG tube, new finding. Gas Pattern: Gas pattern within the abdomen is normal. No evidence of bowel obstruction or distention. Soft Tissues: Soft tissues of the abdomen appear normal without evidence of masses or calcifications. Liver, spleen, and kidneys are of normal size and position. Spondylotic changes in the thoracolumbar spine. IMPRESSION: 1. Satisfactory position of the NG tube, new finding. 2. No acute abnormalities identified. Electronically signed by David Quinones 06-15-2025 08:09 AM
--- NOTE | 2025-06-15 08:10 | Ultrasound Report ---
EXAM: US duplex portal hepatic veins CLINICAL HISTORY: portal vein thrombosis? TECHNIQUE: Ultrasound doppler examination of portosplenic system was performed. Scanning was performed with the patient in supine position. COMPARISON: CT dated 06/15/2025 02:45:04 FISH FRYER FINDINGS: No flow seen in color moder in portal viens and splenic veins, likely techincal/artifact. Main portal vein, its right and left branches show normal flow waveform in spectral doppler. Splenic vein shows normal flow waveform in spectral doppler. Hepatic veins show normal colorflow and spectral waveform. 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 Hepatic artery shows normal colorflow and waveform. No stenosis seen. IMPRESSION: 1. No thrombus identified in portal, splenic and hepatic veins, stable. 2. 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 3. Normal caliber and color flow in hepatic artery, stable. RECOMMENDATIONS: Clinical correlation with symptoms and further evaluation as indicated. Electronically signed by David Quinones 06-15-2025 08:10 AM
[2025-06-15] MEDS: HYDROCORTISONE SOD 100 MG in SYRINGE 0 ML IV ONE (08:11)
[2025-06-15] MEDS ORDERED: VANCOMYCIN CONSULT ACTIVE PRN (08:33)
--- NOTE | 2025-06-15 08:51 | Nephrology Consultation ---
Date of Consultation June 15, 2025 Assessment & Plan (1) HAGN (acute kidney injury): Consistent with ischemic ATN. Urine output dropped. Electrolytes acceptable. Volume status acceptable. Predominately anion gap metabolic acidosis with significant lactic acidosis. Primary management remains hemodynamic support. 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 Nephrology will follow closely. Document strict I/O's. Repeat serum metabolic profile this afternoon. (2) Shock: Hemodynamic support per ICU team. Empiric broad spectrum antibiotics for sepsis. Acute blood loss managed with transfusion support. (3) Acute blood loss anemia: s/p 4 units PRBC transfusion support. (4) Thrombocytopenia: Findings support DIC. Prognosis is unfortunately guarded. (5) Hip fracture: Post operative day #1 s/p L hip hemiarthroplasty. (6) Cardiac arrest: PEA arrest ~240 this AM with ROSC. History of Present Illness Reason for Consultation: HANG Requesting Physician: Emory Herrera MD Attending Physician: Emory Herrera MD History of Present Illness Maria M Mercer is an 80-year-old female with hyperlipidemia, anemia, and OA/DJD who presented to [facility] yesterday s/p fall from standing with a left femoral neck fracture. Left hip hemiarthroplasty was performed through an anterior approach yesterday with no reported intraoperative complications. EBL ~250 ml. PRBC transfusion support provided for anemia. Postoperative course was complicated by hypotension requiring vasopressor support. Maria M was transferred to the ICU in the evening. This morning, she developed concerning mental status changes, acute on chronic anemia and hypotension after vasopressors had been weaned off. Emergent intubation was required. Maria M suffered a bradycardia and PEA cardiac arrest with ROSC following several minutes of CPR + epinephrine. Additional PRBC transfusion support was provided. She has received a total of 4 units of blood in addition to FFP, platelets, and cryoprecipitate prior to my evaluation of the patient this AM. No obvious source of bleeding identified. Imaging included CT abdomen and pelvis with contrast. Laboratory evidence of acute anemia and thrombocytopenia with notable leukocytosis. Elevated FSP with consumption of fibrinogen consistent with DIC. Vancomycin and Zosyn had been administered. Maria M was resting on mechanical ventilation with Fentanyl infusion at the time of my assessment. She remains on vasopressor support with Levophed and vasopressin infusions. Bicarbonate also infusing. A right femoral arterial line and CVC have been placed. TTE is being completed and Maria M was arranged to undergo CTA chest. Urine output slowing/relatively oliguric with 40 ml in Gomez overnight. Allergies Allergy/AdvReac Type Severity Reaction Status Date / Time escitalopram [From Lexapro] AdvReac extreme Verified 06/13/25 19:22 nausea/dizziness Home Medications Medication Instructions Recorded Confirmed Type clonazepam 1 mg tablet 1 mg PO TID PRN Anxiety 07/22/20 06/13/25 History rosuvastatin 20 mg tablet 20 mg PO QAM 07/22/20 06/13/25 History meclizine 12.5 mg tablet 12.5 mg PO TID PRN Dizziness 06/13/25 06/13/25 History meloxicam 7.5 mg tablet 7.5 mg PO QAM PRN pain 06/13/25 06/13/25 History prochlorperazine maleate 5 mg 5 mg PO Q6 PRN Nausea 06/13/25 06/13/25 History tablet tramadol 50 mg tablet 50 mg PO Q6H PRN pain,moderate 06/13/25 06/13/25 History Patient History Medical History (Updated 06/15/25 @ 14:50 by Ruma Teageu MD) Encounter for pre-operative examination Fall Anemia History of echocardiogram 09/14/2019 echo: Small to moderate size circumferential pericardial effusion, no cardiac tamponade. Compared to study of 09/13/2018 no significant change. Tamponade seen in echo 2018, ? related to pericarditis. History of stress test 06/24/2018 dobutamine stress echo: Negative for inducible ischemia Dyslipidemia CKD (chronic kidney disease), stage III Panic disorder Osteoporosis Surgical History History of hysterectomy History of colonoscopy Social History Smoking Status: Never smoker Hx Alcohol Use: No Hx Substance Use: No Preferred Language: Urdu Communication Ability: Effective [employer] Administrator Required: No Beliefs That Will Affect Care: None Current Living Situation: Spouse Other Information That Helps Us Care for You: No Feels Safe at Home: Yes Safety Concerns: Feels Safe At This Time Assistive Devices: Cane Review of Systems Review of Systems: Unobtainable due to cognitive status Physical Exam Constitutional: + ill appearing, + altered mental status and + mechanically ventilated Eyes: + anicteric sclerae ENMT: ETT Neck: normal visual inspection and trachea midline Respiratory: symmetric chest movement Auscultation: + rhonchi Cardiovascular: Rate/Rhythm: + tachycardic Heart Sounds: normal S1 and normal S2 Musculoskeletal: Extremities: no cyanosis and no clubbing Skin: no jaundice Genitourinary: Gomez with minimal cloudy yellow urine in bag Results & Data Vital Signs (Past 12 Hours) Vital Signs Temp Pulse Pulse Resp BP BP Pulse Ox 06/15/25 08:25 06/15/25 08:25 06/15/25 07:45 89 27 H 96 06/15/25 07:33 36.1 C L 92 H 26 H 96 06/15/25 07:00 36.2 C L 90 17 94 06/15/25 06:40 36.3 C L 88 18 131/67 95 06/15/25 06:30 36.3 C L 87 26 H 96 06/15/25 06:18 36.3 C L 88 18 132/67 96 06/15/25 06:12 36.3 C L 88 26 H 97 06/15/25 06:00 143/75 H 06/15/25 05:48 36.4 C L 88 18 136/64 97 06/15/25 05:33 36.4 C L 88 18 134/63 96 06/15/25 05:29 36.4 C L 87 18 132/61 96 06/15/25 05:27 36.4 C L 86 26 H 96 06/15/25 05:18 36.4 C L 87 18 128/59 L 96 06/15/25 05:15 36.4 C L 85 26 H 97 06/15/25 05:12 36.4 C L 84 26 H 97 06/15/25 05:11 36.4 C L 85 18 131/59 L 96 06/15/25 05:01 36.5 C 83 20 139/58 L 97 06/15/25 05:00 140/68 06/15/25 04:54 36.5 C 84 26 H 98 06/15/25 04:53 36.4 C 86 24 138/57 L 98 06/15/25 04:45 36.5 C 84 26 H 98 06/15/25 04:37 26 H 06/15/25 04:25 134/52 L 06/15/25 04:24 36.6 C 88 26 H 98 06/15/25 04:20 124/52 L 06/15/25 04:18 87 26 H 100 06/15/25 04:15 119/51 L 06/15/25 04:15 88 26 H 100 06/15/25 04:10 120/58 L 06/15/25 04:09 94 H 23 99 06/15/25 04:05 124/53 L 06/15/25 03:21 130/64 06/15/25 03:21 100 H 26 H 100 06/15/25 03:20 103 H 06/15/25 03:16 178/65 H 06/15/25 03:16 178/65 H 06/15/25 03:16 178/65 H 06/15/25 03:10 113/69 06/15/25 03:03 105 H 21 100 06/15/25 03:00 112 H 22 100 06/15/25 03:00 89/71 L 06/15/25 02:56 131/69 06/15/25 02:51 176/112 H 06/15/25 02:46 114/63 06/15/25 02:45 131 H 17 97 06/15/25 02:42 179/75 H 06/15/25 02:42 89 21 89 L 06/15/25 02:38 69/18 L 06/15/25 02:38 69/18 L 06/15/25 01:30 98/56 L 06/15/25 01:15 83/58 L 06/15/25 01:00 130 H 34 H 87/53 L 94 06/15/25 00:45 80/54 L 06/15/25 00:45 80/54 L 06/15/25 00:30 78/51 L 06/15/25 00:22 75/43 L 06/15/25 00:18 75/47 L 06/15/25 00:16 71/44 L 06/15/25 00:00 117 H 26 H 84/46 L 95 06/14/25 23:50 85/48 L 06/14/25 23:45 81/52 L 06/14/25 23:40 79/48 L 06/14/25 23:38 83/50 L 06/14/25 23:31 96/58 L 06/14/25 23:13 89/53 L 06/14/25 23:13 89/53 L 06/14/25 23:08 126 H 35 H 67/38 L 06/14/25 23:04 79/47 L 06/14/25 22:45 132 H 24 94 06/14/25 22:28 144/100 H 06/14/25 22:13 136 H 06/14/25 22:00 06/14/25 22:00 143 H 21 96 06/14/25 21:59 117/78 06/14/25 21:10 38 C H 126 H 24 105/64 95 06/14/25 21:00 128 H 32 H 106/73 94 Pulse Ox O2 Del Method O2 Del Method O2 Flow Rate FiO2 06/15/25 08:25 Mechanical Vent 40 06/15/25 08:25 96 Mechanical Vent 06/15/25 07:45 40 06/15/25 07:33 06/15/25 07:00 Mechanical Vent 40 06/15/25 06:40 06/15/25 06:30 06/15/25 06:18 06/15/25 06:12 06/15/25 06:00 06/15/25 05:48 06/15/25 05:33 06/15/25 05:29 06/15/25 05:27 06/15/25 05:18 06/15/25 05:15 06/15/25 05:12 06/15/25 05:11 06/15/25 05:01 06/15/25 05:00 06/15/25 04:54 06/15/25 04:53 40 06/15/25 04:45 06/15/25 04:37 40 06/15/25 04:25 06/15/25 04:24 06/15/25 04:20 06/15/25 04:18 06/15/25 04:15 06/15/25 04:15 06/15/25 04:10 06/15/25 04:09 06/15/25 04:05 06/15/25 03:21 06/15/25 03:21 06/15/25 03:20 06/15/25 03:16 06/15/25 03:16 06/15/25 03:16 06/15/25 03:10 06/15/25 03:03 06/15/25 03:00 06/15/25 03:00 06/15/25 02:56 06/15/25 02:51 06/15/25 02:46 06/15/25 02:45 06/15/25 02:42 06/15/25 02:42 06/15/25 02:38 06/15/25 02:38 06/15/25 01:30 06/15/25 01:15 06/15/25 01:00 Nasal Cannula 4 06/15/25 00:45 06/15/25 00:45 06/15/25 00:30 06/15/25 00:22 06/15/25 00:18 06/15/25 00:16 06/15/25 00:00 Nasal Cannula 4 06/14/25 23:50 06/14/25 23:45 06/14/25 23:40 06/14/25 23:38 06/14/25 23:31 06/14/25 23:13 06/14/25 23:13 06/14/25 23:08 06/14/25 23:04 06/14/25 22:45 Nasal Cannula 4 06/14/25 22:28 06/14/25 22:13 06/14/25 22:00 Nasal Cannula 4 06/14/25 22:00 Nasal Cannula 4 06/14/25 21:59 06/14/25 21:10 Nasal Cannula 4 06/14/25 21:00 Nasal Cannula 4 Laboratory Results Laboratory Results - last 24 hr 06/14/25 06/14/25 06/14/25 08:16 15:27 15:55 WBC RBC Hgb POC Hgb Hct POC Hct MCV MCH MCHC RDW Std Deviation RDW Coeff of Maged Plt Count MPV Absolute Nucleated RBC Nucleated RBC % (auto) Platelet Estimate PT INR APTT PTT Ratio Fibrinogen D-Dimer Specimen Type Sample Site POC pH POC pCO2 POC pO2 POC HCO3 POC Total CO2 POC Base Excess ABG pH (Temp Correct) ABG pCO2 (Temp Corrct POC ABG pO2 at Pt Temp POC ABG O2 Sat Julius Test POC Sodium Sodium POC Potassium Potassium Chloride Carbon Dioxide Anion Gap BUN Creatinine Est Cr Clr Drug Dosing eGFR BUN/Creatinine Ratio Glucose POC Glucose (other) Estimat Average Glucose Hemoglobin A1c Lactate Calcium Phosphorus Magnesium Total Bilirubin Direct Bilirubin AST ALT Alkaline Phosphatase Total Protein Albumin 25-OH Vitamin D Total 14.0 L Random Cortisol Nasal Screen MRSA (PCR) Blood Type O Positive Blood Type Recheck O Positive Antibody Screen NEGATIVE Crossmatch See Detail 06/14/25 06/14/25 06/15/25 20:44 21:47 02:44 WBC 4.26 L RBC 3.68 L Hgb 10.5 L POC Hgb 6.8 L* Hct 33.9 L POC Hct 20 L* MCV 92.1 MCH 28.5 MCHC 31.0 L RDW Std Deviation 51.0 H RDW Coeff of Maged 15.0 H Plt Count 89 L MPV 12.4 Absolute Nucleated RBC Nucleated RBC % (auto) Platelet Estimate Decreased L PT INR APTT PTT Ratio Fibrinogen D-Dimer Specimen Type Arterial Sample Site L Radial POC pH 7.14 L* POC pCO2 18 L POC pO2 291 H POC HCO3 6 L POC Total CO2 7 L* POC Base Excess -23.0 L ABG pH (Temp Correct) 7.143 L* ABG pCO2 (Temp Corrct 18 L POC ABG pO2 at Pt Temp 291 POC ABG O2 Sat 100.0 H Julius Test Pass POC Sodium 141 Sodium POC Potassium 5.8 H Potassium Chloride Carbon Dioxide Anion Gap BUN Creatinine Est Cr Clr Drug Dosing eGFR BUN/Creatinine Ratio Glucose POC Glucose (other) Estimat Average Glucose Hemoglobin A1c Lactate Calcium Phosphorus Magnesium Total Bilirubin Direct Bilirubin AST ALT Alkaline Phosphatase Total Protein Albumin 25-OH Vitamin D Total Random Cortisol Nasal Screen MRSA (PCR) Negative Blood Type Blood Type Recheck Antibody Screen Crossmatch 06/15/25 06/15/25 06/15/25 03:09 03:12 03:13 WBC 17.09 H D RBC 2.36 L Hgb 6.8 L* D POC Hgb Hct 22.3 L POC Hct MCV 94.5 MCH 28.8 MCHC 30.5 L RDW Std Deviation 53.6 H RDW Coeff of Maged 15.7 H Plt Count 29 L* D MPV Absolute Nucleated RBC 0.09 Nucleated RBC % (auto) 0.5 Platelet Estimate PT Cancelled INR Cancelled APTT PTT Ratio Fibrinogen D-Dimer Specimen Type Sample Site POC pH POC pCO2 POC pO2 POC HCO3 POC Total CO2 POC Base Excess ABG pH (Temp Correct) ABG pCO2 (Temp Corrct POC ABG pO2 at Pt Temp POC ABG O2 Sat Julius Test POC Sodium Sodium 147 H POC Potassium Potassium 5.0 Chloride 111 H Carbon Dioxide 15 L Anion Gap 21 H BUN 22 Creatinine 1.88 H D Est Cr Clr Drug Dosing 19.4 eGFR 26.53 BUN/Creatinine Ratio 11.7 Glucose < 10 L* POC Glucose (other) Estimat Average Glucose Hemoglobin A1c Lactate 16.9 H* Calcium 7.5 L Phosphorus 7.7 H Magnesium 2.3 Total Bilirubin Direct Bilirubin AST ALT Alkaline Phosphatase Total Protein Albumin 25-OH Vitamin D Total Random Cortisol Nasal Screen MRSA (PCR) Blood Type Blood Type Recheck Antibody Screen Crossmatch 06/15/25 06/15/25 06/15/25 03:27 04:08 05:38 WBC RBC Hgb POC Hgb Hct POC Hct MCV MCH MCHC RDW Std Deviation RDW Coeff of Maged Plt Count MPV Absolute Nucleated RBC Nucleated RBC % (auto) Platelet Estimate PT > 50.0 H INR > 5.5 H* APTT 71 H PTT Ratio 2.6 Fibrinogen < 50 L* D-Dimer > 06686 H* Specimen Type Sample Site POC pH POC pCO2 POC pO2 POC HCO3 POC Total CO2 POC Base Excess ABG pH (Temp Correct) ABG pCO2 (Temp Corrct POC ABG pO2 at Pt Temp POC ABG O2 Sat Julius Test POC Sodium Sodium POC Potassium Potassium Chloride Carbon Dioxide Anion Gap BUN Creatinine Est Cr Clr Drug Dosing eGFR BUN/Creatinine Ratio Glucose POC Glucose (other) 25 L* 279 H Estimat Average Glucose 111 Hemoglobin A1c 5.5 Lactate > 17.0 H* Calcium Phosphorus Magnesium Total Bilirubin 3.3 H D Direct Bilirubin TNP AST 2410 H ALT 2157 H Alkaline Phosphatase 132 H D Total Protein 3.1 L D Albumin 1.8 L 25-OH Vitamin D Total Random Cortisol Nasal Screen MRSA (PCR) Blood Type Blood Type Recheck Antibody Screen Crossmatch 06/15/25 06/15/25 06/15/25 05:39 05:40 06:29 WBC RBC Hgb POC Hgb Hct POC Hct MCV MCH MCHC RDW Std Deviation RDW Coeff of Maged Plt Count MPV Absolute Nucleated RBC Nucleated RBC % (auto) Platelet Estimate PT INR APTT PTT Ratio Fibrinogen D-Dimer Specimen Type Sample Site POC pH POC pCO2 POC pO2 POC HCO3 POC Total CO2 POC Base Excess ABG pH (Temp Correct) ABG pCO2 (Temp Corrct POC ABG pO2 at Pt Temp POC ABG O2 Sat Julius Test POC Sodium Sodium POC Potassium Potassium Chloride Carbon Dioxide Anion Gap BUN Creatinine Est Cr Clr Drug Dosing eGFR BUN/Creatinine Ratio Glucose POC Glucose (other) 194 H Estimat Average Glucose Hemoglobin A1c Lactate Calcium Phosphorus Magnesium Total Bilirubin Direct Bilirubin 2.1 H AST ALT Alkaline Phosphatase Total Protein Albumin 25-OH Vitamin D Total Random Cortisol 42.70 Nasal Screen MRSA (PCR) Blood Type Blood Type Recheck Antibody Screen Crossmatch 06/15/25 06/15/25 06/15/25 06:32 07:25 07:33 WBC RBC Hgb 10.0 L D POC Hgb Hct 31.4 L POC Hct MCV MCH MCHC RDW Std Deviation RDW Coeff of Maged Plt Count MPV Absolute Nucleated RBC Nucleated RBC % (auto) Platelet Estimate PT INR APTT PTT Ratio Fibrinogen D-Dimer Specimen Type Sample Site POC pH POC pCO2 POC pO2 POC HCO3 POC Total CO2 POC Base Excess ABG pH (Temp Correct) ABG pCO2 (Temp Corrct POC ABG pO2 at Pt Temp POC ABG O2 Sat Julius Test POC Sodium Sodium 143 POC Potassium Potassium 3.6 D Chloride 106 Carbon Dioxide 10 L Anion Gap 27 H BUN 24 H Creatinine 2.06 H Est Cr Clr Drug Dosing 17.7 eGFR 23.78 BUN/Creatinine Ratio 11.7 Glucose 190 H POC Glucose (other) 184 H 172 H Estimat Average Glucose Hemoglobin A1c Lactate > 17.0 H* Calcium 7.6 L Phosphorus Magnesium Total Bilirubin Direct Bilirubin AST ALT Alkaline Phosphatase Total Protein Albumin 25-OH Vitamin D Total Random Cortisol Nasal Screen MRSA (PCR) Blood Type Blood Type Recheck Antibody Screen Crossmatch Diagnostic Findings CT abdomen pelvis wo/w con COMPARISON: FINDINGS: The visualized lung bases show bibasal pleural effusions with bibasal atelectasis. ABDOMEN/PELVIS: The liver is normal in size and shows diffusely decreased attenuation. No focal liver lesions are seen. There is no intrahepatic or extrahepatic biliary ductal dilatation. Hepatic vasculature is patent. The gallbladder is well distended with edematous wall thickening and a rim of pericholecystic fluid. The spleen shows multiple focal calcifications, which are stable. The pancreas is mildly bulky with mild peripancreatic fat stranding. The adrenal glands are hyperenhancing. The kidneys are normal in size and attenuation. There is minimal bilateral perinephric fat stranding. Tiny non-obstructive renal concretion in the left kidney, which is a new finding. No renal masses are identified. There is an interval unchanged Bosniak type I cyst on the left side. The right ureter is normal in caliber, and no ureteral calculi are seen. Left mild hydroureteronephrosis is stable. Bilateral dilated pelvicalcyeal system with left prominent ureter-stable. Terminal ureters could not be evaluated due to streaking artefacts form hip implant. The right ureter is normal in caliber, and no ureteral calculi are seen. The bladder is normal in contour. There are a few uncomplicated colonic diverticula and moderate fecal content in large bowel loops. Right sided colon shows submucosal fatty infiltrastion likely secondary to chronic inflammation. No evidence of bowel obstruction is seen. No features of an inflamed appendix are identified. The aorta is normal in caliber with atherosclerotic changes. 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 Mild ascites is present. No aggressive appearing osseous lesions are identified. Status post hysterectomy. The rest of the pelvic viscera are unremarkable. There are spondylodegenerative changes in the visualized spine. There is interval left total hip arthroplasty status with surrounding mild soft tissue thickening and a few air foci within the left upper thigh and left gluteal regions, likely recent post-intervention changes. IMPRESSION: No evidence of retroperitoneal or intraperitoneal hemorrhages. The visualized lung bases show bibasal pleural effusions with bibasal atelectasis-new. The gallbladder is well distended, with edematous wall thickening and a rim of pericholecystic fluid. This is a new finding. Advised ultrasound and clinical correlation to rule out acalculous cholecystitis. Mild ascites is a new finding. Bilateral adrenal glands are hyperenhancing; this is a new finding. Bilateral perinephric starnding and perinephric fluid-new Advised clinical and laboratory correlation to rule out IgG-4 disease. Tiny non-obstructive renal concretion in the left kidney is a new finding. Interval left total hip arthroplasty status with surrounding mild soft tissue thickening and a few air foci within, likely recent post-intervention changes. The pancreas is mildly bulky with mild peripancreatic fat stranding, which could be reactive; however, suggest laboratory correlation for possible pancreatitis. Hepatic steatosis-stable. Right inguinal hernia with herniation of small bowel loop- non complicated-new. Right sided colon shows submucosal fatty infiltration likely secondary to chronic inflammation. Advised clinical correlation. Bilateral dilated pelvicalcyeal system with prominent ureter on left side-stable. Terminal ureters could not be evaluated due to streaking artefacts form hip implant. PG Care Time/CCT Total # of Minutes Spent Total Time Spent with Patient: Total time spent is greater than 50% in coordination of care (as documented) at patient's floor/unit and/or counseling patient: Coding Level of Care Code 33290 IN/OBS CONSULT LVL 5,80M Diagnoses HANG (acute kidney injury) N17.9 Shock R57.9 Acute blood loss anemia D62 Thrombocytopenia D69.6 Hip fracture S72.009A Cardiac arrest I46.9
[2025-06-15] MEDS: PIPERACILLIN/TAZOBACTAM 4.5 GM/100 ML BAG IV ONE (09:10)
[2025-06-15] MEDS: VANCOMYCIN HCL / NSS 1,000 MG/270 ML BAG IV ONE (09:41)
--- NOTE | 2025-06-15 09:49 | Fluoroscopy Report ---
FL hip LT 1V CLINICAL HISTORY: LEFT ANTERIOR HIP COMPARISON STUDY: 06/13/2025 FLUOROSCOPY TIME: 1 minute 2 seconds FLUOROSCOPY IMAGES: 3 EXPOSURE DOSE: 7 mGy FINDINGS: Fluoroscopy was provided for left hip prosthesis. IMPRESSION: Intraoperative fluoroscopy. ACT 112: Negative or not required by law. Electronically signed by: Dariel Schwartz M.D. 06/15/2025 9:48 AM
--- NOTE | 2025-06-15 10:40 | Ultrasound Report ---
EXAM: US liver CLINICAL HISTORY: Rule out cholecystitis. TECHNIQUE: Limited ultrasound of the liver and gallbladder was performed in grayscale and with Doppler. Multiple images were obtained in the transverse and longitudinal planes. COMPARISON: 06/15/2025 02:45:04 CT abdomen pelvis and US duplex portal hepatic veins. FINDINGS: Liver: The liver shows fatty echotexture and is normal in shape. There is no evidence of focal lesions, cysts, or masses. The splenic and main portal veins are prominent in caliber. Gallbladder: The gallbladder is visualized and shows mild sludge in the lumen. The wall is thickened, measuring 3.9 mm, and there is pericholecystic edema (maximum thickness 16.8 mm). Biliary Tree: The common bile duct is not visualized due to overlying bowel gas. Pancreas: The pancreatic head and body are visualized and are within normal limits. The tail is not visualized due to overlying bowel gas. Right kidney: It measures 10.7 x 4.5 x 4.5 cm. There is mild prominence of the right pelvicalyceal system. Minimal fluid is noted in the right perinephric space. Mild ascites is seen. IMPRESSION: 1. Fatty liver, unchanged. 2. Sludge in the gallbladder lumen (new finding) and pericholecystic edema favoring cholecystitis, unchanged. 3. Mild ascites noted. Unchanged. 4. Minimal fluid in the right perinephric space, unchanged. Electronically signed by David Quinones 06-15-2025 10:40 AM
[2025-06-15 10:56] LABS: iSTAT Art Bld Gas Base Excess -17.0 mmol/L (-9-1.8); iSTAT Art Bld Gas pCO2 Correct 26 mmHg (35-46); iSTAT Art Bld Gas pH Corrected 7.219 (7.35-7.45); iSTAT Arterial Blood Gas pO2 C 131
--- NOTE | 2025-06-15 10:59 | Pharmacy Report ---
Pharmacy PK ABX Note - Date of Service June 15, 2025 - Assessment and Plan Assessment 80 year old F receiving Vancomycin and Zosyn for empiric treatment of shock. * Day #1 of antimicrobial therapy. Patient had a fall with L hip fracture. Went to OR on 06/14 then to ICU postop for hypotension. Had a PEA arrest early this AM. Source of possible infection unclear at this time. Severe DIC currently. * Temps actually on the low side. White count of 17k. HANG (Stage 2, KDIGO) with SCr of 2.06 mg/dL (baseline ~0.8 mg/dL), CrCl 18 mL/min. Lactate undetectable on the high side, >17. * Blood cultures taken today (post receipt of abx). Plan Vancomycin * Loading dose: 1000 mg IV x 1 * Given HANG, will dose per level for now. Expected trough ~9 tomorrow morning. Suspecting that HANG will worsen before it gets better given severity of illness and combination of Vanc/Zosyn so no plans to redose today or move level up. Will trend q6h CMPs though to follow SCr and if improving, then will consider an earlier level/supplemental vanc dose. * Random level ordered for: 06/16/25 Zosyn * 4.5 g IV every 12 hours Pharmacy will continue to follow and will adjust dose/frequency as necessary. Thank you. Pharmacy has transitioned to AUC monitoring for vancomycin. AUC/[place]USTIN is the preferred PK/PD target and is associated with decreased risk of nephrotoxicity compared to traditional trough targets.
[2025-06-15 11:01] LABS: iSTAT Art Bld Gas Base Excess -19.0 mmol/L (-9-1.8); iSTAT Art Bld Gas pCO2 Correct 21 mmHg (35-46); iSTAT Art Bld Gas pH Corrected 7.223 (7.35-7.45); iSTAT Arterial Blood Gas pO2 C 112
[2025-06-15] MEDS: CHOLECALCIFEROL 25 MCG (1000 UNITS) TAB PO SCH (11:41)
[2025-06-15 11:52] LABS: Albumin Globulin Ratio 1.5 (0.9-2); Albumin Level 2.5 gm/dl (3.4-5.0); Alkaline Phosphatase 145 U/L (34-104); Anion Gap 29 (3-11); Bilirubin,Total 3.7 mg/dl (0.2-1.0); Blood Urea Nitrogen 24 mg/dl (6-23); Calcium 7.6 mg/dl (8.6-10.3); Carbon Dioxide 11 mmol/L (21-32); Chloride 103 mmol/L (98-107); Creatinine Clr Calc Pharmacy 16.4 ml/min; Globulin 1.7 gm/dl (2.5-4.0); Glucose 190 mg/dl (70-99(Fasting)); Potassium 3.6 mmol/L (3.5-5.1); Sodium 143 mmol/L (136-145); Total Protein 4.2 gm/dl (6.0-8.3)
[2025-06-15] MEDS: HYDROCORTISONE SOD 50 MG in SYRINGE 0 ML IV SCH (11:57)
[2025-06-15 12:08] LABS: Alanine Aminotransferase > 2500 U/L (7-52)
[2025-06-15] MEDS ORDERED: ARGATROBAN CONSULT ACTIVE PRN (12:25)
--- NOTE | 2025-06-15 12:36 | Ultrasound Report ---
BILATERAL LOWER EXTREMITY VENOUS DOPPLER CLINICAL HISTORY: r/o DVT COMPARISON STUDY: No previous studies for comparison. TECHNIQUE: Sonography of the deep venous system of the bilateral lower extremities was performed. Co mpression and augmentation were evaluated. FINDINGS: Exam is technically compromised given difficulty positioning and overlying bandages. Right superficial femoral vein was not well visualized on this exam. Right groin catheters are in place. Th ere is deep venous thrombus within the bilateral posterior tibial veins. Wall thickening of the left common femoral vein is likely chronic. There is also superficial thrombus within the right saphenous vein at the level of the ankle and just superiorly which extends for approximately 3.5 cm. IMPRESSION: 1. Positive study for deep venous thrombus within the bilateral posterior tibial veins. Technically d ifficult exam, as described above. 2. Superficial thrombus within the right saphenous vein at the level of the ankle which extends for a pproximately 3.5 cm. ACT 112: Negative or not required by law. Electronically signed by: Ricci Stanley M.D. 06/15/2025 12:34 PM
[2025-06-15] MEDS: OPTIRAY 320 125ml IV ONE ×2 (12:51→17:15)
--- NOTE | 2025-06-15 13:16 | CT Scan Report ---
CT SCAN OF THE LEFT HIP WITHOUT IV CONTRAST CLINICAL HISTORY: Left hip fracture status post surgical repair. COMPARISON STUDY: Left hip x-ray dated 06/14/2025. Left hip CT dated 06/13/2025. Pelvic CT performed earlier the same day 06/15/2025. TECHNIQUE: CT scan of the left hip was performed from the bony pelvis to the femoral shaft. Images a re reviewed in the axial, sagittal, and coronal planes. IV contrast was not administered for this exa mination. A dose lowering technique was utilized adhering to the principles of ALARA. The examinatio n is degraded by streak artifact from a left hip arthroplasty. FINDINGS: The skeletal structures are osteopenic. No acute fracture is seen. A bipolar left hip arthr oplasty is in near anatomic alignment. No periprosthetic lucency is seen. The imaged left hemipelvis appears intact. No lytic or blastic lesion is seen. Hemorrhage, soft tissue edema, as well as superfi cial and deep soft tissue gas around the left proximal femur and in the left upper thigh likely repre sent expected postsurgical change. The bladder is decompressed around a Gomez catheter. The uterus is surgically absent. No left pelvic sidewall or inguinal lymphadenopathy is seen. There is free fluid in the pelvis which has increased from previous and may be complex. This difficult to assess due to s treak artifact. IMPRESSION: 1. No acute bony abnormality is identified. 2. Left hip arthroplasty is in near anatomic alignment. 3. Soft tissue edema, superficial and deep soft tissue gas, and hemorrhage around the left hip arthro plasty and in the upper thigh is nonspecific and likely represents expected postsurgical change. Clin ical correlation will be essential. 4. There is free fluid in the pelvis which is difficult to assess due to streak artifact and may be c omplex. This has increased from previous. Hemoperitoneum is not excluded, and clinical correlation wi ll be essential. ACT 112: Negative or not required by law. Electronically signed by: Jerardo Stephens M.D. 06/15/2025 1:15 PM
--- NOTE | 2025-06-15 13:26 | CT Scan Report ---
CT ANGIOGRAM OF THE CHEST CLINICAL HISTORY: Shortness of breath. Evaluate for pulmonary embolus. COMPARISON STUDY: Chest radiograph performed earlier today. CT of the abdomen and pelvis performed e evie today. TECHNIQUE: Following the IV administration of Optiray 320, CT angiogram of the chest was performed fr om the upper abdomen to the thoracic inlet utilizing the pulmonary embolus protocol. Images are revie wed in the axial, sagittal, and coronal planes. 3-D MIPS images are created and assessed. IV contrast was administered without complication. A dose lowering technique was utilized adhering to the princ ipladrien of CYNDEE. CT DOSE: 1367.02 mGy.cm FINDINGS: There is satisfactory positioning of the endotracheal tube. The tip of the nasogastric tube is below the lower aspect of this image but at least within the proximal body of the stomach. There is a small segmental pulmonary embolus within the left upper lobe on image 132 of 201. No additional pulmonary emboli are identified. There is no thoracic aortic dissection. Venous gas within visualized portions of the neck is likely related to IV. There is no pericardial effusion. Small bilateral pleu ral effusions have mildly increased in size since abdominal CT performed earlier today. Attenuation o f the pleural fluid is increased. Associated segmental bilateral lower lobe opacities are present. Vi sualized portions of the upper abdomen demonstrate a small amount of perihepatic and perisplenic flui d, increased in amount since abdominal CT performed earlier today. Attenuation of the fluid is increa sed. Azygos continuation of the IVC is incidentally noted. IMPRESSION: 1. Segmental left upper lobe pulmonary embolus. No additional pulmonary emboli. 2. Segmental bilateral lower lobe opacities. Atelectasis is favored although pneumonia/aspiration pne umonitis could appear similar. No pneumothorax. 3. Increase in size of small bilateral pleural effusions and a small amount of upper abdominal ascite s since abdominal CT performed earlier today. Increased attenuation of the pleural and abdominal flui d is a nonspecific finding which could be related to vicarious excretion of contrast. Alternatively, hemoperitoneum/hemothoraces cannot be completely excluded. Short-term imaging follow-up is recommende d. 4. Cardiomegaly. ACT 112: Negative or not required by law. Electronically signed by: Ricci Stanley M.D. 06/15/2025 1:25 PM
[2025-06-15 13:28] LABS: Fibrinogen 190 mg/dl (184-400)
[2025-06-15 13:53] LABS: INR 2.0 (0.9-1.1); Partial Thromboplastin Time 46 Seconds (21-31); Prothrombin Time 20.0 Seconds (9.0-12.0)
[2025-06-15 13:57] LABS: INR > 9.7 (0.9-1.1); Prothrombin Time > 90.0 Seconds (9.0-12.0)
[2025-06-15 14:28] LABS: Hematocrit (blood only) 23.7 % (37.0-47.0); Hemoglobin 7.9 g/dl (12.0-16.0)
--- NOTE | 2025-06-15 14:31 | Critical Care Progress Note ---
Date of Service June 15, 2025 Assessment & Plan (1) Cardiac arrest: (2) Shock: (3) DIC (disseminated intravascular coagulation): (4) DVT (deep venous thrombosis): (5) PE (pulmonary thromboembolism): (6) Lactic acid acidosis: (7) Metabolic acidosis: (8) Respiratory failure: (9) Acute blood loss anemia: (10) Hip fracture: (11) Shock liver: (12) Hypoglycemia: Plan Patient is a 80-year-old female who presented to the hospital on 06/13/2025 after suffering a mechanical fall at home which resulted in a left femoral neck fracture. The patient was admitted to the hospitalist service. She underwent left hip arthroplasty on the evening of 06/14/2025. The procedure was complicated by blood loss and some postoperative hypotension. The patient did receive 1 unit of PRBCs intraoperatively as well as 2 L of fluid. Due to hypotension the patient was placed on phenylephrine and transferred to the ICU for further care. After 1 unit of blood the patient's hemoglobin had initially improved. The patient became confused overnight. Blood pressure continues to deteriorate. The patient's mentation continued to worsen. Due to significant alteration in her mentation the decision was made to emergently intubate her in the ICU. Postintubation the patient had PEA cardiac arrest in the clerk entry level of 06/15/2025, she received 2 rounds of CPR, epinephrine with ROSC after 5 minutes. The patient was found to have significant metabolic acidosis, worsening anemia was also present. The patient's blood glucose was also found to be low at less than 10 for which dextrose was administered and a bicarb with dextrose infusion was initiated. Lactic acid was extremely elevated at 17. Central venous catheter and arterial line were placed. And an additional 1 unit of PRBCs was administered. The patient was taken for CT imaging to rule out retroperitoneal bleed. CT abdomen did not reveal evidence of retroperitoneal bleeding. Reason Critically Ill: Cardiac arrest (06/15/2025, ROSC after 5 minutes, PEA arrest) Severe refractory shock with multiorgan failure Hypoxic respiratory failure status post intubation 06/15/2025 PE DVTs (bilateral lower extremities) Acute blood loss anemia DIC Acute renal failure Shock liver Hypoglycemia Severe metabolic acidosis with lactic acidosis Acute hip fracture status post left hip arthroplasty 06/14/2025 Neuro: Patient had altered mentation, glucose was found to be less than 10. Patient has been waking up when stimulated on fentanyl, no evidence of focal deficits after cardiac arrest. Cardiac: Severe refractory shock with multiorgan failure. Status post PEA cardiac arrest with CPR x 5 minutes on 06/15/2025 Has PE and DVTs. Patient is requiring erica and vaso for blood pressure support. Echocardiogram showing EF 65 to 70%, concentric LVH, estimated pulmonary pressure of 42 mmHg. Continue vasopressors for blood pressure support, goal MAP 65 mmHg. Central venous catheter and arterial line are in place. Will continue stress dose steroids with hydrocortisone 50 mg every 6. Cortisol level 46. Will initiate argatroban given PE and DVT. Respiratory: Acute hypoxic respiratory failure. Has bilateral pleural effusions, could be hemorrhagic given severe DIC. CT also showing segmental PE of left upper lobe. Intubated 06/15/2025. Will continue mechanical ventilation. Continue Versed for sedation/analgesia. Initiating argatroban for DVT and PE. Obtain sputum culture if possible from ET tube. GI: Severe transaminitis, likely shock liver. Portal vein ultrasound does not show evidence within the portal, splenic or hepatic veins. Normal caliber and flow of the hepatic artery. Infrahepatic IVC was not well-visualized, could be hypoplastic or thrombosed. OG tube is in place. Keep n.p.o. given multiple pressors. Continue to monitor LFTs. Avoid hepatotoxins if possible. RENAL/LYTES: Patient is in HANG. Has not made any urine for the past few hours. Phosphorus was elevated, repeat potassium is pending. Gomez catheter is in place. Severe metabolic acidosis with lactic acidosis. On bicarb infusion. Nephrology is consulted, will likely require dialysis. Keep Gomez catheter in place for strict I's and O's. Continue bicarb infusion. Continue to monitor lactic acid : Gomez catheter is in place. Minimal urine output. ENDO: Patient was severely hypoglycemic. On bicarb with D5. Cortisol level was 42. Was started on stress dose steroids. Continue bicarb with dextrose infusion. Continue to monitor glucose closely. If remains stable can decrease his frequency of checks. Continue hydrocortisone 50 mg Q6. HEME: Patient is in severe DIC. Initial DIC panel showing PT greater than 90, INR greater than 9.7, APTT 71, fibrinogen less than 50, D-dimer greater than 35,000. Patient is significantly anemic as well, status post 2 units of PRBCs. Patient has been treated refused FFP, cryoprecipitate and platelets. Hematology has been consulted. Patient also has DVT and PE. Continue to monitor hemoglobin, platelets, and fibrinogen levels. Patient has been initiated on argatroban, we will have to monitor his coags and his hemoglobin closely. Patient already received 2 units of blood, hemoglobin is continuing to drop, likely having some spontaneous bleeding in setting of DIC. I will give another unit of PRBCs now along with some calcium gluconate. Will send HIT panel ID: No clear source of infection. Will empirically initiate broad-spectrum antibiotics given severe shock. Will initiate vancomycin and Zosyn. We have obtained blood and urine cultures, will obtain sputum culture. Feeding: N.p.o. Fluids: Bicarb with dextrose Analgesia: Fentanyl Activity: Bedrest, head of bed 30 degrees Thromboprophylaxis: Argatroban Ulcer prophylaxis: Pantoprazole Glycemic control: Monitoring glucose every 2 hours for now Bowels: MiraLAX Indwelling catheters: Arterial line (06/15/2025), central venous catheter (06/15/2025), Gomez catheter, ET tube, OG tube Antibiotics: Vancomycin and Zosyn (initiated 06/15/2025) Plan: Patient remains critically ill in the ICU. He is in severe refractory shock with multiorgan failure. Patient is also in DIC with DVTs in her lower extremities and PE. Hematology and nephrology have been consulted. I have individually consulted with her orthopedic surgeon, surgeon endorses that there was some bleeding during the procedure however no vascular injuries were appreciated. Nothing abnormal or unusual happened during the procedure, no cement was used. CT does not comment on fat embolism. Hematology is consulted and I discussed the case with them, they agree with argatroban infusion at this time. They recommended sending a HIT panel which has been done. Recommend supportive care with blood product including FFP, cryos, platelets and packed red cells as indicated. I have discussed the case in detail with nephrology and they have evaluated the patient. Renal function is poor, she is not making urine. Will likely require dialysis if family is agreeable to this. Unsure if she would tolerate standard HD given her multiple pressor requirements. We are following her labs closely. She is on a bicarb infusion for severe metabolic acidosis. Family was at bedside, I had a long meeting with multiple family members and discussed her current condition and prognosis. All questions were addressed. I have personally spent 100 minutes of critical care time in the direct management of this patient. This is a life/limb threatening event. This includes time spent evaluating patient, direct bedside care, chart review, placing orders, interpretation of diagnostic studies, discussion with consultants, patient, and family members, as well as other required patient management activities. This time is exclusive of all separately billable procedures, and teaching time and separate from and in addition to any other critical care service time. Admission and Anticipated Discharge Date Admission Date: June 13, 2025 Subjective Past 24-hour events: Patient was admitted to the ICU. Had altered mentation requiring intubation overnight. Developed cardiac arrest. PEA arrest, ROSC after 5 minutes. In severe shock requiring multiple pressors. Severe hypokalemia, DIC. Urine output minimal. Received 2 units of blood overnight. Rounding: Sedation/analgesia with fentanyl. Patient has appropriate RASS, opens eyes spontaneously to voice. Abdomen is slightly distended, no grimace to palpation or guarding. Gomez catheter is in, has not had any urine output this morning. No bruising or bleeding appreciated. Left hip surgical incision is clean dry and intact. Minimal bruising, no active bleeding. On mechanical ventilation. Intake: 8440 mL Output: 525 mL Net: +7915 mL Mechanical ventilation: Volume AC, tidal volume 400, rate 26, PEEP 5, FiO2 40%. Feeding: NPO. OG tube is in place. IV infusions: Fentanyl, erica-, levo, bicarb Indwelling catheters: Central venous catheter, arterial line, Gomez catheter, ET tube, OG tube Laboratory: CBC: WBC 17, hemoglobin 7.9, platelet 29 Chemistry: Sodium 143, potassium 3.4, chloride 103, bicarb 11, bun 24, creatinin e 2.2, glucose 190, lactic acid greater than 17, calcium 7.6, phosphorus 7.1, AST 3737, ALT greater than 2500, T. bili 3.7 Coags: PT 20, INR 2.0, APTT 46, fibrinogen 190 (after cryo) D[place]dimer [place] [address] ABG: pH 7.22, pCO2 21, pO2 115, bicarb 9 Review of Systems Review of Systems: Not obtained. Physical Exam Physical Exam: Physical examination: General: Appears stated age, on mechanical ventilation, on fentanyl, opens eyes to voice. Synchronous with ventilator. HEENT: Normocephalic, atraumatic. Extraocular movements intact. Sclera are nonicteric. No JVD appreciated. OG and ET tube in place. Skin: Warm and dry. No bruising appreciated. No jaundice. No rashes. Surgical incision on left hip is bandaged, no oozing or significant bruising or swelling appreciated. Cardiovascular: Sinus tachycardia. On norepinephrine and erica for blood pressure support. Arterial line in place. Lungs: Coarse mechanical breath sounds. No wheezing. On 40% FiO2 and a PEEP of 5. Diminished at bases. Abdomen: Nontender to palpation. Slightly distended. No bruising. Musculoskeletal: Normal muscle mass and tone. Surgical incision of left hip is bandaged. There is no tense swelling of the extremity. No significant bruising. No oozing. Neurologic: On fentanyl, opens eyes to voice. Pupils are equal. Moving extremities. Results & Data Results & Data Vital Signs (Past 12 Hours) Vital Signs Temp Pulse Pulse Resp BP BP Pulse Ox 06/15/25 13:28 92 H 26 H 103/56 L 93 06/15/25 12:22 101 H 18 124/59 L 94 06/15/25 12:16 36.4 C L 91 H 26 H 99/49 L 92 06/15/25 12:11 36.4 C L 101 H 26 H 134/59 L 95 06/15/25 11:37 36.4 C L 93 H 26 H 107/51 L 93 06/15/25 11:08 98/46 L 06/15/25 10:56 36.4 C L 92 H 26 H 99/50 L 92 06/15/25 10:47 35.9 C L 93 H 26 H 106/48 L 94 06/15/25 10:44 35.9 C L 96 H 26 H 107/49 L 96 06/15/25 10:32 36.4 C L 95 H 26 H 109/48 L 93 06/15/25 10:16 36.4 C L 95 H 26 H 90/48 L 95 06/15/25 10:05 92 H 26 H 96 06/15/25 09:56 35.9 C L 90 26 H 119/51 L 96 06/15/25 09:47 36.4 C L 93 H 26 H 115/50 L 95 06/15/25 09:47 36.4 C L 92 H 26 H 133/61 97 06/15/25 09:27 36.4 C L 92 H 26 H 133/61 97 06/15/25 09:27 36.4 C L 92 H 26 H 133/61 97 06/15/25 09:15 36.4 C L 93 H 18 124/53 L 97 06/15/25 09:11 149/70 H 06/15/25 08:58 35.9 C L 96 H 26 H 139/70 96 06/15/25 08:52 138/71 06/15/25 08:25 06/15/25 08:25 06/15/25 07:45 89 27 H 96 06/15/25 07:33 36.1 C L 92 H 26 H 96 06/15/25 07:00 36.2 C L 90 17 94 06/15/25 06:41 36.4 C L 92 H 26 H 139/64 97 06/15/25 06:40 36.3 C L 88 18 131/67 95 06/15/25 06:30 36.3 C L 87 26 H 96 06/15/25 06:18 36.3 C L 88 18 132/67 96 06/15/25 06:12 36.3 C L 88 26 H 97 06/15/25 06:00 143/75 H 06/15/25 05:48 36.4 C L 88 18 136/64 97 06/15/25 05:33 36.4 C L 88 18 134/63 96 06/15/25 05:29 36.4 C L 87 18 132/61 96 06/15/25 05:27 36.4 C L 86 26 H 96 06/15/25 05:18 36.4 C L 87 18 128/59 L 96 06/15/25 05:15 36.4 C L 85 26 H 97 06/15/25 05:12 36.4 C L 84 26 H 97 06/15/25 05:11 36.4 C L 85 18 131/59 L 96 06/15/25 05:01 36.5 C 83 20 139/58 L 97 06/15/25 05:00 140/68 06/15/25 04:54 36.5 C 84 26 H 98 06/15/25 04:53 36.4 C 86 24 138/57 L 98 06/15/25 04:45 36.5 C 84 26 H 98 06/15/25 04:37 26 H 06/15/25 04:25 134/52 L 06/15/25 04:24 36.6 C 88 26 H 98 06/15/25 04:20 124/52 L 06/15/25 04:18 87 26 H 100 06/15/25 04:15 119/51 L 06/15/25 04:15 88 26 H 100 06/15/25 04:10 120/58 L 06/15/25 04:09 94 H 23 99 06/15/25 04:05 124/53 L 06/15/25 03:21 130/64 06/15/25 03:21 100 H 26 H 100 06/15/25 03:20 103 H 06/15/25 03:16 178/65 H 06/15/25 03:16 178/65 H 06/15/25 03:16 178/65 H 06/15/25 03:10 113/69 06/15/25 03:03 105 H 21 100 06/15/25 03:00 112 H 22 100 06/15/25 03:00 89/71 L 06/15/25 02:56 131/69 06/15/25 02:51 176/112 H 06/15/25 02:46 114/63 06/15/25 02:45 131 H 17 97 06/15/25 02:42 179/75 H 06/15/25 02:42 89 21 89 L 06/15/25 02:38 69/18 L 06/15/25 02:38 69/18 L Pulse Ox O2 Del Method O2 Del Method O2 Flow Rate FiO2 06/15/25 13:28 06/15/25 12:22 06/15/25 12:16 06/15/25 12:11 06/15/25 11:37 06/15/25 11:08 06/15/25 10:56 06/15/25 10:47 06/15/25 10:44 06/15/25 10:32 06/15/25 10:16 06/15/25 10:05 40 06/15/25 09:56 06/15/25 09:47 06/15/25 09:47 06/15/25 09:27 06/15/25 09:27 Mechanical Vent 40 06/15/25 09:15 06/15/25 09:11 06/15/25 08:58 06/15/25 08:52 06/15/25 08:25 Mechanical Vent 40 06/15/25 08:25 96 Mechanical Vent 06/15/25 07:45 40 06/15/25 07:33 06/15/25 07:00 Mechanical Vent 40 06/15/25 06:41 06/15/25 06:40 06/15/25 06:30 06/15/25 06:18 06/15/25 06:12 06/15/25 06:00 06/15/25 05:48 06/15/25 05:33 06/15/25 05:29 06/15/25 05:27 06/15/25 05:18 06/15/25 05:15 06/15/25 05:12 06/15/25 05:11 06/15/25 05:01 06/15/25 05:00 06/15/25 04:54 06/15/25 04:53 40 06/15/25 04:45 06/15/25 04:37 40 06/15/25 04:25 06/15/25 04:24 06/15/25 04:20 06/15/25 04:18 06/15/25 04:15 06/15/25 04:15 06/15/25 04:10 06/15/25 04:09 06/15/25 04:05 06/15/25 03:21 06/15/25 03:21 06/15/25 03:20 06/15/25 03:16 06/15/25 03:16 06/15/25 03:16 06/15/25 03:10 06/15/25 03:03 06/15/25 03:00 06/15/25 03:00 06/15/25 02:56 06/15/25 02:51 06/15/25 02:46 06/15/25 02:45 06/15/25 02:42 06/15/25 02:42 06/15/25 02:38 06/15/25 02:38 Coding Level of Care Code 87509 CRITICAL CARE 1ST 30-74M Diagnoses Cardiac arrest I46.9 Shock R57.9 DIC (disseminated intravascular coagulation) D65 DVT (deep venous thrombosis) I82.409 PE (pulmonary thromboembolism) I26.99 Lactic acid acidosis E87.20 Metabolic acidosis E87.20 Respiratory failure J96.90 Acute blood loss anemia D62 Hip fracture S72.009A Shock liver K72.00 Hypoglycemia E16.2
--- NOTE | 2025-06-15 15:09 | Pharmacy Report ---
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 - Subjective * Patient is a 80 year old F who was admitted on 06/13/25 for HIP FRACTURE. * Pharmacy was consulted on 06/15/25 to assist with Argatroban dosing in the se tting of severe DIC following orthopedic surgery with high bleed risk, possible internal bleeding, new DVT and PE, and possible HIT. * Pertinent PMHx: * Home Anticoagulant: no * Recent Surgery: Left total hip arthroplasty on 06/14/25 (Spinal anesthesia) * Cardiac filter ([place]/IVC): no * Increased bleed risk factors: age>75, Hct<30, hepatic/renal disease, PLT<50k, excessive fall risk, current bleeding * Increased thrombotic risk factors: DVT/PE, age>75 * Mechanical prophylaxis ordered: yes - SCD knee - Objective Height: 5 ft 3 in Weight: 55.4 kg Body Mass Index: 21.6 Laboratory Results (Most Recent): WBC 17.09 K/ul (4.8-10.8) H D 06/15/25 03:09 RBC 2.36 M/uL (4.20-5.40) L 06/15/25 03:09 Hgb 7.9 g/dl (12.0-16.0) L 06/15/25 14:01 POC Hgb 7.5 g/dl (12.0-16.0) L 06/15/25 10:48 Hct 23.7 % (37.0-47.0) L 06/15/25 14:01 POC Hct 22 % (37-47) L 06/15/25 10:48 MCV 94.5 fL (80.0-100.0) 06/15/25 03:09 MCH 28.8 pg (25.0-34.0) 06/15/25 03:09 MCHC 30.5 g/dL (32.0-36.0) L 06/15/25 03:09 RDW Std Deviation 53.6 fL (36.4-46.3) H 06/15/25 03:09 RDW Coeff of Mgaed 15.7 % (11.5-14.5) H 06/15/25 03:09 Plt Count 29 K/uL (130-400) L* D 06/15/25 03:09 MPV 12.4 fL (9.4-12.4) 06/14/25 20:44 Immature Gran % (Auto) 0.2 % 06/14/25 06:40 Neut % (Auto) 54.8 % 06/14/25 06:40 Lymph % (Auto) 30.8 % 06/14/25 06:40 [place] % (Auto) 7.1 % 06/14/25 06:40 Eos % (Auto) 6.2 % 06/14/25 06:40 Baso % (Auto) 0.9 % 06/14/25 06:40 Neut # (Auto) 2.93 K/uL (1.40-6.50) 06/14/25 06:40 Lymph # (Auto) 1.65 K/uL (1.20-3.40) 06/14/25 06:40 [place] # (Auto) 0.38 K/uL (0.11-0.59) 06/14/25 06:40 Eos # (Auto) 0.33 K/uL (0.00-0.50) 06/14/25 06:40 Baso # (Auto) 0.05 K/uL (0.00-0.20) 06/14/25 06:40 Immature Gran # (Auto) 0.01 K/uL (0.01-0.20) 06/14/25 06:40 Absolute Nucleated RBC 0.09 K/uL (0.00-0.12) 06/15/25 03:09 Nucleated RBC % (auto) 0.5 % 06/15/25 03:09 Platelet Estimate Decreased (Normal) L 06/14/25 20:44 PT 20.0 Seconds (9.0-12.0) H 06/15/25 13:03 INR 2.0 (0.9-1.1) H 06/15/25 13:03 APTT 46 Seconds (21-31) H 06/15/25 13:03 PTT Ratio 1.7 06/15/25 13:03 Fibrinogen 190 mg/dl (184-400) 06/15/25 13:03 D-Dimer > 12469 ug/L FEU (0-500) H* 06/15/25 13:03 Specimen Type Arterial 06/15/25 10:48 Sample Site Art Line 06/15/25 10:48 POC pH 7.22 (7.35-7.45) L 06/15/25 10:48 POC pCO2 21 mmHg (35-46) L 06/15/25 10:48 POC pO2 115 mmHg (80-95) H 06/15/25 10:48 POC HCO3 9 mmol/L (19-24) L 06/15/25 10:48 POC Total CO2 9 mmol/L (24-31) L* 06/15/25 10:48 POC Base Excess -19.0 mmol/L (-9-1.8) L 06/15/25 10:48 O2 Sat Pulse Oximetry 94 06/15/25 10:48 ABG pH (Temp Correct) 7.223 (7.35-7.45) L 06/15/25 10:48 ABG pCO2 (Temp Corrct 21 mmHg (35-46) L 06/15/25 10:48 POC ABG pO2 at Pt Temp 112 06/15/25 10:48 POC ABG O2 Sat 98.0 % (90-95) H 06/15/25 10:48 Julius Test NA 06/15/25 10:48 O2 Delivery Device Ventilator 06/15/25 10:48 Vent Mode AC 06/15/25 10:48 POC FiO2 40 % 06/15/25 10:48 End Tidal CO2 15 06/15/25 10:48 POC Sodium 141 mmol/L (135-144) 06/15/25 10:48 Sodium 143 mmol/L (136-145) 06/15/25 11:18 POC Potassium 3.4 mmol/L (3.3-5.0) 06/15/25 10:48 Potassium 3.6 mmol/L (3.5-5.1) 06/15/25 11:18 Chloride 103 mmol/L (98-107) 06/15/25 11:18 Carbon Dioxide 11 mmol/L (21-32) L 06/15/25 11:18 Anion Gap 29 (3-11) H 06/15/25 11:18 BUN 24 mg/dl (6-23) H 06/15/25 11:18 Creatinine 2.22 mg/dl (0.6-1.2) H 06/15/25 11:18 Est Cr Clr Drug Dosing 16.4 ml/min 06/15/25 11:18 eGFR 21.74 06/15/25 11:18 BUN/Creatinine Ratio 10.8 (10-20) 06/15/25 11:18 Glucose 190 mg/dl (70-99(Fasting)) H 06/15/25 11:18 POC Glucose (other) 150 mg/dl (70-99) H 06/15/25 14:08 Estimat Average Glucose 111 mg/dl 06/15/25 05:38 Hemoglobin A1c 5.5 % (4.5-5.6) 06/15/25 05:38 Lactate > 17.0 mmol/L (0.4-2.0) H* 06/15/25 11:17 Calcium 7.6 mg/dl (8.6-10.3) L 06/15/25 11:18 Phosphorus 7.1 mg/dl (2.5-4.9) H 06/15/25 11:18 Magnesium 2.3 mg/dl (1.7-2.4) 06/15/25 03:09 Total Bilirubin 3.7 mg/dl (0.2-1.0) H 06/15/25 11:18 Direct Bilirubin 2.1 mg/dl (0-0.2) H 06/15/25 06:29 AST 3737 U/L (13-39) H 06/15/25 11:18 ALT > 2500 U/L (7-52) H 06/15/25 11:18 Alkaline Phosphatase 145 U/L (34-104) H 06/15/25 11:18 Lactate Dehydrogenase 7520 U/L (86-244) H 06/15/25 13:03 Troponin I High Sens 3.6 pg/ml (0-14) 06/13/25 19:12 Total Protein 4.2 gm/dl (6.0-8.3) L D 06/15/25 11:18 Albumin 2.5 gm/dl (3.4-5.0) L 06/15/25 11:18 Globulin 1.7 gm/dl (2.5-4.0) L 06/15/25 11:18 Albumin/Globulin Ratio 1.5 (0.9-2) 06/15/25 11:18 Lipase 12 U/L (11-82) 06/13/25 19:12 25-OH Vitamin D Total 14.0 ng/ml (30-100) L 06/14/25 08:16 Random Cortisol 42.70 mcg/dl 06/15/25 05:39 Nasal Screen MRSA (PCR) Negative (Negative) 06/14/25 21:47 Blood Type O Positive 06/14/25 15:27 Blood Type Recheck O Positive 06/14/25 15:55 Antibody Screen NEGATIVE 06/14/25 15:27 Crossmatch See Detail 06/14/25 15:27 - Assessment * Per [facility] Argatroban/Fondaparinux Usage Guidelines (Policy II.E.13.01(i)), all heparin & low molecular weight heparin products must be discontinued prior to starting Argatroban. * Per policy above, pharmacy will order the following baseline labs: aPTT, INR, CBC, LFTs, SCr. * Per policy above, pharmacy will order the following ongoing labs: aPTT as needed for dose adjustments, CBC daily, INR daily (every 12 hours if patient on warfarin), LFTs (at least every 2 days), SCr (at least every 2 days). 06/15/25: * Patient on day #1 of therapeutic IV Argatroban for new DVT/PE following orthopedic surgery in the setting of severe DIC complicated by significant elevation in LFTs as well as internal bleeding near surgical site on imaging. * Goal aPTT ratio (determined by provider): 2-3 * Extremely complicated case. Given hepatic and renal dysfunction as well as internal bleeding, need to be very cautious with Argatroban dosing as half- life will be extended from ~40 mins to ~180 mins. This is a delicate balance as patient also has new DVTs and PE from DIC. * Most recent aPTT Ratio: 1.7 at 1303 on 06/15/25 (baseline level - already elevated) * Will shorten monitoring interval of PTT ratio to ensure cautious dosing. Nursing/Provider aware. * Will consider dose reductions should PTT ratio get > 2.5 given LFTs. - Plan * IV Argatroban: * Start at 0.27 mcg/kg/min - want to start at lowest dose possible given hepatic dysfunction. Because starting rate is < 1 mL/hr, RN can only enter to one decimal place on [facility]'s [employer] pumps. Therefore this will be a starting rate of 0.9 mL/hr. * Next aPTT ratio ordered for 2 hours at 1630 on 06/15/25 Thank you for this consult! We will continue to monitor this patient and make adjustments as needed. - Objective Allergies: Allergy/AdvReac Type Severity Reaction Status Date / Time escitalopram [From Lexapro] AdvReac extreme Verified 06/13/25 19:22 nausea/dizziness
--- NOTE | 2025-06-15 15:30 | Hospitalist Progress Note ---
Date of Service June 15, 2025 Assessment & Plan (1) Closed fracture of left hip: (2) Chronic disease anemia: (3) Panic disorder: (4) CKD (chronic kidney disease), stage III: Plan 80-year-old lady with PMH of HDL, stage IIIa CKD, osteoporosis, panic disorder who presented with a mechanical fall and left hip fracture underwent hip repair 06/14 in the hospital. She was hypotensive after the repair and was moved to ICU (from PACU) in the night of 06/14 - 06/15. She became progressively hypotensive while in ICU and then unresponsive, she was immediately intubated in ICU. She progressed into bradycardia and cardiac arrest at 0237 hrs. of 06/15, received 2 rounds of CPR, epinephrine with ROSC at 0241 hrs. She is being managed for the following: Cardiac arrest (06/15/2025, ROSC after 5 minutes, PEA arrest) Disseminated intravascular coagulation, PE, DVT Acute blood loss anemia, ISO postoperative blood loss complicated by DIC Hypoxic respiratory failure: Intubated 06/15/2025 Severe refractory shock with multiorgan failure, renal failure, shock liver, severe metabolic acidosis with lactic acidosis Acute cholecystitis Patient was hypotensive and unresponsive 06/14 evening postoperatively. Patient was moved to ICU 06/14, intubated, had cardiac arrest/ROSC achieved in 5 minutes. DIC noted, severe metabolic acidosis with lactic acidosis noted, renal failure and shock liver were also noted. Imagings on 06/15 after the cardiac arrest event: CTAP - no retroperitoneal bleed noted. Liver ultrasound - acute cholecystitis and mild ascites. Fatty liver. Portal vein US: No thrombosis noted. CTA chest - left upper lobe PE noted. Small bilateral pleural effusion noted. BLE venous Doppler - bilateral posterior tibial vein DVT. Hip CT - expected postsurgical changes ECHO - EF of 65-70%, concentric LVH, LV wall motion is normal. Patient receiving blood products, argatroban infusion, Vanc and Zosyn 06/15, sedation and pressors, bicarb drip. Patient is being managed in ICU per ICU protocol. Urine output is poor. Nephro and hematology on board. Family members met at bedside, updated on pt's overnight events and critical status of the patient. Mechanical Fall Left femoral neck fracture, Vit D level 14, start supplement when able. Likely osteoporotic fracture HO osteoporosis s/p left hip arthroplasty 06/14 c/b blood loss and post op hypotension. Ortho on board, WBAT, pain Mx. PT/OT when able. HLD: c/w home statin when able. PT/OT, CM to assist w/ dc plan once pt is stable medically. Mx per ICU care Full code argatroban infusion Admission and Anticipated Discharge Date Admission Date: June 13, 2025 Subjective Patient was seen and examined at bedside. Patient is intubated and mechanically ventilated, sedated. ROS not able. Several drips including fentanyl, norepinephrine, phenylephrine, maintenance fluids were running. Overnight, patient went hypotensive after orthopedic repair and went into car diac arrest needing CPR and intubation Physical Exam Physical Exam: Constitutional: sedated, intubated, MV. Fentanyl, phenylephrine and Levophed drip running. HEENT: Mucous membranes Dry. Sclera clear Neck: Soft, no adenopathy Lungs: coarse mechanical breath sounds. Mechanically ventilated. CV: S1-S2, regular, Tachycardia. Abdomen: Soft, No facial grimacing on palpation, slightly distended. Extremities: No significant edema, Musculoskeletal: Left hip with clean dressing without soakage. No bruising noted. Neuro: Patient sedated. Results & Data Results & Data Vital Signs (Past 12 Hours) Vital Signs Temp Pulse Pulse Resp BP BP Pulse Ox 06/15/25 14:00 35.6 C L 93 H 26 H 94 06/15/25 13:28 92 H 26 H 103/56 L 93 06/15/25 13:00 111 H 20 96 06/15/25 12:22 101 H 18 124/59 L 94 06/15/25 12:16 36.4 C L 91 H 26 H 99/49 L 92 06/15/25 12:11 36.4 C L 101 H 26 H 134/59 L 95 06/15/25 12:00 35.9 C L 94 H 26 H 93 06/15/25 11:37 36.4 C L 93 H 26 H 107/51 L 93 06/15/25 11:08 98/46 L 06/15/25 11:06 35.9 C L 93 H 26 H 93 06/15/25 10:56 36.4 C L 92 H 26 H 99/50 L 92 06/15/25 10:47 35.9 C L 93 H 26 H 106/48 L 94 06/15/25 10:44 35.9 C L 96 H 26 H 107/49 L 96 06/15/25 10:32 36.4 C L 95 H 26 H 109/48 L 93 06/15/25 10:18 35.9 C L 93 H 26 H 96 06/15/25 10:16 36.4 C L 95 H 26 H 90/48 L 95 06/15/25 10:05 92 H 26 H 96 06/15/25 09:56 35.9 C L 90 26 H 119/51 L 96 06/15/25 09:47 36.4 C L 93 H 26 H 115/50 L 95 06/15/25 09:47 36.4 C L 92 H 26 H 133/61 97 06/15/25 09:27 36.4 C L 92 H 26 H 133/61 97 06/15/25 09:27 36.4 C L 92 H 26 H 133/61 97 06/15/25 09:15 36.4 C L 93 H 18 124/53 L 97 06/15/25 09:11 149/70 H 06/15/25 09:09 35.9 C L 96 H 26 H 96 06/15/25 08:58 35.9 C L 96 H 26 H 139/70 96 06/15/25 08:52 138/71 06/15/25 08:36 36.0 C L 93 H 26 H 96 06/15/25 08:25 06/15/25 08:25 06/15/25 07:45 89 27 H 96 06/15/25 07:33 36.1 C L 92 H 26 H 96 06/15/25 07:00 36.2 C L 90 17 94 06/15/25 06:41 36.4 C L 92 H 26 H 139/64 97 06/15/25 06:40 36.3 C L 88 18 131/67 95 06/15/25 06:30 36.3 C L 87 26 H 96 06/15/25 06:18 36.3 C L 88 18 132/67 96 06/15/25 06:12 36.3 C L 88 26 H 97 06/15/25 06:00 143/75 H 06/15/25 05:48 36.4 C L 88 18 136/64 97 06/15/25 05:33 36.4 C L 88 18 134/63 96 06/15/25 05:29 36.4 C L 87 18 132/61 96 06/15/25 05:27 36.4 C L 86 26 H 96 06/15/25 05:18 36.4 C L 87 18 128/59 L 96 06/15/25 05:15 36.4 C L 85 26 H 97 06/15/25 05:12 36.4 C L 84 26 H 97 06/15/25 05:11 36.4 C L 85 18 131/59 L 96 06/15/25 05:01 36.5 C 83 20 139/58 L 97 06/15/25 05:00 140/68 06/15/25 04:54 36.5 C 84 26 H 98 06/15/25 04:53 36.4 C 86 24 138/57 L 98 06/15/25 04:45 36.5 C 84 26 H 98 06/15/25 04:37 26 H 06/15/25 04:25 134/52 L 06/15/25 04:24 36.6 C 88 26 H 98 06/15/25 04:20 124/52 L 06/15/25 04:18 87 26 H 100 06/15/25 04:15 119/51 L 06/15/25 04:15 88 26 H 100 06/15/25 04:10 120/58 L 06/15/25 04:09 94 H 23 99 06/15/25 04:05 124/53 L Pulse Ox O2 Del Method O2 Del Method O2 Flow Rate FiO2 06/15/25 14:00 06/15/25 13:28 06/15/25 13:00 06/15/25 12:22 06/15/25 12:16 06/15/25 12:11 06/15/25 12:00 06/15/25 11:37 06/15/25 11:08 06/15/25 11:06 06/15/25 10:56 06/15/25 10:47 06/15/25 10:44 06/15/25 10:32 06/15/25 10:18 06/15/25 10:16 06/15/25 10:05 40 06/15/25 09:56 06/15/25 09:47 06/15/25 09:47 06/15/25 09:27 06/15/25 09:27 Mechanical Vent 40 06/15/25 09:15 06/15/25 09:11 06/15/25 09:09 06/15/25 08:58 06/15/25 08:52 06/15/25 08:36 06/15/25 08:25 Mechanical Vent 40 06/15/25 08:25 96 Mechanical Vent 06/15/25 07:45 40 06/15/25 07:33 06/15/25 07:00 Mechanical Vent 40 06/15/25 06:41 06/15/25 06:40 06/15/25 06:30 06/15/25 06:18 06/15/25 06:12 06/15/25 06:00 06/15/25 05:48 06/15/25 05:33 06/15/25 05:29 06/15/25 05:27 06/15/25 05:18 06/15/25 05:15 06/15/25 05:12 06/15/25 05:11 06/15/25 05:01 06/15/25 05:00 06/15/25 04:54 06/15/25 04:53 40 06/15/25 04:45 06/15/25 04:37 40 06/15/25 04:25 06/15/25 04:24 06/15/25 04:20 06/15/25 04:18 06/15/25 04:15 06/15/25 04:15 06/15/25 04:10 06/15/25 04:09 06/15/25 04:05
[2025-06-15] MEDS: 4.5GM EXT INFUSION IV SCH (15:37)
[2025-06-15 17:16] LABS: Anion Gap 25 (3-11); Blood Urea Nitrogen 23 mg/dl (6-23); Calcium 7.5 mg/dl (8.6-10.3); Carbon Dioxide 15 mmol/L (21-32); Chloride 101 mmol/L (98-107); Creatinine Clr Calc Pharmacy 15.2 ml/min; Glucose 154 mg/dl (70-99(Fasting)); Potassium 3.6 mmol/L (3.5-5.1); Sodium 141 mmol/L (136-145)
[2025-06-15 17:45] LABS: Alanine Aminotransferase > 2500 U/L (7-52)
[2025-06-15 17:46] LABS: Albumin Globulin Ratio 1.4 (0.9-2); Albumin Level 2.5 gm/dl (3.4-5.0); Alkaline Phosphatase 141 U/L (34-104); Bilirubin,Total 4.6 mg/dl (0.2-1.0); Globulin 1.8 gm/dl (2.5-4.0); Total Protein 4.3 gm/dl (6.0-8.3)
[2025-06-15 17:50] LABS: Fibrinogen 196 mg/dl (184-400)
[2025-06-15 18:17] LABS: Partial Thromboplastin Time 129 Seconds (21-31)
--- NOTE | 2025-06-15 18:34 | CT Scan Report ---
Clinical history: Possible ischemic bowel Technique: Axial computed tomography images were obtained of the abdomen and pelvis after the administration of intravenous contrast according to the CT angiogram protocol Comparison is made to the CT dated 06/15/2025 Findings: The abdominal aorta appears unremarkable with no sign of aneurysm or dissection. No stenosis is seen involving it. The celiac axis and superior mesenteric artery are patent with no stenosis identified. The inferior mesenteric artery is patent as well. There is mild plaque in the proximal renal arteries bilaterally and without significant stenosis per there is an accessory right renal artery. The iliac arteries appear unremarkable with no sign of aneurysm or stenosis. The visualized common femoral arteries appear unremarkable as well The IVC is decompressed The liver is overall of normal size, attenuation, and contour with no sign of cirrhosis or significant fatty infiltration. There is a suspected small 5 mm cyst in the left hepatic lobe. No definite liver mass lesion is seen. The portal vein is patent. The gallbladder is mild distended. There is gallbladder wall thickening with increased mucosal enhancement. No bile duct dilatation is noted. The spleen is of normal size. No focal splenic lesion is evident. There is soft tissue stranding and fluid around the pancreas, concerning for pancreatitis. The pancreatic duct is of normal caliber. No definite adrenal gland lesion is seen. There is increased adrenal gland enhancement No definite renal or proximal ureteral calculi are seen on this contrast-enhanced study. There is no hydronephrosis. There is worsened bilateral perinephric fluid and edema. There is multifocal diminished renal cortical enhancement bilaterally. There is mild bilateral renal cortical atrophy. There are bilateral renal cysts No adenopathy is seen. There is a nasogastric tube with its tip within the stomach. There is no sign of small bowel obstruction. There is diffuse colonic wall thickening. No free intraperitoneal air is identified. There is a small amount of high attenuation ascites No distal ureteral or bladder calculi are seen. The bladder is decompressed, containing a Gomez catheter. There is a small right inguinal hernia containing ascites. There is a small left inguinal hernia containing only fat There are small bilateral pleural effusions, right larger than left. These are increased in size. There is bilateral lower lobe atelectasis There is a left hip replacement. There has been interval decrease in packets of air in the adjacent musculature, likely due to resolving postoperative change. There is right hip osteoarthritis. There is lumbar scoliosis and degenerative disc disease Impression: 1. Normal-appearing abdominal aorta 2. No sign of renal or mesenteric artery stenosis 3. Normal-appearing pelvic arteries 4. Interval worsening of perinephric fluid and edema bilaterally 5. Multifocal diminished renal cortical enhancement that could be due to renal infarcts or vasculitis. Pyelonephritis is also possible. Correlation with clinical symptoms and laboratory values is recommended 6. Bilateral renal cysts 7. Gallbladder wall thickening and gallbladder wall enhancement. Cholecystitis is possible and correlation with sonography may be useful 8. Acute pancreatitis, versus shock pancreas 9. Increased bilateral pleural effusions and bilateral lower lobe atelectasis 10. Small amount of high attenuation ascites, which could be due to hemoperitoneum 11. Colonic wall thickening, concerning for infectious colitis or inflammatory bowel disease 12. Adrenal gland hyperenhancement and decompressed IVC, which may be due to hypotension ACT 112: Positive. There are findings on this exam that require communication between the performing entity and the patient following Patient Test Result Information Act ([place] ACT 112) guidelines. Electronically signed by Blake Cruz 06-15-2025 6:29 PM
[2025-06-15] MEDS ORDERED: PHARMACY ARGATROBAN RATE CHANGE ONE (18:45)
[2025-06-15 19:21] LABS: Hematocrit (blood only) 27.9 % (37.0-47.0); Hemoglobin 9.4 g/dl (12.0-16.0)
[2025-06-15] MEDS: MIDAZOLAM HCL 1 MG/ML 2ML VIAL IV STA (19:54)
[2025-06-15] MEDS: PHARMACY ARGATROBAN RATE CHANGE ONE (19:55)
[2025-06-15 19:59] LABS: iSTAT Art Bld Gas Base Excess -10.0 mmol/L (-9-1.8); iSTAT Art Bld Gas pCO2 Correct 32 mmHg (35-46); iSTAT Art Bld Gas pH Corrected 7.304 (7.35-7.45); iSTAT Arterial Blood Gas pO2 C 70
[2025-06-15] MEDS: PANTOprazole 40 MG/10 ML SYR IV SCH (20:31)
[2025-06-15] MEDS ORDERED: Nursing to Pharmacy Communication SCH (21:30)
[2025-06-15 21:59] LABS: Hematocrit (blood only) 28.9 % (37.0-47.0); Hemoglobin 10.3 g/dl (12.0-16.0)
[2025-06-15 22:24] LABS: Appearance Urine Slightly Cloudy (Clear); Glucose Urine UA Trace (Negative)
[2025-06-15 22:26] LABS: Partial Thromboplastin Time 136 Seconds (21-31)
[2025-06-16 01:39] LABS: Hematocrit (blood only) 30.8 % (37.0-47.0); Hemoglobin 10.8 g/dl (12.0-16.0)
[2025-06-16 01:45] LABS: Fibrinogen 173 mg/dl (184-400)
[2025-06-16 01:54] LABS: Anion Gap 24 (3-11); Blood Urea Nitrogen 25 mg/dl (6-23); Calcium 7.2 mg/dl (8.6-10.3); Carbon Dioxide 16 mmol/L (21-32); Chloride 97 mmol/L (98-107); Creatinine Clr Calc Pharmacy 12.6 ml/min; Glucose 121 mg/dl (70-99(Fasting)); Potassium 3.1 mmol/L (3.5-5.1); Sodium 137 mmol/L (136-145)
[2025-06-16 02:05] LABS: Partial Thromboplastin Time > 139 Seconds (21-31)
[2025-06-16 02:10] LABS: Alanine Aminotransferase > 2500 U/L (7-52); Albumin Globulin Ratio 1.4 (0.9-2); Albumin Level 2.6 gm/dl (3.4-5.0); Alkaline Phosphatase 188 U/L (34-104); Bilirubin,Total 5.1 mg/dl (0.2-1.0); Globulin 1.8 gm/dl (2.5-4.0); Total Protein 4.4 gm/dl (6.0-8.3)
[2025-06-16] MEDS: CALCIUM GLUCONATE 1,000 MG/60 ML BAG IV STA (02:27)
[2025-06-16] MEDS: PHARMACY ARGATROBAN RATE CHANGE ONE ×2 (03:01→07:50)
[2025-06-16 04:59] LABS: Magnesium 1.6 mg/dl (1.7-2.4)
[2025-06-16 05:05] LABS: Fibrinogen 157 mg/dl (184-400)
[2025-06-16 05:12] LABS: Hematocrit (blood only) 30.0 % (37.0-47.0); Hemoglobin 10.5 g/dl (12.0-16.0); Mean Corpuscular Hemoglobin 28.9 pg (25.0-34.0); Mean Corpuscular Volume 82.6 fL (80.0-100.0); Platelet Count 51 K/uL (130-400); RDW Standard Deviation 47.7 fL (36.4-46.3); Red Blood Count 3.63 M/uL (4.20-5.40); White Blood Count 28.92 K/ul (4.8-10.8)
[2025-06-16 05:13] LABS: ALC (manual) 2.31 K/uL (1.2-3.4); ANC (manual) 24.58 K/uL (1.4-6.5); Dohle Bodies 1+; Polychromasia 1+; Toxic Vacuolation 2+
[2025-06-16] MEDS: MAGNESIUM SULFATE / D5W 1 GM/100 ML BAG IV SCH (05:20)
[2025-06-16 05:27] LABS: iSTAT Art Bld Gas Base Excess -10.0 mmol/L (-9-1.8); iSTAT Art Bld Gas pCO2 Correct 22 mmHg (35-46); iSTAT Art Bld Gas pH Corrected 7.428 (7.35-7.45); iSTAT Arterial Blood Gas pO2 C 83
[2025-06-16] MEDS: POTASSIUM CHLORIDE / WTR 20 MEQ/100 ML PLCT IV ONE (06:26)
[2025-06-16 06:45] LABS: Partial Thromboplastin Time > 139 Seconds (21-31)
--- NOTE | 2025-06-16 06:48 | Critical Care Progress Note ---
Date of Service June 16, 2025 Assessment & Plan (1) Cardiac arrest: (2) Shock: (3) DIC (disseminated intravascular coagulation): (4) DVT (deep venous thrombosis): (5) PE (pulmonary thromboembolism): (6) Lactic acid acidosis: (7) Metabolic acidosis: (8) Respiratory failure: (9) Acute blood loss anemia: (10) Hip fracture: (11) Shock liver: (12) Hypoglycemia: Plan Patient is a 80-year-old female who presented to the hospital on 06/13/2025 after suffering a mechanical fall at home which resulted in a left femoral neck fracture. The patient was admitted to the hospitalist service. She underwent left hip arthroplasty on the evening of 06/14/2025. The procedure was complicated by blood loss and some postoperative hypotension. The patient did receive 1 unit of PRBCs intraoperatively as well as 2 L of fluid. Due to hypotension the patient was placed on phenylephrine and transferred to the ICU for further care. After 1 unit of blood the patient's hemoglobin had initially improved. The patient became confused overnight. Blood pressure continues to deteriorate. The patient's mentation continued to worsen. Due to significant alteration in her mentation the decision was made to emergently intubate her in the ICU. Postintubation the patient had PEA cardiac arrest in the manager of business operations of 06/15/2025, she received 2 rounds of CPR, epinephrine with ROSC after 5 minutes. The patient was found to have significant metabolic acidosis, worsening anemia was also present. The patient's blood glucose was also found to be low at less than 10 for which dextrose was administered and a bicarb with dextrose infusion was initiated. Lactic acid was extremely elevated at 17. Central venous catheter and arterial line were placed. And an additional 1 unit of PRBCs was administered. The patient was taken for CT imaging to rule out retroperitoneal bleed. CT abdomen and pelvis with and without contrast did not reveal evidence of retroperitoneal bleeding. Patient's condition remained critical. Labs showed fulminant DIC and the patient was resuscitated with platelets, hemoglobin, cryoprecipitate and FFP. Hematology was consulted. Lower extremity duplex showed bilateral DVT. CT angio chest abdomen pelvis was obtained. Segmental PE was appreciated, no evidence of fat embolism. Effusions were appreciated and concerning for hemorrhagic. There was perinephric fluid and edema bilaterally with diminished renal cortical enhancement concerning to infarcts or vasculitis versus pyelonephritis. Gallbladder wall thickening with gallbladder wall enhancement. Acute pancreatitis was appreciated however lipase was normal. Ascites concerning for hemoperitoneum. Colonic wall thickening appreciated. No evidence of renal or mesenteric artery stenosis. Patient has remained oliguric. Potassium remains low normal, lactate remains elevated however has come down slightly from greater than 17-15. Patient was initiated on argatroban drip yesterday after there was evidence of thrombosis. She did receive additional units of blood yesterday however hemoglobin has remained stable overnight. Nephrology has been consulted. Dialysis has not been initiated yet. Reason Critically Ill: Cardiac arrest (06/15/2025, ROSC after 5 minutes, PEA arrest) Severe refractory shock with multiorgan failure Hypoxic respiratory failure status post intubation 06/15/2025 PE DVTs (bilateral lower extremities) Acute blood loss anemia DIC Acute renal failure with oliguria, concern for acute renal infarcts on CT angio Shock liver Hypoglycemia Severe metabolic acidosis with lactic acidosis Possible acalculous cholecystitis Acute hip fracture status post left hip arthroplasty 06/14/2025 Neuro: Patient had altered mentation, glucose was found to be less than 10. Patient has been waking up when stimulated on fentanyl, no evidence of focal deficits after cardiac arrest. Cardiac: Severe refractory shock with multiorgan failure. Status post PEA cardiac arrest with CPR x 5 minutes on 06/15/2025 Has PE and DVTs. Patient is requiring jamie and vaso for blood pressure support. Pressor requirements continue to rise. Echocardiogram showing EF 65 to 70%, concentric LVH, estimated pulmonary pressure of 42 mmHg. Continue vasopressors for blood pressure support, goal MAP 65 mmHg. Central venous catheter and arterial line are in place. Will continue stress dose steroids with hydrocortisone 50 mg every 6. Cortisol level 46. Will continue argatroban given PE and DVT. Respiratory: Acute hypoxic respiratory failure. Has bilateral pleural effusions, could be hemorrhagic given severe DIC and INR was almost 10 on arrival to ICU. CT also showing segmental PE of left upper lobe. Intubated 06/15/2025. Will continue mechanical ventilation. Continue fentanyl and propofol for sedation and analgesia. Continue anticoagulation for PE. Obtain sputum culture if possible from ET tube. GI: Severe transaminitis, likely shock liver. Portal vein ultrasound does not show evidence within the portal, splenic or hepatic veins. Normal caliber and flow of the hepatic artery. Infrahepatic IVC was not well-visualized, could be hypoplastic or thrombosed. CT angio showed evidence of shock pancreatitis, lipase was not elevated. Gallbladder wall is thickened and gallbladder is distended concerning for acalculous cholecystitis. No evidence of mesenteric ischemia, diffuse colitis appreciated. Some hemoperitoneum. OG tube is in place. Dark coffee-ground contents. Keep to low intermittent suction Keep n.p.o. given multiple pressors. Continue to monitor LFTs. These are rising. Portal flow reportedly now normal based on multiple imaging studies. Avoid hepatotoxins if possible. Ultrasound imaging and CT imaging are showing a dilated gallbladder with gallbladder wall thickening. This may represent acalculous cholecystitis. This likely needs percutaneous biliary drain with IR. RENAL/LYTES: Patient is in HANG. Minimal to no urine output. Only 15 mL overnight. Electrolytes are not rising, patient is on a bicarb infusion which is likely helping this. Gomez catheter is in place. Severe metabolic acidosis with lactic acidosis. On bicarb infusion. Nephrology is consulted, agree that the patient will require dialysis, indication would be severe metabolic acidosis. Keep Gomez catheter in place for strict I's and O's. Continue bicarb infusion. Continue to monitor lactic acid : Gomez catheter is in place. Minimal urine output. ENDO: Patient was severely hypoglycemic. On bicarb with D5. Cortisol level was 42. Was started on stress dose steroids. Continue bicarb with dextrose infusion. Continue to monitor glucose closely. If remains stable can decrease his frequency of checks. Continue hydrocortisone 50 mg Q6. HEME: Patient is in severe DIC. Initial DIC panel showing PT greater than 90, INR greater than 9.7, APTT 71, fibrinogen less than 50, D-dimer greater than 35,000. Patient is significantly anemic as well, status post 5 units PRBCs since admission. Patient has been treated refused FFP, cryoprecipitate and platelets. Cryo will likely be administered again today as fibrinogen is declining. Hematology has been consulted. Patient also has DVT and PE. Continue to monitor hemoglobin, platelets, and fibrinogen levels. Patient has been initiated on argatroban, we will have to monitor his coags and his hemoglobin closely. Patient is, initially her INR was almost 10 as well so she could have had spontaneous bleeding likely having some spontaneous bleeding in setting of DIC and multiple areas. I will give another unit of PRBCs now along with some calcium gluconate. Will send HIT panel ID: No clear source of infection. May have acalculous cholecystitis. Given her critical illness this would have to be managed with percutaneous biliary drain. Will empirically initiate broad-spectrum antibiotics given severe shock. Continue vancomycin and Zosyn. We have obtained blood and urine cultures, will obtain sputum culture. Feeding: N.p.o. Fluids: Bicarb with dextrose Analgesia: Fentanyl Activity: Bedrest, head of bed 30 degrees Thromboprophylaxis: Argatroban Ulcer prophylaxis: Pantoprazole Glycemic control: Monitoring glucose every 2 hours for now Bowels: MiraLAX Indwelling catheters: Arterial line (06/15/2025), central venous catheter (06/15/2025), Gomez catheter, ET tube, OG tube Antibiotics: Vancomycin and Zosyn (initiated 06/15/2025) Plan: Patient remains critically ill in the ICU. He is in severe refractory shock with multiorgan failure. Patient is also in DIC with DVTs in her lower extremities and PE. Hematology and nephrology have been consulted. I have individually consulted with her orthopedic surgeon, surgeon endorses that there was bleeding during the procedure however no vascular injuries were appreciated. Nothing abnormal or unusual happened during the procedure, no cement was used. CT does not comment on fat embolism. Hematology is consulted and I discussed the case with them, they agree with argatroban infusion at this time. They recommended sending a HIT panel which has been done. Recommend supportive care with blood product including FFP, cryos, platelets and packed red cells as indicated. I have discussed the case in detail with nephrology and they have evaluated the patient. Renal function is poor, she is not making urine. Will benefit from dialysis for refractory acidosis and increasing pressor requireme nts that are likely secondary to this. Unsure if she would tolerate standard HD given her multiple pressor requirements. We are following her labs closely. She is on a bicarb infusion for severe metabolic acidosis. Family was at bedside, I had a long meeting with multiple family members and discussed her current condition and prognosis. All questions were addressed. I have reached out to the transfer center today. I believe that she should be transferred for percutaneous biliary drain and will likely require CRRT. I believe if this transfer is delayed she may be too unstable in the near future to transfer. I have personally spent 65 minutes of critical care time in the direct management of this patient. This is a life/limb threatening event. This includes time spent evaluating patient, direct bedside care, chart review, placing orders, interpretation of diagnostic studies, discussion with consultants, patient, and family members, as well as other required patient management ac tivities. This time is exclusive of all separately billable procedures, and teaching time and separate from and in addition to any other critical care service time. Admission and Anticipated Discharge Date Admission Date: June 13, 2025 Subjective Past 24-hour events: Patient had persistent lactic acidosis. Had poor urine output. Imaging yesterday was revealing for DVTs and PE. Patient was started on argatroban. Patient received multiple blood products yesterday. Hemoglobin was stable overnight. Fibrinogen is downtrending. Will likely need replaced again today. Hip CT with just some postoperative changes. CT angio abdomen pelvis that was obtained due to persistent lactic acidosis and severe shock did not show evidence of renal or mesenteric artery stenosis. Possible renal infarcts. Cholecystitis. Shock pancreas. Questionable hemoperitoneum. Colonic wall thickening. Rounding: Resting comfortably on mechanical ventilation. On propofol and fentanyl. Patient opens eyes spontaneously when I am examining her. Pupils are reactive. More anasarcic today. No grimacing to abdominal palpation. Bilateral legs are swollen, there is slightly more edema in the left leg that was operated on. Intake: 7155 mL Output: 295 mL Net: +6860 mL Mechanical ventilation: AC, tidal volume 400, PEEP 5, FiO2 40% with a rate of 22, Feeding: N.p.o. given high pressor requirements, OG tube to low intermittent suction IV infusions: Jamie-, levo, argatroban, D5 bicarb, fentanyl, propofol Indwelling catheters: Central venous catheter, arterial line, ET tube, NG tube, peripheral IV, Gomez catheter Laboratory: CBC: WBC 28, hemoglobin 10.5, platelet 51 Coags: PT 20, INR 2.0, fibrinogen 157, D-dimer remains greater than 35,000 Chemistry: Sodium 137, potassium 3.0 (receiving 20 mill equivalents IV), chloride 97, bicarb 16, anion gap 24, BUN 25, creatinine 2.9, glucose 121, lactate 15.6, calcium 7.2, magnesium 1.6 (replaced), AST greater than 10,000, ALT greater than 2500, T. bili 5.1, lipase 63 AB.44, pCO2 21, pO2 80, bicarb 14, saturation 94% on 40%. Micro: MRSA screen negative. Sputum, urine and blood cultures are pending Review of Systems Review of Systems: Not obtained. Physical Exam Physical Exam: Physical examination: General: Appears stated age, on mechanical ventilation, on fentanyl, opens eyes to voice. Synchronous with ventilator. HEENT: Normocephalic, atraumatic. Extraocular movements intact. Sclera are nonicteric. No JVD appreciated. OG and ET tube in place. Skin: Warm and dry. No bruising appreciated. No jaundice. No rashes. Surgical incision on left hip is bandaged, no oozing or significant bruising or swelling appreciated. Cardiovascular: Sinus tachycardia. On norepinephrine and jamie for blood pressure support. Arterial line in place. Lungs: Coarse mechanical breath sounds. No wheezing. On 40% FiO2 and a PEEP of 5. Diminished at bases. Abdomen: Nontender to palpation. Slightly distended. No bruising. Musculoskeletal: Normal muscle mass and tone. Surgical incision of left hip is bandaged. There is no tense swelling of the extremity. No significant bruising. No oozing. Neurologic: On fentanyl, opens eyes to voice. Pupils are equal. Moving extremities. Results & Data Results & Data Vital Signs (Past 12 Hours) Vital Signs Temp Pulse Resp BP Pulse Ox O2 Del Method FiO2 06/16/25 06:00 127 H 19 96 Mechanical Vent 40 06/16/25 05:33 127 H 19 96 Mechanical Vent 40 06/16/25 05:24 22 06/16/25 05:03 129 H 28 H 96 Mechanical Vent 40 06/16/25 04:36 130 H 26 H 95 Mechanical Vent 40 06/16/25 04:09 127 H 26 H 96 Mechanical Vent 40 06/16/25 03:51 126 H 26 H 96 Mechanical Vent 40 06/16/25 03:33 127 H 26 H 96 Mechanical Vent 40 06/16/25 03:15 127 H 26 H 96 Mechanical Vent 40 06/16/25 02:45 126 H 26 H 96 Mechanical Vent 40 06/16/25 02:27 27 H 40 06/16/25 02:03 129 H 26 H 95 Mechanical Vent 40 06/16/25 01:33 124 H 26 H 96 Mechanical Vent 40 06/16/25 01:18 120 H 26 H 96 Mechanical Vent 40 06/16/25 00:48 128 H 26 H 96 Mechanical Vent 40 06/16/25 00:15 37.0 C 06/16/25 00:03 123 H 26 H 96 Mechanical Vent 40 06/15/25 23:48 122 H 26 H 96 Mechanical Vent 40 06/15/25 23:11 125 H 06/15/25 22:31 26 H 40 06/15/25 22:30 121 H 26 H 96 Mechanical Vent 40 06/15/25 22:00 120 H 96 Mechanical Vent 40 06/15/25 21:36 121 H 96 Mechanical Vent 40 06/15/25 21:03 128 H 22 95 Mechanical Vent 40 06/15/25 20:30 Mechanical Vent 40 06/15/25 20:18 26 H 40 06/15/25 20:03 110 H 26 H 99 Mechanical Vent 40 06/15/25 19:03 109 H 28 H 98 Mechanical Vent 40 06/15/25 19:00 116 H 06/15/25 19:00 88/47 L Coding Level of Care Code 26262 CRITICAL CARE 1ST 30-74M Diagnoses Cardiac arrest I46.9 Shock R57.9 DIC (disseminated intravascular coagulation) D65 DVT (deep venous thrombosis) I82.409 PE (pulmonary thromboembolism) I26.99 Lactic acid acidosis E87.20 Metabolic acidosis E87.20 Respiratory failure J96.90 Acute blood loss anemia D62 Hip fracture S72.009A Shock liver K72.00 Hypoglycemia E16.2
--- NOTE | 2025-06-16 07:00 | Orthopedic Progress Note ---
Date of Service June 16, 2025 Assessment & Plan (1) Closed fracture of left hip: (2) Altered mental status: (3) Acute blood loss anemia: (4) Chronic disease anemia: (5) CKD (chronic kidney disease), stage III: Plan 80-year-old female postoperative day 2 status post left hip hemiarthroplasty. The patient require pressors in the recovery room, however when she was weaned off, she became unresponsive requiring intubation. She did have cardiac arrest with ROSC postoperative day 0. She remains in the ICU intubated. This morning, she is responding painful stimuli and opening her eyes, however not following many commands. I did discuss patient's care with her family and updated them on her situation. I did also discuss the situation with the ICU attending. Medical care per ICU team. Apparently the next decision point is with regards to initiating hemodialysis versus CRRT. Per ICU attending, patient unlikely to tolerate hemodialysis and may require transfer for CRRT. Both this morning and yesterday evening I had a long discussion with the patient's family and updated them on the patient's situation. All their questions were answered to their satisfaction. We will continue to keep them abreast. From an orthopedic standpoint, the patient is weightbearing as tolerated, she is okay for DVT prophylaxis. will continue to follow Admission and Anticipated Discharge Date Admission Date: June 13, 2025 Subjective Patient remains intubated in the ICU on pressors. She does respond to painful stimuli and opens her eyes to voice. She does not entirely follow commands, however. Review of Systems Review of Systems: Unobtainable due to endotracheal tube Physical Exam Physical Exam: Patient's dressings clean dry and intact. Foot is warm and well-perfused. Unable to perform neurologic assessment. Results & Data Vital Signs (Past 12 Hours) Vital Signs Temp Pulse Resp BP Pulse Ox O2 Del Method FiO2 06/16/25 06:46 37.7 C H 06/16/25 06:33 126 H 22 95 Mechanical Vent 40 06/16/25 06:00 127 H 19 96 Mechanical Vent 40 06/16/25 05:33 127 H 19 96 Mechanical Vent 40 06/16/25 05:24 22 06/16/25 05:03 129 H 28 H 96 Mechanical Vent 40 06/16/25 04:36 130 H 26 H 95 Mechanical Vent 40 06/16/25 04:30 37.8 C H 06/16/25 04:09 127 H 26 H 96 Mechanical Vent 40 06/16/25 03:51 126 H 26 H 96 Mechanical Vent 40 06/16/25 03:33 127 H 26 H 96 Mechanical Vent 40 06/16/25 03:15 127 H 26 H 96 Mechanical Vent 40 06/16/25 02:45 126 H 26 H 96 Mechanical Vent 40 06/16/25 02:27 27 H 40 06/16/25 02:03 129 H 26 H 95 Mechanical Vent 40 06/16/25 01:33 124 H 26 H 96 Mechanical Vent 40 06/16/25 01:18 120 H 26 H 96 Mechanical Vent 40 06/16/25 00:48 128 H 26 H 96 Mechanical Vent 40 06/16/25 00:15 37.0 C 06/16/25 00:03 123 H 26 H 96 Mechanical Vent 40 06/15/25 23:48 122 H 26 H 96 Mechanical Vent 40 06/15/25 23:11 125 H 06/15/25 22:31 26 H 40 06/15/25 22:30 121 H 26 H 96 Mechanical Vent 40 06/15/25 22:00 120 H 96 Mechanical Vent 40 06/15/25 21:36 121 H 96 Mechanical Vent 40 06/15/25 21:03 128 H 22 95 Mechanical Vent 40 06/15/25 20:30 Mechanical Vent 40 06/15/25 20:18 26 H 40 06/15/25 20:03 110 H 26 H 99 Mechanical Vent 40 06/15/25 19:03 109 H 28 H 98 Mechanical Vent 40 06/15/25 19:00 116 H 06/15/25 19:00 88/47 L
[2025-06-16 08:11] LABS: Partial Thromboplastin Time > 139 Seconds (21-31)
[2025-06-16] MEDS: PROPOFOL BOLUS FROM BAG IV PRN (08:34)
--- NOTE | 2025-06-16 09:07 | Nephrology Progress Note ---
Date of Service June 16, 2025 Assessment & Plan (1) HANG (acute kidney injury): Plan: * Oliguric ATN due to hemodynamic injury, DOROTHY, rhabdomyolysis * Persistent high AGA due to lactic acidosis * Patient remains pressor dependent, receiving IV NaHCO3 gtt * Expect prolonged renal injury. Prognosis for recovery is guarded * POC discussed w/ ICU attending this morning. Patient to have temporary HD catheter placed. Will provide heparin free HD only (no UF) to help correct acidemia, allow weaning of NaHCO3 gtt and pressor support. Orders placed in EMR and HD coordinated w/ administrative assistant front desk HD RN (2) Shock: Plan: * MSOF - respiratory, hepatic, renal injury, rhabdomyolysis, DIC * 06/15/25 abdominal CTA revealed multifocal diminished renal cortical enhancement. This is concerning for ATN/renal cortical necrosis. There was also gallbladder and intestinal wall thickening which may be indicative of ischemia * Remains on levophed and phenylephrine therapy * On empiric IV zosyn (3) Acute blood loss anemia: Plan: * s/p 4 units PRBC transfusion support (4) Thrombocytopenia: Plan: * DIC, DVT w/ ERNESTO PE - on argatroban (5) Hip fracture: Plan: * L hip hemiarthroplasty 06/14/25 (6) Cardiac arrest: Plan: * PEA arrest 06/15/25 w/ ROSC Admission and Anticipated Discharge Date Admission Date: June 13, 2025 Subjective Mrs. Mercer was evaluated in the ICU. She remains sedated, mechanically ventilated, on pressor support. Review of Systems Review of Systems: Unobtainable due to endotracheal tube Physical Exam Constitutional: acutely ill appearing Eyes: PERRL, conjunctivae normal, anicteric sclerae ENMT: orotracheal intubation Neck: trachea midline, no thyromegaly Respiratory: coarse BS bilaterally Cardiovascular: Rate/Rhythm: + tachycardic (no rub) Extremities: no edema Gastrointestinal (Abdomen): Inspection/Auscultation: abdomen normal to inspection and + hypoactive bowel sounds Neurologic: sedated Results & Data Vital Signs (Past 12 Hours) Vital Signs Temp Pulse Pulse Resp BP Pulse Ox Pulse Ox 06/16/25 08:50 113/41 L 06/16/25 08:41 113/41 L 06/16/25 08:32 111/39 L 06/16/25 08:23 115/42 L 06/16/25 08:00 123 H 19 95 10/18/25 07:36 06/16/25 07:36 123 H 06/16/25 07:36 95 06/16/25 07:34 37.2 C 124 H 21 124/44 L 97 06/16/25 07:30 122 H 22 95 06/16/25 06:46 37.7 C H 06/16/25 06:33 126 H 22 95 06/16/25 06:00 127 H 19 96 06/16/25 05:33 127 H 19 96 06/16/25 05:24 22 06/16/25 05:03 129 H 28 H 96 06/16/25 04:36 130 H 26 H 95 06/16/25 04:30 37.8 C H 06/16/25 04:09 127 H 26 H 96 06/16/25 03:51 126 H 26 H 96 06/16/25 03:33 127 H 26 H 96 06/16/25 03:15 127 H 26 H 96 06/16/25 02:45 126 H 26 H 96 06/16/25 02:27 27 H 06/16/25 02:03 129 H 26 H 95 06/16/25 01:33 124 H 26 H 96 06/16/25 01:18 120 H 26 H 96 06/16/25 00:48 128 H 26 H 96 06/16/25 00:15 37.0 C 06/16/25 00:03 123 H 26 H 96 06/15/25 23:48 122 H 26 H 96 06/15/25 23:11 125 H 06/15/25 22:31 26 H 06/15/25 22:30 121 H 26 H 96 06/15/25 22:00 120 H 96 06/15/25 21:36 121 H 96 O2 Del Method O2 Del Method FiO2 06/16/25 08:50 06/16/25 08:41 06/16/25 08:32 06/16/25 08:23 06/16/25 08:00 06/16/25 07:36 Mechanical Vent 40 06/16/25 07:36 06/16/25 07:36 Mechanical Vent 06/16/25 07:34 Mechanical Vent 40 06/16/25 07:30 40 06/16/25 06:46 06/16/25 06:33 Mechanical Vent 40 06/16/25 06:00 Mechanical Vent 40 06/16/25 05:33 Mechanical Vent 40 06/16/25 05:24 06/16/25 05:03 Mechanical Vent 40 06/16/25 04:36 Mechanical Vent 40 06/16/25 04:30 06/16/25 04:09 Mechanical Vent 40 06/16/25 03:51 Mechanical Vent 40 06/16/25 03:33 Mechanical Vent 40 06/16/25 03:15 Mechanical Vent 40 06/16/25 02:45 Mechanical Vent 40 06/16/25 02:27 40 06/16/25 02:03 Mechanical Vent 40 06/16/25 01:33 Mechanical Vent 40 06/16/25 01:18 Mechanical Vent 40 06/16/25 00:48 Mechanical Vent 40 06/16/25 00:15 06/16/25 00:03 Mechanical Vent 40 06/15/25 23:48 Mechanical Vent 40 06/15/25 23:11 06/15/25 22:31 40 06/15/25 22:30 Mechanical Vent 40 06/15/25 22:00 Mechanical Vent 40 06/15/25 21:36 Mechanical Vent 40 Laboratory Results Laboratory Results - last 24 hr 06/14/25 06/15/25 06/15/25 15:27 04:16 05:38 WBC RBC Hgb POC Hgb TNP Hct POC Hct < 15 L* MCV MCH MCHC RDW Std Deviation RDW Coeff of Maged Plt Count Absolute Nucleated RBC Nucleated RBC % (auto) Neutrophils % (Manual) Lymphocytes % (Manual) Monocytes % (Manual) Metamyelocytes % (Man) Myelocytes % (Man) Neutrophils # (Manual) Total Absolute Neuts Lymphocytes # (Manual) Total Abs Lymphocytes Monocytes # (Manual) Metamyelocytes # (Man) Myelocytes # (Manual) Toxic Vacuolation Dohle Bodies Polychromasia Echinocytes Haptoglobin PT > 90.0 H INR > 9.7 H* APTT PTT Ratio Fibrinogen D-Dimer Factor VIII Activity Specimen Type Arterial Sample Site Art Line POC pH 7.22 L POC pCO2 27 L POC pO2 133 H POC HCO3 11 L POC Total CO2 12 L POC Base Excess -17.0 L O2 Sat Pulse Oximetry 100 ABG pH (Temp Correct) 7.219 L ABG pCO2 (Temp Corrct 26 L POC ABG pO2 at Pt Temp 131 POC ABG O2 Sat 98.0 H Julius Test NA O2 Delivery Device Ventilator Vent Mode AC POC FiO2 50 End Tidal CO2 26 POC Sodium 140 Sodium POC Potassium 4.2 Potassium Chloride Carbon Dioxide Anion Gap BUN Creatinine Est Cr Clr Drug Dosing eGFR BUN/Creatinine Ratio Glucose POC Glucose (other) Lactate Calcium Phosphorus Magnesium Total Bilirubin AST ALT Alkaline Phosphatase Lactate Dehydrogenase Total Creatine Kinase Total Protein Albumin Globulin Albumin/Globulin Ratio Lipase Urine Color Urine Appearance Urine pH Ur Specific [place] Urine Protein Urine Glucose (UA) Urine Ketones Urine Blood Urine Nitrite Urine Bilirubin Urine Urobilinogen Ur Leukocyte Esterase Urine WBC (Auto) Urine RBC (Auto) U Hyaline Cast (Auto) U Epithel Cells (Auto) Urine Bacteria (Auto) Ur Renal Epithelial Cell Kade Biurate Crystals Calcium Oxalate Crystal Leucine Crystals Cystine Crystals Uric Acid Crystals Triple Phos Crystals Sulfonamide Crystals Cholesterol Crystals Talc Crystals Tyrosine Crystals Hippuric Acid Crystals Unidentified Crystals Amorphous Sediment Epithelial Casts Hyaline Casts Granular Casts Waxy Casts RBC Casts WBC Casts Other Casts Urine Mucus Urine Other Urine Trichomonas Urine Yeast Urine Sperm Ur Oval Fat Bodies Ur Culture Indicated? Urine Comment Random Vancomycin Heparin Dep Plt Ab React Heparin Dep Plt Ab OD Complement C3 Complement C4 Tot Complement (CH50) Blood Type O Positive Antibody Screen NEGATIVE Crossmatch See Detail 06/15/25 06/15/25 06/15/25 10:27 10:41 10:48 WBC RBC Hgb POC Hgb 7.5 L Hct POC Hct 22 L MCV MCH MCHC RDW Std Deviation RDW Coeff of Maged Plt Count Absolute Nucleated RBC Nucleated RBC % (auto) Neutrophils % (Manual) Lymphocytes % (Manual) Monocytes % (Manual) Metamyelocytes % (Man) Myelocytes % (Man) Neutrophils # (Manual) Total Absolute Neuts Lymphocytes # (Manual) Total Abs Lymphocytes Monocytes # (Manual) Metamyelocytes # (Man) Myelocytes # (Manual) Toxic Vacuolation Dohle Bodies Polychromasia Echinocytes Haptoglobin PT INR APTT PTT Ratio Fibrinogen D-Dimer Factor VIII Activity Specimen Type Arterial Sample Site Art Line POC pH 7.22 L POC pCO2 21 L POC pO2 115 H POC HCO3 9 L POC Total CO2 9 L* POC Base Excess -19.0 L O2 Sat Pulse Oximetry 94 ABG pH (Temp Correct) 7.223 L ABG pCO2 (Temp Corrct 21 L POC ABG pO2 at Pt Temp 112 POC ABG O2 Sat 98.0 H Julius Test NA O2 Delivery Device Ventilator Vent Mode AC POC FiO2 40 End Tidal CO2 15 POC Sodium 141 Sodium POC Potassium 3.4 Potassium Chloride Carbon Dioxide Anion Gap BUN Creatinine Est Cr Clr Drug Dosing eGFR BUN/Creatinine Ratio Glucose POC Glucose (other) 177 H Lactate Calcium Phosphorus Magnesium Total Bilirubin AST ALT Alkaline Phosphatase Lactate Dehydrogenase Total Creatine Kinase Total Protein Albumin Globulin Albumin/Globulin Ratio Lipase Urine Color Urine Appearance Urine pH Ur Specific [place] Urine Protein Urine Glucose (UA) Urine Ketones Urine Blood Urine Nitrite Urine Bilirubin Urine Urobilinogen Ur Leukocyte Esterase Urine WBC (Auto) Urine RBC (Auto) U Hyaline Cast (Auto) U Epithel Cells (Auto) Urine Bacteria (Auto) Ur Renal Epithelial Cell Kade Biurate Crystals Calcium Oxalate Crystal Leucine Crystals Cystine Crystals Uric Acid Crystals Triple Phos Crystals Sulfonamide Crystals Cholesterol Crystals Talc Crystals Tyrosine Crystals Hippuric Acid Crystals Unidentified Crystals Amorphous Sediment Epithelial Casts Hyaline Casts Granular Casts Waxy Casts RBC Casts WBC Casts Other Casts Urine Mucus Urine Other Urine Trichomonas Urine Yeast Urine Sperm Ur Oval Fat Bodies Ur Culture Indicated? Urine Comment Random Vancomycin Heparin Dep Plt Ab React Pending Heparin Dep Plt Ab OD Pending Complement C3 Complement C4 Tot Complement (CH50) Blood Type Antibody Screen Crossmatch 06/15/25 06/15/25 06/15/25 11:17 11:18 12:16 WBC RBC Hgb POC Hgb Hct POC Hct MCV MCH MCHC RDW Std Deviation RDW Coeff of Maged Plt Count Absolute Nucleated RBC Nucleated RBC % (auto) Neutrophils % (Manual) Lymphocytes % (Manual) Monocytes % (Manual) Metamyelocytes % (Man) Myelocytes % (Man) Neutrophils # (Manual) Total Absolute Neuts Lymphocytes # (Manual) Total Abs Lymphocytes Monocytes # (Manual) Metamyelocytes # (Man) Myelocytes # (Manual) Toxic Vacuolation Dohle Bodies Polychromasia Echinocytes Haptoglobin PT INR APTT PTT Ratio Fibrinogen D-Dimer Factor VIII Activity Specimen Type Sample Site POC pH POC pCO2 POC pO2 POC HCO3 POC Total CO2 POC Base Excess O2 Sat Pulse Oximetry ABG pH (Temp Correct) ABG pCO2 (Temp Corrct POC ABG pO2 at Pt Temp POC ABG O2 Sat Julius Test O2 Delivery Device Vent Mode POC FiO2 End Tidal CO2 POC Sodium Sodium 143 POC Potassium Potassium 3.6 Chloride 103 Carbon Dioxide 11 L Anion Gap 29 H BUN 24 H Creatinine 2.22 H Est Cr Clr Drug Dosing 16.4 eGFR 21.74 BUN/Creatinine Ratio 10.8 Glucose 190 H POC Glucose (other) 162 H Lactate > 17.0 H* Calcium 7.6 L Phosphorus 7.1 H Magnesium Total Bilirubin 3.7 H AST 3737 H ALT > 2500 H Alkaline Phosphatase 145 H Lactate Dehydrogenase Total Creatine Kinase Total Protein 4.2 L D Albumin 2.5 L Globulin 1.7 L Albumin/Globulin Ratio 1.5 Lipase Urine Color Urine Appearance Urine pH Ur Specific [place] Urine Protein Urine Glucose (UA) Urine Ketones Urine Blood Urine Nitrite Urine Bilirubin Urine Urobilinogen Ur Leukocyte Esterase Urine WBC (Auto) Urine RBC (Auto) U Hyaline Cast (Auto) U Epithel Cells (Auto) Urine Bacteria (Auto) Ur Renal Epithelial Cell [place] Biurate Crystals Calcium Oxalate Crystal Leucine Crystals Cystine Crystals Uric Acid Crystals Triple Phos Crystals Sulfonamide Crystals Cholesterol Crystals Talc Crystals Tyrosine Crystals Hippuric Acid Crystals Unidentified Crystals Amorphous Sediment Epithelial Casts Hyaline Casts Granular Casts Waxy Casts RBC Casts WBC Casts Other Casts Urine Mucus Urine Other Urine Trichomonas Urine Yeast Urine Sperm Ur Oval Fat Bodies Ur Culture Indicated? Urine Comment Random Vancomycin Heparin Dep Plt Ab React Heparin Dep Plt Ab OD Complement C3 Complement C4 Tot Complement (CH50) Blood Type Antibody Screen Crossmatch 06/15/25 06/15/25 06/15/25 13:03 14:01 14:08 WBC RBC Hgb 7.9 L POC Hgb Hct 23.7 L POC Hct MCV MCH MCHC RDW Std Deviation RDW Coeff of Maged Plt Count Absolute Nucleated RBC Nucleated RBC % (auto) Neutrophils % (Manual) Lymphocytes % (Manual) Monocytes % (Manual) Metamyelocytes % (Man) Myelocytes % (Man) Neutrophils # (Manual) Total Absolute Neuts Lymphocytes # (Manual) Total Abs Lymphocytes Monocytes # (Manual) Metamyelocytes # (Man) Myelocytes # (Manual) Toxic Vacuolation Dohle Bodies Polychromasia Echinocytes Haptoglobin Pending PT 20.0 H INR 2.0 H APTT 46 H PTT Ratio 1.7 Fibrinogen 190 D-Dimer > 44346 H* Factor VIII Activity Pending Specimen Type Sample Site POC pH POC pCO2 POC pO2 POC HCO3 POC Total CO2 POC Base Excess O2 Sat Pulse Oximetry ABG pH (Temp Correct) ABG pCO2 (Temp Corrct POC ABG pO2 at Pt Temp POC ABG O2 Sat Julius Test O2 Delivery Device Vent Mode POC FiO2 End Tidal CO2 POC Sodium Sodium POC Potassium Potassium Chloride Carbon Dioxide Anion Gap BUN Creatinine Est Cr Clr Drug Dosing eGFR BUN/Creatinine Ratio Glucose POC Glucose (other) 150 H Lactate Calcium Phosphorus Magnesium Total Bilirubin AST ALT Alkaline Phosphatase Lactate Dehydrogenase 7520 H Total Creatine Kinase Total Protein Albumin Globulin Albumin/Globulin Ratio Lipase Urine Color Urine Appearance Urine pH Ur Specific [place] Urine Protein Urine Glucose (UA) Urine Ketones Urine Blood Urine Nitrite Urine Bilirubin Urine Urobilinogen Ur Leukocyte Esterase Urine WBC (Auto) Urine RBC (Auto) U Hyaline Cast (Auto) U Epithel Cells (Auto) Urine Bacteria (Auto) Ur Renal Epithelial Cell [place] Biurate Crystals Calcium Oxalate Crystal Leucine Crystals Cystine Crystals Uric Acid Crystals Triple Phos Crystals Sulfonamide Crystals Cholesterol Crystals Talc Crystals Tyrosine Crystals Hippuric Acid Crystals Unidentified Crystals Amorphous Sediment Epithelial Casts Hyaline Casts Granular Casts Waxy Casts RBC Casts WBC Casts Other Casts Urine Mucus Urine Other Urine Trichomonas Urine Yeast Urine Sperm Ur Oval Fat Bodies Ur Culture Indicated? Urine Comment Random Vancomycin Heparin Dep Plt Ab React Heparin Dep Plt Ab OD Complement C3 Complement C4 Tot Complement (CH50) Blood Type Antibody Screen Crossmatch 06/15/25 06/15/25 06/15/25 16:48 16:51 18:31 WBC RBC Hgb POC Hgb Hct POC Hct MCV MCH MCHC RDW Std Deviation RDW Coeff of Maged Plt Count Absolute Nucleated RBC Nucleated RBC % (auto) Neutrophils % (Manual) Lymphocytes % (Manual) Monocytes % (Manual) Metamyelocytes % (Man) Myelocytes % (Man) Neutrophils # (Manual) Total Absolute Neuts Lymphocytes # (Manual) Total Abs Lymphocytes Monocytes # (Manual) Metamyelocytes # (Man) Myelocytes # (Manual) Toxic Vacuolation Dohle Bodies Polychromasia Echinocytes Haptoglobin PT INR APTT 129 H* PTT Ratio 4.7 Fibrinogen 196 D-Dimer Factor VIII Activity Specimen Type Sample Site POC pH POC pCO2 POC pO2 POC HCO3 POC Total CO2 POC Base Excess O2 Sat Pulse Oximetry ABG pH (Temp Correct) ABG pCO2 (Temp Corrct POC ABG pO2 at Pt Temp POC ABG O2 Sat Julius Test O2 Delivery Device Vent Mode POC FiO2 End Tidal CO2 POC Sodium Sodium 141 POC Potassium Potassium 3.6 Chloride 101 Carbon Dioxide 15 L Anion Gap 25 H BUN 23 Creatinine 2.40 H Est Cr Clr Drug Dosing 15.2 eGFR 19.79 BUN/Creatinine Ratio 9.6 L Glucose 154 H POC Glucose (other) 141 H Lactate > 17.0 H* 14.5 H* Calcium 7.5 L Phosphorus 5.6 H Magnesium Total Bilirubin 4.6 H AST 6049 H ALT > 2500 H Alkaline Phosphatase 141 H Lactate Dehydrogenase Total Creatine Kinase Total Protein 4.3 L Albumin 2.5 L Globulin 1.8 L Albumin/Globulin Ratio 1.4 Lipase Urine Color Urine Appearance Urine pH Ur Specific [place] Urine Protein Urine Glucose (UA) Urine Ketones Urine Blood Urine Nitrite Urine Bilirubin Urine Urobilinogen Ur Leukocyte Esterase Urine WBC (Auto) Urine RBC (Auto) U Hyaline Cast (Auto) U Epithel Cells (Auto) Urine Bacteria (Auto) Ur Renal Epithelial Cell Kade Biurate Crystals Calcium Oxalate Crystal Leucine Crystals Cystine Crystals Uric Acid Crystals Triple Phos Crystals Sulfonamide Crystals Cholesterol Crystals Talc Crystals Tyrosine Crystals Hippuric Acid Crystals Unidentified Crystals Amorphous Sediment Epithelial Casts Hyaline Casts Granular Casts Waxy Casts RBC Casts WBC Casts Other Casts Urine Mucus Urine Other Urine Trichomonas Urine Yeast Urine Sperm Ur Oval Fat Bodies Ur Culture Indicated? Urine Comment Random Vancomycin Heparin Dep Plt Ab React Heparin Dep Plt Ab OD Complement C3 Complement C4 Tot Complement (CH50) Blood Type Antibody Screen Crossmatch 06/15/25 06/15/25 06/15/25 19:09 19:17 19:45 WBC RBC Hgb 9.4 L POC Hgb 9.2 L Hct 27.9 L POC Hct 27 L MCV MCH MCHC RDW Std Deviation RDW Coeff of Maged Plt Count Absolute Nucleated RBC Nucleated RBC % (auto) Neutrophils % (Manual) Lymphocytes % (Manual) Monocytes % (Manual) Metamyelocytes % (Man) Myelocytes % (Man) Neutrophils # (Manual) Total Absolute Neuts Lymphocytes # (Manual) Total Abs Lymphocytes Monocytes # (Manual) Metamyelocytes # (Man) Myelocytes # (Manual) Toxic Vacuolation Dohle Bodies Polychromasia Echinocytes Haptoglobin PT INR APTT PTT Ratio Fibrinogen D-Dimer Factor VIII Activity Specimen Type Arterial Sample Site Art Line POC pH 7.30 L POC pCO2 32 L POC pO2 70 L POC HCO3 16 L POC Total CO2 17 L POC Base Excess -10.0 L O2 Sat Pulse Oximetry ABG pH (Temp Correct) 7.304 L ABG pCO2 (Temp Corrct 32 L POC ABG pO2 at Pt Temp 70 POC ABG O2 Sat 92.0 Julius Test NA O2 Delivery Device Ventilator Vent Mode POC FiO2 End Tidal CO2 POC Sodium 138 Sodium POC Potassium 3.7 Potassium Chloride Carbon Dioxide Anion Gap BUN Creatinine Est Cr Clr Drug Dosing eGFR BUN/Creatinine Ratio Glucose POC Glucose (other) Lactate Calcium Phosphorus Magnesium Total Bilirubin AST ALT Alkaline Phosphatase Lactate Dehydrogenase Total Creatine Kinase Total Protein Albumin Globulin Albumin/Globulin Ratio Lipase 63 Urine Color Urine Appearance Urine pH Ur Specific [place] Urine Protein Urine Glucose (UA) Urine Ketones Urine Blood Urine Nitrite Urine Bilirubin Urine Urobilinogen Ur Leukocyte Esterase Urine WBC (Auto) Urine RBC (Auto) U Hyaline Cast (Auto) U Epithel Cells (Auto) Urine Bacteria (Auto) Ur Renal Epithelial Cell Kade Biurate Crystals Calcium Oxalate Crystal Leucine Crystals Cystine Crystals Uric Acid Crystals Triple Phos Crystals Sulfonamide Crystals Cholesterol Crystals Talc Crystals Tyrosine Crystals Hippuric Acid Crystals Unidentified Crystals Amorphous Sediment Epithelial Casts Hyaline Casts Granular Casts Waxy Casts RBC Casts WBC Casts Other Casts Urine Mucus Urine Other Urine Trichomonas Urine Yeast Urine Sperm Ur Oval Fat Bodies Ur Culture Indicated? Urine Comment Random Vancomycin Heparin Dep Plt Ab React Heparin Dep Plt Ab OD Complement C3 Complement C4 Tot Complement (CH50) Blood Type Antibody Screen Crossmatch 06/15/25 06/15/25 06/15/25 20:37 21:12 21:13 WBC RBC Hgb 10.3 L POC Hgb Hct 28.9 L POC Hct MCV MCH MCHC RDW Std Deviation RDW Coeff of Maged Plt Count Absolute Nucleated RBC Nucleated RBC % (auto) Neutrophils % (Manual) Lymphocytes % (Manual) Monocytes % (Manual) Metamyelocytes % (Man) Myelocytes % (Man) Neutrophils # (Manual) Total Absolute Neuts Lymphocytes # (Manual) Total Abs Lymphocytes Monocytes # (Manual) Metamyelocytes # (Man) Myelocytes # (Manual) Toxic Vacuolation Dohle Bodies Polychromasia Echinocytes Haptoglobin PT INR APTT 136 H* PTT Ratio 5.0 Fibrinogen D-Dimer Factor VIII Activity Specimen Type Sample Site POC pH POC pCO2 POC pO2 POC HCO3 POC Total CO2 POC Base Excess O2 Sat Pulse Oximetry ABG pH (Temp Correct) ABG pCO2 (Temp Corrct POC ABG pO2 at Pt Temp POC ABG O2 Sat Julius Test O2 Delivery Device Vent Mode POC FiO2 End Tidal CO2 POC Sodium Sodium POC Potassium Potassium Chloride Carbon Dioxide Anion Gap BUN Creatinine Est Cr Clr Drug Dosing eGFR BUN/Creatinine Ratio Glucose POC Glucose (other) 124 H Lactate 14.1 H* Calcium Phosphorus Magnesium Total Bilirubin AST ALT Alkaline Phosphatase Lactate Dehydrogenase Total Creatine Kinase Total Protein Albumin Globulin Albumin/Globulin Ratio Lipase Urine Color Urine Appearance Urine pH Ur Specific [place] Urine Protein Urine Glucose (UA) Urine Ketones Urine Blood Urine Nitrite Urine Bilirubin Urine Urobilinogen Ur Leukocyte Esterase Urine WBC (Auto) Urine RBC (Auto) U Hyaline Cast (Auto) U Epithel Cells (Auto) Urine Bacteria (Auto) Ur Renal Epithelial Cell Kade Biurate Crystals Calcium Oxalate Crystal Leucine Crystals Cystine Crystals Uric Acid Crystals Triple Phos Crystals Sulfonamide Crystals Cholesterol Crystals Talc Crystals Tyrosine Crystals Hippuric Acid Crystals Unidentified Crystals Amorphous Sediment Epithelial Casts Hyaline Casts Granular Casts Waxy Casts RBC Casts WBC Casts Other Casts Urine Mucus Urine Other Urine Trichomonas Urine Yeast Urine Sperm Ur Oval Fat Bodies Ur Culture Indicated? Urine Comment Random Vancomycin Heparin Dep Plt Ab React Heparin Dep Plt Ab OD Complement C3 Complement C4 Tot Complement (CH50) Blood Type Antibody Screen Crossmatch 06/15/25 06/15/25 06/15/25 22:05 22:50 22:59 WBC RBC Hgb POC Hgb Hct POC Hct MCV MCH MCHC RDW Std Deviation RDW Coeff of Maged Plt Count Absolute Nucleated RBC Nucleated RBC % (auto) Neutrophils % (Manual) Lymphocytes % (Manual) Monocytes % (Manual) Metamyelocytes % (Man) Myelocytes % (Man) Neutrophils # (Manual) Total Absolute Neuts Lymphocytes # (Manual) Total Abs Lymphocytes Monocytes # (Manual) Metamyelocytes # (Man) Myelocytes # (Manual) Toxic Vacuolation Dohle Bodies Polychromasia Echinocytes Haptoglobin PT INR APTT PTT Ratio Fibrinogen D-Dimer Factor VIII Activity Specimen Type Sample Site POC pH POC pCO2 POC pO2 POC HCO3 POC Total CO2 POC Base Excess O2 Sat Pulse Oximetry ABG pH (Temp Correct) ABG pCO2 (Temp Corrct POC ABG pO2 at Pt Temp POC ABG O2 Sat Julius Test O2 Delivery Device Vent Mode POC FiO2 End Tidal CO2 POC Sodium Sodium POC Potassium Potassium Chloride Carbon Dioxide Anion Gap BUN Creatinine Est Cr Clr Drug Dosing eGFR BUN/Creatinine Ratio Glucose POC Glucose (other) 117 H Lactate 15.1 H* Calcium Phosphorus Magnesium Total Bilirubin AST ALT Alkaline Phosphatase Lactate Dehydrogenase Total Creatine Kinase Total Protein Albumin Globulin Albumin/Globulin Ratio Lipase Urine Color Yellow Urine Appearance Slightly Cloudy Urine pH 7.5 Ur Specific [place] 1.020 Urine Protein 3+ H Urine Glucose (UA) Trace H Urine Ketones Negative Urine Blood 3+ H Urine Nitrite Negative Urine Bilirubin 2+ H Urine Urobilinogen Negative Ur Leukocyte Esterase Negative Urine WBC (Auto) Cancelled Urine RBC (Auto) Cancelled U Hyaline Cast (Auto) Cancelled U Epithel Cells (Auto) Cancelled Urine Bacteria (Auto) Cancelled Ur Renal Epithelial Cell Cancelled [place] Biurate Crystals Cancelled Calcium Oxalate Crystal Cancelled Leucine Crystals Cancelled Cystine Crystals Cancelled Uric Acid Crystals Cancelled Triple Phos Crystals Cancelled Sulfonamide Crystals Cancelled Cholesterol Crystals Cancelled Talc Crystals Cancelled Tyrosine Crystals Cancelled Hippuric Acid Crystals Cancelled Unidentified Crystals Cancelled Amorphous Sediment Cancelled Epithelial Casts Cancelled Hyaline Casts Cancelled Granular Casts Cancelled Waxy Casts Cancelled RBC Casts Cancelled WBC Casts Cancelled Other Casts Cancelled Urine Mucus Cancelled Urine Other Cancelled Urine Trichomonas Cancelled Urine Yeast Cancelled Urine Sperm Cancelled Ur Oval Fat Bodies Cancelled Ur Culture Indicated? Cancelled Urine Comment Cancelled Random Vancomycin Heparin Dep Plt Ab React Heparin Dep Plt Ab OD Complement C3 Complement C4 Tot Complement (CH50) Blood Type Antibody Screen Crossmatch 06/16/25 06/16/25 06/16/25 00:30 01:08 04:16 WBC 28.92 H RBC 3.63 L Hgb 10.8 L 10.5 L POC Hgb Hct 30.8 L 30.0 L POC Hct MCV 82.6 D MCH 28.9 MCHC 35.0 D RDW Std Deviation 47.7 H RDW Coeff of Maged 15.7 H Plt Count 51 L D Absolute Nucleated RBC 0.06 Nucleated RBC % (auto) 0.2 Neutrophils % (Manual) 85 Lymphocytes % (Manual) 8 Monocytes % (Manual) 1 Metamyelocytes % (Man) 4 Myelocytes % (Man) 2 Neutrophils # (Manual) 24.58 H Total Absolute Neuts 24.58 H Lymphocytes # (Manual) 2.31 Total Abs Lymphocytes 2.31 Monocytes # (Manual) 0.29 Metamyelocytes # (Man) 1.16 H Myelocytes # (Manual) 0.58 H Toxic Vacuolation 2+ Dohle Bodies 1+ Polychromasia 1+ Echinocytes 2+ Haptoglobin PT INR APTT > 139 H* > 139 H* PTT Ratio > 5.1 > 5.1 Fibrinogen 173 L 157 L D-Dimer Factor VIII Activity Specimen Type Sample Site POC pH POC pCO2 POC pO2 POC HCO3 POC Total CO2 POC Base Excess O2 Sat Pulse Oximetry ABG pH (Temp Correct) ABG pCO2 (Temp Corrct POC ABG pO2 at Pt Temp POC ABG O2 Sat Julius Test O2 Delivery Device Vent Mode POC FiO2 End Tidal CO2 POC Sodium Sodium 137 POC Potassium Potassium 3.1 L Chloride 97 L Carbon Dioxide 16 L Anion Gap 24 H BUN 25 H Creatinine 2.90 H D Est Cr Clr Drug Dosing 12.6 eGFR 15.77 BUN/Creatinine Ratio 8.6 L Glucose 121 H POC Glucose (other) 114 H Lactate 15.6 H* Calcium 7.2 L Phosphorus 4.6 D Magnesium 1.6 L Total Bilirubin 5.1 H AST > 54500 H ALT > 2500 H Alkaline Phosphatase 188 H Lactate Dehydrogenase Total Creatine Kinase Total Protein 4.4 L Albumin 2.6 L Globulin 1.8 L Albumin/Globulin Ratio 1.4 Lipase Urine Color Urine Appearance Urine pH Ur Specific [place] Urine Protein Urine Glucose (UA) Urine Ketones Urine Blood Urine Nitrite Urine Bilirubin Urine Urobilinogen Ur Leukocyte Esterase Urine WBC (Auto) Urine RBC (Auto) U Hyaline Cast (Auto) U Epithel Cells (Auto) Urine Bacteria (Auto) Ur Renal Epithelial Cell [place] Biurate Crystals Calcium Oxalate Crystal Leucine Crystals Cystine Crystals Uric Acid Crystals Triple Phos Crystals Sulfonamide Crystals Cholesterol Crystals Talc Crystals Tyrosine Crystals Hippuric Acid Crystals Unidentified Crystals Amorphous Sediment Epithelial Casts Hyaline Casts Granular Casts Waxy Casts RBC Casts WBC Casts Other Casts Urine Mucus Urine Other Urine Trichomonas Urine Yeast Urine Sperm Ur Oval Fat Bodies Ur Culture Indicated? Urine Comment Random Vancomycin 15.6 Heparin Dep Plt Ab React Heparin Dep Plt Ab OD Complement C3 Complement C4 Tot Complement (CH50) Blood Type Antibody Screen Crossmatch 06/16/25 06/16/25 06/16/25 04:32 04:33 05:14 WBC RBC Hgb POC Hgb 10.2 L Hct POC Hct 30 L MCV MCH MCHC RDW Std Deviation RDW Coeff of Maged Plt Count Absolute Nucleated RBC Nucleated RBC % (auto) Neutrophils % (Manual) Lymphocytes % (Manual) Monocytes % (Manual) Metamyelocytes % (Man) Myelocytes % (Man) Neutrophils # (Manual) Total Absolute Neuts Lymphocytes # (Manual) Total Abs Lymphocytes Monocytes # (Manual) Metamyelocytes # (Man) Myelocytes # (Manual) Toxic Vacuolation Dohle Bodies Polychromasia Echinocytes Haptoglobin PT INR APTT PTT Ratio Fibrinogen D-Dimer Factor VIII Activity Specimen Type Arterial Sample Site Art Line POC pH 7.44 POC pCO2 21 L POC pO2 80 POC HCO3 14 L POC Total CO2 15 L POC Base Excess -10.0 L O2 Sat Pulse Oximetry ABG pH (Temp Correct) 7.428 ABG pCO2 (Temp Corrct 22 L POC ABG pO2 at Pt Temp 83 POC ABG O2 Sat 97.0 H Julius Test NA O2 Delivery Device Ventilator Vent Mode AC POC FiO2 40 End Tidal CO2 POC Sodium 137 Sodium Cancelled POC Potassium 3.0 L Potassium Cancelled Chloride Cancelled Carbon Dioxide Cancelled Anion Gap Cancelled BUN Cancelled Creatinine Cancelled Est Cr Clr Drug Dosing Cancelled eGFR Cancelled BUN/Creatinine Ratio Cancelled Glucose Cancelled POC Glucose (other) 110 H Lactate Calcium Cancelled Phosphorus Magnesium Total Bilirubin Cancelled AST Cancelled ALT Cancelled Alkaline Phosphatase Cancelled Lactate Dehydrogenase Total Creatine Kinase Total Protein Cancelled Albumin Cancelled Globulin Cancelled Albumin/Globulin Ratio Cancelled Lipase Urine Color Urine Appearance Urine pH Ur Specific [place] Urine Protein Urine Glucose (UA) Urine Ketones Urine Blood Urine Nitrite Urine Bilirubin Urine Urobilinogen Ur Leukocyte Esterase Urine WBC (Auto) Urine RBC (Auto) U Hyaline Cast (Auto) U Epithel Cells (Auto) Urine Bacteria (Auto) Ur Renal Epithelial Cell [place] Biurate Crystals Calcium Oxalate Crystal Leucine Crystals Cystine Crystals Uric Acid Crystals Triple Phos Crystals Sulfonamide Crystals Cholesterol Crystals Talc Crystals Tyrosine Crystals Hippuric Acid Crystals Unidentified Crystals Amorphous Sediment Epithelial Casts Hyaline Casts Granular Casts Waxy Casts RBC Casts WBC Casts Other Casts Urine Mucus Urine Other Urine Trichomonas Urine Yeast Urine Sperm Ur Oval Fat Bodies Ur Culture Indicated? Urine Comment Random Vancomycin Heparin Dep Plt Ab React Heparin Dep Plt Ab OD Complement C3 Complement C4 Tot Complement (CH50) Blood Type Antibody Screen Crossmatch 06/16/25 06/16/25 06/16/25 07:17 07:27 09:01 WBC RBC Hgb POC Hgb Hct POC Hct MCV MCH MCHC RDW Std Deviation RDW Coeff of Maged Plt Count Absolute Nucleated RBC Nucleated RBC % (auto) Neutrophils % (Manual) Lymphocytes % (Manual) Monocytes % (Manual) Metamyelocytes % (Man) Myelocytes % (Man) Neutrophils # (Manual) Total Absolute Neuts Lymphocytes # (Manual) Total Abs Lymphocytes Monocytes # (Manual) Metamyelocytes # (Man) Myelocytes # (Manual) Toxic Vacuolation Dohle Bodies Polychromasia Echinocytes Haptoglobin PT INR APTT > 139 H* PTT Ratio > 5.1 Fibrinogen D-Dimer Factor VIII Activity Specimen Type Sample Site POC pH POC pCO2 POC pO2 POC HCO3 POC Total CO2 POC Base Excess O2 Sat Pulse Oximetry ABG pH (Temp Correct) ABG pCO2 (Temp Corrct POC ABG pO2 at Pt Temp POC ABG O2 Sat Julius Test O2 Delivery Device Vent Mode POC FiO2 End Tidal CO2 POC Sodium Sodium 137 POC Potassium Potassium 3.6 Chloride 95 L Carbon Dioxide 18 L Anion Gap 24 H BUN 27 H Creatinine 3.25 H D Est Cr Clr Drug Dosing 13.2 eGFR 13.76 BUN/Creatinine Ratio 8.3 L Glucose 161 H POC Glucose (other) 140 H Lactate 14.2 H* Calcium 6.7 L Phosphorus Magnesium Total Bilirubin 4.5 H AST > 84170 H ALT > 2500 H Alkaline Phosphatase 263 H Lactate Dehydrogenase Total Creatine Kinase 45884 H Total Protein 3.8 L Albumin 2.2 L Globulin 1.6 L Albumin/Globulin Ratio 1.4 Lipase Urine Color Urine Appearance Urine pH Ur Specific [place] Urine Protein Urine Glucose (UA) Urine Ketones Urine Blood Urine Nitrite Urine Bilirubin Urine Urobilinogen Ur Leukocyte Esterase Urine WBC (Auto) Urine RBC (Auto) U Hyaline Cast (Auto) U Epithel Cells (Auto) Urine Bacteria (Auto) Ur Renal Epithelial Cell [place] Biurate Crystals Calcium Oxalate Crystal Leucine Crystals Cystine Crystals Uric Acid Crystals Triple Phos Crystals Sulfonamide Crystals Cholesterol Crystals Talc Crystals Tyrosine Crystals Hippuric Acid Crystals Unidentified Crystals Amorphous Sediment Epithelial Casts Hyaline Casts Granular Casts Waxy Casts RBC Casts WBC Casts Other Casts Urine Mucus Urine Other Urine Trichomonas Urine Yeast Urine Sperm Ur Oval Fat Bodies Ur Culture Indicated? Urine Comment Random Vancomycin Heparin Dep Plt Ab React Heparin Dep Plt Ab OD Complement C3 Pending Complement C4 Pending Tot Complement (CH50) Pending Blood Type Antibody Screen Crossmatch PG Care Time/CCT Total # of Minutes Spent Total Time Spent with Patient: 60 min provided reviewing progress notes, laboratory data, abdominal CTA films, chest CTA report, reviewing ICU medications/pressors, examining patient, discussing POC w/ ICU attending & nursing staff, ordering laboratory testing, prescribing HD, coordinating HD treatment w/ administrative assistant front desk HD RN, updating the medical record Coding Level of Care Code 24705 SUB INP/OBS CARE MIN Diagnoses HANG (acute kidney injury) N17.9 Shock R57.9 Acute blood loss anemia D62 Thrombocytopenia D69.6 Hip fracture S72.009A Cardiac arrest I46.9
[2025-06-16 09:31] LABS: Anion Gap 24 (3-11); Blood Urea Nitrogen 27 mg/dl (6-23); Calcium 6.7 mg/dl (8.6-10.3); Carbon Dioxide 18 mmol/L (21-32); Chloride 95 mmol/L (98-107); Creatinine Clr Calc Pharmacy 13.2 ml/min; Glucose 161 mg/dl (70-99(Fasting)); Potassium 3.6 mmol/L (3.5-5.1); Sodium 137 mmol/L (136-145)
[2025-06-16 09:41] LABS: Albumin Globulin Ratio 1.4 (0.9-2); Albumin Level 2.2 gm/dl (3.4-5.0); Alkaline Phosphatase 263 U/L (34-104); Bilirubin,Total 4.5 mg/dl (0.2-1.0); Globulin 1.6 gm/dl (2.5-4.0); Total Protein 3.8 gm/dl (6.0-8.3)
--- NOTE | 2025-06-16 09:41 | Pharmacy Report ---
Pharmacy PK ABX Note - Date of Service June 16, 2025 - Assessment and Plan Assessment 80 year old F receiving Vancomycin and Zosyn for empiric treatment of shock. * Day #2 of antimicrobial therapy. * Patient had a fall with L hip fracture. Went to OR on 06/14 then to ICU postop for hypotension. Had a PEA arrest early 06/15 AM. Source of possible infection unclear at this time. Severe DIC currently. * Temperature ranging between 35-37 C, WBC increased to 28.92 this morning, SCr up to 3.25 (baseline around 0.8) * Blood cx x2 pending, sputum culture pending, urine cx x2 pending Plan Vancomycin * Loading dose: 1000 mg IV x 1 (given 06/15 1900) * Random level 06/16 AM labs was 15.6 mcg/mL * Given decrease in urine output and continued increase in SCr, will hold off re-dosing vancomycin at this time * Random level ordered for: 06/17/25 @0444 Zosyn * 4.5 g IV every 12 hours Pharmacy will continue to follow and will adjust dose/frequency as necessary. Thank you. Pharmacy has transitioned to AUC monitoring for vancomycin. AUC/AUSTIN is the preferred PK/PD target and is associated with decreased risk of nephrotoxicity compared to traditional trough targets.
[2025-06-16 09:49] LABS: Alanine Aminotransferase > 2500 U/L (7-52)
[2025-06-16] MEDS ORDERED: STAT IV Infusion **Titration per Protocol STA (10:03)
[2025-06-16] MEDS: VASOPRESSIN 20 UNITS in SODIUM CHLORIDE 0.9% 100 ML IV SCH (10:17)
[2025-06-16] MEDS ORDERED: SODIUM CHLORIDE 0.9% 1,000 ML IV PRN (10:20)
--- NOTE | 2025-06-16 12:04 | Procedure Note ---
Procedure Note Date of Service June 16, 2025 Procedure: Inserting ultrasound-guided trialysis catheter Real Time Trader: Dr. Ruma Teague Indication: Acute renal failure Consent: Signed by surrogate, timeout performed Anesthesia: 1% lidocaine without epinephrine local. Procedure: Consent was verified and timeout performed. Appropriate imaging studies were reviewed prior to the procedure. Under aseptic and sterile condition, right IJ vein was accessed under direct ultrasound guidance. Guidewire was confirmed to be within the lumen of vein with the help of ultrasound. Catheter was introduced via Seldinger technique. Guide a wire was removed. Good non-pulsatile blood flow was appreciated from all the ports. The catheter 13 Spanish was placed at 13 cm and sutured in place. BioPatch was applied to the catheter and a sterile Tegaderm dressing was applied over the catheter with careful attention to sterility. Postprocedure x-ray was reviewed by myself. No evidence of pneumothorax. Central catheter is in good position. All ports have good flow. Patient tolerated the procedure well. Blood loss: Less than 2 cc Complications: None [facility] [place] Procedure Codes (Charges) Tubes, Drains, and Vasc Access Procedure 1: Tubes, Drains, and Vasc Access: [id number] Insertion of cannula for hemodialysis Coding CPT Codes Tubes, Drains, and Vasc Access - Tubes, Drains, and Vasc Access: [id number] Insertion of cannula for hemodialysis ([id number]) Additional Codes Date of Service ([facility].SURGERY)
[2025-06-16] MEDS ORDERED: Nursing to Pharmacy Communication SCH ×2 (12:15)
[2025-06-16 12:33] LABS: Fibrinogen 150 mg/dl (184-400)
--- NOTE | 2025-06-16 12:37 | XRay Report ---
SINGLE VIEW CHEST CLINICAL HISTORY: Central venous catheter placement. FINDINGS: An AP, portable, upright chest radiograph is compared to chest x-ray and chest CT dated . The examination is degraded by portable technique and patient rotation. An endotracheal tub e has been pulled back. The tip projects approximately 3.5 cm above the patricia. An enteric tube has b een placed. The tip projects below the diaphragm and is not visualized. A right internal jugular cent ral venous catheter is new from previous. The tip projects over the SVC. The heart is enlarged noting atherosclerotic calcification of the thoracic aorta. There is pulmonary vascular congestion with mil d interstitial edema. This has worsened from yesterday. There are layering pleural effusions with dep endent consolidation. No pneumothorax is seen. The skeletal structures are osteopenic. The bony thora x is grossly intact. IMPRESSION: 1. Lines and tubes as above. No pneumothorax is seen post central venous catheter placement. 2. Cardiomegaly with evidence of congestive failure. This has worsened from yesterday. 3. Layering pleural effusions with dependent consolidation. ACT 112: Negative or not required by law. Electronically signed by: Jerardo Stephens M.D. 06/16/2025 12:35 PM
[2025-06-16] MEDS: HEPARIN 25000 UNIT/500 ML D5W 25,000 UNITS/500 ML BAG IV SCH (12:59)
--- NOTE | 2025-06-16 13:12 | Communication Note ---
Date of Service: June 16, 2025 Attempted transfer to [facility], this was declined. Added vaso, she responded well to this. Off of erica now. CK level is very high. I suspect that she has microthrombosis and most of her organs which would be the reason for the elevated CK and persistent lactic acidosis. We are going to transition anticoagulation to heparin infusion, this will run at a fixed rate of 500 units an hour. Trialysis catheter was placed, going to have HD today. Coding Level of Care Code None
[2025-06-16 13:17] LABS: ANTI-Xa, UFH(UnfractionatedHep < 0.10 IU/ml (0.3-0.7)
[2025-06-16 13:19] LABS: Hep B Surface Ag with confirm Negative (Negative)
--- NOTE | 2025-06-16 13:53 | Hospitalist Progress Note ---
Date of Service June 16, 2025 Assessment & Plan (1) Closed fracture of left hip: (2) Chronic disease anemia: (3) Panic disorder: (4) CKD (chronic kidney disease), stage III: Plan 80-year-old lady with PMH of HDL, stage IIIa CKD, osteoporosis, panic disorder who presented with a mechanical fall and left hip fracture underwent hip repair 06/14 in the hospital. She was hypotensive after the repair and was moved to ICU (from PACU) in the night of 06/14 - 06/15. She became progressively hypotensive while in ICU and then unresponsive, she was immediately intubated in ICU. She progressed into bradycardia and cardiac arrest at 0237 hrs. of 06/15, received 2 rounds of CPR, epinephrine with ROSC at 0241 hrs. She is being managed for the following: Cardiac arrest (06/15/2025, ROSC after 5 minutes, PEA arrest) Disseminated intravascular coagulation, PE, DVT Acute blood loss anemia, ISO postoperative blood loss complicated by DIC Hypoxic respiratory failure: Intubated 06/15/2025 Severe refractory shock with multiorgan failure, renal failure, shock liver, severe metabolic acidosis with lactic acidosis Acute cholecystitis Patient was hypotensive and unresponsive 06/14 evening postoperatively. Patient was moved to ICU 06/14, intubated, had cardiac arrest/ROSC achieved in 5 minutes. DIC noted, severe metabolic acidosis with lactic acidosis noted, renal failure and shock liver were also noted. Imagings on 06/15 after the cardiac arrest event: CTAP - no retroperitoneal bleed noted. Liver ultrasound - acute cholecystitis and mild ascites. Fatty liver. Portal vein US: No thrombosis noted. CTA chest - left upper lobe PE noted. Small bilateral pleural effusion noted. BLE venous Doppler - bilateral posterior tibial vein DVT. Hip CT - expected postsurgical changes ECHO - EF of 65-70%, concentric LVH, LV wall motion is normal. CTA abd/pelvis --> ruled out ischemic bowel. further findings noted as in read. Patient receiving blood products, heparin infusion, Vanc and Zosyn 06/15, sedation and pressors, bicarb drip. Patient is being managed in ICU per ICU protocol. Urine output is poor. Plan for HD today for severe metabolic acidosis. Family members met at bedside, updated on pt's critical status of the patient. Nephro and hematology on board. Mechanical Fall Left femoral neck fracture, Vit D level 14, start supplement when able. Likely osteoporotic fracture HO osteoporosis s/p left hip arthroplasty 06/14 c/b blood loss and post op hypotension. Ortho on board, WBAT, pain Mx. PT/OT when able. HLD: c/w home statin when able. PT/OT, CM to assist w/ dc plan once pt is stable medically. Mx per ICU care Full code argatroban infusion Admission and Anticipated Discharge Date Admission Date: June 13, 2025 Subjective Patient was seen and examined at bedside. Patient is intubated and mechanically ventilated, sedated. ROS not able. Several drips including fentanyl, propofol, norepinephrine, phenylephrine, vasopressin, maintenance fluids were running. Physical Exam Physical Exam: Constitutional: sedated, intubated, MV. Fentanyl, propofol, vasopressin, phenylephrine and Levophed drip running. HEENT: Mucous membranes dry. Sclera clear Neck: Soft, no adenopathy Lungs: coarse mechanical breath sounds. Mechanically ventilated. CV: S1-S2, regular, Tachycardia. Abdomen: Soft, No facial grimacing on palpation, slightly distended. Extremities: No significant edema, Musculoskeletal: Left hip with clean dressing without soakage. No bruising noted. Neuro: Patient sedated. Results & Data Results & Data Vital Signs (Past 12 Hours) Vital Signs Temp Pulse Pulse Resp BP BP Pulse Ox 06/16/25 13:08 37.0 C 102 H 22 155/55 H 95 06/16/25 12:00 102 H 157/58 H 06/16/25 11:17 102 H 22 97 06/16/25 11:08 157/62 H 06/16/25 10:56 151/60 H 06/16/25 10:52 150/60 H 06/16/25 10:00 119 H 22 96 06/16/25 09:30 120 H 22 96 06/16/25 09:03 119 H 22 96 06/16/25 08:50 113/41 L 06/16/25 08:41 113/41 L 06/16/25 08:32 111/39 L 06/16/25 08:23 115/42 L 06/16/25 08:00 123 H 06/16/25 08:00 123 H 19 95 06/16/25 07:36 06/16/25 07:36 123 H 06/16/25 07:36 06/16/25 07:34 37.2 C 124 H 21 124/44 L 97 06/16/25 07:30 122 H 22 95 06/16/25 06:46 37.7 C H 06/16/25 06:33 126 H 22 95 06/16/25 06:00 127 H 19 96 06/16/25 05:33 127 H 19 96 06/16/25 05:24 22 06/16/25 05:03 129 H 28 H 96 06/16/25 04:36 130 H 26 H 95 06/16/25 04:30 37.8 C H 06/16/25 04:09 127 H 26 H 96 06/16/25 03:51 126 H 26 H 96 06/16/25 03:33 127 H 26 H 96 06/16/25 03:15 127 H 26 H 96 06/16/25 02:45 126 H 26 H 96 06/16/25 02:27 27 H 06/16/25 02:03 129 H 26 H 95 Pulse Ox O2 Del Method O2 Del Method FiO2 06/16/25 13:08 Mechanical Vent 40 06/16/25 12:00 06/16/25 11:17 40 06/16/25 11:08 06/16/25 10:56 06/16/25 10:52 06/16/25 10:00 06/16/25 09:30 06/16/25 09:03 06/16/25 08:50 06/16/25 08:41 06/16/25 08:32 06/16/25 08:23 06/16/25 08:00 06/16/25 08:00 06/16/25 07:36 Mechanical Vent 40 06/16/25 07:36 06/16/25 07:36 95 Mechanical Vent 06/16/25 07:34 Mechanical Vent 40 06/16/25 07:30 40 06/16/25 06:46 06/16/25 06:33 Mechanical Vent 40 06/16/25 06:00 Mechanical Vent 40 06/16/25 05:33 Mechanical Vent 40 06/16/25 05:24 06/16/25 05:03 Mechanical Vent 40 06/16/25 04:36 Mechanical Vent 40 06/16/25 04:30 06/16/25 04:09 Mechanical Vent 40 06/16/25 03:51 Mechanical Vent 40 06/16/25 03:33 Mechanical Vent 40 06/16/25 03:15 Mechanical Vent 40 06/16/25 02:45 Mechanical Vent 40 06/16/25 02:27 40 06/16/25 02:03 Mechanical Vent 40
[2025-06-16] MEDS: DIGOXIN 250 MCG in SYRINGE 9 ML IV STA (14:13)
[2025-06-16 14:31] LABS: Anion Gap 16 (3-11); Blood Urea Nitrogen 21 mg/dl (6-23); Calcium 6.9 mg/dl (8.6-10.3); Carbon Dioxide 21 mmol/L (21-32); Chloride 99 mmol/L (98-107); Creatinine Clr Calc Pharmacy 19.0 ml/min; Glucose 151 mg/dl (70-99(Fasting)); Potassium 3.7 mmol/L (3.5-5.1); Sodium 136 mmol/L (136-145)
[2025-06-16 14:43] LABS: Albumin Globulin Ratio 1.3 (0.9-2); Albumin Level 2.3 gm/dl (3.4-5.0); Alkaline Phosphatase 378 U/L (34-104); Bilirubin,Total 4.5 mg/dl (0.2-1.0); Globulin 1.8 gm/dl (2.5-4.0); Total Protein 4.1 gm/dl (6.0-8.3)
[2025-06-16 14:48] LABS: Alanine Aminotransferase > 2500 U/L (7-52)
[2025-06-16 14:58] LABS: iSTAT Art Bld Gas Base Excess -7.0 mmol/L (-9-1.8); iSTAT Art Bld Gas pCO2 Correct 30 mmHg (35-46); iSTAT Art Bld Gas pH Corrected 7.384 (7.35-7.45); iSTAT Arterial Blood Gas pO2 C 68
[2025-06-16] MEDS: VANCOMYCIN 500 MG in NSS 100mL IV ONE (17:07)
[2025-06-16 18:47] LABS: ANTI-Xa, UFH(UnfractionatedHep 0.21 IU/ml (0.3-0.7)
[2025-06-16 18:49] LABS: Fibrinogen 126 mg/dl (184-400)
[2025-06-16] MEDS: DIGOXIN 250 MCG in SYRINGE 9 ML IV ONE (20:42)
[2025-06-16 21:17] LABS: Alanine Aminotransferase > 2500 U/L (7-52); Albumin Globulin Ratio 1.3 (0.9-2); Albumin Level 2.0 gm/dl (3.4-5.0); Alkaline Phosphatase 463 U/L (34-104); Anion Gap 19 (3-11); Bilirubin,Total 4.0 mg/dl (0.2-1.0); Blood Urea Nitrogen 23 mg/dl (6-23); Calcium 6.3 mg/dl (8.6-10.3); Carbon Dioxide 18 mmol/L (21-32); Chloride 95 mmol/L (98-107); Creatinine Clr Calc Pharmacy 16.4 ml/min; Globulin 1.5 gm/dl (2.5-4.0); Glucose 144 mg/dl (70-99(Fasting)); Potassium 4.6 mmol/L (3.5-5.1); Sodium 132 mmol/L (136-145); Total Protein 3.5 gm/dl (6.0-8.3)
[2025-06-16] MEDS: CALCIUM GLUCONATE 1,000 MG/60 ML BAG IV SCH (22:40)
[2025-06-17 01:21] LABS: Fibrinogen 151 mg/dl (184-400)
[2025-06-17 02:43] LABS: ANTI-Xa, UFH(UnfractionatedHep 0.15 IU/ml (0.3-0.7)
--- NOTE | 2025-06-17 03:16 | Ultrasound Report ---
EXAM: US arterial duplex LE BI CLINICAL HISTORY: Non-palpable pulses, rhabdomyolysis TECHNIQUE: Static ultrasound images with grayscale and Doppler were submitted for review. COMPARISON: None. FINDINGS: Limited evaluation was possible due to overlying bandages. An arterial line is seen in the right groin. Bilateral lower limb edema is seen. No stenosis or calcification is seen. A complex fluid collection/joint effusion is seen at the anterior/superior aspect of the knee measuring 5.5 x 1.5 x 4.3 cm. Peak systolic velocities of various arteries are as below (cm/sec). Right: Common femoral artery - 92 SFA (prox) - 142 SFA (mid) - 110 SFA (distal) - 125 Deep femoral artery - 49 Popliteal artery - 54 Posterior tibial artery - 55 Peroneal artery - 60 Anterior tibial artery - 81 Dorsalis pedis artery - 93 Left Common femoral artery - 76 SFA (prox) - 147 SFA (mid) - 112 SFA (distal) - 101 Deep femoral artery - 49 Popliteal artery - 60 Posterior tibial artery - 74 Peroneal artery - 89 Anterior tibial artery - 109 Dorsalis pedis artery - 63 IMPRESSION: 1. No hemodynamically significant stenosis is seen. 2. Bilateral lower limb edema is seen. 3. A complex fluid collection/joint effusion is seen at the anterior/superior aspect of the knee. Advise MRI of the knee for further evaluation if clinically indicated. Electronically signed by Chang Cope 06-17-2025 03:15 AM
[2025-06-17 04:40] LABS: iSTAT Art Bld Gas Base Excess -8.0 mmol/L (-9-1.8); iSTAT Art Bld Gas pCO2 Correct 28 mmHg (35-46); iSTAT Art Bld Gas pH Corrected 7.385 (7.35-7.45); iSTAT Arterial Blood Gas pO2 C 67
[2025-06-17 06:28] LABS: Hematocrit (blood only) 25.8 % (37.0-47.0); Hemoglobin 9.0 g/dl (12.0-16.0); Mean Corpuscular Hemoglobin 29.7 pg (25.0-34.0); Mean Corpuscular Volume 85.1 fL (80.0-100.0); Platelet Count 45 K/uL (130-400); RDW Standard Deviation 51.8 fL (36.4-46.3); Red Blood Count 3.03 M/uL (4.20-5.40); White Blood Count 28.33 K/ul (4.8-10.8)
[2025-06-17 06:54] LABS: Creatinine Clr Calc Pharmacy 14.2 ml/min; Magnesium 1.9 mg/dl (1.7-2.4)
[2025-06-17 06:56] LABS: Fibrinogen 159 mg/dl (184-400)
--- NOTE | 2025-06-17 07:11 | Critical Care Progress Note ---
Date of Service June 17, 2025 Assessment & Plan (1) Cardiac arrest: (2) Shock: (3) DIC (disseminated intravascular coagulation): (4) DVT (deep venous thrombosis): (5) PE (pulmonary thromboembolism): (6) Lactic acid acidosis: (7) Metabolic acidosis: (8) Respiratory failure: (9) Acute blood loss anemia: (10) Hip fracture: (11) Shock liver: (12) Hypoglycemia: Plan Patient is a 80-year-old female who presented to the hospital on 06/13/2025 after suffering a mechanical fall at home which resulted in a left femoral neck fracture. The patient was admitted to the hospitalist service. She underwent left hip arthroplasty on the evening of 06/14/2025. The procedure was complicated by blood loss and some postoperative hypotension. The patient did receive 1 unit of PRBCs intraoperatively as well as 2 L of fluid. Due to hypotension the patient was placed on phenylephrine and transferred to the ICU for further care. After 1 unit of blood the patient's hemoglobin had initially improved. The patient became confused overnight. Blood pressure continues to deteriorate. The patient's mentation continued to worsen. Due to significant alteration in her mentation the decision was made to emergently intubate her in the ICU. Postintubation the patient had PEA cardiac arrest in the floor specialist of 06/15/2025, she received 2 rounds of CPR, epinephrine with ROSC after 5 minutes. The patient was found to have significant metabolic acidosis, worsening anemia was also present. The patient's blood glucose was also found to be low at less than 10 for which dextrose was administered and a bicarb with dextrose infusion was initiated. Lactic acid was extremely elevated at 17. Central venous catheter and arterial line were placed. And an additional 1 unit of PRBCs was administered. The patient was taken for CT imaging to rule out retroperitoneal bleed. CT abdomen and pelvis with and without contrast did not reveal evidence of retroperitoneal bleeding. Patient's condition remained critical. Labs showed fulminant DIC and the patient was resuscitated with platelets, hemoglobin, cryoprecipitate and FFP. Hematology was consulted. Lower extremity duplex showed bilateral DVT. CT angio chest abdomen pelvis was obtained. Segmental PE was appreciated, no evidence of fat embolism. Effusions were appreciated and concerning for hemorrhagic. There was perinephric fluid and edema bilaterally with diminished renal cortical enhancement concerning to infarcts or vasculitis versus pyelonephritis. Gallbladder wall thickening with gallbladder wall enhancement. Acute pancreatitis was appreciated however lipase was normal. Ascites concerning for hemoperitoneum. Colonic wall thickening appreciated. No evidence of renal or mesenteric artery stenosis. Patient has remained oliguric. Potassium remains low normal, lactate remains elevated however has come down slightly from greater than 17-15. Patient was initiated on argatroban drip yesterday after there was evidence of thrombosis. She did receive additional units of blood yesterday however hemoglobin has remained stable overnight. Nephrology has been consulted. Dialysis has not been initiated yet. Reason Critically Ill: Cardiac arrest (06/15/2025, ROSC after 5 minutes, PEA arrest) Severe refractory shock with multiorgan failure Hypoxic respiratory failure status post intubation 06/15/2025 PE DVTs (bilateral lower extremities) Acute blood loss anemia DIC Acute renal failure with oliguria, concern for acute renal infarcts on CT angio Shock liver Hypoglycemia Severe metabolic acidosis with lactic acidosis Possible acalculous cholecystitis Acute hip fracture status post left hip arthroplasty 06/14/2025 Neuro: Patient had altered mentation, glucose was found to be less than 10. Patient has been waking up when stimulated on fentanyl, no evidence of focal deficits after cardiac arrest. Cardiac: Severe refractory shock with multiorgan failure. Status post PEA cardiac arrest with CPR x 5 minutes on 06/15/2025 Has PE and DVTs. Echocardiogram showing EF 65 to 70%, concentric LVH, estimated pulmonary pressure of 42 mmHg. Remains on multiple pressors, currently norepinephrine and vaso. Had atrial fibrillation during dialysis received 2 doses of digoxin. Continue vasopressors for blood pressure support, goal MAP 65 mmHg. Central venous catheter and arterial line are in place. Will continue stress dose steroids with hydrocortisone 50 mg every 6. Cortisol level 46. Will continue heparin given PE, DVT in setting of DIC. Respiratory: Acute hypoxic respiratory failure. Has bilateral pleural effusions, could be hemorrhagic given severe DIC and INR was almost 10 on arrival to ICU. CT also showing segmental PE of left upper lobe. Chest x-ray was reviewed from 06/17/2025 from, there is worsening pulmonary edema with pleural effusions most significant on the right. Mediastinum is shifted towards the left with evidence of atelectasis in the left base. Intubated 06/15/2025. Will continue mechanical ventilation. Continue fentanyl and propofol for sedation and analgesia. Continue anticoagulation for PE. Will initiate pulmonary toilet with bronchodilators, Mucomyst, saline nebulizers and CPT. If atelectasis does not resolve may require bronchoscopy fo r airway clearance. GI: Severe transaminitis, likely shock liver versus ischemic injury in setting of microvascular thrombi and DIC. Portal vein ultrasound does not show evidence within the portal, splenic or hepatic veins. Normal caliber and flow of the hepatic artery. Infrahepatic IVC was not well-visualized, could be hypoplastic or thrombosed. CT angio showed evidence of shock pancreatitis, lipase was not elevated. Gallbladder wall is thickened and gallbladder is distended concerning for acalculous cholecystitis. No evidence of mesenteric ischemia, diffuse colitis appreciated. Some hemoperitoneum. OG tube is in place. Dark coffee-ground contents. Keep to low intermittent suction Keep n.p.o. given multiple pressors. Continue to monitor LFTs. Remained extremely elevated, elevated bilirubin, elevated INR. Avoid hepatotoxins. Gallbladder is enlarged, if patient develops fevers or condition worsens then she may have acalculous cholecystitis which would require percutaneous biliary drain. No indication at this time. RENAL/LYTES: Patient is in HANG. Minimal to no urine output. Has been on a bicarb infusion with dextrose due to acidosis and severe hypoglycemia. Gomez catheter is in place. Severe metabolic acidosis with lactic acidosis. Received trialysis catheter yesterday and a session of HD without fluid removal, she did have arrhythmias during this and received digoxin. Will try to come off bicarb infusion today, need to monitor blood glucose very closely given her liver injury. Nephrology is consulted, trialysis in place. Will attempt dialysis again today with 1 L fluid removal if tolerated. Keep Gomez catheter in place for strict I's and O's. Stopping bicarb infusion, please check blood sugars frequently once this is discontinued. Continue to monitor lactic acid : Gomez catheter is in place. Minimal urine output. ENDO: Patient was severely hypoglycemic likely due to to liver injury. Cortisol level was 42. Abnormal appearance of pancreas on CT however lipase normal. Will hold bicarb infusion with dextrose. Continue to monitor glucose closely every hour checks for the first few hours after dextrose infusion is stopped. If remains stable can decrease his frequency of checks. Continue hydrocortisone 50 mg Q6. HEME: Patient is in severe DIC. Initial DIC panel showing PT greater than 90, INR greater than 9.7, APTT 71, fibrinogen less than 50, D-dimer greater than 35,000. Patient is significantly anemic as well, status post 5 units PRBCs since admission. Patient has been treated refused FFP, cryoprecipitate and platelets. Hematology has been consulted. They were not available to see the patient over the weekend but I did conference with them via telephone and messaging. Appreciate assistance. Patient also has DVT and PE. Likely microthrombi in multiple organs. Continue to monitor hemoglobin, platelets, and fibrinogen levels. Goal fibrinogen 150. Continue fixed dose heparin infusion at 500 units an hour. Monitor Xa level. HIT panel sent, seems less likely HIT however. Will follow. ID: [id number] with E. coli. Transitioning Zosyn to Rocephin 1 g daily. If there is concern for anaerobic aerobic infection will add metronidazole. May have acalculous cholecystitis given her CT and ultrasound findings. Given her critical illness this would have to be managed with percutaneous biliary drain. Will consider repeat imaging if condition worsens or she develops fevers. Patient was empirically covered with vancomycin and Zosyn, de-escalated to Rocephin today. Feeding: N.p.o. Fluids: Stopping bicarb/dextrose infusion, monitor glucose closely Analgesia/sedation: Fentanyl and propofol Activity: Bedrest, head of bed 30 degrees Thromboprophylaxis: Heparin infusion 500 units an hour Ulcer prophylaxis: Pantoprazole Glycemic control: Monitoring glucose every 1 hour for a few hours after dextrose infusion is stopped, if remains stable can decrease frequency of checks. Bowels: MiraLAX Indwelling catheters: Arterial line (06/15/2025), central venous catheter (06/15/2025), right IJ trialysis catheter (06/16/2025) Gomez catheter, ET tube, OG tube Antibiotics: Vancomycin and Zosyn (initiated 06/15/2025), de-escalated to Rocephin only (06/17/2025) Plan: Patient remains critically ill in the ICU. He is in severe refractory shock with multiorgan failure. Patient is also in DIC with DVTs in her lower extremities and PE. Hematology and nephrology have been consulted. I have individually consulted with her orthopedic surgeon, surgeon endorses that there was bleeding during the procedure however no vascular injuries were appreciated. Nothing abnormal or unusual happened during the procedure, no cement was used. CT does not comment on fat embolism. Hematology is consulted and I discussed the case with them, they recommended anticoagulation and sending a HIT panel which has been done. Recommend supportive care with blood product including FFP, cryos, platelets and packed red cells as indicated. I have discussed the case in detail with nephrology and they have evaluated the patient. Renal function is poor, she is not making urine. Had trialysis catheter placed 06/16/2025 and had 1 session of dialysis for 4 hours. Did have A-fib during this and received digoxin. Are planning to do dialysis again today. Remains on multiple pressors, currently on norepinephrine and vaso. She was on a bicarb infusion with dextrose given severe hyperglycemia which is likely secondary to liver injury, this infusion is being held and we are going to monitor her blood glucose very closely. She is on hydrocortisone as well. May need to add back a dextrose infusion if blood sugars drop. I attempted transfer for CRRT to [facility] however this was declined. I have had multiple meetings at bedside with family members. I discussed the case in detail. They understand that prognosis is poor. She will likely not recover and if she did would be on permanent dialysis. They still would like her to be a full code, I asked them to discuss this again prior to her initiating dialysis again today given her arrhythmias yesterday. I have personally spent 65 minutes of critical care time in the direct management of this patient. This is a life/limb threatening event. This includes time spent evaluating patient, direct bedside care, chart review, placing orders, interpretation of diagnostic studies, discussion with consultants, patient, and family members, as well as other required patient management activities. This time is exclusive of all separately billable procedures, and teaching time and separate from and in addition to any other critical care service time. Admission and Anticipated Discharge Date Admission Date: June 13, 2025 Subjective Past 24-hour events: Patient's condition has continued to deteriorate over the past 24 hours. Yesterday we attempted transfer to [facility] however they did not accept patient. We inserted a trialysis catheter and performed slow dialysis, no fluid removal. During dialysis the patient had A-fib RVR and hypotension, she was given digoxin x 2. Lactic acid periodically decreased after dialysis but again quickly returned back to 14. Only 35 cc of urine output over past 24 hours. Patient was transition from argatroban to heparin infusion at a fixed rate of 500 units an hour. Rounding: Intake: 4864 mL Output: 43 mL Net: +4821 mL Mechanical ventilation: AC, tidal volume 400, rate??, Feeding: N.p.o. given high pressor requirements IV infusions: D5 bicarb, vaso, levo, fentanyl, propofol Indwelling catheters: Right IJ trialysis, groin CVC, arterial line, Gomez, ET tube, NG tube Laboratory: CBC: WBC 28, hemoglobin 9.0, platelet 45 Coags: APTT remains greater than 139, Fibrinogen 159 (received cryoprecipitate overnight), Xa 0.15 Chemistry: Sodium 130, potassium 5.0, creatinine 3.01, glucose 108, lactate 14.3, magnesium 1.9, AST greater than 10,000, ALT greater than 2500, alk phos 463, T. bili 4.0, AB.39, pCO2 28, pO2 65, bicarb 17, saturation 95% on 55%. Micro: Urine growing E. coli, sensitivities pending. Sputum with pinpoint growth, reaccumulating. Blood culture no growth after 24 hours x 2. Review of Systems Review of Systems: Not obtained. Physical Exam Physical Exam: Physical examination: General: Appears stated age, on mechanical ventilation, on fentanyl, opens eyes to voice. Synchronous with ventilator. HEENT: Normocephalic, atraumatic. Extraocular movements intact. Sclera are nonicteric. No JVD appreciated. OG and ET tube in place. Skin: Warm and dry. No bruising appreciated. No jaundice. No rashes. Surgical incision on left hip is bandaged, no oozing or significant bruising or swelling appreciated. Cardiovascular: Sinus tachycardia. On norepinephrine and erica for blood pressure support. Arterial line in place. Lungs: Coarse mechanical breath sounds. No wheezing. On 40% FiO2 and a PEEP of 5. Diminished at bases. Abdomen: Nontender to palpation. Slightly distended. No bruising. Musculoskeletal: Normal muscle mass and tone. Surgical incision of left hip is bandaged. There is no tense swelling of the extremity. No significant bruising. No oozing. Neurologic: On fentanyl, opens eyes to voice. Pupils are equal. Moving e xtremities. Results & Data Results & Data Vital Signs (Past 12 Hours) Vital Signs Temp Pulse Resp BP Pulse Ox O2 Del Method O2 Flow Rate 06/17/25 06:30 108 H 18 92 Mechanical Vent 06/17/25 06:06 106 H 18 95 Mechanical Vent 06/17/25 05:36 105 H 18 95 Mechanical Vent 06/17/25 05:27 104 H 18 95 Mechanical Vent 06/17/25 05:12 103 H 18 96 Mechanical Vent 06/17/25 04:45 100 H 22 95 Mechanical Vent 06/17/25 04:39 101 H 22 95 Mechanical Vent 06/17/25 04:30 36.9 C 06/17/25 04:15 102 H 22 95 Mechanical Vent 06/17/25 04:03 105 H 22 95 Mechanical Vent 06/17/25 04:00 06/17/25 03:45 100 H 26 H 99 06/17/25 03:45 111 H 22 94 Mechanical Vent 06/17/25 03:36 115 H 22 94 Mechanical Vent 06/17/25 03:03 111 H 22 95 Mechanical Vent 06/17/25 02:48 105 H 22 95 Mechanical Vent 06/17/25 02:09 99 H 22 96 Mechanical Vent 06/17/25 01:12 101 H 22 95 Mechanical Vent 06/17/25 00:24 99 H 18 95 Mechanical Vent 06/17/25 00:05 36.4 C L 06/17/25 00:03 100 H 19 96 Mechanical Vent 06/17/25 00:00 100 H 06/17/25 00:00 06/16/25 23:45 100 H 22 96 06/16/25 23:36 103 H 22 96 Mechanical Vent 06/16/25 23:00 102 H 19 99 Mechanical Vent 06/16/25 22:36 101 H 22 98 Mechanical Vent 06/16/25 22:06 102 H 23 98 Mechanical Vent 06/16/25 21:53 36.3 C L 102 H 22 138/49 L 96 06/16/25 21:53 36.3 C L 102 H 22 138/49 L 96 55 06/16/25 21:38 36.5 C 100 H 22 147/54 H 96 55 06/16/25 21:23 36.4 C 102 H 19 143/52 H 97 55 06/16/25 20:42 101 H 06/16/25 20:40 104 H 22 98 06/16/25 20:36 100 H 22 100 Mechanical Vent 06/16/25 20:15 Mechanical Vent 06/16/25 20:15 36.4 C 06/16/25 20:09 104 H 22 98 Mechanical Vent 06/16/25 20:00 06/16/25 19:36 105 H 22 94 Mechanical Vent 06/16/25 19:09 107 H 22 93 Mechanical Vent FiO2 06/17/25 06:30 55 06/17/25 06:06 55 06/17/25 05:36 55 06/17/25 05:27 55 06/17/25 05:12 55 06/17/25 04:45 55 06/17/25 04:39 55 06/17/25 04:30 06/17/25 04:15 55 06/17/25 04:03 55 06/17/25 04:00 55 06/17/25 03:45 55 06/17/25 03:45 55 06/17/25 03:36 55 06/17/25 03:03 55 06/17/25 02:48 55 06/17/25 02:09 55 06/17/25 01:12 55 06/17/25 00:24 55 06/17/25 00:05 06/17/25 00:03 55 06/17/25 00:00 06/17/25 00:00 55 06/16/25 23:45 55 06/16/25 23:36 55 06/16/25 23:00 55 06/16/25 22:36 55 06/16/25 22:06 55 06/16/25 21:53 06/16/25 21:53 06/16/25 21:38 06/16/25 21:23 06/16/25 20:42 06/16/25 20:40 55 06/16/25 20:36 55 06/16/25 20:15 55 06/16/25 20:15 06/16/25 20:09 55 06/16/25 20:00 55 06/16/25 19:36 55 06/16/25 19:09 40 Coding Level of Care Code 97944 CRITICAL CARE 1ST 30-74M Diagnoses Cardiac arrest I46.9 Shock R57.9 DIC (disseminated intravascular coagulation) D65 DVT (deep venous thrombosis) I82.409 PE (pulmonary thromboembolism) I26.99 Lactic acid acidosis E87.20 Metabolic acidosis E87.20 Respiratory failure J96.90 Acute blood loss anemia D62 Hip fracture S72.009A Shock liver K72.00 Hypoglycemia E16.2
[2025-06-17 07:44] LABS: ANTI-Xa, UFH(UnfractionatedHep 0.18 IU/ml (0.3-0.7)
[2025-06-17 07:57] LABS: Anion Gap 18 (3-11); Blood Urea Nitrogen 25 mg/dl (6-23); Calcium 6.1 mg/dl (8.6-10.3); Carbon Dioxide 22 mmol/L (21-32); Chloride 92 mmol/L (98-107); Creatinine Clr Calc Pharmacy 14.1 ml/min; Glucose 121 mg/dl (70-99(Fasting)); Potassium 5.3 mmol/L (3.5-5.1); Sodium 132 mmol/L (136-145)
[2025-06-17 08:16] LABS: Alanine Aminotransferase 1695 U/L (7-52); Albumin Globulin Ratio 1.3 (0.9-2); Albumin Level 1.8 gm/dl (3.4-5.0); Alkaline Phosphatase 516 U/L (34-104); Bilirubin,Total 4.4 mg/dl (0.2-1.0); Globulin 1.4 gm/dl (2.5-4.0); Total Protein 3.2 gm/dl (6.0-8.3)
[2025-06-17] MEDS: ACETYLCYSTEINE 20% INHAL SOLN 4ML ***DISPENSED BY RESP. INH SCH ×2 (08:40→12:17)
--- NOTE | 2025-06-17 08:44 | Nephrology Progress Note ---
Date of Service June 17, 2025 Assessment & Plan (1) HANG (acute kidney injury): Plan: * ATN due to hemodynamic injury, DOROTHY, rhabdomyolysis. Patient essentially anuric overnight * Persistent high AGA due to lactic acidosis * 1st run HD completed 06/16/25 for 3 hrs w/ no UF. Patient developed atrial fibrillation at start of treatment which responded to digoxin and increasing dialysate K to 4.0. She returned to NSR mid treatment * NaHCO3 gtt has been stopped. Pressor dose has been decreased slightly. Patient has atelectasis on CXR and FiO2 requirements have increased to 65% this am * Met w/ ICU team and family this morning. Discussed abdominal CTA results. Expressed concern that lack of renal perfusion on CTA may represent cortical necrosis and patient may remain dialysis dependent. Discussed poor prognosis given MSOF, DIC, mottling of lower abdomen and bilateral LE. Family is understanding of prognosis and wish to discuss care. They do want to continue w/ HD today. * Will provide HD today for correction of hyperkalemia and metabolic acidosis. Will attempt 1L UF. Orders placed in EMR and HD coordinated w/ superintendent distribution HD RN (2) Shock: Plan: * MSOF - respiratory, hepatic, renal injury, rhabdomyolysis, DIC * Remains on levophed and phenylephrine therapy * On empiric IV zosyn (3) Acute blood loss anemia: Plan: * s/p 4 units PRBC transfusion support (4) Thrombocytopenia: Plan: * DIC, DVT w/ ERNESTO PE - on heparin (5) Hip fracture: Plan: * L hip hemiarthroplasty 06/14/25 (6) Cardiac arrest: Plan: * PEA arrest 06/15/25 w/ ROSC Admission and Anticipated Discharge Date Admission Date: June 13, 2025 Subjective Mrs. Mercer was evaluated in the ICU. She remains sedated, mechanically ventilated, on pressor support. Review of Systems Review of Systems: Unobtainable due to endotracheal tube Physical Exam Constitutional: acutely ill appearing Eyes: PERRL, conjunctivae normal, anicteric sclerae Neck: trachea midline, no thyromegaly R IJ trilumen temporary HD catheter in place. No bleeding from exit site Respiratory: coarse BS bilaterally Cardiovascular: Rate/Rhythm: + tachycardic (no rub) Extremities: no edema Gastrointestinal (Abdomen): Inspection/Auscultation: abdomen normal to inspection and + hypoactive bowel sounds Neurologic: sedated Results & Data Vital Signs (Past 12 Hours) Vital Signs Temp Pulse Resp BP Pulse Ox Pulse Ox O2 Del Method 06/17/25 07:49 Mechanical Vent 06/17/25 07:49 108 H 06/17/25 07:49 06/17/25 07:49 95 06/17/25 07:49 145/50 H 06/17/25 06:30 108 H 18 92 Mechanical Vent 06/17/25 06:06 106 H 18 95 Mechanical Vent 06/17/25 05:36 105 H 18 95 Mechanical Vent 06/17/25 05:27 104 H 18 95 Mechanical Vent 06/17/25 05:12 103 H 18 96 Mechanical Vent 06/17/25 04:45 100 H 22 95 Mechanical Vent 06/17/25 04:39 101 H 22 95 Mechanical Vent 06/17/25 04:30 36.9 C 06/17/25 04:15 102 H 22 95 Mechanical Vent 06/17/25 04:03 105 H 22 95 Mechanical Vent 06/17/25 04:00 06/17/25 03:45 100 H 26 H 99 06/17/25 03:45 111 H 22 94 Mechanical Vent 06/17/25 03:36 115 H 22 94 Mechanical Vent 06/17/25 03:03 111 H 22 95 Mechanical Vent 06/17/25 02:48 105 H 22 95 Mechanical Vent 06/17/25 02:09 99 H 22 96 Mechanical Vent 06/17/25 01:12 101 H 22 95 Mechanical Vent 06/17/25 00:24 99 H 18 95 Mechanical Vent 06/17/25 00:05 36.4 C L 06/17/25 00:03 100 H 19 96 Mechanical Vent 06/17/25 00:00 100 H 06/17/25 00:00 06/16/25 23:45 100 H 22 96 06/16/25 23:36 103 H 22 96 Mechanical Vent 06/16/25 23:00 102 H 19 99 Mechanical Vent 06/16/25 22:36 101 H 22 98 Mechanical Vent 06/16/25 22:06 102 H 23 98 Mechanical Vent 06/16/25 21:53 36.3 C L 102 H 22 138/49 L 96 06/16/25 21:53 36.3 C L 102 H 22 138/49 L 96 06/16/25 21:38 36.5 C 100 H 22 147/54 H 96 06/16/25 21:23 36.4 C 102 H 19 143/52 H 97 O2 Del Method O2 Flow Rate FiO2 06/17/25 07:49 65 06/17/25 07:49 06/17/25 07:49 65 06/17/25 07:49 Mechanical Vent 06/17/25 07:49 06/17/25 06:30 55 06/17/25 06:06 55 06/17/25 05:36 55 06/17/25 05:27 55 06/17/25 05:12 55 06/17/25 04:45 55 06/17/25 04:39 55 06/17/25 04:30 06/17/25 04:15 55 06/17/25 04:03 55 06/17/25 04:00 55 06/17/25 03:45 55 06/17/25 03:45 55 06/17/25 03:36 55 06/17/25 03:03 55 06/17/25 02:48 55 06/17/25 02:09 55 06/17/25 01:12 55 06/17/25 00:24 55 06/17/25 00:05 06/17/25 00:03 55 06/17/25 00:00 06/17/25 00:00 55 06/16/25 23:45 55 06/16/25 23:36 55 06/16/25 23:00 55 06/16/25 22:36 55 06/16/25 22:06 55 06/16/25 21:53 06/16/25 21:53 55 06/16/25 21:38 55 06/16/25 21:23 55 Laboratory Results Laboratory Results - last 24 hr 06/14/25 06/16/25 06/16/25 15:27 09:01 11:49 WBC RBC Hgb POC Hgb Hct POC Hct MCV MCH MCHC RDW Std Deviation RDW Coeff of Maged Plt Count Absolute Nucleated RBC Nucleated RBC % (auto) PT INR Fibrinogen 150 L Heparin Anti-Xa, Unfract < 0.10 L Specimen Type Sample Site POC pH POC pCO2 POC pO2 POC HCO3 POC Total CO2 POC Base Excess O2 Sat Pulse Oximetry ABG pH (Temp Correct) ABG pCO2 (Temp Corrct POC ABG pO2 at Pt Temp POC ABG O2 Sat Julius Test O2 Delivery Device Vent Mode POC FiO2 End Tidal CO2 POC Sodium Sodium 137 POC Potassium Potassium 3.6 Chloride 95 L Carbon Dioxide 18 L Anion Gap 24 H BUN 27 H Creatinine 3.25 H D Est Cr Clr Drug Dosing 13.2 eGFR 13.76 BUN/Creatinine Ratio 8.3 L Glucose 161 H POC Glucose (other) Lactate 14.2 H* Calcium 6.7 L Magnesium Total Bilirubin 4.5 H AST > 35628 H ALT > 2500 H Alkaline Phosphatase 263 H Total Creatine Kinase Total Protein 3.8 L Albumin 2.2 L Globulin 1.6 L Albumin/Globulin Ratio 1.4 Random Vancomycin Hep Bs Antigen Negative Hep Bs Antibody Immune Hep Bs Antibody, Quant 145.00 Blood Type O Positive Antibody Screen NEGATIVE Crossmatch See Detail 06/16/25 06/16/25 06/16/25 11:56 13:58 14:40 WBC RBC Hgb POC Hgb 10.5 L Hct POC Hct 31 L MCV MCH MCHC RDW Std Deviation RDW Coeff of Maged Plt Count Absolute Nucleated RBC Nucleated RBC % (auto) PT INR Fibrinogen Heparin Anti-Xa, Unfract Specimen Type Arterial Sample Site Art Line POC pH 7.39 POC pCO2 30 L POC pO2 67 L POC HCO3 18 L POC Total CO2 19 L POC Base Excess -7.0 O2 Sat Pulse Oximetry 93 ABG pH (Temp Correct) 7.384 ABG pCO2 (Temp Corrct 30 L POC ABG pO2 at Pt Temp 68 POC ABG O2 Sat 93.0 Julius Test NA O2 Delivery Device Ventilator Vent Mode AC POC FiO2 40 End Tidal CO2 20 POC Sodium 135 Sodium 136 POC Potassium 3.9 Potassium 3.7 Chloride 99 Carbon Dioxide 21 Anion Gap 16 H BUN 21 Creatinine 2.26 H D Est Cr Clr Drug Dosing 19.0 eGFR 21.27 BUN/Creatinine Ratio 9.3 L Glucose 151 H POC Glucose (other) 157 H Lactate Calcium 6.9 L Magnesium Total Bilirubin 4.5 H AST > 78354 H ALT > 2500 H Alkaline Phosphatase 378 H Total Creatine Kinase Total Protein 4.1 L Albumin 2.3 L Globulin 1.8 L Albumin/Globulin Ratio 1.3 Random Vancomycin Hep Bs Antigen Hep Bs Antibody Hep Bs Antibody, Quant Blood Type Antibody Screen Crossmatch 06/16/25 06/16/25 06/16/25 14:53 16:45 18:08 WBC RBC Hgb POC Hgb Hct POC Hct MCV MCH MCHC RDW Std Deviation RDW Coeff of Maged Plt Count Absolute Nucleated RBC Nucleated RBC % (auto) PT INR Fibrinogen 126 L Heparin Anti-Xa, Unfract 0.21 L Specimen Type Sample Site POC pH POC pCO2 POC pO2 POC HCO3 POC Total CO2 POC Base Excess O2 Sat Pulse Oximetry ABG pH (Temp Correct) ABG pCO2 (Temp Corrct POC ABG pO2 at Pt Temp POC ABG O2 Sat Julius Test O2 Delivery Device Vent Mode POC FiO2 End Tidal CO2 POC Sodium Sodium POC Potassium Potassium Chloride Carbon Dioxide Anion Gap BUN Creatinine Est Cr Clr Drug Dosing eGFR BUN/Creatinine Ratio Glucose POC Glucose (other) 143 H Lactate 6.6 H* Calcium Magnesium Total Bilirubin AST ALT Alkaline Phosphatase Total Creatine Kinase Total Protein Albumin Globulin Albumin/Globulin Ratio Random Vancomycin Hep Bs Antigen Hep Bs Antibody Hep Bs Antibody, Quant Blood Type Antibody Screen Crossmatch 06/16/25 06/16/25 06/17/25 20:17 20:22 00:21 WBC RBC Hgb POC Hgb Hct POC Hct MCV MCH MCHC RDW Std Deviation RDW Coeff of Maged Plt Count Absolute Nucleated RBC Nucleated RBC % (auto) PT INR Fibrinogen 151 L Heparin Anti-Xa, Unfract Specimen Type Sample Site POC pH POC pCO2 POC pO2 POC HCO3 POC Total CO2 POC Base Excess O2 Sat Pulse Oximetry ABG pH (Temp Correct) ABG pCO2 (Temp Corrct POC ABG pO2 at Pt Temp POC ABG O2 Sat Julius Test O2 Delivery Device Vent Mode POC FiO2 End Tidal CO2 POC Sodium Sodium 132 L POC Potassium Potassium 4.6 D Chloride 95 L Carbon Dioxide 18 L Anion Gap 19 H BUN 23 Creatinine 2.61 H D Est Cr Clr Drug Dosing 16.4 eGFR 17.90 BUN/Creatinine Ratio 8.8 L Glucose 144 H POC Glucose (other) 137 H Lactate 14.4 H* 14.4 H* Calcium 6.3 L Magnesium Total Bilirubin 4.0 H AST > 21534 H ALT > 2500 H Alkaline Phosphatase 463 H Total Creatine Kinase 14003 H Total Protein 3.5 L Albumin 2.0 L Globulin 1.5 L Albumin/Globulin Ratio 1.3 Random Vancomycin Hep Bs Antigen Hep Bs Antibody Hep Bs Antibody, Quant Blood Type Antibody Screen Crossmatch 06/17/25 06/17/25 06/17/25 00:27 01:02 02:28 WBC RBC Hgb POC Hgb Hct POC Hct MCV MCH MCHC RDW Std Deviation RDW Coeff of Maged Plt Count Absolute Nucleated RBC Nucleated RBC % (auto) PT INR Fibrinogen Heparin Anti-Xa, Unfract 0.15 L Specimen Type Sample Site POC pH POC pCO2 POC pO2 POC HCO3 POC Total CO2 POC Base Excess O2 Sat Pulse Oximetry ABG pH (Temp Correct) ABG pCO2 (Temp Corrct POC ABG pO2 at Pt Temp POC ABG O2 Sat Julius Test O2 Delivery Device Vent Mode POC FiO2 End Tidal CO2 POC Sodium Sodium POC Potassium Potassium Chloride Carbon Dioxide Anion Gap BUN Creatinine Est Cr Clr Drug Dosing eGFR BUN/Creatinine Ratio Glucose POC Glucose (other) 120 H Lactate 14.7 H* Calcium Magnesium Total Bilirubin AST ALT Alkaline Phosphatase Total Creatine Kinase Total Protein Albumin Globulin Albumin/Globulin Ratio Random Vancomycin Hep Bs Antigen Hep Bs Antibody Hep Bs Antibody, Quant Blood Type Antibody Screen Crossmatch 06/17/25 06/17/25 06/17/25 04:24 04:55 05:53 WBC 28.33 H RBC 3.03 L Hgb 9.0 L POC Hgb 8.2 L Hct 25.8 L POC Hct 24 L MCV 85.1 MCH 29.7 MCHC 34.9 RDW Std Deviation 51.8 H RDW Coeff of Maged 16.7 H Plt Count 45 L Absolute Nucleated RBC 0.11 Nucleated RBC % (auto) 0.4 PT INR Fibrinogen Heparin Anti-Xa, Unfract Specimen Type Arterial Sample Site Art Line POC pH 7.39 POC pCO2 28 L POC pO2 65 L POC HCO3 17 L POC Total CO2 18 L POC Base Excess -8.0 O2 Sat Pulse Oximetry 95 ABG pH (Temp Correct) 7.385 ABG pCO2 (Temp Corrct 28 L POC ABG pO2 at Pt Temp 67 POC ABG O2 Sat 93.0 Julius Test NA O2 Delivery Device Ventilator Vent Mode AC POC FiO2 55 End Tidal CO2 20 POC Sodium 130 L Sodium POC Potassium 5.0 Potassium Chloride Carbon Dioxide Anion Gap BUN Creatinine 3.01 H D Est Cr Clr Drug Dosing 14.2 eGFR 15.08 BUN/Creatinine Ratio Glucose POC Glucose (other) 108 H Lactate Calcium Magnesium 1.9 Total Bilirubin AST ALT Alkaline Phosphatase Total Creatine Kinase Total Protein Albumin Globulin Albumin/Globulin Ratio Random Vancomycin 15.1 Hep Bs Antigen Hep Bs Antibody Hep Bs Antibody, Quant Blood Type Antibody Screen Crossmatch 06/17/25 06/17/25 06/17/25 06:01 06:02 07:16 WBC RBC Hgb POC Hgb Hct POC Hct MCV MCH MCHC RDW Std Deviation RDW Coeff of Maegd Plt Count Absolute Nucleated RBC Nucleated RBC % (auto) PT Pending INR Pending Fibrinogen 159 L Heparin Anti-Xa, Unfract 0.18 L Specimen Type Sample Site POC pH POC pCO2 POC pO2 POC HCO3 POC Total CO2 POC Base Excess O2 Sat Pulse Oximetry ABG pH (Temp Correct) ABG pCO2 (Temp Corrct POC ABG pO2 at Pt Temp POC ABG O2 Sat Julius Test O2 Delivery Device Vent Mode POC FiO2 End Tidal CO2 POC Sodium Sodium 132 L POC Potassium Potassium 5.3 H Chloride 92 L Carbon Dioxide 22 Anion Gap 18 H BUN 25 H Creatinine 3.03 H Est Cr Clr Drug Dosing 14.1 eGFR 14.96 BUN/Creatinine Ratio 8.3 L Glucose 121 H POC Glucose (other) Lactate 14.3 H* Calcium 6.1 L Magnesium Total Bilirubin 4.4 H AST > 61083 H ALT 1695 H Alkaline Phosphatase 516 H Total Creatine Kinase Total Protein 3.2 L Albumin 1.8 L Globulin 1.4 L Albumin/Globulin Ratio 1.3 Random Vancomycin Hep Bs Antigen Hep Bs Antibody Hep Bs Antibody, Quant Blood Type Antibody Screen Crossmatch 06/17/25 06/17/25 07:24 07:53 WBC RBC Hgb POC Hgb Hct POC Hct MCV MCH MCHC RDW Std Deviation RDW Coeff of Maged Plt Count Absolute Nucleated RBC Nucleated RBC % (auto) PT INR Fibrinogen Heparin Anti-Xa, Unfract Specimen Type Sample Site POC pH POC pCO2 POC pO2 POC HCO3 POC Total CO2 POC Base Excess O2 Sat Pulse Oximetry ABG pH (Temp Correct) ABG pCO2 (Temp Corrct POC ABG pO2 at Pt Temp POC ABG O2 Sat Julius Test O2 Delivery Device Vent Mode POC FiO2 End Tidal CO2 POC Sodium Sodium POC Potassium Potassium Chloride Carbon Dioxide Anion Gap BUN Creatinine Est Cr Clr Drug Dosing eGFR BUN/Creatinine Ratio Glucose POC Glucose (other) 116 H Lactate 13.7 H* Calcium Magnesium Total Bilirubin AST ALT Alkaline Phosphatase Total Creatine Kinase Total Protein Albumin Globulin Albumin/Globulin Ratio Random Vancomycin Hep Bs Antigen Hep Bs Antibody Hep Bs Antibody, Quant Blood Type Antibody Screen Crossmatch PG Care Time/CCT Total # of Minutes Spent Total Time Spent with Patient: 60 min provided reviewing progress notes, laboratory data, reviewing ICU medicat ions/pressors, examining patient, discussing POC w/ ICU attending & family, ordering laboratory testing, prescribing HD, coordinating HD treatment w/ superintendent distribution HD RN, updating the medical record Coding Level of Care Code 36224 SUB INP/OBS CARE MIN Diagnoses HANG (acute kidney injury) N17.9 Shock R57.9 Acute blood loss anemia D62 Thrombocytopenia D69.6 Hip fracture S72.009A Cardiac arrest I46.9
--- NOTE | 2025-06-17 08:45 | XRay Report ---
EXAM: XR chest 1V portable CLINICAL HISTORY: F/u. TECHNIQUE: An X-ray image of the chest was obtained in AP projection. COMPARISON: Prior CR dated 06/15/2025. FINDINGS: The ETT tip is seen about 39 mm from the patricia. NGT is noted; its tip is not seen, likely within the stomach. Pulmonary Parenchyma: Progressive courses of bilateral mid and lower lung zones airspace opacity are more evident on the right side, obliterating the right costophrenic angle. Heart and Mediastinum: Mild cardiomegaly. No mediastinal widening or masses. No hilar or mediastinal lymphadenopathy. Bony Thorax: The bony thorax appears intact without fractures or deformities. Soft Tissues: Soft tissues overlying the chest wall are unremarkable. IMPRESSION: 1. The ETT tip is seen about 39 mm from the patricia. 2. NGT is noted; its tip is not seen, likely within the stomach. 3. Progressive courses of bilateral mid and lower lung zones airspace opacity is more evident on the right side, obliterating the right costophrenic angle; suspected infection process/infection. Electronically signed by David Quinones 06-17-2025 08:40 AM
[2025-06-17 09:04] LABS: INR 5.4 (0.9-1.1); Prothrombin Time 51.8 Seconds (9.0-12.0)
--- NOTE | 2025-06-17 09:19 | Orthopedic Progress Note ---
Date of Service June 17, 2025 Assessment & Plan (1) Closed fracture of left hip: (2) Altered mental status: (3) Acute blood loss anemia: (4) Chronic disease anemia: (5) CKD (chronic kidney disease), stage III: Plan 80-year-old female postoperative day 3 status post left hip hemiarthroplasty. The patient required pressors in the recovery room, however when she was weaned off, she became unresponsive requiring intubation. She did have cardiac arrest with ROSC postoperative day 0. She remains in the ICU intubated. This morning, she is responding painful stimuli and opening her eyes, however not following commands. I did discuss patient's care with her family and updated them on her situation. I did also discuss the situation with the ICU attending. Medical care per ICU team. will attempt HD again today From an orthopedic standpoint, the patient is weightbearing as tolerated, she is okay for DVT prophylaxis. will continue to follow Admission and Anticipated Discharge Date Admission Date: June 13, 2025 Subjective POD 3 s/p L hip hemiarthroplasty. patient remains intubated in ICU attempted transfer to [facility] yesterday and this was declined. patient started on dialysis yesterday. Review of Systems Review of Systems: Unobtainable due to endotracheal tube Physical Exam Physical Exam: Patient's dressings clean dry and intact. Foot is warm and well-perfused. Unable to perform neurologic assessment. Results & Data Vital Signs (Past 12 Hours) Vital Signs Temp Pulse Resp BP Pulse Ox Pulse Ox O2 Del Method 06/17/25 08:33 107 H 34 H 95 06/17/25 08:00 109 H 18 99 06/17/25 08:00 111 H 18 94 06/17/25 07:49 Mechanical Vent 06/17/25 07:49 108 H 06/17/25 07:49 06/17/25 07:49 95 06/17/25 07:49 145/50 H 06/17/25 07:30 110 H 18 94 06/17/25 06:30 108 H 18 92 Mechanical Vent 06/17/25 06:06 106 H 18 95 Mechanical Vent 06/17/25 05:36 105 H 18 95 Mechanical Vent 06/17/25 05:27 104 H 18 95 Mechanical Vent 06/17/25 05:12 103 H 18 96 Mechanical Vent 06/17/25 04:45 100 H 22 95 Mechanical Vent 06/17/25 04:39 101 H 22 95 Mechanical Vent 06/17/25 04:30 36.9 C 06/17/25 04:15 102 H 22 95 Mechanical Vent 06/17/25 04:03 105 H 22 95 Mechanical Vent 06/17/25 04:00 06/17/25 03:45 100 H 26 H 99 06/17/25 03:45 111 H 22 94 Mechanical Vent 06/17/25 03:36 115 H 22 94 Mechanical Vent 06/17/25 03:03 111 H 22 95 Mechanical Vent 06/17/25 02:48 105 H 22 95 Mechanical Vent 06/17/25 02:09 99 H 22 96 Mechanical Vent 06/17/25 01:12 101 H 22 95 Mechanical Vent 06/17/25 00:24 99 H 18 95 Mechanical Vent 06/17/25 00:05 36.4 C L 06/17/25 00:03 100 H 19 96 Mechanical Vent 06/17/25 00:00 100 H 06/17/25 00:00 06/16/25 23:45 100 H 22 96 06/16/25 23:36 103 H 22 96 Mechanical Vent 06/16/25 23:00 102 H 19 99 Mechanical Vent 06/16/25 22:36 101 H 22 98 Mechanical Vent 06/16/25 22:06 102 H 23 98 Mechanical Vent 06/16/25 21:53 36.3 C L 102 H 22 138/49 L 96 06/16/25 21:53 36.3 C L 102 H 22 138/49 L 96 06/16/25 21:38 36.5 C 100 H 22 147/54 H 96 06/16/25 21:23 36.4 C 102 H 19 143/52 H 97 O2 Del Method O2 Flow Rate FiO2 06/17/25 08:33 06/17/25 08:00 06/17/25 08:00 65 06/17/25 07:49 65 06/17/25 07:49 06/17/25 07:49 65 06/17/25 07:49 Mechanical Vent 06/17/25 07:49 06/17/25 07:30 06/17/25 06:30 55 06/17/25 06:06 55 06/17/25 05:36 55 06/17/25 05:27 55 06/17/25 05:12 55 06/17/25 04:45 55 06/17/25 04:39 55 06/17/25 04:30 06/17/25 04:15 55 06/17/25 04:03 55 06/17/25 04:00 55 06/17/25 03:45 55 06/17/25 03:45 55 06/17/25 03:36 55 06/17/25 03:03 55 06/17/25 02:48 55 06/17/25 02:09 55 06/17/25 01:12 55 06/17/25 00:24 55 06/17/25 00:05 06/17/25 00:03 55 06/17/25 00:00 06/17/25 00:00 55 06/16/25 23:45 55 06/16/25 23:36 55 06/16/25 23:00 55 06/16/25 22:36 55 06/16/25 22:06 55 06/16/25 21:53 06/16/25 21:53 55 06/16/25 21:38 55 06/16/25 21:23 55
[2025-06-17] MEDS: cefTRIAXone SODIUM 1,000 MG MINI-B 50ML IV SCH (09:42)
[2025-06-17] MEDS ORDERED: SODIUM CHLORIDE 0.9% 1,000 ML IV PRN (09:50)
[2025-06-17] MEDS: ALBUT/IPRATROP 3MG/0.5MG NEB 3 ML VIAL INH SCH (12:17)
[2025-06-17] MEDS ORDERED: STAT IV Infusion **Titration per Protocol STA (12:26)
[2025-06-17] MEDS: PHENYLEPHRINE/NSS 25 MG/250 ML BAG IV SCH (12:35)
[2025-06-17 12:50] LABS: iSTAT Art Bld Gas Base Excess -7.0 mmol/L (-9-1.8); iSTAT Art Bld Gas pCO2 Correct 31 mmHg (35-46); iSTAT Art Bld Gas pH Corrected 7.382 (7.35-7.45); iSTAT Arterial Blood Gas pO2 C 69
[2025-06-17 13:13] LABS: Fibrinogen 154 mg/dl (184-400)
--- NOTE | 2025-06-17 13:44 | Hospitalist Progress Note ---
Date of Service June 17, 2025 Assessment & Plan (1) Closed fracture of left hip: (2) Chronic disease anemia: (3) Panic disorder: (4) CKD (chronic kidney disease), stage III: Plan 80-year-old lady with PMH of HDL, stage IIIa CKD, osteoporosis, panic disorder who presented with a mechanical fall and left hip fracture underwent hip repair 06/14 in the hospital. She was hypotensive after the repair and was moved to ICU (from PACU) in the night of 06/14 - 06/15. She became progressively hypotensive while in ICU and then unresponsive, she was immediately intubated in ICU. She progressed into bradycardia and cardiac arrest at 0237 hrs. of 06/15, received 2 rounds of CPR, epinephrine with ROSC at 0241 hrs. She is being managed for the following: Cardiac arrest (06/15/2025, ROSC after 5 minutes, PEA arrest) Disseminated intravascular coagulation, PE, DVT Acute blood loss anemia, ISO postoperative blood loss complicated by DIC Hypoxic respiratory failure: Intubated 06/15/2025 Severe refractory shock with multiorgan failure, renal failure, shock liver, severe metabolic acidosis with lactic acidosis Acute cholecystitis Patient was hypotensive and unresponsive 06/14 evening postoperatively. Patient was moved to ICU 06/14, intubated, had cardiac arrest/ROSC achieved in 5 minutes. DIC noted, severe metabolic acidosis with lactic acidosis noted, renal failure and shock liver were also noted. Imagings on 06/15 after the cardiac arrest event: CTAP - no retroperitoneal bleed noted. Liver ultrasound - acute cholecystitis and mild ascites. Fatty liver. Portal vein US: No thrombosis noted. CTA chest - left upper lobe PE noted. Small bilateral pleural effusion noted. BLE venous Doppler - bilateral posterior tibial vein DVT. Hip CT - expected postsurgical changes ECHO - EF of 65-70%, concentric LVH, LV wall motion is normal. CTA abd/pelvis --> ruled out ischemic bowel. further findings noted as in read. Further imagings: 06/17 Duplex arterial LE: no stenosis. 06/17 CXR: Progressive courses of bilateral mid and lower lung zones airspace opacity, more on right, likely atelectasis vs infection. Patient receiving blood products, heparin infusion, Vanc and Zosyn 06/15, sedation and pressors. -Phenylephrine and bicard drip stopped today. -Vanc and zosyn de-escalated to rocephin 06/17. Urine Cx w/ E coli. Bl Cx NG 48H. Patient is being managed in ICU per ICU protocol. Urine output is poor. s/p HD 06/16 (no fluid removed). Plan for HD today, plan to remove 1L. Family members met at bedside, updated on pt's critical status and poor prognosis of the patient. They voiced understanding. Nephro and hematology on board. Mechanical Fall Left femoral neck fracture, Vit D level 14, start supplement when able. Likely osteoporotic fracture HO osteoporosis s/p left hip arthroplasty 06/14 c/b blood loss and post op hypotension. Ortho on board, WBAT, pain Mx. PT/OT when able. HLD: c/w home statin when able. Dispo: being managed in icu, prognosis is guarded. Mx per ICU care Full code hep infusion Admission and Anticipated Discharge Date Admission Date: June 13, 2025 Subjective Patient was seen and examined at bedside. Patient is intubated and mechanically ventilated, sedated. ROS not able. Several drips including fentanyl, propofol, norepinephrine, vasopressin, ma intenance fluids were running. Physical Exam Physical Exam: Constitutional: sedated, intubated, MV. Fentanyl, propofol, vasopressin and Levophed drip running. HEENT: Mucous membranes dry. Sclera clear Neck: Soft, no adenopathy Lungs: coarse mechanical breath sounds. Mechanically ventilated. CV: S1-S2, regular, Tachycardia. Abdomen: Soft, No facial grimacing on palpation, slightly distended. Extremities: No significant edema, Musculoskeletal: Left hip with clean dressing without soakage. No bruising noted. 1-2+ ble edema Neuro: Patient sedated. mottling of skin in abdomen and LE noted. Results & Data Results & Data Vital Signs (Past 12 Hours) Vital Signs Temp Pulse Pulse Resp BP BP Pulse Ox 06/17/25 12:50 125 H 18 06/17/25 12:49 122 H 18 06/17/25 12:48 122 H 22 06/17/25 12:47 118 H 18 06/17/25 12:46 125 H 18 06/17/25 12:45 128 H 18 06/17/25 12:43 131 H 18 06/17/25 12:42 132 H 18 06/17/25 12:41 141 H 18 06/17/25 12:40 144 H 20 06/17/25 12:39 142 H 19 06/17/25 12:38 146 H 20 06/17/25 12:37 142 H 20 06/17/25 12:36 141 H 23 06/17/25 12:36 141 H 20 06/17/25 12:30 139 H 80/45 L 06/17/25 12:30 139 H 20 06/17/25 12:27 137 H 21 06/17/25 12:24 135 H 20 06/17/25 12:17 134 H 06/17/25 12:15 134 H 86/46 L 06/17/25 12:00 132 H 91/45 L 06/17/25 12:00 06/17/25 12:00 124 H 22 06/17/25 11:57 119 H 20 06/17/25 11:51 113 H 113/47 L 06/17/25 11:40 36.7 C 112 H 06/17/25 11:18 105 H 18 95 06/17/25 11:09 105 H 18 91 06/17/25 10:55 106 H 18 95 06/17/25 10:45 105 H 18 95 06/17/25 10:06 105 H 18 94 06/17/25 09:52 36.7 C 104 H 18 114/41 L 94 06/17/25 09:47 108/40 L 06/17/25 08:33 107 H 34 H 95 06/17/25 08:00 109 H 18 99 06/17/25 08:00 111 H 18 94 06/17/25 07:49 06/17/25 07:49 108 H 06/17/25 07:49 06/17/25 07:49 06/17/25 07:49 145/50 H 06/17/25 07:30 110 H 18 94 06/17/25 06:30 108 H 18 92 06/17/25 06:06 106 H 18 95 06/17/25 05:36 105 H 18 95 06/17/25 05:27 104 H 18 95 06/17/25 05:12 103 H 18 96 06/17/25 04:45 100 H 22 95 06/17/25 04:39 101 H 22 95 06/17/25 04:30 36.9 C 06/17/25 04:15 102 H 22 95 06/17/25 04:03 105 H 22 95 06/17/25 04:00 06/17/25 03:45 100 H 26 H 99 06/17/25 03:45 111 H 22 94 06/17/25 03:36 115 H 22 94 06/17/25 03:03 111 H 22 95 06/17/25 02:48 105 H 22 95 06/17/25 02:09 99 H 22 96 Pulse Ox O2 Del Method O2 Del Method FiO2 06/17/25 12:50 Mechanical Vent 65 06/17/25 12:49 Mechanical Vent 65 06/17/25 12:48 Mechanical Vent 65 06/17/25 12:47 Mechanical Vent 65 06/17/25 12:46 Mechanical Vent 65 06/17/25 12:45 Mechanical Vent 65 06/17/25 12:43 Mechanical Vent 65 06/17/25 12:42 Mechanical Vent 65 06/17/25 12:41 Mechanical Vent 65 06/17/25 12:40 Mechanical Vent 65 06/17/25 12:39 Mechanical Vent 65 06/17/25 12:38 Mechanical Vent 65 06/17/25 12:37 Mechanical Vent 65 06/17/25 12:36 Mechanical Vent 65 06/17/25 12:36 Mechanical Vent 65 06/17/25 12:30 06/17/25 12:30 Mechanical Vent 65 06/17/25 12:27 Mechanical Vent 65 06/17/25 12:24 Mechanical Vent 65 06/17/25 12:17 06/17/25 12:15 06/17/25 12:00 06/17/25 12:00 65 06/17/25 12:00 06/17/25 11:57 06/17/25 11:51 06/17/25 11:40 06/17/25 11:18 Mechanical Vent 65 06/17/25 11:09 Mechanical Vent 65 06/17/25 10:55 65 06/17/25 10:45 Mechanical Vent 65 06/17/25 10:06 06/17/25 09:52 Mechanical Vent 65 06/17/25 09:47 06/17/25 08:33 06/17/25 08:00 06/17/25 08:00 65 06/17/25 07:49 Mechanical Vent 65 06/17/25 07:49 06/17/25 07:49 65 06/17/25 07:49 95 Mechanical Vent 06/17/25 07:49 06/17/25 07:30 06/17/25 06:30 Mechanical Vent 55 06/17/25 06:06 Mechanical Vent 55 06/17/25 05:36 Mechanical Vent 55 06/17/25 05:27 Mechanical Vent 55 06/17/25 05:12 Mechanical Vent 55 06/17/25 04:45 Mechanical Vent 55 06/17/25 04:39 Mechanical Vent 55 06/17/25 04:30 06/17/25 04:15 Mechanical Vent 55 06/17/25 04:03 Mechanical Vent 55 06/17/25 04:00 55 06/17/25 03:45 55 06/17/25 03:45 Mechanical Vent 55 06/17/25 03:36 Mechanical Vent 55 06/17/25 03:03 Mechanical Vent 55 06/17/25 02:48 Mechanical Vent 55 06/17/25 02:09 Mechanical Vent 55
[2025-06-17] MEDS: PHENYLEPHRINE HCL 25 MG/250 ML NSS IV ONE (13:57)
[2025-06-17] MEDS ORDERED: MAG SULFATE 50% 1GM/2ML VIAL IV ONE (13:59)
[2025-06-17 14:10] LABS: ANTI-Xa, UFH(UnfractionatedHep 0.45 IU/ml (0.3-0.7)
[2025-06-17] MEDS: CALCIUM GLUCONATE 1,000 MG/60 ML BAG IV STA (14:10)
[2025-06-17] MEDS: MAGNESIUM SULFATE / D5W 1 GM/100 ML BAG IV SCH (14:12)
[2025-06-17] MEDS: DIGOXIN 250 MCG in SYRINGE 9 ML IV STA (14:27)
--- NOTE | 2025-06-17 14:27 | Communication Note ---
Date of Service: June 17, 2025 Dialysis was again attempted today. The patient became profoundly hypotensive and tachycardic during this. We attempted to add erica to the vaso and Levophed without improvement in her MAP. Dialysis had to be terminated. After dialysis the patient went into rapid A-fib with RVR. Rates in the 170s. She is very vasoconstricted, unable to knot picker cloth a saturation. Given calcium and magnesium as well as digoxin with minimal to no improvement. I had a meeting with the family, they are discussing goals of care. Family took some time to discuss their wishes. They want to go ahead and pursue with DNR/DNI and proceed with comfort care orders. I offered condolences. Orders have been placed. CODE STATUS has been changed. May initiate comfort care when family is at bedside and ready to proceed. Coding Level of Care Code None
[2025-06-17] MEDS ORDERED: ONDANSETRON INJ 2 MG/ML 2 ML VIAL IV PRN (15:03)
[2025-06-17] MEDS ORDERED: PROMETHAZINE 12.5 MG/50.5 ML BAG IV PRN (15:03)
[2025-06-17] MEDS ORDERED: LORazepam Inj 1 MG in SYRINGE 0.25 ML IV PRN (15:03)
[2025-06-17] MEDS ORDERED: PROCHLORPERAZINE 5 MG in SYRINGE 4 ML IV PRN (15:03)
[2025-06-17] MEDS ORDERED: GLYCOPYRROLATE 0.2 MG/ML VIAL IV PRN (15:03)
[2025-06-17] MEDS: LORazepam Inj 1 MG in SYRINGE 0.5 ML IV PRN (15:25)
--- NOTE | 2025-06-17 16:05 | Death Pronouncement Note ---
Date of Service June 17, 2025 Pronouncement Note Admission Date June 13, 2025 Date and Time of Date of : 06/17/25 Time of : 15:46 Summary refer to dc summary Cause of : Refractory shock with multiorgan failure 2/2 Disseminated intravascular coagulation 2/2 Cardiac arrest 2/2 Hypotension iso Left femoral fracture repair. Additional Data Confirmation of : no pulse, no respirations, no heart sounds and pupils fixed and dilated Pronouncement Performed By: Attending Physician Family: at bedside Attending physician: Emory Herrera MD Was code activated?: No Autopsy requested?: No electric power line examiner notified?: No
--- NOTE | 2025-06-17 16:28 | Discharge Summary ---
Date of Service June 17, 2025 Admission HPI Per Admitting Provider Patient 80-year-old female lives independently with her and overall is in a very good state of health. Patient presents to the emergency room this evening after she sustained a fall last night/early in the morning. In the emergency room imaging was consistent with a left hip fracture. Patient was referred to our service for hospital management and coordination of care. Time of my evaluation patient states her pain is improved after receiving some morphine. She reports that she drinks a fair amount of water throughout the day and night. She freezes bottles of water to drink throughout the day. She states that she was getting water out of the refrigerator and apparently there were some water on the floor she slipped and fell in the kitchen. She thinks she may have hit the kitchen island with her hand that she tried to brace her fall. She immediately had pain in her hand and her hip but was able to get herself back to bed. When she woke up later on this morning she continued to have pain and thought it difficult to ambulate. She finally came to the emergency room when she really could not manage herself at home. She denies any fever or chills, no cough or cold symptoms, no chest pain, no shortness of breath. She has been eating and drinking well. No new issues with her bowels or bladder. No swelling in her hands arms legs or feet. She states that she overall is in very good health and is eager to get this hip fixed and get back to her usual daily activities. Admission Exam Per Admitting Provider Constitutional: Alert, nontoxic, mild distress secondary to pain HEENT: Mucous membranes moist. Sclera clear Neck: Soft, no adenopathy Lungs: Clear to auscultation, decreased, no wheezes rales or rhonchi CV: S1-S2, regular Abdomen: Soft, nontender, nondistended Extremities: No significant edema, Musculoskeletal: left lower extremity slightly shortened and externally rotated, significant tenderness to any type of motion left lower extremity, significant contusion left wrist with some mild swelling and tenderness Neuro: No focal deficits Psych: Cooperative, normal mood Principal Diagnosis Cardiac arrest DIC Left femoral neck fracture Acute blood loss anemia Discharge Exam Pupils fixed and dilated, no pupillary reflex, no heart sound, no lung sounds on exam. Discharge Data Allergies Allergy/AdvReac Type Severity Reaction Status Date / Time escitalopram [From Lexapro] AdvReac extreme Verified 06/13/25 19:22 nausea/dizziness Consultations 06/13/25 19:07 ED Decision to Admit Stat 06/13/25 19:55 Consult Orthopedic Surgery Stat 06/14/25 21:46 Consult Buffer Nickel Routine 06/15/25 08:37 Consult Nephrology Stat 06/15/25 08:39 Consult Hematology Stat Procedures Performed Operation Date: 06/14/25 09:45 Actual Procedures p Left Hip Hemiarthroplasty Anterior(Left) - Abrahan Murphy DO Ordered Studies 06/13/25 18:16 CT cervical spine wo con Stat CT head/brain wo con Stat 06/13/25 19:12 CT hip LT wo con Stat CT pelvis wo con Stat 06/14/25 FL hip LT 1V Routine 06/15/25 02:17 CT head/brain wo con Urgent 06/15/25 03:13 CT abdomen pelvis wo/w con Stat 06/15/25 05:24 US RUQ [US liver] Urgent 06/15/25 06:11 US duplex portal hepatic veins Stat 06/15/25 08:36 CT angio chest PE protocol Stat 06/15/25 08:37 US venous duplex leg [US venous doppler LE BI] Stat 06/15/25 09:58 CT hip LT wo con Stat 06/15/25 16:38 CTA abdomen pelvis w con [CT angio abdomen pelvis w con] Stat 06/17/25 US arterial duplex LE BI Urgent Hospital Course (1) Closed fracture of left hip: (2) Chronic disease anemia: (3) Panic disorder: (4) CKD (chronic kidney disease), stage III: Plan 80-year-old lady with PMH of HDL, stage IIIa CKD, osteoporosis, panic disorder who presented with a mechanical fall and left hip fracture underwent hip repair 06/14 in the hospital. She was hypotensive after the repair and was moved to ICU (from PACU) in the night of 06/14 - 06/15. She became progressively hypotensive while in ICU and then unresponsive, she was immediately intubated in ICU. She progressed into bradycardia and cardiac arrest at 0237 hrs. of 06/15, received 2 rounds of CPR, epinephrine with ROSC at 0241 hrs. She was being managed for the following: Cardiac arrest (06/15/2025, ROSC after 5 minutes, PEA arrest) Disseminated intravascular coagulation, PE, DVT Acute blood loss anemia, ISO postoperative blood loss complicated by DIC Hypoxic respiratory failure: Intubated 06/15/2025 Severe refractory shock with multiorgan failure, renal failure, shock liver, severe metabolic acidosis with lactic acidosis Acute cholecystitis Pt was undergoing dialysis today and went in arrhythmia (afib w/ RVR) and profoundly hypotensive. After discussion between Family and ICU attending, family proceeded with wishes of comfort care for the patient, patient was transitioned to comfort care measures only status and terminally extubated. Pt soon in peace. Family members were present at bedside, I offered condolences. Date and Time of 06/17/2025 at 1546 hours. Cause of : Refractory shock with multiorgan failure 2/2 Disseminated in travascular coagulation 2/2 Cardiac arrest 2/2 Hypotension likely 2/2 perioperative blood loss post Left femoral fracture repair Home Health Attestation I certify that this patient is under my care and that I, or a physicians assistant county attorney working with me, had a face to-face encounter that meets the home health [id number] encounter requirements with this patient. The encounter with the patient was in whole, or in part, for the following medical condition, which is the primary reason for home health care (list medical condition): I certify that, based on my findings, the following services are medically necessary home health services: My clinical findings support the need for the above services because: Further, I certify that my clinical findings support that this patient is homebound (i.e. absences from home require considerable and taxing effort and ar e for medical reasons or episcopalian services or infrequently or of short duration when for other reasons) because: Certification for Home Health Services: Based on the above findings, I certify that this patient is confined to the home and needs intermittent care home care, physical therapy and/or speech therapy or continues to need occupational therapy. The patient is under my care, and I have initiated the establishment of the plan of care. This patient will be followed by a physician who will periodically review the plan of care. Total Time Total Time Spent Total Time Spent (In Minutes): 45 Discharge Plan Discharge Items Patient Disposition: Reason For Visit: HIP FRACTURE Condition on Discharge: Fair Follow-up/Referrals: Maria Luz Condon DO [Primary Care Provider] - Medications and DC Order Prescriptions: No Action clonazepam 1 mg tablet 1 mg PO TID PRN (Reason: Anxiety) rosuvastatin 20 mg tablet 20 mg PO QAM tramadol 50 mg Tablet 50 mg PO Q6H PRN (Reason: pain,moderate) prochlorperazine maleate 5 mg Tablet 5 mg PO Q6 PRN (Reason: Nausea) meloxicam 7.5 mg Tablet 7.5 mg PO QAM PRN (Reason: pain ) meclizine 12.5 mg Tablet 12.5 mg PO TID PRN (Reason: Dizziness) Admission Data Admit Date/Time: 06/13/25 19:55 Attending Provider: Emory Herrera Admit Provider: Shiv Box Primary Care Provider: Maria Luz Condon Other Providers: Shiv Box; Abrahan Murphy; Maciel Lopez; Silvino Liu; Matt Garcia
[2025-06-17] MEDS ORDERED: MIDAZOLAM HCL 5 MG/ML 2ML VIAL IV ONE (17:56)
[2025-06-17] MEDS ORDERED: SODIUM CHLORIDE 0.9% 10ML FLUSH IV ONE (17:56)
[2025-06-17] MEDS ORDERED: SODIUM BICARB 8.4% INJ 50 MEQ/50 ML SYR IV ONE (17:56)
[2025-06-17] MEDS ORDERED: SODIUM CHLOR 7% 4 ML NEB NEB SCH (19:00)
--- NOTE | 2025-06-17 22:22 | Electrocardiogram Report ---
Test Reason : Blood Pressure : */* mmHG Vent. Rate : 168 BPM Atrial Rate : * BPM P-R Int : * ms QRS Dur : 74 ms QT Int : 256 ms P-R-T Axes : * 34 114 degrees QTcB Int : 427 ms Atrial fibrillation with rapid ventricular response Low voltage QRS Nonspecific T wave abnormality Abnormal ECG When compared with ECG of 16-Jun-2025 13:38, (unconfirmed) Atrial fibrillation has replaced Sinus rhythm Confirmed by Star Vazquez ([id number]) on 06/17/2025 10:22:05 PM Referred By: REFERRED SELF Confirmed By: Star Vazquez
--- NOTE | 2025-06-17 22:23 | Electrocardiogram Report ---
Test Reason : Blood Pressure : */* mmHG Vent. Rate : 124 BPM Atrial Rate : 138 BPM P-R Int : 192 ms QRS Dur : 76 ms QT Int : 306 ms P-R-T Axes : 73 22 70 degrees QTcB Int : 439 ms Sinus tachycardia with Premature atrial complexes Low voltage QRS Nonspecific T wave abnormality Abnormal ECG When compared with ECG of 14-Jun-2025 22:25, (unconfirmed) No significant change was found Confirmed by Star Vazquez ([id number]) on 06/17/2025 10:22:29 PM Referred By: REFERRED SELF Confirmed By: Star Vazquez
--- NOTE | 2025-06-17 23:43 | Electrocardiogram Report ---
Test Reason : Blood Pressure : */* mmHG Vent. Rate : 137 BPM Atrial Rate : 137 BPM P-R Int : 136 ms QRS Dur : 74 ms QT Int : 278 ms P-R-T Axes : 81 23 93 degrees QTcB Int : 419 ms Sinus tachycardia with Premature atrial complexes Low voltage QRS Nonspecific ST and T wave abnormality Abnormal ECG When compared with ECG of 13-Jun-2025 19:05, (unconfirmed) Premature atrial complexes are now Present Vent. rate has increased by 64 bpm Confirmed by Star Vazquez ([id number]) on 06/17/2025 11:43:08 PM Referred By: REFERRED SELF Confirmed By: Star Vazquez
--- NOTE | 2025-06-18 05:27 | Electrocardiogram Report ---
Test Reason : Blood Pressure : */* mmHG Vent. Rate : 73 BPM Atrial Rate : 73 BPM P-R Int : 172 ms QRS Dur : 80 ms QT Int : 382 ms P-R-T Axes : 59 39 71 degrees QTcB Int : 420 ms Normal sinus rhythm Low voltage QRS Nonspecific T wave abnormality Abnormal ECG When compared with ECG of 22-Jul-2020 08:14, Borderline criteria for Inferior infarct are no longer Present Confirmed by Star Vazquez ([id number]) on 06/18/2025 5:27:28 AM Referred By: REFERRED SELF Confirmed By: Star Vazquez
[2025-06-19 17:27] LABS: Plt Ab, Heparin Induced Negative (Negative)
--- NOTE | 2025-07-03 19:17 | Procedure Note ---
Procedure Note Date of Service June 15, 2025 *This is a late entry for procedure performed 06/15/2025* INTUBATION PROCEDURE NOTE: APC/Proceduralist: Nataly Pate PA-C. Attending: Dr. Fitz Maradiaga A time-out was completed verifying correct patient, procedure, site, positioning. Patient was evaluated and required intubation for inability to protect airway. Emergent consent was implied given patients rapidly declining clinical status and need for airway protection. The patient was prepared in the appropriate fashion. Sedation was achieved, see RSI sheet for details, per Dr. Maradiaga administration. The patient was easily ventilated using [id number] to achieve adequate oxygenation. A 7.5Fr Yoruba endotracheal tube was placed under video laryngoscopy to 17 cm at the lip. The stylette was removed and balloon was inflated with 10mL of air. Appropriate Colorimetric change was appreciated. Bilateral breath sounds were heard without air sounds in the abdomen. Dr. Urena was present for the entire procedure. Post Intubation Chest X-ray confirms placement without pneumothorax. Patient tolerated the procedure well and there were no immediate complications. [facility] [place]odes (Charges) Indication for Procedure Indication for procedure: Respiratory failure Resuscitation Resuscitation: 31534 Endotracheal Intubation, emergency Ventilator Management Ventilator Managment: [id number] Ventilation assist and management; Hospital inpt/obs, intl day Coding CPT Codes Ventilator Management - Ventilator Managment: [id number] Ventilation assist and management; Hospital inpt/obs, intl day ([id number]) Resuscitation - Resuscitation: [id number] Endotracheal Intubation, emergency ([id number]) Additional Codes Date of Service ([email or web address])
== END 2025-06-17 17:57 | disposition expired | DRG 521 ==
LOC: ED 17:48 → 2W 19:55 → SUATTDRO 19:55 → 2W 21:50 → 1E 06-14 21:37